=== PATIENT | female | born 1960 | race Caucasian/White ===

== ENCOUNTER 2020-03-29 15:06 | Emergency (ER) | payer OTHER ==
[2020-03-29] MEDS ORDERED: MORPHINE 4 MG/ML SYR ONE (16:30)
[2020-03-29] MEDS ORDERED: ONDANSETRON 4 MG/2 ML VIAL ONE (16:30)
[2020-03-29 16:42] LABS: Absolute Lymphocytes (CBC) 2.5 K/uL (0.7-4.9); Basophils % 0.7 % (0-1.3); Hematocrit 39.6 % (36.0-45.0); Lymphocytes % 15.2 % (15.3-44.8); MPV 9.4 fL (7.6-11.3); RBC Red Blood Cell Count 4.36 M/uL (3.86-4.86)
[2020-03-29 17:03] LABS: ALT/SGPT 17 U/L (12-78); AST/SGOT 13 U/L (15-37); Albumin 3.8 g/dL (3.4-5.0); Alkaline Phosphatase 89 U/L (45-117); BUN Blood Urea Nitrogen 18 mg/dL (7-18); Bicarbonate 28 mmol/L (21-32); Bilirubin Direct < 0.1 mg/dL (0-0.2); Bilirubin Total 0.3 mg/dL (0.2-1.0); Glucose Level 164 mg/dL (74-106); Potassium 4.3 mmol/L (3.5-5.1); Protein, Total 8.6 g/dL (6.4-8.2); Sodium Level 139 mmol/L (136-145)
[2020-03-29 17:05] LABS: Urine Bacteria LOADED /HPF (<20); Urine Culture Reflex Order REFLEXED; Urine RBC LOADED /HPF (NONE SEEN)
--- OUTSIDE RECORDS SUMMARY | 2020-03-29 17:05 | XMS REPORT | Continuity of Care Document ---
:1960 Demographics Address [address] [place] [address] Home Phone Preferred Language en-US Marital Status Unknown Yazidi Affiliation Unknown Race Unknown Ethnic Group Unknown Author Organization [employer] Care Team Providers Name Role Phone [facility] [employer] Unavailable Un available Problems Problem Status Onset Classification Date Comments Sourc e Date Reported N18.9 - "CHRONIC Active 05/24/20 [facility] KIDNEY DISEASE, [address] UNSPEC" Discharge 04/22/20 04/25/2014 [facility] Diagnosis: [address] [place] [address] Center SOB, CHEST PAINS Active 04/22/20 [place] [id number] Medical Center ACUTE RENAL Active 04/11/20 [facility] FAILURE [address] [place] [address] Diabetes Resolved Problem 06/03/2017 [facility] mellitus Medical (disorder) Center, OPID [place] Hypertensive Resolved Problem 06/03/2017 [place] disorder, Medical systemic Center, arterial OP[facility] (disorder) [place] Psoriasis Resolved Problem 06/03/2017 [facility] (disorder) Medical Center, OPID [place] RENAL FAILURE Active [facility] as NOS Medical Center Medications Medication Details Route Status Patient Ordering Order Source Instructions Provider Date metoprolol Notes: (Same Inactive 04/22[facility] s tartrate as: Lopressor) [address] [place] [address] Acetaminophen 1 tab, Route: Inactive 04/22[facility] [place] 325 MG / PO, Dosing 2014 [facility] Hydrocodone Weight 112.727, Cent er Bitartrate 5 MG kg, ONCE, Start Oral Tablet date: 04/22/14 [[place] 5/325] 12:10:00, Stop date: 04/22/14 12:10:00 ciprofloxacin 500 mg = 1 tab, Active 04/18[facility] [place] 500 mg oral PO, Daily, # 5 2014 Medic al tablet tab, 0 Center Refill(s) Insulin Syringes 1 syr, INJ, Active 04/17[facility] U 30 31 ga ONCALL, # 100 2014 Medical (ultra fine) syr, 0 Center Refill(s) POLYETHYLENE 17 gm, PO, Active 04/17[facility] GLYCOL 3350 142 Daily, 2014 Medical MG/ML Oral Constipation, # Cente r Solution 255 gm, 0 [Miralax] Refill(s) Insulin Aspart Special Active 07/05[facility] 100 unit/ml - Instructions: 2013 Medi cristian (Starting CD) Check blood Center sugar before breakfast, lunch, and dinner, and inject correction doses: Inject 1 unit if Sugar 150-199, Inject 2 units if Sugar 200-249, Inject 3 units if Sugar 250-299, Inject 4 units if Sugar 300-349, Inject 5 units if Sugar is 350 or more D[place]ate Sodium 1 tab, PO, Active [place] 50 MG / Bedtime, 2013 Medical sennosides, S[facility]IOR [facility]ARE Constipation, # Center 8.6 MG Oral 30 tab, 0 Tablet Refill(s) simethicone 80 80 mg = 1 tab, Active [place] mg oral tablet, CHEW, TID, Gas, 2013 Medical chewable # 36 tab, 0 Center Refill(s) metoprolol 12.5 mg = [facility].5 [facility] mg tab, PO, Q12H, 2013 Ne dical oral tablet # 30 tab, 0 Center Refill(s) ergocalciferol 50,000 IntlUnit Active [facility] 50,000 intl = 1 cap, PO, 2013 Medical units oral Q7D, # 12 cap, Center capsule 0 Refill(s) Calcium 1,500 mg = 3 Active [facility] Carbonate 500 MG tab, CHEW, TID, 2013 Medical Chewable Tablet # 90 tab, 0 Cent er Refill(s) gabapentin 300 300 mg = 1 cap, Active [place] MG Oral Capsule PO, Bedtime, # 2014 M edical 30 cap, 0 Center Refill(s) Lasix Notes: (Same Inactive [facility] as: Lasix) 2013 Medical Center Simethicone Notes: (Same No Longer [place] as: Mylicon) Active 2013 Medical Center Lasix Notes: (Same Inactive [facility] as: Lasix) 2013 Medical [place] Vitamin D Notes: (Same No Longer [place] as: Vitamin D) Active 2013 Medical "Do Not Crush" Center Cipro Notes: May No Longer [facility] interfere Active 2013 Medical w/enteral Center feedings - Take 1 hr before or 2 hrs after antacids, dairy pdt & minerals. On empty stomach. Tylenol Notes: Do not No Longer [place] exceed 4 Active 2013 Medical gm/day. (Same Center as: Tylenol) metoprolol Notes: (Same No Longer [place] as tartrate as: Lopressor) Active 2013 Medical 12.5mg=1/4 X 50 Center mg tab. Calcium 3,000 mg, 30 Inactive [place] Gluconate mL, Route: 2013 Medical IVPB, ONCE, Center Dosing Weight 115.004, kg, Priority: NOW, Start date: 04/15/14 8:40:00, Stop date: 04/15/14 8:40:00 Calcium Chloride 1,000 mg, Inactive [place] Route: IVPB, 2013 Medical ONCE, Dosing Center Weight 115.004, kg, Priority: NOW, Start date: 04/15/14 7:42:00, Stop date: 04/15/14 7:42:00 Magnesium 2 gm, 50 mL, Inactive [place] Sulfate Route: IVPB2013 Medical Drug form: INJ, Center ONCE, Dosing Weight 115.004, kg, Total dose = 2 gm, Start date: 04/15/14 4:23:00, Duration: 1 doses or times, Stop date: 04/15/14 4:23:00 Tums Notes: (Same No Longer [facility] As: Tums) Active 2013 Medical Calcium Center Carbonate 500 mg = 200 mg elemental calcium Dose = mg calcium carbonate ( mg elemental calcium) Atropine Sulfate Notes: (Same No Longer [place] 0.025 MG / As: Lomotil) Active 2013 Medical Diphenoxylate MAX Adult dose [address] ter Hydrochloride = 8 tabs/day 2.5 MG Oral Tablet [Lomotil] Magnesium 2 gm, 50 mL, Inactive [place] Sulfate Route: IVPB2013 Medical Drug form: INJ, Center ONCE, Dosing Weight 115.004, kg, Priority: NOW, Start date: 04/14/14 11:23:00, Duration: 2 hr, Stop date: 04/14/14 11:23:00 Calcium Chloride 1,000 mg, 10 Inactive [place] mL, Route: 2013 Medical IVPB, ONCE, Center Dosing Weight 115.004, kg, Priority: STAT, Start date: 04/14/14 11:23:00, Stop date: 04/14/14 11:23:00 Ambien Notes: (Same No Longer [place] As: Ambien) Active 2013 [facility] Atropine Sulfate Notes: (Same No Longer [place] 0.025 MG / As: Lomotil) Active 2013 Medical Diphenoxylate MAX Adult dose [address] Hydrochloride = 8 tabs/day 2.5 MG Oral Tablet [Lomotil] Pneumovax 23 Notes: (Same Inactive [place] as: Pneumovax 2013 Medical 23) [place] Refrigerate gabapentin 300 Notes: (Same No Longer [place] MG Oral Capsule as: Neurontin) Active [address] [facility] Paroxetine Notes: (Same No Longer [place] as: Paxil) Active 2013 [facility] gabapentin 300 Notes: (Same Inactive [place] MG Oral Capsule as: Neurontin) [address] [facility] heparin, porcine Notes: porcine No Longer [place] heparin Active 2013 [facility] pneumococcal Notes: (Same Inactive [place] capsular as: Pneumovax 2014 Medical polysaccharide 23) Center type 1 vaccine / Refrigerate pneumococcal capsular polysaccharide type 10A vaccine / pneumococcal capsular polysaccharide type 11A vaccine / pneumococcal capsular polysaccharide type 12F vaccine / pneumococcal capsular polysacchar NS 2,000 mL 2,000 mL, Rate: Inactive [place] 1,000 ml/hr, 2013 Medical Infuse over: 2 Center hr, Route: IV, Dosing Weight 115.004 kg, Total Volume: 2,000, Start date: 04/12/14 8:45:00, Duration: 1 doses or times, Stop date: 04/12/14 10:44:00 NS 0.45% IV 1,000 mL, Rate: No Longer [place] 1,000 mL 150 ml/hr, Active 2013 Medical Infuse over: Center 6.7 hr, Route: IV, Dosing Weight 115.004 kg, Total Volume: 1,000, Start date: 04/12/14 8:45:00, Duration: 30 day, Stop date: 05/12/14 8:44:00 Magnesium 1 gm, 50 mL, Inactive [place] Sulfate Route: IVPB, 2013 Medical Drug form: INJ, Center ONCE, Dosing Weight 115.004, kg, Start date: 04/12/14 8:26:00, Stop date: 04/12/14 8:26:00 PARoxetine 40 mg 40 mg = 1 tab, Active [place] oral tablet PO, Daily, # 30 2013 Medi cristian tab, 0 Center Refill(s) lisinopril 20 mg 20 mg = 1 tab, No Longer [facility] oral tablet PO, Daily, # 30 Active 2013 [facility] cristian tab, 0 Center Refill(s) gabapentin 300 300 mg = 1 cap, No Longer [place] MG Oral Capsule PO, TID, # 90 Active 2013 Me dical cap, 0 Center Refill(s) Metformin 1,000 mg = 1 [place]er [place] hydrochloride tab, PO, BID, # Active 2013 Me dical 1000 MG Oral 30 tab, 0 Center Tablet Refill(s) Zofran Notes: (Same No Longer [place] as: Zofran) Active 2013 [facility] Calcium 2,000 mg, 20 Inactive [place] Gluconate mL, Route: 2013 Medical IVPB, ONCE, Center Dosing Weight 115.004, kg, Start date: 04/12/14 0:54:00, Stop date: 04/12/14 0:54:00 heparin, porcine Notes: porcine Inactive [place] heparin 2013 [facility] Dextrose 50% 12.5 gm, 25 mL, No Longer 04/12/ [facility] Syringe Route: IVP, Active 2013 Medical Drug Form: INJ, Center kg, PRN, PRN Blood Glucose Results, Start date: 04/11/14 23:28:00, Duration: 30 day, Stop date: 05/11/14 23:27:00 Insulin, Aspart, Notes: Roll in No Longer [place] Human palms of hands Active 2013 Medical gently; Do not Center shake vigorously. (Same as: NovoLOG) "single patient use only" Stable for 28 days at room temperature. Expires in days from D ate Glucagon 1 mg, Route: No Longer [place] IM, Drug form: Active 2013 Medical PDR/INJ, PRN, Center kg, PRN Blood Glucose Results, Start date: 04/11/14 23:28:00, Duration: 30 day, Stop date: 05/11/14 23:27:00 Lidocaine Notes: (Same [place] Longer [place] Hydrochloride 10 as: Xylocaine) Active 2013 Medical MG/ML Injectable Center Solution Dextrose 50% in 50 mL, Route: Inactive 04/12/ M [facility] [place] IV IVP, Start 2013 Medical date: 04/11/14 [place] 21:10:00, Stop date: 04/11/14 21:10:00 albuterol 0.083% Notes: SEE RT Inactive 04/12[facility] inhalation DOCUMENTATION 2013 Medical solution (Same as: [place] Proventil) Dextrose 50% in 50 mL, Route: Inactive 04/12/ H [place] IV IVP, Start 2013 Medical date: 04/11/14 [place] 21:01:00, Stop date: 04/11/14 21:01:00 Saline Flush Notes: (Same No Longer [facility] [place] 0.9% as: BD Active 2013 Medical Posiflush) [place] Albuterol 1 2.49 mg, Route: Inactive 04/12[facility] MG/ML Inhalant INHALATION, 2013 Medic al Solution Drug form: [place] SOLN, ONCE, kg, Start date: 04/11/14 20:54:00, Stop date: 04/11/14 20:54:00 Sodium Notes: (sodium Inactive 04/12[facility] Bicarbonate 1 bicarb 8.4% (1 2013 Med ical MEQ/ML mEq/ml) 50 ml [place] Injectable syringe) Solution Dextrose 50% 25 gm, Route: Inactive 04/12[facility] [place] Syringe IVP, kg, ONCE, 2013 Medical Start date: [place] 04/11/14 20:51:00, Stop date: 04/11/14 20:51:00 Dextrose 25 gm, Route: Inactive 04/12[facility] IVPB, ONCE, kg, 2013 Medical Start date: [place] 04/11/14 20:50:00, Stop date: 04/11/14 20:50:00 Insulin, 60 units) Inactive 04/12[facility] Regular, Pork Stable for 28 2013 cristian days at room Center temperature Expires in days from D ate sodium 850 mL, Rate: No Longer [facility] bicarbonate 150 150 ml/hr, Active 2013 Medic al mEq + D5W 850 mL Infuse over: Ce nter 6.7 hr, Route: IV, Total Volume: 1,000 mL, Start date: 04/11/14 20:09:00, Duration: 30 day, Stop date: 05/11/14 20:08:00 Sodium Chloride 1,000 mL, 1,000 Inactive [place] 0.154 MEQ/ML ml/hr, Infuse 2013 Medic al Injectable Over: 1 hr, Center Solution Route: IV, 1,000, Drug form: INJ, Q1H, Priority: STAT, kg, Start date: 04/11/14 19:55:00, Duration: 3 doses or times, Stop date: 04/11/14 21:55:00 Zofran Notes: (Same Inactive [facility] as: Zofran) 2013 [facility] Center Calcium 1,000 mg, 10 Inactive [place] Gluconate mL, Route: 2013 Medical IVPB, ONCE, kg, Center Start date: 04/11/14 19:40:00, Stop date: 04/11/14 19:40:00 Sodium Chloride 1,000 mL, 1,000 Inactive [place] 0.154 MEQ/ML ml/hr, Infuse 2013 Medic al Injectable Over: 1 hr, Center Solution Route: IV, ONCE, Priority: STAT, kg, Start date: 04/11/14 19:39:00, Duration: 1 doses or times, Stop date: 04/11/14 19:39:00 Sodium Notes: (sodium Inactive [facility] Bicarbonate 1 bicarb 8.4% (1 2013 Med ical MEQ/ML mEq/ml) 50 ml Center Injectable syringe) Solution normal saline 1,000 mL, Rate: Inactive H [place] 0.9% IV 1,000 mL 100 ml/hr, 2013 Medi cristian Infuse over: 10 Center hr, Route: IV, Total Volume: 1,000, Start date: 04/11/14 19:09:00, Duration: 30 day, Stop date: 05/11/14 19:08:00 Saline Flush Notes: (Same No Longer [place] 0.9% as: BD Active 2013 Medical Posiflush) Center Allergies, Adverse Reactions, Alerts No Known Medication Allergies Immunizations Immunization Date Site Status Last Comments Source Given Updated pneumococcal Left completed Angus Thrasher s 23-valent [facility] [place] Results Order Name Results Value Reference Date Interpretation Comments [place] r[place] Range URINE AND UA Spec Grav 1.015 <=1.030 04/22 [facility] STOOL [facility] URINE AND UA Color Yellow Yellow 04/22 [facility] STOOL *NA* /2013 Medical (04/22/14 10:45 AM) Cente r URINE AND UA Turbidity Clear Clear 04/22 [facility] [place] [facility] (04/22/14 10:45 AM) [facility] URINE AND UA Ketones Negative Negative 04/22 [facility] STOOL *NA* /2013 Medical (04/22/14 10:45 AM) Cente r URINE AND UA pH 7.5 5.0 - 8.0 04/22 [facility] [place] [facility] URINE AND UA Protein Trace Negative 04/22 [facility] STOOL *ABN* /2013 Medical (04/22/14 10:45 AM) Cente r URINE AND UA Glucose Negative Negative 04/22 [facility] [place] [facility] (04/22/14 10:45 AM) [facility] URINE AND UA Bili Negative Negative 04/22 [facility] [place] [facility] *NA* /2013 Medical (04/22/14 10:45 AM) Cente r URINE AND UA Blood Negative Negative 04/22 [facility] [place] [facility] (04/22/14 10:45 AM) [facility] URINE AND UA 0.2 0.1 - 1.0 04/22 [facility] [place] [facility] Urobilinogen /2013 [facility] URINE AND UA Leuk Est Trace Negative 04/22 [facility] STOOL *ABN* /2013 Medical (04/22/14 10:45 AM) Cente r URINE AND UA Nitrite Negative Negative 04/22 [facility] [place] [facility] (04/22/14 10:45 AM) [facility] URINE AND UA RBC None Seen 0 - 2 04/22 [facility] [place] [facility] (04/22/14 10:45 AM) [facility] URINE AND UA Sq Epi Occasional Few /LPF 04/22 [facility] STOOL /LPF /2013 [facility] URINE AND UA WBC 0-2 /HPF None Seen 04/22 [facility] STOOL /HPF /2013 [facility] URINE AND Micro? Performed 04/22 [facility] STOOL (04/22/14 10:45 AM) [facility] URINE AND UA Bacteria None Seen None Seen 04/22 [place] STOOL (04/22/14 10:45 AM) [facility] CARDIAC Troponin-I <0.02 0.00 - 04/22 [facility] ENZYMES 0.40 /2013 [facility] ELECTROLYTE AGAP 13.3 10.0 - 04/22 [facility] S 20.0 [facility] ELECTROLYTE eGFR 25 04/22 <sup>1</sup>R [place] [facility] Comment: The Center eGFR is calculated using the CKD-EPI formula. In most young, healthy individuals the eGFR will be >90 mL/min/1.73m2 . The eGFR declines with age. An eGFR of 60-89 may be normal in some populations, particularly the elderly, for whom the CKD-EPI formula has not been extensively validated. Use of the eGFR is not recommended in the following populations:& lt;br/>
I ndividuals with unstable creatinine concentration s, including patients and those with serious co-morbid conditions.<b r/>
Patie nts with extremes in muscle mass or diet.

The data above are obtained from the National Kidney Disease Education Program (NKDEP) which additionally recommends that when the eGFR is used in patients with extremes of body mass index for purposes of drug dosing, the eGFR should be multiplied by the estimated BMI. ELECTROLYTE Calcium Lvl 8.5 8.5 - 10.5 04/22 [place] [facility] ELECTROLYTE CO2 24 24 - 32 04/22 S [facility] ELECTROLYTE Chloride Lvl 110 95 - 109 04/22 [place] [facility] ELECTROLYTE Potassium Lvl 4.3 3.5 - 5.1 04/22 [place] [facility] ELECTROLYTE BUN 26 7 - 22 04/22 [facility] ELECTROLYTE Creatinine 2.2 0.5 - 1.4 04/22 [place] S L[place] [facility] ELECTROLYTE Sodium Lvl 143 135 - 145 04/22 [place] [facility] ELECTROLYTE Glucose Lvl 124 70 - 99 04/22 <sup>2</sup>I MH nterpretive Medical Data: Adult Center reference range values reflect the clinical guidelines
of the [place] [employer]. HEMATOLOGY Basophils # 0.0 0.0 - 0.2 04/22 [facility] HEMATOLOGY Eosinophils # 0.2 0.0 - 0.5 04/22 [facility] HEMATOLOGY Segs-Bands # 6.8 1.5 - 8.1 04/22 [facility] HEMATOLOGY Lymphocytes # 1.6 1.0 - 5.5 04/22 [facility] HEMATOLOGY Basophils 0.2 0.0 - 1.0 04/22 [facility] HEMATOLOGY Monocytes # 0.6 0.0 - 0.8 04/22 [facility] HEMATOLOGY Monocytes 6.1 2.0 - 12.0 04/22 [facility] HEMATOLOGY Eosinophils 2.1 0.0 - 4.0 04/22 [facility] HEMATOLOGY Lymphocytes 17.1 20.0 - 04/22 40.0 Medical [place] HEMATOLOGY Segs 74.5 45.0 - 04/22 75.0 [facility] HEMATOLOGY MCH 28.3 27.0 - 07 31.0 [facility] HEMATOLOGY MPV 7.5 7.4 - 10.4 04/22 [facility] HEMATOLOGY MCV 87.2 81.0 - 04/22 99.0 /2013 [facility] HEMATOLOGY Platelet 303 133 - 450 04/22 [facility] HEMATOLOGY RDW 14.4 11.5 - 07 14.5 [facility] HEMATOLOGY MCHC 32.5 32.0 - 07 36.0 [facility] HEMATOLOGY Hct 22.3 36.0 - 07 48.0 /2013 [facility] HEMATOLOGY Hgb 7.2 12.0 - 07 16.0 [facility] HEMATOLOGY RBC 2.56 4.20 - 07 5.40 [facility] HEMATOLOGY WBC 9.2 3.7 - 10.4 07 [facility] Center BLOOD BANK ABO/Rh O POS 04/17 RESULTS [facility] Center BLOOD BANK Antibody Scrn Negative 04/17 as RESULTS (04/17/14 10:30 AM) [facility] BLOOD BANK RBC product Product available 04/17 [facility] RESULTS (04/17/14 8:58 AM) [facility] CHEM PANEL eGFR 8 04/17 <sup>1</sup>R esult Medical Comment: The Center eGFR is calculated using the CKD-EPI formula. In most young, healthy individuals the eGFR will be >90 mL/min/1.73m2 . The eGFR declines with age. An eGFR of 60-89 may be normal in some populations, particularly the elderly, for whom the CKD-EPI formula has not been extensively validated. Use of the eGFR is not recommended in the following populations:& lt;br/>
I ndividuals with unstable creatinine concentration s, including patients and those with serious co-morbid conditions.<b r/>
Patie nts with extremes in muscle mass or diet.

The data above are obtained from the National Kidney Disease Education Program (NKDEP) which additionally recommends that when the eGFR is used in patients with extremes of body mass index for purposes of drug dosing, the eGFR should be multiplied by the estimated BMI. CHEM PANEL Calcium Lvl 7.9 8.5 - 10.5 04/17 [facility] CHEM PANEL CO2 22 24 - 32 04/17 [facility] CHEM PANEL Chloride Lvl 108 95 - 109 04/17 [facility] CHEM PANEL BUN 57 7 - 22 04/17 [facility] CHEM PANEL Glucose Lvl 83 70 - 99 04/17 <sup>4</sup>I nterpretive Medical Data: Adult Center reference range values reflect the clinical guidelines
of the [place] [employer]. CHEM PANEL Creatinine 5.9 0.5 - 1.4 04/17 [facility] CHEM PANEL Sodium Lvl 144 135 - 145 04/17 [facility] CHEM PANEL Potassium Lvl 4.3 3.5 - 5.1 04/17 [facility] CHEM PANEL AGAP 18.3 10.0 - 04/17 20.0 [facility] HEMATOLOGY MPV 8.5 7.4 - 10.4 04/17 [facility] HEMATOLOGY Platelet 242 133 - 450 07/ [facility] HEMATOLOGY RDW 14.1 11.5 - 07 14.5 [facility] HEMATOLOGY WBC 8.1 3.7 - 10.4 07 [facility] HEMATOLOGY RBC 2.17 4.20 - 07 5.40 /2013 [facility] HEMATOLOGY MCHC 33.8 32.0 - 07/ 36.0 /2013 [facility] HEMATOLOGY MCH 30.4 27.0 - 07 31.0 /2013 [facility] HEMATOLOGY Hgb 6.6 12.0 - 07 <sup>15</sup> [place] 16.0 Result Medical Comment: Center Critical Result(s) called to Mark Moreno at 04/17/2014 08:44 by CN. Read back OK. HEMATOLOGY MCV 89.8 81.0 - 07 99.0 /2013 [facility] HEMATOLOGY Hct 19.5 36.0 - 07 48.0 [facility] HEMATOLOGY Monocytes 10.4 2.0 - 12.0 07/ [facility] HEMATOLOGY Lymphocytes 24.0 20.0 - 07 40.0 /2013 [facility] HEMATOLOGY Segs 63.3 45.0 - 0705 75.0 /2013 [facility] HEMATOLOGY Lymphocytes # 1.9 1.0 - 5.5 07 [facility] HEMATOLOGY Monocytes # 0.8 0.0 - 0.8 07 [facility] HEMATOLOGY Eosinophils # 0.2 0.0 - 0.5 04/17 [facility] HEMATOLOGY Segs-Bands # 5.1 1.5 - 8.1 07 [facility] HEMATOLOGY Basophils 0.2 0.0 - 1.0 07/ [facility] HEMATOLOGY Eosinophils 2.1 0.0 - 4.0 07 [facility] CHEM PANEL Lactic Acid 1.9 0.5 - 2.2 07 [place] L[place] [facility] ELECTROLYTE Potassium Lvl 5.4 3.5 - 5.1 04/16 [place] [facility] CHEM PANEL Phosphorus 5.6 2.5 - 4.5 07 [facility] CHEM PANEL Magnesium Lvl 2.1 1.8 - 2.4 04/16 [facility] CHEM PANEL eGFR 6 04/16 <sup>2</sup>R [facility] Medical Comment: The Center eGFR is calculated using the CKD-EPI formula. In most young, healthy individuals the eGFR will be >90 mL/min/1.73m2 . The eGFR declines with age. An eGFR of 60-89 may be normal in some populations, particularly the elderly, for whom the CKD-EPI formula has not been extensively validated. Use of the eGFR is not recommended in the following populations:& lt;br/>
I ndividuals with unstable creatinine concentration s, including patients and those with serious co-morbid conditions.<b r/>
Patie nts with extremes in muscle mass or diet.

The data above are obtained from the National Kidney Disease Education Program (NKDEP) which additionally recommends that when the eGFR is used in patients with extremes of body mass index for purposes of drug dosing, the eGFR should be multiplied by the estimated BMI. CHEM PANEL Potassium Lvl 5.3 3.5 - 5.1 04/16 [facility] CHEM PANEL Chloride Lvl 108 95 - 109 04/16 [facility] CHEM PANEL Creatinine 7.4 0.5 - 1.4 04/16 [facility] CHEM PANEL Sodium Lvl 142 135 - 145 04/16 [facility] CHEM PANEL Calcium Lvl 7.8 8.5 - 10.5 04/16 [facility] CHEM PANEL Glucose Lvl 112 70 - 99 04/16 <sup>5</sup>I nterpretive Medical Data: Adult Center reference range values reflect the clinical guidelines
of the [place] [employer]. CHEM PANEL CO2 18 24 - 32 04/16 [facility] CHEM PANEL BUN 66 7 - 22 04/16 [facility] CHEM PANEL AGAP 21.3 10.0 - 04/16 20.0 [facility] HEMATOLOGY MCHC 31.8 32.0 - 04/16 36.0 [facility] HEMATOLOGY RDW 14.5 11.5 - 04/16 [facility] 14.5 [facility] HEMATOLOGY Platelet 228 133 - 450 04/16 Medical [place] HEMATOLOGY MPV 8.8 7.4 - 10.4 04/16 [facility] HEMATOLOGY Hgb 7.1 12.0 - 04/16 16.0 /2013 [facility] HEMATOLOGY Hct 22.3 36.0 - 04/16 48.0 /2013 [facility] HEMATOLOGY MCH 28.9 27.0 - 04/16 31.0 [facility] HEMATOLOGY MCV 90.8 81.0 - 04/16 99.0 /2013 [facility] HEMATOLOGY WBC 8.6 3.7 - 10.4 04/16 [facility] HEMATOLOGY RBC 2.45 4.20 - 04/16 5.40 [facility] HEMATOLOGY Plt Morph Normal 04/16 [facility] (04/16/14 5:40 AM) [facility] HEMATOLOGY Lymphocytes 15.5 20.0 - 04/16 40.0 [facility] HEMATOLOGY Segs 71.4 45.0 - 04/16 75.0 [facility] HEMATOLOGY Monocytes 11.1 2.0 - 12.0 04/16 [facility] HEMATOLOGY Eosinophils 1.7 0.0 - 4.0 04/16 [facility] HEMATOLOGY Segs-Bands # 6.2 1.5 - 8.1 04/16 [facility] HEMATOLOGY Basophils 0.3 0.0 - 1.0 04/16 [facility] HEMATOLOGY Eosinophils # 0.1 0.0 - 0.5 04/16 [facility] HEMATOLOGY Monocytes # 1.0 0.0 - 0.8 04/16 [facility] HEMATOLOGY Lymphocytes # 1.3 1.0 - 5.5 04/16 [facility] HEMATOLOGY Polychrom Slight None Seen 04/16 [facility] (04/16/14 5:40 AM) [facility] CHEM PANEL Vitamin D, 21 30 - 100 04/15 <sup>7</sup>I [facility] 25-[place], nterpretive Medical Data: Center Reference range is based on recommendatio ns in the Endocrine<br/ >Society Clinical Practice Guideline (J Clin Endocrinol Metab
201 1;[id number] 0) CHEM PANEL Magnesium Lvl 1.8 1.8 - 2.4 04/15 [place] [facility] CHEM PANEL eGFR 5 04/15 <sup>3</sup>R esult Medical Comment: The Center eGFR is calculated using the CKD-EPI formula. In most young, healthy individuals the eGFR will be >90 mL/min/1.73m2 . The eGFR declines with age. An eGFR of 60-89 may be normal in some populations, particularly the elderly, for whom the CKD-EPI formula has not been extensively validated. Use of the eGFR is not recommended in the following populations:& lt;br/>
I ndividuals with unstable creatinine concentration s, including patients and those with serious co-morbid conditions.<b r/>
Patie nts with extremes in muscle mass or diet.

The data above are obtained from the National Kidney Disease Education Program (NKDEP) which additionally recommends that when the eGFR is used in patients with extremes of body mass index for purposes of drug dosing, the eGFR should be multiplied by the estimated BMI. CHEM PANEL BUN 65 7 - 22 04/15 [facility] CHEM PANEL Glucose Lvl 173 70 - 99 04/15 <sup>6</sup>I nterpretive Medical Data: Adult Center reference range values reflect the clinical guidelines
of the [place] [employer]. CHEM PANEL Sodium Lvl 136 135 - 145 04/15 [facility] CHEM PANEL Creatinine 8.4 0.5 - 1.4 04/15 [facility] CHEM PANEL Chloride Lvl 103 95 - 109 04/15 [facility] CHEM PANEL CO2 18 24 - 32 04/15 [facility] CHEM PANEL Calcium Lvl 7.1 8.5 - 10.5 04/15 [facility] CHEM PANEL AGAP 19.5 10.0 - 04/15 20.0 [facility] HEMATOLOGY Hct 21.6 36.0 - 04/15 [place] 48.0 [facility] HEMATOLOGY Hgb 7.2 12.0 - 04/15 16.0 [facility] PARATHYROID Ca Ion WB 0.90 1.05 - 07 <sup>8</sup>R [place] PROFILE 1. esult Medical Comment: Center Critical Result(s) called to Kristin Amador at 04/15/2014 03:11 by TH. Read back OK. PARATHYROID Ca Norm WB 0.86 1.05 - 04/15 <sup>9</sup>R [place] PROFILE 1 esult Medical Comment: Center Critical Result(s) called to Kristin Amador at 04/15/2014 03:11 by TH. Read back OK. URINE CHEM U Prot/Creat 1.1 04/14 [facility] URINE CHEM U Creatinine 71.3 04/14 <sup>10</sup> Interpretive Medical Data: No Center established reference ranges. URINE CHEM U Protein 79.4 04/14 <sup>11</sup> Interpretive Medical Data: No Center established reference ranges. ANEMIA Ferritin Lvl 400 5 - 204 04/14 [facility] ANEMIA TIBC 276 228 - 428 04/14 [facility] ANEMIA % [place] 35 12 - 57 04/14 [facility] ANEMIA UIBC 180 110 - 370 04/14 [facility] ANEMIA Iron 96 30 - 160 04/14 [facility] CHEM PANEL Phosphorus 5.7 2.5 - 4.5 04/14 [facility] CHEM PANEL Magnesium Lvl 1.3 1.8 - 2.4 04/14 [facility] HEMATOLOGY MCHC 34.1 32.0 - 07 36.0 /2013 [facility] HEMATOLOGY MCH 30.3 27.0 - 07 31.0 /2013 [facility] HEMATOLOGY MCV 88.8 81.0 - 04/14 99.0 [facility] HEMATOLOGY Platelet 181 133 - 450 04/14 [facility] HEMATOLOGY RDW 14.1 11.5 - 04/14 14.5 /2013 [facility] HEMATOLOGY MPV 8.5 7.4 - 10.4 04/14 [facility] HEMATOLOGY RBC 2.35 4.20 - 04/14 [place] 5.40 /2013 [facility] HEMATOLOGY WBC 7.3 3.7 - 10.4 04/14 [facility] HEMATOLOGY Segs 80.2 45.0 - 07 [place] 75.0 /2013 [facility] HEMATOLOGY Eosinophils # 0.1 0.0 - 0.5 04/14 [facility] HEMATOLOGY Monocytes # 0.6 0.0 - 0.8 07 [facility] HEMATOLOGY Lymphocytes # 0.8 1.0 - 5.5 04/14 [facility] HEMATOLOGY Segs-Bands # 5.9 1.5 - 8.1 04/14 [facility] HEMATOLOGY Basophils 0.2 0.0 - 1.0 04/14 [facility] HEMATOLOGY Eosinophils 1.0 0.0 - 4.0 04/14 [facility] HEMATOLOGY Monocytes 7.9 2.0 - 12.0 04/14 [facility] HEMATOLOGY Lymphocytes 10.7 20.0 - 04/14 [facility] 40.0 [facility] THYROID T4 Free 0.83 0.76 - 04/14 [facility] PANEL 1.46 /2013 [facility] THYROID TSH 0.261 0.360 - 04/14 [facility] PANEL 3.740 /2013 [facility] URINE AND UA <=1.0 0.1 - 1.0 04/14 [facility] [place] [facility] Urobilinogen mg/dL /2013 [facility] URINE AND UA Nitrite Negative Negative 04/14 [facility] [place] [facility] (04/14/14 9:27 AM) [facility] URINE AND UA Leuk Est Moderate Negative 04/14 [facility] [place] [facility] *ABN* /2013 [facility] (04/14/14 9:27 AM) [place] URINE AND UA Sq Epi Few /LPF Few /LPF 04/14 [facility] [place] [facility] URINE AND UA WBC 18 0 - 5 04/14 [facility] URINE AND UA Blood Small Negative 04/14 [facility] STOOL *ABN* /2013 [facility] (04/14/14 9:27 AM) [place] URINE AND UA Spec Grav 1.006 <=1.030 04/14 [facility] [place] [facility] URINE AND UA Bacteria Many /HPF None Seen 04/14 [place] STOOL /HPF /2013 [facility] URINE AND UA RBC 1 0 - 2 04/14 [facility] URINE AND UA Amorph Few /HPF None Seen 04/14 [facility] STOOL Destiny /HPF /2013 [facility] URINE AND UA Mucus Few /LPF None Seen 04/14 [place] STOOL /LPF /2013 [facility] URINE AND UA Turbidity Slight Clear 04/14 [facility] STOOL *ABN* [facility] (04/14/14 9:27 AM) [place] URINE AND UA pH 5.0 5.0 - 8.0 04/14 [facility] [place] [facility] URINE AND UA Glucose Negative Negative 04/14 [facility] [place] [facility] mg/dL mg/dL [facility] URINE AND UA Protein 50 mg/dL Negative 04/14 [facility] STOOL mg/dL [facility] URINE AND UA Bili Negative Negative 04/14 [facility] [place] [facility] *NA* [facility] (04/14/14 9:27 AM) [place] URINE AND UA Ketones Negative Negative 04/14 [facility] [place] [facility] mg/dL mg/dL [facility] URINE AND UA Color Yellow Yellow 04/14 [facility] [place] [facility] *NA* [facility] (04/14/14 9:27 AM) [place] CHEM PANEL Phosphorus 6.2 2.5 - 4.5 04/13 [facility] PARATHYROID Ca Ion WB 0.96 1.05 - 04/13 [place] PROFILE 1. [facility] PARATHYROID Ca Norm WB 0.93 . - 04/13 [facility] PROFILE 1. [facility] CHEM PANEL Lactic Acid 1.9 0.5 - 2.2 04/12 [place] L[place] [facility] URINE AND UA <=1.0 0.1 - 1.0 04/12 [facility] [place] [facility] Urobilinogen mg/dL [facility] URINE AND UA Gran Cast 54 04/12 [facility] [place] [facility] URINE AND UA Hyal Cast 12 0 - 2 04/12 [facility] [place] [facility] URINE AND UA Mucus Few /LPF None Seen 04/12 [facility] STOOL /LPF /2013 [facility] URINE AND UA RBC 101 0 - 2 04/12 [facility] [place] [facility] URINE AND UA Bacteria Many /HPF None Seen 04/12 [place] STOOL /HPF [facility] URINE AND UA WBC 32 0 - 5 04/12 [facility] [place] [facility] URINE AND UA Color Yellow Yellow 04/12 [facility] STOOL *NA* Medical (04/12/14 10:34 AM) Cente r URINE AND UA pH 5.5 5.0 - 8.0 04/12 [facility] STOOL [facility] URINE AND UA Spec Grav 1.014 <=1.030 04/12 [facility] STOOL [facility] URINE AND UA Turbidity Marked Clear 04/12 [facility] STOOL *ABN* Medical (04/12/14 10:34 AM) Cente r URINE AND UA Glucose Negative Negative 04/12 [facility] STOOL mg/dL mg/dL [facility] URINE AND UA Protein 200 mg/dL Negative 04/12 [facility] STOOL mg/dL [facility] URINE AND UA Bili Negative Negative 04/12 [facility] STOOL *NA* /2013 Medical (04/12/14 10:34 AM) Cente r URINE AND UA Blood Large Negative 04/12 [facility] STOOL *ABN* Medical (04/12/14 10:34 AM) Cente r URINE AND UA Nitrite Negative Negative 04/12 [facility] STOOL (04/12/14 10:34 AM) Medic [facility] URINE AND UA Sq Epi Many /LPF Few /LPF 04/12 [facility] URINE AND UA Leuk Est Large Negative 04/12 [facility] STOOL *ABN* Medical (04/12/14 10:34 AM) Cente r URINE AND UA Ketones Negative Negative 04/12 [facility] STOOL mg/dL mg/dL [facility] URINE CHEM U Sodium 50 04/12 <sup>12</sup> [facility] Interpretive Medical Data: No Center established reference ranges. URINE CHEM U Potassium 17.4 04/12 <sup>13</sup> Interpretive Medical Data: No Center established reference ranges. URINE CHEM U Chloride 45 04/12 [facility] URINE CHEM U Osmolality 301 300 - 800 04/12 [place] [facility] MOLECULAR C difficile Negative 18 Negative 04/12 <sup>18</sup> [facility] DIAGNOSTIC DNA (04/12/14 5:30 AM) Interpretiv e Medical Data: [place] PicRate[employer]Me illumigene Clostridium difficile assay utilizes loop-mediated isothermal DNA amplification (LAMP) technology to detect a 204 bp region of the tcdA gene within the PaLoc gene segment present in all known toxigenic C. difficile strains.

The assay utilizes FDA cleared IVD reagents. Performance characteristi cs have been verified by the [facility] within the [facility]. The [facility] Laboratory is authorized under the Clinical Laboratory Improvement Amendment of 1988 (CLIA-88) to perform high complexity testing. CHEM PANEL Osmolality 317 280 - 300 04/12 [facility] CHEM PANEL Lactic Acid 4.5 0.5 - 2.2 04/12 [facility] PARASITOLOG Giardia Ag Negative Negative 04/12 [facility] s Y - (04/12/14 5:30 AM) Medica l SEROLOGY Center PARATHYROID Ca Norm WB 0.95 1. - 04/12 [facility] PROFILE 11.07 [facility] PARATHYROID Ca Ion WB 0.98 1. - 04/12 [facility] PROFILE 11.07 [facility] IMMUNOLOGY Hep B Core Negative Negative 04/12 [facility] IgM *NA* Medical (04/12/14 1:35 AM) [place] IMMUNOLOGY Hep Bs Ab 11.0 <=7.4 04/12 <sup>14</sup> [place] mIU/mL Interpretive Medical Data: <=7.4 Center mIU/mL------- -Negative for Anti-HBs. Not immune to HBV infection.

7.5-12 .4 mIU/mL--Borde rline for Anti-HBs and immune status
sh ould be further assessed by considering other factors such
as clinical status follow-up testing, associated risk factors,
and the use of additional diagnostic information.< br/>
>12. 4 mIU/mL------- Positive for Anti-HBs. Immune to HBV infection IMMUNOLOGY Hep Bs Ag Negative Negative 04/12 [place] *NA* Medical (04/12/14 1:35 AM) [place] IMMUNOLOGY Hep B Core Ab Positive Negative 04/12 [place] *NA* Medical (04/12/14 1:35 AM) [place] BACTERIAL - MRSA by PCR Negative 19 04/12 <sup>19</sup > [facility] SEROLOGY (04/12/14 12:22 AM) Interpretive Medical Data: Center Interpretive Data: The [place] LightC[employer] MRSA assay is a qualitative test for the direct detection of nasal colonization with methicillin-r esistant Staphylococcu s aureus (MRSA) to aid in the prevention and control of MRSA infections in healthcare settings. A positive result does not indicate an infection or require treatment. A negative result does not exclude colonization or infection.

The polymerase chain reaction (PCR) assay detects a proprietary sequence indicative of the integration of the SCCmec cassette into the Staphylococcu s aureus chromosome, indicating the presence of MRSA DNA. The assay utilizes FDA cleared IVD reagents. Performance characteristi cs have been verified by the [facility] within the [facility]. The [facility] is authorized under the Clinical Laboratory Improvement Amendment of 1988 (CLIA-88) to perform high complexity testing. CHEM PANEL Procalcitonin 0.55 0.00 - 04/12 [place] L[place] 0.10 [facility] ENDOCRINOLO S Preg Negative Negative 04/12 [facility] GY *NA* /2013 Medical (04/11/14 10:11 PM) Cente r LIPIDS VLDL 47 04/12 [facility] LIPIDS LDL 48 <=99 mg/dL 04/12 [facility] (Calculated) [facility] LIPIDS Trig 235 <=149 04/12 [place] mg/dL [facility] LIPIDS Chol 133 <=199 04/12 [place] mg/dL /2013 [facility] LIPIDS HDL 38 >=61 mg/dL 04/12 [facility] LIPIDS CHD Risk 3.50 3.90 - 04/12 [place] 5.80 /2013 [facility] CARDIAC Total CK 134 12 - 191 04/12 [place] ENZYMES [facility] CARDIAC Total CK 134 12 - 191 04/12 [facility] ENZYMES [facility] CARDIAC Troponin-T <0.010 0.000 - 04/12 [facility] ENZYMES 0.100 [facility] CARDIAC Troponin-I <0.02 0.00 - 04/12 [facility] ENZYMES 0.40 [facility] CARDIAC CK-MB INDEX 2.3 0.0 - 2.5 04/12 [place] ENZYMES [facility] CARDIAC CK MB 3.1 0.5 - 3.6 04/12 [facility] ENZYMES [facility] CHEM PANEL A/G Ratio 0.9 0.7 - 1.6 04/12 [facility] CHEM PANEL Bili Total 0.2 0.2 - 1.3 04/12 [facility] CHEM PANEL Alk Phos 74 39 - 136 04/12 [facility] CHEM PANEL AST 35 0 - 37 04/12 [facility] CHEM PANEL Albumin Lvl 3.1 3.5 - 5.0 04/12 a s [facility] CHEM PANEL Globulin 3.5 2.0 - 4.0 04/12 [facility] CHEM PANEL ALT 55 0 - 65 04/12 [facility] CHEM PANEL Total Protein 6.6 6.4 - 8.4 04/12 [place] [facility] CHEM PANEL B/C Ratio 8 6 - 25 04/12 [facility] CHEM PANEL Lipase Lvl 1364 73 - 393 04/12 [facility] HEMATOLOGY PTT 32.5 22.9 - 04/12 <sup>17</sup> [place] 35.8 Interpretive Medical Data: [facility] Therapeutic Range: 57 - 92 [place] HEMATOLOGY INR 1.23 0.85 - 04/12 <sup>16</sup> [facility] s 1.17 Interpretive Medical Data: Center RECOMMENDED RANGES FOR PROTIME INR:
2.0-3.0 for most medical and surgical thromboemboli c states.
2.5-3.5 for artificial heart valves and recurrent embolism.<br/ >
INR SHOULD BE USED ONLY FOR PATIENTS ON STABLE ANTICOAGULANT THERAPY. HEMATOLOGY PT 15.4 12.0 - 04/12 [facility] 14.7 [facility] SPECIAL Hgb A1C 8.0 <=5.6 % 04/12 [facility] CHEMISTRY [facility] THYROID TSH 0.245 0.360 - 04/12 [facility] PANEL 3.740 [facility] BLOOD BANK Antibody Scrn Negative 04/12 [facility] as RESULTS (04/11/14 7:00 PM) [facility] BLOOD BANK ABO/Rh O POS 04/12 [facility] RESULTS [facility] Pathology Reports No Data Provided for This Section Diagnostic Reports Report Value Date Source Abdomen complete US Patient Name: BERNABE SOLIS 05/31/2017 [place]jo : 1960; Age: 56 years y/o Female MR: [id number] Study: Abdomen complete US 05/31/2017 9:38 AM CDT Ordering Physician: Angela Carlson MD Clinical Indication: Hep C - Hep C. Comparison: Abdominal ultrasound 04/12/2014. TECHNIQUE: Grayscale and limited color sonographic evaluation of the abdomen was performed with standard technique. FINDINGS: LIVER: The liver is heterogeneous i n echotexture and diffusely echogenic reflecting mild fatty infiltration. This lowers the sensitivity for detection of hepatic lesion. BILE DUCTS: The intrahepatic duct is not dilated. The common bile duct measuring 6.4 mm. GALLBLADDER: There are no gallstones, gal lbladder sludge, pericholecystic fluid or wall thickening. PANCREAS: The visualized pancreas appears unremarkable.. SPLEEN: The spleen is unremarkable and measures 13.7 cm. KIDNEY: The right kidney measures 11.7 cm x 4.4 cm x 4.9 cm. The left kidney measures 12.3 cm x 6.3 cm x 5.1 cm. There is normal renal contou r and morphology, with normal parenchymal echotexture. There is no hydronephrosis. AORTA AND INFERIOR VENA CAVA: Visualized portions appear unremarkable. ASCITES: There is no right abdominal ascites. IMPRESSION: 1. No definite gallstones. 2. Hepatocellular disease. 3. Stable mild splenomegaly. SL: [id number] Consultation Notes No Data Provided for This Section Discharge Summaries No Data Provided for This Section History and Physicals No Data Provided for This Section Vital Signs Vital Sign Value Date Comments Source Respitory Rate 38 04/22/2014 [facility] Systolic (mm Hg) 164 04/22/2014 [facility] Diastolic (mm Hg) 124 04/22/2014 [facility] Diastolic (mm Hg) 84 04/22/2014 [facility] Systolic (mm Hg) 150 04/22/2014 [facility] Respitory Rate 13 04/22/2014 [facility] Diastolic (mm Hg) 77 04/22/2014 [facility] Respitory Rate 18 04/22/2014 [facility] Systolic (mm Hg) 154 04/22/2014 [facility] Height 172.72 cm 04/22/2014 [facility] BMI Calculated 37.79 04/22/2014 [facility] Weight 112.727 04/22/2014 [facility] Heart Rate 92 04/22/2014 [facility] Temperature Oral (F) 98.6 F 04/22/2014 [facility] Diastolic (mm Hg) 55 04/17/2014 [facility] Respitory Rate 20 04/17/2014 [facility] Temperature Oral (F) 98.3 F 04/17/2014 [facility] Systolic (mm Hg) 124 04/17/2014 [facility] Heart Rate 76 04/17/2014 [facility] [place] Heart Rate 86 04/17/2014 [facility] [place] Temperature Oral (F) 98 F 04/17/2014 [facility] Systolic (mm Hg) 124 04/17/2014 [facility] Center Diastolic (mm Hg) 69 04/17/[address] [facility] edical [place] Heart Rate 98 04/17/2014 [facility] Systolic (mm Hg) 123 04/17/2014 [facility] d[facility] Center Diastolic (mm Hg) 68 04/17/2014 [facility] Respitory Rate 20 04/17/2014 [facility] Temperature Oral (F) 98 F 04/17/2014 [facility] Respitory Rate 20 04/17/2014 [facility] Weight 115.004 04/12/2014 [facility] Height 167.64 cm 04/12/2014 [facility] BMI Calculated 40.92 04/12/2014 [facility] Weight 115.004 04/12/2014 [facility] Height 167.64 cm 04/12/2014 [facility] BMI Calculated 40.92 04/12/2014 [facility] Weight 115.4 04/12/2014 [facility] Height 167.64 cm 04/12/2014 [facility] BMI Calculated 41.06 04/12/2014 [facility] Encounters Location Location Encounter Encounter Reason Attending ADM DC Stat us Source Details Type Number For Provider Date Date Visit [facility] Inpatient [id number] Freda 04/11 04/16 [facility] [place] /2013 [facility] [id number] Terra 04/22 04/22 [facility] Paulo /2013 [facility] Out[facility] Diag [id number] Angela Carlson 05/31 06/01 [facility] [place] Procedures Procedure Code Date Perfomer Comments Source Cholecystectomy [id number] [facility], [place] Assessment and Plan Assessment and Plan Date Source Extracted from:Title: Progress Note * 04/16/[address] 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 kidney insufficiency, optimal iron stora ge : hg stable Hypocalcemia with vitamin d defc HypoMg Hyperkalemia but Cr improvingm, repeating K level AG acidosis: lactate ordered Atelectasis Depression : on paroxetine Headache : prn tylenol Subclinical Hyperthyroidism w normal lottie e T4 may be 2/2 acute illness: pt need repeat TSH in 6 wks PLAN: started on abx w cipro for 1/7 days will give Lasix 20 mg IV today and started on IS cont lomotil prn for diarrhea started on vitamin d supplement repeating K level Cont ISS for now, Anticipate increased i nsulin requirements now that kidney function is improving, will monitor, Pt will get diabetes teaching education as new to insulin, cant resume OHA given kidney function cont on low dose metoprolol for BP jamin cath was removed yesterday Heparin for DVT prophylaxis Dispo: Home pending improvment in diarrh ea, kidney recovery and stable electrolytes [facility] Hospitalist service is primary. Page [phone] with concer ns. Extracted from:Title: MICU attending Author: Freda Pa MD Date: 04/12/14 I have seen and examined this patient wi th Dr Cervantes. I agree with the assessment and plan in the note dated 04/11/2014. Please see below for additional plans. I have reviewed the current laboratory r esults, microbiology results, radiology and medications. I have personally discussed the case with robert This patient is critically ill and requires ICU for higher l evel of care Critical care time 30 mins exclusive of procedures. c/o vomiting and diarrhea stopped making urine 2 days ago hx of DM hx of HTN c/o fever, chills went to [facility]. found to [place] severe hyperkalemia and renal failure transferred to [facility] for higher level of care and emergent HD taking lisinopril and metoformin and chromium salts at home CXR: 7. Plans: paxil hyperkalemia- acute s/p HD last night HD today again acute on chronic renal failure IV fluids @1/2 NS 150 fluid boluses 7.40/ renal ultrasound abdominal ulrasound evaluate the pancrease check cultures 2 L NS this am po diet sq heparin transfer to floor Plan of Care No Data Provided for This Section Social History Social History Date Source Social History TypeResponse 04/18/2014 [facility] [place] [facility] Past Smoking Status Former smoker; Number of years: 10; Read y to change: Yes; Concerns about tobacco use in household: No; Exposure to Tobacco Smoke None; Cigarette Smoking Last 365 Days No; Reg Smoking Cessation Counseling No Social History TypeResponse 04/18/2014 [facility] Alcohol Use: Past Smoking Status Former smoker, Ready to change: Yes, Con cerns about tobacco use in household: No, Exposure to Tobacco Smoke None, Cigarette Smoking Last 365 Days No, Reg Smoking Cessation Counseling No Family History No Data Provided for This Section Advance Directives No Data Provided for This Section Functional Status No Data Provided for This Section
[2020-03-29] MEDS ORDERED: CEFTRIAXONE/SWI 1gm 1 GM/10 ML SYR ONE (17:51)
--- NOTE | 2020-03-29 18:02 | RAD REPORT ---
EXAM DESCRIPTION: CT - [place] Protocol - 03/29/2020 5:53 pm CLINICAL HISTORY: Flank pain. Flank pain;Hematuria COMPARISON: HEAD BRAIN W O CONTRAST dated 12/23/2013bdomen Pelvis W Contrast dated 03/13/2017 TECHNIQUE: Axial images were obtained without oral or IV contrast. Lack of contrast limits solid org an and vascular assessment. The [id number] spans the entirety of the system partially obscuring uppermost abdomen and lung bases. Coronal reformatted images were obtained and reviewed. All CT scans are performed using dose optimization technique as appropriate and may include automated exposure control or mA/KV adjustment according to patient size. FINDINGS: The lower lung niño are clear. Cholecystectomy clips. Imaged portions of the liver and spleen show no suspicious findings on non-contrast imaging. The panc reas and adrenal glands are normal. No pathologic lymphadenopathy in the abdomen or pelvis. No urinary tract stones or obstructive uropathy. 15 mm hypodense lesion in the inferior posterior lef t renal cortex. No bowel obstruction, free air, free fluid or abscess. Normal appendix noted.Sigmoid diverticulosis c neptali without diverticulitis. No significant bony abnormality. IMPRESSION: No urinary tract stones or obstructive uropathy. Nonspecific 15 mm low-density lesion inferior left kidney cortex. Followup nonemergent renal ultrasou nd may be of value.
[2020-03-29 18:59] LABS: Urine Blood 3+ (NEG); Urine Glucose NEGATIVE (NEG); Urine Protein 3+ (NEG)
--- NOTE | 2020-03-29 19:08 | ER ---
Nurse's Notes [facility] Name: Andreea Lomeli Age: 59 yrs Sex: Female : 1960 Arrival Date: 03/29/2020 Time: 15:10 Bed 26 Private MD: Diagnosis: Urinary tract infection, site not specified Presentation: 03/29 15:13 Chief complaint: Patient states: Dysuria, hematuria, frequency with oliguria for 1 day. ll1 No fever. Coronavirus screen: Proceed with normal triage. Patient denies a cough. Patient denies shortness of breath or difficulty breathing. Patient denies measured and/or subjective temperature greater than 100.4F prior to today's visit. Patient denies travel on a cruise ship or to a country the [facility] currently lists as an affected area. Patient denies contact with known and/or suspected case of COVID-19. Ebola Screen: Patient denies travel to an Ebola-affected area in the 21 days before illness onset. Initial Sepsis Screen: Does the patient meet any 2 criteria? No. Patient's initial sepsis screen is negative. Does the patient have a suspected source of infection? No. Patient's initial sepsis screen is negative. Risk Assessment: Do you want to hurt yourself or someone else? Patient reports no desire to harm self or others. Onset of symptoms was March 29, 2020. 15:13 Method Of Arrival: Ambulatory ll1 15:13 Acuity: JAY 3 ll1 Historical: - Allergies: 15:12 No Known Allergies; ll1 - PMHx: 15:12 Diabetes - NIDDM; neuropathy; kidney failure; Depression; sciatica; ll1 - PSHx: 15:12 Tubal ligation; Cholecystectomy; ll1 - Immunization history:: Adult Immunizations up to date, Flu vaccine is up to date. - Social history:: Smoking status: Patient denies any tobacco usage or history of. Patient/guardian denies using alcohol, street drugs, IV drugs, tobacco products. Vital Signs: 15:13 BP 153 / 80; Pulse 91; Resp 18; Temp 97.7; Pulse Ox 99% ; Pain 7/10; ll1 19:36 BP 146 / 86; Pulse 88; Pulse Ox 100% on R/A; jp3 ED Course: 15:10 Patient arrived in ED. as 15:13 Arm band placed on. ll1 15:14 Triage completed. ll1 15:19 Wes Reza NP is PHCP. pm1 15:19 Naga Joel MD is Attending Physician. pm1 15:44 Divina Austin, MICHAEL is Primary Nurse. vc 15:55 Missed attempt(s): 20 gauge in right antecubital area. Bleeding controlled, band aid jp3 applied, catheter tip intact. 15:55 Urine collected: clean catch specimen, clear, brianna colored. jp3 16:05 Initial lab(s) drawn, by me, sent to lab. Inserted saline lock: 22 gauge in left jp3 forearm, using aseptic technique. Patient maintains SpO2 saturation greater than 95% on room air. 16:17 Bed in low position. Call light in reach. Side rails up X 1. Verbal reassurance given. jp3 Pulse ox on. NIBP on. 17:52 CT Stone Protocol In Process Unspecified. EDMS 19:38 Removal of peripheral IV. Catheter intact, dressing applied. jp3 Administered Medications: 16:27 Drug: morphine 4 mg Route: IVP; Site: left antecubital; hb 22:56 Follow up: Response: No adverse reaction vc 16:27 Drug: Zofran (Ondansetron) 4 mg Route: IVP; Site: left antecubital; hb 22:56 Follow up: Response: No adverse reaction vc 17:47 Drug: Rocephin 1 grams Route: IV; Rate: calculated rate; Site: left forearm; vc Outcome: 19:08 Discharge ordered by MD. pm1 19:48 Patient left the ED. vc Addendum: 04/02/2020 09:00 Addendum: Culture Results: Positive urine culture. Bacteria is resistant to, has s s intermediate sensitivity, or is not tested against prescribed antibiotics. Report given to CARRI for further evaluation and then to order processor for follow up with patient. Phone call Attempt #1 Pt reports she is feeling better, but recommendation to change antibiotic to MAcrobid 100 mg PO BID x 10 days # 20 by Damari Squires NP. Pt verbalizes understanding and states she has yet to follow up with a PCP because she had a in the family, but plans to do so after things settle down. Signatures: Dispatcher [employer] EDWV Genet Crenshaw Shelby, RN RN ss Wes Reza, SANITATION MANAGER SANITATION MANAGER pm1 America Smith, RN RN hb Abhi Kumar jp3 Divina Austin, RN RN Adriel Handley, RN RN ll1
--- NOTE | 2020-03-29 19:08 | EDPHYS ---
Physician Documentation [facility] Name: Andreea Lomeli Age: 59 yrs Sex: Female : 1960 Arrival Date: 03/29/2020 Time: 15:10 Bed 26 Private MD: ED Physician Naga Joel HPI: 03/29 15:30 This 59 yrs old Female presents to ER via Ambulatory with complaints of pm1 Urinary Problem - blood. 15:30 The patient presents with urinary symptoms, frequency, hematuria, burning with pm1 urination. Onset: The symptoms/episode began/occurred yesterday. Modifying factors: The symptoms are alleviated by nothing, the symptoms are aggravated by urinating. Associated signs and symptoms: Pertinent negatives: diarrhea, fever, nausea, vomiting. Severity of symptoms: in the emergency department the symptoms are actually worse. The patient has experienced similar episodes in the past, a few times. The patient has not recently seen a physician. Historical: - Allergies: 15:12 No Known Allergies; ll1 - PMHx: 15:12 Diabetes - NIDDM; neuropathy; kidney failure; Depression; sciatica; ll1 - PSHx: 15:12 Tubal ligation; Cholecystectomy; ll1 - Immunization history:: Adult Immunizations up to date, Flu vaccine is up to date. - Social history:: Smoking status: Patient denies any tobacco usage or history of. Patient/guardian denies using alcohol, street drugs, IV drugs, tobacco products. ROS: 15:30 Positive for flank pain, urinary frequency, hematuria, burning with urination. pm1 15:30 Constitutional: Negative for fever, chills, and weight loss, Cardiovascular: Negative for chest pain, palpitations, and edema, Respiratory: Negative for shortness of breath, cough, wheezing, and pleuritic chest pain. 15:30 MS/Extremity: Negative for injury and deformity, Skin: Negative for injury, rash, and discoloration, Neuro: Negative for headache, weakness, numbness, tingling, and seizure. 15:30 Abdomen/GI: Positive for abdominal pain, of the suprapubic area, Negative for nausea, vomiting, and diarrhea, constipation. 15:30 Back: Positive for flank pain, bilaterally. Exam: 15:30 Constitutional: This is a well developed, well nourished patient who is awake, alert, pm1 and in no acute distress. Head/Face: Normocephalic, atraumatic. 15:30 Skin: Warm, dry with normal turgor. Normal color with no rashes, no lesions, and no evidence of cellulitis. MS/ Extremity: Pulses equal, no cyanosis. Neurovascular intact. Full, normal range of motion. 15:30 Cardiovascular: Exam negative for acute changes, Rate: normal, Rhythm: regular, Pulses: no pulse deficits are appreciated. 15:30 Respiratory: Exam negative for acute changes, respiratory distress, shortness of breath. 15:30 Abdomen/GI: Inspection: abdomen appears normal, Palpation: abdomen is soft and non-tender, in all quadrants. 15:30 Back: Exam negative for acute changes, pain, is absent, ROM is normal, normal spinal alignment noted. 15:30 Neuro: Exam negative for acute changes, Orientation: is normal, Mentation: is normal, Motor: is normal, moves all fours. Vital Signs: 15:13 BP 153 / 80; Pulse 91; Resp 18; Temp 97.7; Pulse Ox 99% ; Pain 7/10; ll1 19:36 BP 146 / 86; Pulse 88; Pulse Ox 100% on R/A; jp3 MDM: 15:27 Patient medically screened. pm1 15:41 Data reviewed: vital signs. Data interpreted: Pulse oximetry: on room air is 99 %. pm1 Interpretation: normal. 15:41 ED course: Patient offered pain medications and she refused. Reports pain is primarily pm1 present to suprapubic area with urination only. 19:07 Counseling: I had a detailed discussion with the patient and/or guardian regarding: the pm1 historical points, exam findings, and any diagnostic results supporting the discharge/admit diagnosis, lab results, radiology results, the need for outpatient follow up, to return to the emergency department if symptoms worsen or persist or if there are any questions or concerns that arise at home. 19:07 ED course: Patient would like to see if Tylenol #3 effective for current pain. Takes pm1 tramadol for chronic pain. 03/30 02:08 ED course: ANSWERER aware reviewed. pm1 03/29 15:27 Order name: Basic Metabolic Panel; Complete Time: 17:33 pm1 03/29 15:27 Order name: CBC with Diff; Complete Time: 16:57 pm1 03/29 15:27 Order name: Hepatic Function; Complete Time: 17:33 pm1 03/29 15:27 Order name: Urine Microscopic Only; Complete Time: 17:33 pm1 03/29 15:27 Order name: Urine Culture pm1 03/29 16:20 Order name: Urine Dipstick--Ancillary (enter results); Complete Time: 19:07 eb 03/29 15:27 Order name: IV Saline Lock; Complete Time: 16:18 pm1 03/29 15:27 Order name: Labs collected and sent; Complete Time: 16:18 pm1 03/29 15:27 Order name: Urine Dipstick-Ancillary (obtain specimen); Complete Time: 16:18 pm1 03/29 17:38 Order name: CT Stone Protocol; Complete Time: 18:33 pm1 Administered Medications: 03/29 16:27 Drug: morphine 4 mg Route: IVP; Site: left antecubital; hb 22:56 Follow up: Response: No adverse reaction vc 16:27 Drug: Zofran (Ondansetron) 4 mg Route: IVP; Site: left antecubital; hb 22:56 Follow up: Response: No adverse reaction vc 17:47 Drug: Rocephin 1 grams Route: IV; Rate: calculated rate; Site: left forearm; vc Disposition: 03/30 05:37 Co-signature as Attending Physician, Naga Joel MD I agree with the assessment and john plan of care. Disposition: 03/29/20 19:08 Discharged to Home. Impression: Urinary tract infection, site not specified. - Condition is Stable. - Discharge Instructions: Urinary Tract Infection, Adult. - Prescriptions for Pyridium 200 mg Oral Tablet - take 1 tablet by ORAL route every 8 hours for 3 days; 9 tablet. Bactrim DS 800- 160 mg Oral Tablet - take 1 tablet by ORAL route every 12 hours for 10 days; 20 tablet. Tylenol- Codeine #3 300-30 mg Oral Tablet - take 2 tablets by ORAL route every 6 hours As needed; 20 tablet. - Medication Reconciliation Form, Thank You Letter, Antibiotic Education, Prescription Opioid Use form. - Follow up: Emergency Department; When: As needed; Reason: Worsening of condition. Follow up: Private Physician; When: 2 - 3 days; Reason: Recheck today's complaints, Continuance of care, Re-evaluation by your physician. - Problem is new. - Symptoms have improved. Signatures: Dispatcher [employer] EDMS Naga Joel MD MD cha Marinas, Patrick, SALES PROCESS MANAGER SALES PROCESS MANAGER pm1 America Smith, RN RN Divina Henry RN RN vc Lewis, Lynsay, RN RN ll1 Corrections: (The following items were deleted from the chart) 03/29 19:48 19:08 03/29/2020 19:08 Discharged to Home. Impression: Urinary tract infection, site vc not specified. Condition is Stable. Forms are Medication Reconciliation Form, Thank You Letter, Antibiotic Education, Prescription Opioid Use. Follow up: Emergency Department; When: As needed; Reason: Worsening of condition. Follow up: Private Physician; When: 2 - 3 days; Reason: Recheck today's complaints, Continuance of care, Re-evaluation by your physician. Problem is new. Symptoms have improved. pm1
[2020-03-29 19:56] VITALS: TEMP 97.7
[2020-03-29 20:03] VITALS: BP 146/86; O2SAT 100
== END 2020-03-29 19:48 | disposition home or self-care (01) ==
LOC: ER 15:06
DX: N39.0 Urinary tract infection, site not specified (principal); E11.22 Type 2 diabetes mellitus with diabetic chronic kidney disease; N18.9 Chronic kidney disease, unspecified
CPT/HCPCS: 87088; 85025; 87086; 80048; 36415; 80076; 87077; 87186; 76377; 74176; 99284; J0696; J2405; 81003; 81015

== ENCOUNTER 2021-03-17 05:45 | Day surgery (SDC) | payer OTHER ==
--- NOTE | 2021-03-10 10:24 | RAD REPORT ---
EXAM DESCRIPTION: RAD - Chest Pa And Lat (2 Views) - 03/10/2021 10:02 am CLINICAL HISTORY: preop Chest pain. COMPARISON: Chest Pa And Lat (2 Views) dated 03/25/2019 FINDINGS: There is minimal linear atelectasis in the left mid lung. The lungs are otherwise grossly clear The heart is normal in size. No displaced fractures.
[2021-03-10 10:33] LABS: Basophils % 0.7 % (0-1.3); Hematocrit 35.8 % (36.0-45.0); MPV 9.3 fL (7.6-11.3); RBC Red Blood Cell Count 4.04 M/uL (3.86-4.86)
[2021-03-10 10:39] LABS: Potassium 4.3 mmol/L (3.5-5.1)
[2021-03-10 11:13] LABS: Protime INR 1.01
--- NOTE | 2021-03-10 11:55 | EKG ---
Test Date: 2021-03-10 Test Time: 08:06:00 Sushi Chef: SANDRA MEASUREMENT RESULTS: Intervals: Rate: 79 IL: 164 QRSD: 92 QT: 376 QTc: 431 Sellers: P: 52 IL: 164 QRS: 2 T: 32 INTERPRETIVE STATEMENTS: Normal sinus rhythm Possible Inferior infarct, age undetermined Abnormal ECG Compared to ECG 03/25/2019 15:17:57 Incomplete right bundle-branch block no longer present Myocardial infarct finding still present Electronically Signed On 03-10-21 11:53:57 CDT by Fausto Valverde
[2021-03-17] MEDS ORDERED: Ringers Lactate 1,000 ML IV ONE (06:10)
[2021-03-17] MEDS ORDERED: CEFAZOLIN/SWI 2gm 2 GM/20 ML SYR ONE (06:10)
[2021-03-17] MEDS ORDERED: NA CHLORIDE 0.9% 1,000 ML ONE ×2 (06:18→09:48)
[2021-03-17] MEDS ORDERED: EPINEPHRINE/PF 1 MG/ML AMP ONE (07:20)
[2021-03-17] MEDS ORDERED: MIDAZOLAM HCL 2 MG/2 ML INJ ONE (09:49)
[2021-03-17] MEDS ORDERED: ROCURONIUM 50 MG/5 ML VIAL IV ONE ×2 (09:49)
[2021-03-17] MEDS ORDERED: NS 0.9% VIAL 20 ML ONE (09:49)
[2021-03-17] MEDS ORDERED: NS 0.9% VIAL 10 ML ONE (09:49)
[2021-03-17] MEDS ORDERED: propofoL 200 MG/20 ML VIAL IV ONE (09:49)
[2021-03-17] MEDS ORDERED: LIDOCAINE 2% MPF 5 ML VIAL ONE (09:49)
[2021-03-17] MEDS ORDERED: KETOROLAC 30 MG/ML INJ ONE (09:49)
[2021-03-17] MEDS ORDERED: dexAMETHasone 10 MG/ML VIAL ONE (09:49)
[2021-03-17] MEDS ORDERED: FENTANYL CITR 100 MCG/2 ML ONE (09:49)
[2021-03-17] MEDS ORDERED: ONDANSETRON 4 MG/2 ML VIAL ONE (09:49)
[2021-03-17] MEDS ORDERED: ROPLVACAINE HCL 40 ML ONE (09:49)
[2021-03-17] MEDS ORDERED: GLYCOPYRROLATE 0.2 MG/ML SYR ONE (10:20)
--- NOTE | 2021-03-17 10:55 | RAD REPORT ---
EXAM DESCRIPTION: RAD - Shoulder 1 View - 03/17/2021 10:49 am FINDINGS: Single projection of the right shoulder obtained in internal rotation. Patient is status p ost rotator cuff repair. No fracture or dislocation. No suspicious or unexpected bone, joint or soft tissue finding.
[2021-03-17] MEDS ORDERED: HYDROMORPHONE HCL 1 MG/ML INJ ONE (10:59)
[2021-03-17] MEDS ORDERED: INSULIN -REGULAR HUMAN 50 UNIT/0.5 ML ML ONE (11:19)
--- NOTE | 2021-03-17 11:25 | P.BOP ---
Preoperative diagnosis: right shoulder rotator cuff tear, bicipital tendinitis,impingement syndrome Postoperative diagnosis: same Primary procedure: right shoulder arthroscopic rotator cuff repair Secondary procedure: right shoulder arthroscopic biceps tenotomy Other procedure(s): right shoulder arthroscopic subacromial decompression Bark Peeler: NONE,NONE Estimated blood loss: 5 cc Specimen: none Findings: see dictation Anesthesia: General Complications: None Implants: 1-5.5 mm Arthrex corkscrew, 2-4.75 mm Arthrex swivelock Fluids & blood products: per anesthesia record Transferred to: Recovery Room Condition: Good
[2021-03-17] MEDS ORDERED: HYDROCODONE/APAP 7.5/325 MG TAB ONE (11:58)
[2021-03-17] MEDS ORDERED: ALBUTEROL 2.5 MG/3 ML NEB SOL ONE (13:50)
--- NOTE | 2021-03-17 14:45 | RAD REPORT ---
EXAM DESCRIPTION: Elmo Single View03/17/2021 2:09 pm CLINICAL HISTORY: Hypoxia COMPARISON: February 2021 FINDINGS: Left lung is mildly hazy. Right lung appears clear of acute infiltrate. Right hemidiaphragm is elevated. Heart is normal size IMPRESSION: Left lung is mildly hazy which may indicate aspiration pneumonia or atelectasis
[2021-03-17 15:01] VITALS: TEMP 97.6
[2021-03-17 15:02] VITALS: BP 114/55; O2SAT 94
--- NOTE | 2021-03-17 22:09 | OP ---
Date of Procedure: 03/17/2021 Surgeon: Pepe Chauhan MD Postoperative Diagnoses: 1.Right shoulder rotator cuff tear. 2.Right shoulder bicipital tenosynovitis. 3.Right shoulder subacromial bursitis and impingement syndrome. Postoperative Diagnoses: 1.Right shoulder rotator cuff tear. 2.Right shoulder bicipital tenosynovitis. 3.Right shoulder subacromial bursitis and impingement syndrome. Procedures Performed: 1.Right shoulder arthroscopic rotator cuff repair. 2.Right shoulder arthroscopic biceps tenotomy. 3.Right shoulder arthroscopic subacromial decompression. Anesthesia: General endotracheal with interscalene block. Estimated Blood Loss: 5 cc. Fluids: Per Anesthesia record. Implants: 1.One 5.5 mm corkscrew. 2.Two 4.75 mm SwiveLock. Indication For Procedure: Andreea is a 60-year-old female, who presented to our clinic with signs a nd symptoms consistent with right shoulder rotator cuff tear as well as bicipital tenosynovitis and i mpingement. Discussed with the patient at length risks and benefits associated with operative and no noperative treatment. She expressed understanding. Given her MRI findings and significant difficult ies with activities of daily living, we elected to proceed with operative treatment. Description Of Procedure: After informed consent was obtained, the patient was identified in the pre operative holding area. The right upper extremity was marked. The patient was taken to the PACU whe re she underwent an interscalene block to the right upper extremity performed by Anesthesia team. Zia greco was taken into the operating room, transferred to the operative table in supine fashion, placed und er general endotracheal anesthesia. She was then placed in the beach chair position with her extremi ties well padded. Right upper extremity was then examined. The patient had full range of motion. N o instability noted. The right upper extremity was then prepped and draped in usual sterile fashion. A time-out was initiated. The correct patient and procedure confirmed and identified. The patient did receive her preoperative prophylactic antibiotics. The right shoulder was then injected with 30 cc of normal saline using a spinal needle through the posterior portal position to distend the capsu le. An 11 blade was then used to create a posterior portal. Arthroscope was brought in via the post erior portal position and diagnostic arthroscopy was performed. Under direct visualization, an anter ior portal and cannula were created and placed. The patient was noted to have significant fraying of the biceps tendon anchor and a biceps tenotomy was performed using a meniscal biter. There was no s ignificant instability or tearing of the anterior and posterior labrum as well as superior labrum, wh ich were all stable to probe. The patient had a 1 cm loose body was identified within the joint intr a-articular space and this was removed using pituitary grasper. The subscapularis was found to be in tact and stable to probe. There were no loose bodies. Other loose bodies found within the axillary pouch. The patient did have some grade 3 chondromalacia changes of the humeral head and glenoid surf jasmyne. There was significant fraying of the undersurface of the supraspinatus over the anterior insert ion. A lateral portal was then created using a spinal needle and it was passed through an obturator into the joint space consistent with a full-thickness tear. It was then used to debride the undersur face of the supraspinatus tear as well as the footprint on the greater tuberosity. Next, attention o f the arthroscope was brought in the subacromial space where a subacromial bursectomy was performed. The rotator cuff tear was then identified and debrided using the arthroscopic shaver. The undersurf jasmyne of the acromion was then debrided using a radiofrequency ablator and arthroscopic shaver. A sing le 5.5 mm Arthrex corkscrew was then placed, however, with the placement of the screw, it was noted t hat the bone was significantly hard and the first corkscrew broke and was removed. A larger punch wa s then used and the patient did have good fixation of a 5.5 mm corkscrew, which was double loaded wit h sutures. The suture was then placed through the supraspinatus tear in anterior to posterior fashio n and there was good overall reduction of the supraspinatus tear onto the footprint on the greater tu berosity. The sutures were then placed in a crisscross fashion and 2 lateral 4.75 mm SwiveLock ancho rs were placed for good overall fixation of the rotator cuff tear. Next, acromioplasty was performed using an arthroscopic shaver as well as radiofrequency ablator. The arthroscopic instruments were t hen removed without complication. The wounds were then irrigated thoroughly with normal saline. Sub cutaneous tissue was approximated using a 2-0 Vicryl. Skin was approximated using a 3-0 Monocryl. S terile dressings were applied. The patient was placed in a shoulder immobilizer, awakened, and trans ferred to the PACU in stable condition. Postoperative Plan: She will be nonweightbearing on her right upper extremity. She will follow up i n clinic in 1 week for wound check. She will follow the medium rotator cuff repair protocol at 4 wee ks postoperatively. SALIMA/MODL Voice ID: [id number] Report ID: [id number]
== END 2021-03-17 15:45 | disposition home or self-care (01) ==
LOC: OR 05:45
PROVIDERS: ATTEND Orthopaedic Surgery Sports Medicine
PROC: 0RHJ44Z Insertion of Internal Fixation Device into Right Shoulder Joint, Percutaneous Endoscopic Approach (ICD-10-PCS; 2021-03-17)
PROC: 0RNJ4ZZ Release Right Shoulder Joint, Percutaneous Endoscopic Approach (ICD-10-PCS; 2021-03-17)
PROC: 0LQ14ZZ Repair Right Shoulder Tendon, Percutaneous Endoscopic Approach (ICD-10-PCS; principal; 2021-03-17 07:30)
DX: M75.101 Unspecified rotator cuff tear or rupture of right shoulder, not specified as traumatic (principal); M75.51 Bursitis of right shoulder; M75.41 Impingement syndrome of right shoulder; M75.21 Bicipital tendinitis, right shoulder; Z20.822 Contact with and (suspected) exposure to COVID-19
CPT/HCPCS: 93005; 85025; 80048; 36415; 85610; 82947 ×2; 85730; 71045; 71046; 73020; 29827; 29826; U0002; J2704; J0171; J2250; J3010; J1100; J2795; J1170; J0690; J7120; J7030 ×2; J2405

== ENCOUNTER 2021-03-29 20:07 | Inpatient (IN) | payer OTHER ==
--- OUTSIDE RECORDS SUMMARY | 2021-03-29 20:13 | XMS REPORT | Continuity of Care Document ---
:1960 Author Organization [facility] t Address [address] [place] [place] [address] Care Team Providers Name Role Phone Usha RODRIGUEZ, L Attending Clinician Unavailable Bertrand ELLIOTT, K.H. Attending Clinician Doctor Unassigned, Name Attending Clinician Unavailable Aldo Attending Clinician Shemar Bates Attending Clinician Nolberto Michel Attending Clinician Izabela Pa Admitting Clinician Problems Condition Condition Condition Status Onset Resolution Last Treating Co mments Source Name Details Category Date Date Treatment Clinician Date N18.9 - Diagnosis Active 2017-05-31 Me moria "CHRONIC 8- 09:19:00 l KIDNEY N18.9 - 00:01: [place] DISEASE, "CHRONIC 00 UNSPEC" KIDNEY DISEASE, UNSPEC" Active 05/24/2017 [facility] [place] SOB, CHEST Diagnosis Active 2014-04-22 Memoria PAINS 7- 11:37:00 l SOB, 00:00: [place] CHEST 00 PAINS Active 04/22/2014 [facility] ACUTE Diagnosis Active 2014-04-22 Mem oria RENAL 04-11 21:48:00 l FAILURE ACUTE 00:00: [place] RENAL 00 FAILURE Active 04/11/2014 [facility] Psoriasis Problem Resolve 2017-06-03 M emoria (disorder) d 01:09:48 l Tye Psoriasis (disorder) Resolved Problem 06/03/2017 [facility] [place] RENAL Diagnosis Active 2014-04-22 Mem oria FAILURE 21:48:00 l NOS RENAL Tye FAILURE NOS Active [facility] Diabetes Problem Resolve 2017-06-03 Me moria mellitus d 01:09:48 l (disorder) Diabetes He rmann mellitus (disorder) Resolved Problem 06/03/2017 [facility] [place] Hypertensi Problem Resolve 2017-06-03 Memoria ve d 01:09:48 l disorder, Tye systemic Hypertensi arterial ve (disorder) disorder, systemic arterial (disorder) Resolved Problem 06/03/2017 [facility] [place] History of Past Illness Condition Condition Condition Status Onset Resolution Last Treating Co mments Source Name Details Category Date Date Treatment Clinician Date Discharge Problem 2014-04-25 2014-04-25 Memoria Diagnosis: 04-22 04:51:18 04:51:18 l Dyspnea 05:00: Tye Discharge 00 Diagnosis: Dyspnea 04/22/2014 04/25/2014 [facility] Allergies, Adverse Reactions, Alerts This patient has no known allergies or adverse reactions. Social History Social Habit Start Date Stop Date Quantity Comments Source Social History 2014-04-18 2014-04-18 [facility] 00:02:35 00:02:35 Medications Ordered Filled Start Stop Current Ordering Indication Dosage Frequency Signature Comments Components Source Medication Medication Date Date Medication? Clinician (SIG) Name Name metoprolol No Notes: Memor ia tartrate 04-22 (Same as: l 17:11: Lopressor) Acetaminoph No 1 tab, Damon jazlyn en 325 MG / 04-22 Route: PO, l Hydrocodone 17:10: Dosing Herm tulio Bitartrate 00 Weight 5 MG Oral 112.727, Tablet kg, ONCE, [Weems Start 5/325] date: 04/22/14 12:10:00, Stop date: 04/22/14 12:10:00 ciprofloxac Yes 500 mg = 1 Memoria in 500 mg 04-18 tab, PO, l oral tablet 14:00: Daily, # 5 Tye 00 tab, 0 Refill(s) Insulin Yes 1 syr, Memoria Syringes U 7-05 INJ, l 30 31 ga 14:18: ONCALL, # Herm tulio (ultra 00 100 syr, 0 fine) Refill(s) POLYETHYLEN Yes 17 gm, PO, Memoria E GLYCOL 7-05 Daily, l 3350 142 14:00: Constipati Her huang MG/ML Oral 00 on, # 255 Solution gm, 0 [Miralax] Refill(s) Insulin Yes Special Memoria Aspart 100 7-05 Instructio l unit/ml - 14:00: ns: Check Her huang (Starting 00 blood CD) sugar before breakfast, lunch, and dinner, and inject correction doses: Inject 1 unit if Sugar 150-199, Inject 2 units if Sugar 200-249, Inject 3 units if Sugar 250-299, Inject 4 units if Sugar 300-349, Inject 5 units if Sugar is 350 or more Docusate Yes 1 tab, PO, Mem oria Sodium 50 7-05 Bedtime, l MG / 14:00: Constipati Tye sennosides, 00 on, # 30 PRISON 8.6 MG tab, 0 Oral Tablet Refill(s) simethicone Yes 80 mg = 1 M emoria 80 mg oral 05 tab, CHEW, l tablet, 14:00: TID, Gas, Natasha nn chewable 00 # 36 tab, 0 Refill(s) metoprolol Yes 12.5 mg = Me moria tartrate 25 05 0.5 tab, l mg oral 14:00: PO, Q12H, Natasha nn tablet 00 # 30 tab, 0 Refill(s) ergocalcife Yes 50,000 Damon jazlyn rol 50,000 05 IntlUnit = l intl units 14:00: 1 cap, PO, H ermann oral 00 Q7D, # 12 capsule cap, 0 Refill(s) Calcium Yes 1,500 mg = Damon jazlyn Carbonate 05 3 tab, l 500 MG 14:00: CHEW, TID, Natasha nn Chewable 00 # 90 tab, Tablet 0 Refill(s) gabapentin Yes 300 mg = 1 M emoria 300 MG Oral 7-05 cap, PO, l Capsule 14:00: Bedtime, # Herm tulio 00 30 cap, 0 Refill(s) Lasix No Notes: Memoria -05 (Same as: l 12:41: Lasix) Simethicone No Notes: Damon jazlyn - (Same as: l 17:22: Mylicon) Lasix No Notes: Memoria - (Same as: l 15:17: Lasix) Vitamin D No Notes: Memori a - (Same as: l 14:17: Vitamin D) "Do Not Crush" Cipro No Notes: May Memori a - interfere l 14:16: w/enteral feedings - Take 1 hr before or 2 hrs after antacids, dairy pdt & minerals. On empty stomach. Tylenol No Notes: Do Memor ia 04-15 not exceed l 17:09: 4 gm/day. (Same as: Tylenol) metoprolol No Notes: Memor ia tartrate 04-15 (Same as: l 14:00: Lopressor) 12.5mg=1/ 4 X 50 mg tab. Calcium No 3,000 mg, Memor ia Gluconate 04-15 30 mL, l 13:40: Route: Tye 00 IVPB, ONCE, Dosing Weight 115.004, kg, Priority: NOW, Start date: 04/15/14 8:40:00, Stop date: 04/15/14 8:40:00 Calcium No 1,000 mg, Memor ia Chloride 04-15 Route: l 12:42: IVPB, Tye 00 ONCE, Dosing Weight 115.004, kg, Priority: NOW, Start date: 04/15/14 7:42:00, Stop date: 04/15/14 7:42:00 Magnesium 2013- No 2 gm, 50 Damon jazlyn Sulfate -03 mL, Route: l 09:23: IVPB, Drug form: INJ, ONCE, Dosing Weight 115.004, kg, Total dose = 2 gm, Start date: 04/15/14 4:23:00, Duration: 1 doses or times, Stop date: 04/15/14 4:23:00 Tums No Notes: Memoria 7- (Same As: l 09:23: Tums) Calcium Carbonate 500 mg = 200 mg elemental calcium Dose = mg calcium carbonate ( mg elemental calcium) Atropine No Notes: Memoria Sulfate - (Same As: l 0.025 MG / 16:28: Lomotil) Her huang Diphenoxyla 00 MAX Adult te dose = 8 Hydrochlori tabs/day de 2.5 MG Oral Tablet [Lomotil] Magnesium No 2 gm, 50 Damon jazlyn Sulfate 02 mL, Route: l 16:23: IVPB, Drug form: INJ, ONCE, Dosing Weight 115.004, kg, Priority: NOW, Start date: 04/14/14 11:23:00, Duration: 2 hr, Stop date: 04/14/14 11:23:00 Calcium No 1,000 mg, Memor ia Chloride 04-14 10 mL, l 16:23: Route: IVPB, ONCE, Dosing Weight 115.004, kg, Priority: STAT, Start date: 04/14/14 11:23:00, Stop date: 04/14/14 11:23:00 Ambien No Notes: Memoria - (Same As: l 02:06: Ambien) Atropine No Notes: Memoria Sulfate - (Same As: l 0.025 MG / 17:56: Lomotil) Her huang Diphenoxyla 00 MAX Adult te dose = 8 Hydrochlori tabs/day de 2.5 MG Oral Tablet [Lomotil] Pneumovax No Notes: Memori a 23 04-13 (Same as: l 15:00: Pneumovax ) Refrigerat e gabapentin No Notes: Memor ia 300 MG Oral 04-13 (Same as: l Capsule 02:00: Neurontin) Paroxetine No Notes: Memor ia 6-30 (Same as: l 14:00: Paxil) gabapentin No Notes: Memor ia 300 MG Oral 6-30 (Same as: l Capsule 14:00: Neurontin) Herm tulio heparin, No Notes: Memoria porcine 6-30 porcine l 14:00: heparin Tye 00 pneumococca No Notes: Damon jazlyn l capsular 6-30 (Same as: l polysacchar 14:00: Pneumovax H ermann vicente type 1 00 23) vaccine / Refrigerat pneumococca e l capsular polysacchar vicente type 10A vaccine / pneumococca l capsular polysacchar vicente type 11A vaccine / pneumococca l capsular polysacchar vicente type 12F vaccine / pneumococca l capsular polysacchar NS 2,000 mL No 2,000 mL, M emoria 6-30 Rate: l 13:45: 1,000 Tye 00 ml/hr, Infuse over: 2 hr, Route: IV, Dosing Weight 115.004 kg, Total Volume: 2,000, Start date: 04/12/14 8:45:00, Duration: 1 doses or times, Stop date: 04/12/14 10:44:00 NS 0.45% IV No 1,000 mL, M emoria 1,000 mL 6-30 Rate: 150 l 13:45: ml/hr, Infuse over: 6.7 hr, Route: IV, Dosing Weight 115.004 kg, Total Volume: 1,000, Start date: 04/12/14 8:45:00, Duration: 30 day, Stop date: 05/12/14 8:44:00 Magnesium No 1 gm, 50 Damon jazlyn Sulfate 6-30 mL, Route: l 13:26: IVPB, Drug form: INJ, ONCE, Dosing Weight 115.004, kg, Start date: 04/12/14 8:26:00, Stop date: 04/12/14 8:26:00 PARoxetine Yes 40 mg = 1 Me moria 40 mg oral 6-30 tab, PO, l tablet 11:28: Daily, # [place] 00 30 tab, 0 Refill(s) lisinopril No 20 mg = 1 Me moria 20 mg oral 6-30 tab, PO, l tablet 11:26: Daily, # Tye 00 30 tab, 0 Refill(s) gabapentin No 300 mg = 1 M emoria 300 MG Oral 6-30 cap, PO, l Capsule 11:24: TID, # 90 Natasha nn 00 cap, 0 Refill(s) Metformin No 1,000 mg = Me moria hydrochlori 6-30 1 tab, PO, l de 1000 MG 11:21: BID, # 30 He rmann Oral Tablet 00 tab, 0 Refill(s) Zofran No Notes: Memoria 6-30 (Same as: l 08:02: Zofran) [place] Calcium No 2,000 mg, Memor ia Gluconate 6-30 20 mL, l 05:54: Route: Tye 00 IVPB, ONCE, Dosing Weight 115.004, kg, Start date: 04/12/14 0:54:00, Stop date: 04/12/14 0:54:00 heparin, No Notes: Memoria porcine 6-30 porcine l 05:00: heparin [place] 00 Dextrose No 12.5 gm, Memor ia 50% Syringe 30 25 mL, l 04:28: Route: Tye 00 IVP, Drug Form: INJ, kg, PRN, PRN Blood Glucose Results, Start date: 04/11/14 23:28:00, Duration: 30 day, Stop date: 05/11/14 23:27:00 Insulin, No Notes: Memoria Aspart, 6-30 Roll in l Human 04:28: palms of [place] 00 hands gently; Do not shake vigorously . (Same as: NovoLOG) "single patient use only" Stable for 28 days at room temperatur e. Expires in days from ____Date Glucagon No 1 mg, Memoria 6-30 Route: IM, l 04:28: Drug form: [place] 00 PDR/INJ, PRN, kg, PRN Blood Glucose Results, Start date: 04/11/14 23:28:00, Duration: 30 day, Stop date: 05/11/14 23:27:00 Lidocaine No Notes: Memori a Hydrochlori 6-30 (Same as: l de 10 MG/ML 03:33: Xylocaine) Tye Injectable 00 Solution Dextrose No 50 mL, Memoria 50% in 6-30 Route: l Water IV 02:10: IVP, Start Her huang 00 date: 04/11/14 21:10:00, Stop date: 04/11/14 21:10:00 albuterol No Notes: SEE Me moria 0.083% 6-30 RT l inhalation 02:06: DOCUMENTAT H ermann solution 00 ION (Same as: Proventil) Dextrose No 50 mL, Memoria 50% in 6-30 Route: l Water IV 02:01: IVP, Start Her huang 00 date: 04/11/14 21:01:00, Stop date: 04/11/14 21:01:00 Saline No Notes: Memoria Flush 0.9% 630 (Same as: l 02:00: BD [place] 00 Posiflush) Albuterol 1 No 2.49 mg, Me moria MG/ML 630 Route: l Inhalant 01:54: INHALATION Her huang Solution 00 , Drug form: SOLN, ONCE, kg, Start date: 04/11/14 20:54:00, Stop date: 04/11/14 20:54:00 Sodium No Notes: Memoria Bicarbonate 6-30 (sodium l 1 MEQ/ML 01:51: bicarb Tye Injectable 00 8.4% (1 Solution mEq/ml) 50 ml syringe) Dextrose No 25 gm, Memoria 50% Syringe 6-30 Route: l 01:51: IVP, kg, [place] 00 ONCE, Start date: 04/11/14 20:51:00, Stop date: 04/11/14 20:51:00 Dextrose No 25 gm, Memoria 6-30 Route: l 01:50: IVPB, [place] 00 ONCE, kg, Start date: 04/11/14 20:50:00, Stop date: 04/11/14 20:50:00 Insulin, No 60 Memoria Regular, 6-30 units) l Pork 01:50: Stable for [place] 00 28 days at room temperatur e Expires in days from ____Date sodium No 850 mL, Memoria bicarbonate 6-30 Rate: 150 l 150 mEq + 01:09: ml/hr, Archie n D5W 850 mL 00 Infuse over: 6.7 hr, Route: IV, Total Volume: 1,000 mL, Start date: 04/11/14 20:09:00, Duration: 30 day, Stop date: 05/11/14 20:08:00 Sodium 2014-0 No 1,000 mL, Memori a Chloride 6-30 1,000 l 0.154 00:55: ml/hr, Tye MEQ/ML 00 Infuse Injectable Over: 1 Solution hr, Route: IV, 1,000, Drug form: INJ, Q1H, Priority: STAT, kg, Start date: 04/11/14 19:55:00, Duration: 3 doses or times, Stop date: 04/11/14 21:55:00 Zofran 2014-0 No Notes: Memoria 6-30 (Same as: l 00:54: Zofran) [place] 00 Calcium 2014-0 No 1,000 mg, Memor ia Gluconate 6-30 10 mL, l 00:40: Route: [place] 00 IVPB, ONCE, kg, Start date: 04/11/14 19:40:00, Stop date: 04/11/14 19:40:00 Sodium 2014-0 No 1,000 mL, Memori a Chloride 6-30 1,000 l 0.154 00:39: ml/hr, [place] MEQ/ML 00 Infuse Injectable Over: 1 Solution hr, Route: IV, ONCE, Priority: STAT, kg, Start date: 04/11/14 19:39:00, Duration: 1 doses or times, Stop date: 04/11/14 19:39:00 Sodium 2014-0 No Notes: Memoria Bicarbonate 6-30 (sodium l 1 MEQ/ML 00:39: bicarb [place] Injectable 00 8.4% (1 Solution mEq/ml) 50 ml syringe) normal 2014-0 No 1,000 mL, Memori a saline 0.9% 6-30 Rate: 100 l IV 1,000 mL 00:09: ml/hr, Herm tulio 00 Infuse over: 10 hr, Route: IV, Total Volume: 1,000, Start date: 04/11/14 19:09:00, Duration: 30 day, Stop date: 05/11/14 19:08:00 Saline 2014-0 No Notes: Memoria Flush 0.9% 29 (Same as: l 23:53: BD T[place] 00 Posiflush) Vital Signs Vital Name Observation Time Observation Value Comments Source Respitory Rate 2014-04-22 21:03:00 Memori al [place] Systolic (mm Hg) 2014-04-22 21:03:00 Damon rial [place] Diastolic (mm Hg) 2014-04-22 21:03:00 Mem orial [place] Diastolic (mm Hg) 2014-04-22 18:13:00 Mem orial [place] Systolic (mm Hg) 2014-04-22 18:13:00 Damon rial [place] Respitory Rate 2014-04-22 18:13:00 Memori al [place] Diastolic (mm Hg) 2014-04-22 17:33:00 Mem orial [place] Respitory Rate 2014-04-22 17:33:00 Memori al [place] Systolic (mm Hg) 2014-04-22 17:33:00 Damon rial [place] Height 2014-04-22 14:03:00 172.72 cm Memorial [place] BMI Calculated 2014-04-22 14:03:00 Memori al [place] Weight 2014-04-22 14:03:00 Memorial [place] Heart Rate 2014-04-22 14:03:00 [facility] [place] Temperature Oral (F) 2014-04-22 14:03:00 98.6 F Memorial [place] Diastolic (mm Hg) 2014-04-17 21:39:00 Mem orial [place] Respitory Rate 2014-04-17 21:39:00 Memori al [place] Temperature Oral (F) 2014-04-17 21:39:00 98.3 F Memorial [place] Systolic (mm Hg) 2014-04-17 21:39:00 Damon rial [place] Heart Rate 2014-04-17 21:39:00 Memorial [place] Heart Rate 2014-04-17 17:47:00 Memorial [place] Temperature Oral (F) 2014-04-17 17:47:00 98 F Memorial [place] Systolic (mm Hg) 2014-04-17 17:47:00 Damon rial [place] Diastolic (mm Hg) 2014-04-17 17:47:00 Mem orial [place] Heart Rate 2014-04-17 13:32:00 Memorial [place] Systolic (mm Hg) 2014-04-17 13:32:00 Damon rial [place] Diastolic (mm Hg) 2014-04-17 13:32:00 Mem orial [place] Respitory Rate 2014-04-17 13:32:00 Memori al [place] Temperature Oral (F) 2014-04-17 13:32:00 98 F Memorial [place] Respitory Rate 2014-04-17 09:58:00 Memori al [place] Weight 2014-04-12 06:36:00 Memorial [place] Height 2014-04-12 06:36:00 167.64 cm Memorial [place] BMI Calculated 2014-04-12 06:36:00 Memori al [place] Weight 2014-04-12 05:49:00 Memorial [place] Height 2014-04-12 05:49:00 167.64 cm Memorial [place] BMI Calculated 2014-04-12 05:49:00 Memori al [place] Weight 2014-04-12 05:48:00 [facility] [place] Height 2014-04-12 05:48:00 167.64 cm Memorial [place] BMI Calculated 2014-04-12 05:48:00 Memori al [place] Procedures Procedure Date / Time Performed Performing Clinician Sourc e Cholecystectomy [facility] [place] Encounters Start End Encounter Admission Attending Care Care Encounter Source Date/Time Date/Time Type Type Clinicians Facility Department ID 2021-03-27 2021-03-27 Outpatient [facility] [id number] [facility] 2021-03-27 2021-03-27 Outpatient [facility] [id number] [facility] 2021-03-23 2021-03-23 [facility] [id number] [facility] 2021-03-16 2021-03-16 Outpatient [facility] [id number] [facility] 2021-03-15 2021-03-15 Outpatient [facility] [id number] [facility] 2021-03-08 2021-03-08 Telephone Usha Swanson [id number] 00:00:00 00:00:00 , Minnie Hongy [id number] [place] [id number] 2021-03-01 2021-03-01 Telephone Usha Swanson [id number] 00:00:00 00:00:00 , Minnie Hongy [id number] [place] [id number] 2021-02-27 2021-02-27 Outpatient [facility] [id number] [facility] 2021-02-13 2021-02-13 Outpatient [facility] [id number] [facility] 2021-02-09 2021-02-09 Outpatient [facility] [id number] [facility] 2021-02-08 2021-02-08 Telephone INGRID Thurston [id number] 00:00:00 00:00:00 Brenda Bravo [id number] [place] [id number] Profess [id number] [facility] 2021-02-07 2021-02-07 Orders Doctor INOCENCIO [id number] 00:00:00 00:00:00 Only Unassigned, LEE [id number] [facility] [id number] 2020-12-05 2020-12-05 Outpatient [facility] [id number] [facility] 2020-11-14 2020-11-14 Outpatient [facility] [id number] [facility] 2020-10-20 2020-10-20 Out[facility] [id number] [facility] 2020-10-20 2020-10-20 Out[facility] [id number] [facility] 2020-08-11 2020-08-11 Outpatient [facility] [id number] [facility] 2017-05-31 2017-05-31 Outpatient Angela Carlson [facility] [id number] 09:11:00 23:59:00 00 2014-04-22 2014-04-22 Outpatient Paulo, [facility] [id number] 08:54:00 16:54:00 Terra L 00 2014-04-11 2014-04-16 Outpatient Anand, [facility] [id number] 18:46:00 18:45:00 Jaycob Arvizu Results Test Description Test Time Test Comments Results Result Comments Source URINE AND STOOL 2014-04-22 15:45:45 Test Item Value Reference Range Interpretation Comme nts UA Spec Grav (test code = UA Spec Grav) 1.015 1 [facility] [id number] 15:45:45Yellow *NA*(04/22/14 10:45 AM) [facility] [id number] 15:45:45Clear (04/22/14 10:45 AM) [facility] [id number] 15:45:45Negative *NA*(04/22/14 10:45 AM)[facility] [id number] 15:45:45 Test Item Value Reference Range Interpretation Comments UA pH (test code = UA pH) 7.5 1 5.0-8.0 [facility] [id number] 15:45:45Trace *ABN*(04/22/14 10:45 AM) [facility] [id number] 15:45:45Negative (04/22/14 10:45 AM) [facility] [id number] 15:45:45Negative *NA*(04/22/14 10:45 AM)[facility] [id number] 15:45:45Negative (04/22/14 10:45 AM) [facility] [id number] 15:45:450.2[facility] [id number] 15:45:45Trace *ABN*(04/22/14 10:45 AM)[facility] [id number] 15:45:45Negative (04/22/14 10:45 AM)[facility] [id number] 15:45:45None Seen (04/22/14 10:45 AM)[facility] [id number] 15:45:45Performed (04/22/14 10:45 AM)[facility] [id number] 15:45:45None Seen (04/22/14 10:45 AM)[facility]annELECTROLYTES 2014-04-22 14:52:008.5[facility] PgpgiuxOFKVRRLFKLDZ9657-08-96 14:52:0024[facility] UwchekqTCPPMXPYNSHC2658-02-94 14:52:42359Ijmleswi QntskboJJTIWPMRPRBV7536-86-76 14:52:004.3[facility] HjkczaxTEDWGZFLGSUJ2665-23-56 14:52:0026[facility] [place] XABSADWYNWLH4544-76-00 14:52:002.2[facility] VugxukrUQEDSMGQQSOM4144-84-09 14:52:74659Dmhqjoex ZlmtimvYOMCGZGYNLBE7219-08-14 14:52:88041Avntmwcg [place] IHYYOMOORK3029-10-65 14:52:000.0[facility] VxzhqcmOFHQXIRVKZ8536-78-37 14:52:000.2 [facility] HntyewgBMRAXXRTKP7382-87-51 14:52:006.8[facility]annHEMATOLOGY 2014-04-22 14:52:001.6[facility] SkfzojeWXPIASICMC7581-01-29 14:52:000.2[facility] WmlheaaYRRYTXMRMC3457-87-41 14:52:000.6[facility] HbszluuJLEJWBKNJM6497-44-21 14:52:006.1[facility] DpawsswCLRMQERAAL8900-87-59 14:52:002.1[facility] Tye FRQXNSJYHT7853-68-11 14:52:0017.1[facility] PnitvceJNVEKJLQGO4302-55-86 14:52:00 74.5[facility] LdgdxlmLPOPVBVRTV0910-16-93 14:52:00 Test Item Value Reference Range Interpretation Comments MCH (test code = MCH) 28.3 pg 27.0-31.0 [facility] BigmnbuBNIZVNCSYW3160-92-36 14:52:007.5[facility] HermannHEMATOLOGY 2014-04-22 14:52:0087.2[facility] InnbrrsXHTGUTHXAN8415-72-14 14:52:61854Ndmtybxr RyadgzcTCEJNKEXQD0564-30-45 14:52:0014.4[facility] RtcwvbaCBPQHYZCMH8724-07-88 14:52:0032.5[facility] XiblgmzSONLWRZXZV6814-56-10 14:52:0022.3[facility] [place] TVKFCDFKAG6476-31-13 14:52:007.2[facility] NinxkpyKGMHQFFPKM0369-59-97 14:52:00 2.56[facility] StudveqWVAZFFGSMP3723-91-31 14:52:009.2[facility] HermannCARDIAC HMQIBDH8962-80-34 14:52:00<0.02[facility] MxsytivRJQQNEPCWYVI2740-48-72 14:52:0013.3[facility] MumgpymVXSLPHJKJVPT5915-36-12 14:52:0025[facility] [place] BLOOD BANK IXSJYWC9048-04-66 15:30:00Negative (04/17/14 10:30 AM)[facility] [place] BLOOD BANK [id number] 13:58:00Product available (04/17/14 8:58 AM)[facility]annCHEM SVWIJ5269-70-67 10:14:008[facility] HermannCHEM NDHJK6328-58-23 10:14:007.9[facility] HermannCHEM VJCDY5710-64-30 10:14:0022[facility] HermannCHEM MQCQU4483-29-65 10:14:29482Ivqwemgz HermannCHEM WDUOY8451-42-22 10:14:0057 [facility]annCHEM EAYZJ7699-54-59 10:14:0083[facility] HermannCHEM PANEL 2014-04-17 10:14:005.9[facility] HermannCHEM MOXXV8086-52-63 10:14:05833Yveqyogw HermannCHEM QJYQK3860-02-73 10:14:004.3[facility] HermannCHEM KIVFH3003-69-82 10:14:0018.3[facility] GjxmexpOAWBBLFACB2321-90-37 10:14:008.5[facility] BNLYRRPJCW1050-67-20 10:14:22184Ruvoacmi TcovljwBMRDGWNMQV1387-58-28 10:14:00 14.1[facility] YbjercdUAXGVFFDLW2870-37-26 10:14:008.1[facility]annHEMATOLOGY 2014-04-17 10:14:002.17[facility] EfuxundFINYHAYAWD2622-10-83 10:14:0033.8[facility] KdngcyvDZZZRBOEHQ3551-22-42 10:14:00 Test Item Value Reference Range Interpretation Comments MCH (test code = MCH) 30.4 pg 27.0-31.0 [facility] ZajedllNZVLOPAKAE3385-36-45 10:14:006.6[facility]annHEMATOLOGY 2014-04-17 10:14:0089.8[facility] OsasiekXBIXYFXSLP9167-81-12 10:14:0019.5[facility] BbgoyhhSXVIQSBUOW7043-74-92 10:14:0010.4[facility] HolgcaoYZETVHSCYR8418-22-48 10:14:0024.0[facility] DtthndbIIXQISICTQ0759-57-38 10:14:0063.3[facility] [place] HKDJBATZJT1149-98-25 10:14:001.9[facility] QsapqqfSAEZESADBN2809-20-57 10:14:000.8 [facility] KzsykbcQANVIWMHNR6724-17-37 10:14:000.2[facility]annHEMATOLOGY 2014-04-17 10:14:005.1[facility] OquvfpsGZBMTPRUZL3521-13-52 10:14:000.2[facility] ChhbnfaICYVWANHLU3599-69-00 10:14:002.1[facility]annCHEM HRTRM6630-02-62 16:04:241.9[facility] BcrkwebNQTGIGDJDZHK6063-33-97 16:04:035.4[facility] CHEM DJLDW2608-46-82 10:40:005.6[facility]annCHEM CMARK9848-78-93 10:40:002.1 [facility]annCHE[facility] QTEAS6965-79-87 10:40:006[facility]annCHEM PANEL 2014-04-16 10:40:005.3[facility]annCHEM CJRRL1384-25-09 10:40:70284Xbdpjnxr HermannCHEM DRPXJ1196-18-23 10:40:007.4[facility]annCHEM AOXON4395-57-85 10:40:86432Ffyoctmc HermannCHEM VOWTF2424-98-26 10:40:007.8[facility]annCHEM ICGUD0796-54-13 10:40:42607Bjlvzcwi HermannCHEM GZGBO7832-58-44 10:40:0018 [facility]annCHE[facility] HVLMJ0390-44-01 10:40:0066[facility]annCHEM PANEL 2014-04-16 10:40:0021.3[facility] YbmdlbcDEEBRDMOZJ8132-10-31 10:40:0031.8[facility] JqfczgoICXSWFKCZS0866-48-49 10:40:0014.5[facility] RdsofqiYBUPOENVID6460-55-40 10:40:39896Dvwbemni FbpwugtKZWNTOJPGY0297-14-62 10:40:008.8[facility] YRMRNZNNJX7279-14-95 10:40:007.1[facility] QnjihgeEHVLHHRAWM4838-04-89 10:40:00 22.3[facility] ZqadfcxGCRNVKPTCT8449-73-57 10:40:00 Test Item Value Reference Range Interpretation Comments MCH (test code = MCH) 28.9 pg 27.0-31.0 [facility] JzvebuxFCRDNQMMZJ2762-67-57 10:40:0090.8[facility] HermannHEMATOLOGY 2014-04-16 10:40:008.6[facility] GdoxkncFCJMNEIQQB2074-09-47 10:40:002.45[facility] FisdmhuCUHVZQTKVW5808-23-33 10:40:00Normal (04/16/14 5:40 AM)[facility] [place] VBWOIXSKKV5887-07-10 10:40:0015.5[facility] ZkjofghGFZSVMHQLR4120-24-49 10:40:00 71.4[facility] VfsjgqdMDXUGXJOPC8500-14-91 10:40:0011.1[facility] HermannHEMATOLOGY 2014-04-16 10:40:001.7[facility] CqbqvwbTVGWSFQUHU6163-17-20 10:40:006.2[facility] UsqoqpoBLUWBFOWNI4527-73-00 10:40:000.3[facility] NvkqixdYDOBVAOCXI0456-53-85 10:40:000.1[facility] NxcfoqcKQENZMQVAE0379-72-68 10:40:001.0[facility] [place] UDVKNFYHAA8152-50-10 10:40:001.3[facility] LyxzyigHAMJXGIRYR1369-52-20 10:40:00 Slight (04/16/14 5:40 AM)[facility]annCHEM CDFVQ1737-86-58 07:31:0021[facility]annCHEM CWYIM8752-12-14 07:31:001.8[facility]annCHEM RNIRB7524-07-15 07:31:005[facility]annCHEM HCBTX2955-75-07 07:31:0065[facility]annCHEM LQWHP7532-01-49 07:31:04787Pqplbalq HermannCHEM ZMBUK9349-53-12 07:31:13454 [facility] XHWBA5964-59-16 07:31:008.4[facility]annCHEM PANEL 2014-04-15 07:31:55812Qhszlekq HermannCHEM LKFTZ4128-44-79 07:31:0018[facility]annCHEM NCBSK2112-27-30 07:31:007.1[facility]annCHEM DVMTW1166-80-43 07:31:0019.5[facility] HzkrewnJADAENJBFI4834-11-85 07:31:0021.6[facility] NKFBZYVLJM7353-23-62 07:31:007.2[facility] HermannPARATHYROID FFQUCUZ1296-19-91 07:31:000.90[facility] HermannPARATHYROID TETZQIS3098-20-06 07:31:000.86[facility]annURINE XQIY3321-70-30 20:26:001.1[facility] NLZE8686-70-64 20:26:0071.3[facility]annURINE EQXV6591-84-46 20:26:0079.4[facility] ANEMIA MHQRN3718-54-16 14:28:71043Hgjcnghi HermannANEMIA UEBQB8361-27-22 14:28:02180Qkpdupyz HermannANEMIA OGIQX4011-54-95 14:28:0035[facility] ANEMIA DPGUG8489-59-85 14:28:10099Kegqszve HermannANEMIA IZVAH2706-29-78 14:28:0096[facility]annCHEM YDTQU0669-84-95 14:28:005.7[facility]annCHEM UZXQV6143-14-09 14:28:001.3[facility] UfkzrluPKWACHMLOS2606-59-75 14:28:0034.1 [facility] TnmlaboRAEOOMDNAY0759-75-84 14:28:00 Test Item Value Reference Range Interpretation Comments MCH (test code = MCH) 30.3 pg 27.0-31.0 [facility] MipioaeBITASYTLTE7403-99-28 14:28:0088.8[facility] HermannHEMATOLOGY 2014-04-14 14:28:47000Dwyvzjvh UmypnxbXZKHFOAVEH0220-60-54 14:28:0014.1[facility] BhfxgxaEXDETKLZIU4672-25-81 14:28:008.5[facility] IieszzmWGWGRMAAUG4682-54-35 14:28:002.35[facility] VtwkgeoJBWOWCBOSY2380-78-93 14:28:007.3[facility] LIHWYTGLXQ6413-09-55 14:28:0080.2[facility] NeywmnnRWZHGSPSYG3848-24-80 14:28:00 0.1[facility] WcnhxpvYYVGSYMGZY0688-49-06 14:28:000.6[facility] HermannHEMATOLOGY 2014-04-14 14:28:000.8[facility] RojmvvcEEXMZDGPYK8094-14-61 14:28:005.9[facility] PushpolKGEEDUHSMQ4929-88-97 14:28:000.2[facility] YecbxudPGFHHZPQYV1576-14-74 14:28:001.0[facility] IrilljwUUQETKVQSP8457-96-79 14:28:007.9[facility] JMVMNILIWL3453-90-45 14:28:0010.7[facility] HermannTHYROID IYIGE1358-56-16 14:28:000.83[facility] HermannTHYROID BAWOI3481-63-43 14:28:000.261[facility]annURINE AND BOUQQ6299-90-61 14:27:24Negative (04/14/14 9:27 AM)[facility] VYCDY8352-84-96 14:27:24Moderate *ABN*(04/14/14 9:27 AM)[facility] GZDCS5752-16-04 14:27:2418[facility] STOOL 2014-04-14 14:27:24Small *ABN*(04/14/14 9:27 AM)[facility] STOOL 2014-04-14 14:27:241.006[facility] AND RJFWE3324-37-35 14:27:241 [facility] PMLTP1876-00-26 14:27:24Slight *ABN*(04/14/14 9:27 AM) [facility] SSOYF5836-11-58 14:27:245.0[facility] AND BRXBJ8235-77-17 14:27:24Negative *NA*(04/14/14 9:27 AM)[facility] SMBDW0238-07-23 14:27:24Yellow *NA*(04/14/14 9:27 AM)[facility]annCHEM PANEL 2014-04-13 07:44:006.2[facility] HermannPARATHYROID LAVGXLH0525-89-11 07:44:000.96 [facility]annPARATHYROID PDJPULA7384-62-69 07:44:000.93[facility]annCHEM GWOQD6460-56-30 20:20:551.9[facility] AND JFCJC3643-88-22 15:34:0054 [facility] RTVTD0612-48-14 15:34:0012[facility] AND FQJKK0571-60-00 15:34:75266Bpxecxwy HermannURINE AND CSHAQ6997-48-66 15:34:0032 [facility] QZKFT4836-35-53 15:34:00Yellow *NA*(04/12/14 10:34 AM) [facility] AHLOG6131-23-08 15:34:005.5[facility] AND VDWFN4856-24-47 15:34:001.014[facility] AND ZXZNN7216-84-05 15:34:00 Marked *ABN*(04/12/14 10:34 AM)[facility] SAGQP1864-27-50 15:34:00 Negative *NA*(04/12/14 10:34 AM)[facility] DIYHG4481-20-76 15:34:00Large *ABN*(04/12/14 10:34 AM)[facility] EZDOI6033-95-69 15:34:00Negative (04/12/14 10:34 AM)[facility] AND LMYSX8504-00-16 15:34:00Large *ABN*(04/12/14 10:34 AM)[facility] SZML6145-61-91 15:34:0050[facility] NWSO1965-30-30 15:34:0017.4[facility] XYRG8271-95-86 15:34:0045[facility]UR[facility] FNFM0683-34-62 15:34:04172 [facility] HermannMOLECULAR DNPAPKVHYH6504-07-07 10:30:08Negative 18(04/12/14 5:30 AM)[facility]annCHEM PVUZI7018-30-58 10:30:67224Ncputxxe HermannCHEM PANEL 2014-04-12 10:30:004.5[facility] HermannPARASITOLOGY - FGVTYOZP6321-52-73 10:30:00 Negative (04/12/14 5:30 AM)[facility] HermannPARATHYROID OGALQRT9652-95-64 10:30:00 0.95[facility] HermannPARATHYROID FNWKKXF5216-24-90 10:30:000.98[facility] [place] MDNVPVKICC0163-06-58 06:35:38Negative *NA*(04/12/14 1:35 AM)[facility] QFOVANGTNR5718-88-07 06:35:0011.0[facility] SliyiwcHJRNYEGXBP3025-91-87 06:35:00 Negative *NA*(04/12/14 1:35 AM)[facility] ZdyeojiZPUSWLLREH7419-84-45 06:35:00 Positive *NA*(04/12/14 1:35 AM)[facility] HermannBACTERIAL - QOHIRFDM4235-97-38 05:22:00Negative 19(04/12/14 12:22 AM)[facility]annCHEM VNWTO9354-97-31 03:11:170.55[facility] QmjqjhiBCZXWEYOWRQUE3866-17-02 03:11:17Negative *NA*(04/11/14 10:11 PM)[facility] DmdafouXBIRBU7125-00-32 03:11:1747[facility] KirvvddXZFYQE8044-62-80 03:11:1748[facility] PzzrpntENIZKH3642-41-24 03:11:79298 [facility] ZiekdqaXATDKS9703-63-99 03:11:61545Yprgkron DisygvmNMMYOS4551-49-97 03:11:1738[facility] GoazyciFDWUMA0539-48-26 03:11:173.50[facility] HermannCARDIAC MUKXCPD2386-84-06 00:15:16452Wvlzizbk HermannCARDIAC SCZLHNK0573-96-41 00:15:00 134[facility] HermannCARDIAC JTUXFSE7139-95-83 00:15:00<0.010[facility] CARDIAC NHFFESR0240-74-93 00:15:00<0.02[facility] HermannCARDIAC ENZYMES 2014-04-12 00:15:002.3[facility] HermannCARDIAC YAXNSGJ6389-91-42 00:15:003.1 [facility]annCHEM JQQZI8927-52-94 00:15:000.9[facility]annCHEM PANEL 2014-04-12 00:15:000.2[facility]annCHEM BVOKN5673-86-47 00:15:0074[facility]annCHEM HLLCU3474-12-46 00:15:0035[facility]annCHEM SBRVO2124-83-49 00:15:003.1[facility]annCHEM PEQIG3216-99-49 00:15:003.5[facility]annCHEM DKMND3472-54-86 00:15:0055[facility]annCHEM DJWRW0034-41-02 00:15:006.6 [facility]CHE[facility] SFLVA2312-97-46 00:15:008[facility]annCHEM PANEL 2014-04-12 00:15:644730Efnmtyns AfshilaGFINRQOSTY1597-53-32 00:15:00 Test Item Value Reference Range Interpretation Comments PTT (test code = PTT) 32.5 s 22.9-35.8 [facility] IqahbstPAAKRBCNAB2802-76-51 00:15:001.23[facility] HermannHEMATOLOGY 2014-04-12 00:15:00 Test Item Value Reference Range Interpretation Comments PT (test code = PT) 15.4 s 12.0-14.7 [facility]annSPECIAL PGNOFCUNI8099-00-31 00:15:008.0[facility] HermannTHYROID YISMD3797-31-77 00:15:000.245[facility] HermannBLOOD BANK HNYRIVC7659-21-33 00:00:06Negative (04/11/14 7:00 PM)[facility]
[2021-03-29 20:35] LABS: Absolute Lymphocytes (CBC) 0.7 K/uL (0.7-4.9); Basophils % 0.2 % (0-1.3); Hematocrit 34.4 % (36.0-45.0); Lymphocytes % 3.5 % (15.3-44.8); MPV 9.4 fL (7.6-11.3); RBC Red Blood Cell Count 3.91 M/uL (3.86-4.86)
[2021-03-29 21:07] LABS: Albumin 3.5 g/dL (3.4-5.0); Bilirubin Direct 0.2 mg/dL (0-0.2); Bilirubin Total 0.7 mg/dL (0.2-1.0)
[2021-03-29] MEDS ORDERED: NA CHLORIDE 0.9% 1,000 ML ONE ×2 (21:32→23:10)
[2021-03-29 22:46] LABS: Urine Blood 3+ (Negative); Urine Glucose Negative (Negative); Urine Protein 2+ (Negative); Urine Specific Gravity 1.015 (1.005-1.030)
--- NOTE | 2021-03-29 22:47 | EDPHYS ---
Physician Documentation [facility] Name: Andreea Lmoeli Age: 60 yrs Sex: Female : 1960 Arrival Date: 03/29/2021 Time: 20:08 Bed 5 Private MD: ED Physician Wilbur Patel HPI: 03/29 22:43 This 60 yrs old Female presents to ER via EMS with complaints of UTI, fever. rn 22:43 The patient presents with urinary symptoms, dysuria, frequency, hematuria. Onset: The rn symptoms/episode began/occurred 2 day(s) ago. Modifying factors: The symptoms are alleviated by nothing, the symptoms are aggravated by urinating. Associated signs and symptoms: Pertinent positives: fever, nausea. Severity of symptoms: At their worst the symptoms were moderate, in the emergency department the symptoms are unchanged. The patient has experienced similar episodes in the past. The patient has not recently seen a physician. Reports fever, chills, urinary symptoms, + recurrent UTIs, + mild hematuria, assoc with nausea/vomiting. . Historical: - Allergies: 20:12 No Known Allergies; ea - Home Meds: 20:12 Tramadol Oral [Active]; ea - PMHx: 20:12 sciatica; neuropathy; kidney failure; Diabetes - NIDDM; Depression; ea - PSHx: 20:12 Cholecystectomy; Tubal ligation; ea - Immunization history:: Adult Immunizations up to date. - Social history:: Smoking status: unknown. - Family history:: not pertinent. - Hospitalizations: : No recent hospitalization is reported. ROS: 22:44 Constitutional: + fever and chills Eyes: Negative for injury, pain, redness, and plasterer journeyman, ENT: Negative for injury, pain, and discharge, Neck: Negative for injury, pain, and swelling, Cardiovascular: Negative for chest pain, palpitations, and edema, Respiratory: Negative for shortness of breath, cough, wheezing, and pleuritic chest pain, Abdomen/GI: + nausea and vomiting : + dysuria and hematuria MS/Extremity: Negative for injury and deformity, Skin: Negative for injury, rash, and discoloration, Neuro: Negative for headache, weakness, numbness, tingling, and seizure. Exam: 22:44 Constitutional: This is a well developed, well nourished patient who is awake, alert, rn and in no acute distress. Head/Face: Normocephalic, atraumatic. Eyes: Periorbital areas with no swelling, redness, or edema. ENT: dry MM Cardiovascular: Tachycardic, regular Respiratory: No increased work of breathing, no retractions or nasal flaring. Abdomen/GI: soft, non-tender Back: No spinal tenderness. No costovertebral tenderness. Full range of motion. Skin: Warm, dry MS/ Extremity: Pulses equal, no cyanosis. Neurovascular intact. Full, normal range of motion. Equal circumference. Neuro: Awake and alert, GCS 15 Vital Signs: 20:09 BP 167 / 87; Pulse 113; Resp 19; Temp 97.8; Pulse Ox 95% on R/A; Weight 124.74 kg; ea Height 5 ft. 6 in. (167.64 cm); 22:50 BP 155 / 95; Pulse 105; Resp 17; Pulse Ox 93% ; rr5 03/30 00:51 BP 110 / 68; Pulse 97; Resp 16; Pulse Ox 94% ; rr5 01:22 BP 126 / 68; Pulse 95; Resp 19; Pulse Ox 94% ; rr5 02:30 BP 115 / 89; Pulse 90; Resp 17; Pulse Ox 96% ; rr5 03/29 20:09 Body Mass Index 44.39 (124.74 kg, 167.64 cm) ea MDM: 03/29 20:27 Patient medically screened. rn 22:44 Differential diagnosis: nonspecific abdominal pain, urinary tract infection, rn pyelonephritis. Data reviewed: vital signs, nurses notes, lab test result(s), radiologic studies, CT scan, and as a result, I will admit patient. Counseling: I had a detailed discussion with the patient and/or guardian regarding: the historical points, exam findings, and any diagnostic results supporting the discharge/admit diagnosis, lab results, radiology results, the need for further work-up and treatment in the hospital. Response to treatment: the patient's symptoms have mildly improved after treatment, and as a result, I will admit patient. Admission orders: after a detailed discussion of the patient's condition and case, the admit orders are written by me. ED course: + admitted for pyelonephritis. 03/29 20:20 Order name: Basic Metabolic Panel; Complete Time: 21:17 ea 03/29 20:20 Order name: CBC with Diff 03/29 20:20 Order name: Hepatic Function; Complete Time: 21:17 03/29 20:20 Order name: Lipase; Complete Time: 21:17 03/29 20:33 Order name: Urine Culture 03/29 20:33 Order name: Urine Microscopic Only 03/29 20:33 Order name: CT Abd/Pelvis - IV Contrast Only 03/29 20:33 Order name: Blood Culture Adult (2) 03/29 20:33 Order name: Procalcitonin; Complete Time: 22:40 03/29 20:33 Order name: Lactate; Complete Time: 22:40 03/29 20:53 Order name: Manual Differential EDUT 03/29 22:46 Order name: Urine Dipstick-Ancillary; Complete Time: 22:47 [facility] 03/30 00:05 Order name: SARS-COV-2 RT PCR EDUT 03/29 20:20 Order name: IV Saline Lock; Complete Time: 21:29 03/29 20:20 Order name: Labs collected and sent; Complete Time: 21:29 03/29 20:20 Order name: Urine Dipstick-Ancillary (obtain specimen); Complete Time: 22:58 Administered Medications: 21:29 Drug: NS 0.9% 1000 ml Route: IV; Rate: 1000 ml; Site: left forearm; rr5 22:30 Follow up: Response: No adverse reaction; IV Status: Completed infusion; IV Intake: rr5 1000ml 22:58 Drug: Rocephin (cefTRIAXone) 1 grams Route: IV; Rate: calculated rate; Site: left ea antecubital; 03/30 00:00 Follow up: Response: No adverse reaction; IV Status: Completed infusion; IV Intake: 63vseo7 01:42 CANCELLED (Inappropriate at this time): Levophed (norepinephrine) (4 mg/250 mL D5W 4 rr5 mcg/min IV at calculated rate Per protocol; (final concentration is 16 microgram/mL) Disposition: 03/29/21 22:47 Hospitalization ordered by Jose Mendiola for Inpatient Admission. Preliminary diagnosis is Acute pyelonephritis. - Bed requested for Telemetry/MedSurg (Inpatient). - Status is Inpatient Admission. rr5 - Condition is Stable. - Problem is new. - Symptoms have improved. Signatures: Dispatcher [employer] [facility] Nicholas Contreras, RN MICHAEL em Wilbur Patel MD MD rn Antunez, Elena, RN RN ea Roque, Raymond, RN RN rr5 Corrections: (The following items were deleted from the chart) 03/29 22:29 21:53 CORONAVIRUS+ ordered. EDUT EDUT 03/30 00:36 03/29 22:47 Hospitalization Ordered by Jose Mendiola MD for Inpatient Admission. em Preliminary diagnosis is Acute pyelonephritis. Bed requested for Telemetry/MedSurg (Inpatient). Status is Inpatient Admission. Condition is Stable. Problem is new. Symptoms have improved. rn 03/30 01:42 01:30 Levophed (norepinephrine) (4 mg/250 mL D5W 4 mcg/min IV at calculated rate Per rr5 protocol; (final concentration is 16 microgram/mL) ordered. jerry 01:42 01:42 Levophed (norepinephrine) (4 mg/250 mL D5W 4 mcg/min IV at calculated rate Per rr5 protocol; (final concentration is 16 microgram/mL) ordered. rr5 02:30 00:36 03/29/2021 22:47 Hospitalization Ordered by Jose Mendiola MD for Inpatient rr5 Admission. Preliminary diagnosis is Acute pyelonephritis. Bed requested for Telemetry/MedSurg (Inpatient). Status is Inpatient Admission. Condition is Stable. Problem is new. Symptoms have improved. em
--- NOTE | 2021-03-29 22:47 | ER ---
Nurse's Notes [facility] Name: Andreea Lomeli Age: 60 yrs Sex: Female : 1960 Arrival Date: 03/29/2021 Time: 20:08 Bed 5 Private MD: Diagnosis: Acute pyelonephritis Presentation: 03/29 20:09 Chief complaint: Patient states: Reports abdominal pain, nausea and vomiting for two ea days. Pt reports having urinary discomfort. Coronavirus screen: At this time, the client does not indicate any symptoms associated with coronavirus-19. Ebola Screen: No symptoms or risks identified at this time. Initial Sepsis Screen: Does the patient meet any 2 criteria? No. Patient's initial sepsis screen is negative. Does the patient have a suspected source of infection? No. Patient's initial sepsis screen is negative. Risk Assessment: Do you want to hurt yourself or someone else? Patient reports no desire to harm self or others. Onset of symptoms was March 29, 2021. 20:09 Method Of Arrival: EMS: [facility] ea 20:09 Acuity: JAY 3 ea Triage Assessment: 20:13 General: Appears uncomfortable, Behavior is calm, cooperative, appropriate for age. ea Pain: Complains of pain in abdomen. Neuro: Level of Consciousness is awake, alert, obeys commands, Oriented to person, place, time. Cardiovascular: Patient's skin is warm and dry. Respiratory: Airway is patent Respiratory effort is even, unlabored, Respiratory pattern is regular, symmetrical. GI: No signs and/or symptoms were reported involving the gastrointestinal system. Derm: Skin is intact, Skin is pink, warm \T\ dry. Historical: - Allergies: 20:12 No Known Allergies; ea - Home Meds: 20:12 Tramadol Oral [Active]; ea - PMHx: 20:12 sciatica; neuropathy; kidney failure; Diabetes - NIDDM; Depression; ea - PSHx: 20:12 Cholecystectomy; Tubal ligation; ea - Immunization history:: Adult Immunizations up to date. - Social history:: Smoking status: unknown. - Family history:: not pertinent. - Hospitalizations: : No recent hospitalization is reported. Screenin:11 Abuse screen: Denies threats or abuse. Nutritional screening: No deficits noted. ea Tuberculosis screening: No symptoms or risk factors identified. Fall Risk None identified. Assessment: 20:13 Reassessment: see triage assessment. ea 22:51 Reassessment: Patient appears in no apparent distress at this time. Patient is alert, rr5 oriented x 3, equal unlabored respirations, skin warm/dry/pink. awaiting for results. 03/30 00:40 Reassessment: Patient appears in no apparent distress at this time. Patient is alert, rr5 oriented x 3, equal unlabored respirations, skin warm/dry/pink. provider informed patient asking for pain medication he said to wait for a while for the BP to go up. 01:22 Reassessment: Patient appears in no apparent distress at this time. Patient is alert, rr5 oriented x 3, equal unlabored respirations, skin warm/dry/pink. for admission awaiting for in patient orders. 02:30 Reassessment: Patient appears in no apparent distress at this time. Patient is alert, rr5 oriented x 3, equal unlabored respirations, skin warm/dry/pink. Vital Signs: 03/29 20:09 BP 167 / 87; Pulse 113; Resp 19; Temp 97.8; Pulse Ox 95% on R/A; Weight 124.74 kg; ea Height 5 ft. 6 in. (167.64 cm); 22:50 BP 155 / 95; Pulse 105; Resp 17; Pulse Ox 93% ; rr5 03/30 00:51 BP 110 / 68; Pulse 97; Resp 16; Pulse Ox 94% ; rr5 01:22 BP 126 / 68; Pulse 95; Resp 19; Pulse Ox 94% ; rr5 02:30 BP 115 / 89; Pulse 90; Resp 17; Pulse Ox 96% ; rr5 03/29 20:09 Body Mass Index 44.39 (124.74 kg, 167.64 cm) ea ED Course: 03/29 20:08 Patient arrived in ED. ea 20:11 Triage completed. ea 20:11 Patient has correct armband on for positive identification. Bed in low position. Call ea light in reach. Side rails up X2. 20:13 Arm band placed on right wrist. Patient placed in an exam room, on a stretcher, on ea pulse oximetry. 20:20 Shila Balderrama RN is Primary Nurse. ea 20:27 Wilbur Patel MD is Attending Physician. rn 21:20 Inserted saline lock: 20 gauge in left forearm, using aseptic technique. Blood rr5 collected. 21:20 First set of blood cultures drawn by me. rr5 21:27 Second set of blood cultures drawn by me. rr5 21:41 CT Abd/Pelvis - IV Contrast Only In Process Unspecified. EDMS 22:46 Jose Mendiola MD is Hospitalizing Provider. rn 23:10 No provider procedures requiring assistance completed. Patient admitted, IV remains in ea place. Administered Medications: 21:29 Drug: NS 0.9% 1000 ml Route: IV; Rate: 1000 ml; Site: left forearm; rr5 22:30 Follow up: Response: No adverse reaction; IV Status: Completed infusion; IV Intake: rr5 1000ml 22:58 Drug: Rocephin (cefTRIAXone) 1 grams Route: IV; Rate: calculated rate; Site: left ea antecubital; 03/30 00:00 Follow up: Response: No adverse reaction; IV Status: Completed infusion; IV Intake: 64vrlr9 01:42 CANCELLED (Inappropriate at this time): Levophed (norepinephrine) (4 mg/250 mL D5W 4 rr5 mcg/min IV at calculated rate Per protocol; (final concentration is 16 microgram/mL) Intake: 03/29 22:30 IV: 1000ml; Total: 1000ml. rr5 03/30 00:00 IV: 10ml; Total: 1010ml. rr5 Outcome: 03/29 22:47 Decision to Hospitalize by Provider. rn 03/30 00:52 Admitted to Tele accompanied by nurse, via wheelchair, room 410, with chart, Report rr5 called to rufus Condition: stable Instructed on the need for admit. 02:30 Patient left the ED. rr5 Signatures: Dispatcher [employer] EDMS Wilbur Patel MD MD rn Antunez, Elena, RN RN ea Roque, Raymond, RN RN rr5
[2021-03-29] MEDS ORDERED: CEFTRIAXONE/SWI 1gm 1 GM/10 ML SYR ONE (23:10)
[2021-03-29 23:25] LABS: Blood Morphology Comment NOT SEEN (NOT SEEN); Platelet Estimate ADEQ
[2021-03-30 00:05] LABS: Urine RBC TNTC /HPF (NONE SEEN)
[2021-03-30 00:06] LABS: Urine Bacteria 20-50 /HPF (<20)
[2021-03-30] MEDS ORDERED: NOREPINEPHRINE 4mg/D5W 250mL 4 MG/250 ML BAG IV ONE (02:19)
[2021-03-30] MEDS ORDERED: ONDANSETRON 4 MG/2 ML VIAL ONE (02:56)
[2021-03-30] MEDS ORDERED: NA CHLORIDE 0.9% 1,000 ML IV SCH (03:00)
[2021-03-30] MEDS ORDERED: CEFTRIAXONE/SWI 1gm 1 GM/10 ML SYR IV SCH (03:00)
[2021-03-30] MEDS: MORPHINE 2 MG/ML SYR IV PRN ×3 (03:10→23:19)
[2021-03-30] MEDS: NA CHLORIDE 0.9% 1,000 ML IV SCH ×3 (03:22→23:19)
--- NOTE | 2021-03-30 03:28 | P.HP ---
Certification for Inpatient Patient admitted to: Inpatient With expected LOS: >2 Midnights Patient will require the following post-hospital care: None Practitioner: I am a practitioner with admitting privileges, knowledge of patient current condition, hospital course, and medical plan of care. Services: Services provided to patient in accordance with Admission requirements found in Title 42 Section 412.3 of the Code of Federal Regulations Patient History Date of Service: 03/30/21 Primary Care Provider: [place] Reason for admission: pyelonephritis History of Present Illness: Ms. Lomeli is a 60 yo F with DM, CKD, neuropathy, sciatic here today for 2 days of hematuria and left flank pain. She reports dysuria, frequency, nausea, vomiting, chills, and lightheadedness. Denies urgency. She says she has had recurrent UTIs in the past. Some improvement of symptoms with heating pad. WBC 18.4. BUN 25. GFR 43. glu 190. procal 3.44. urine + for blood and bacteria. CT shows ureteritis and possible early pyelonephritis. Allergies No Known Allergies Allergy (Verified 03/10/21 08:47) Home Medications: Allopurinol 100 mg PO DAILY 03/10/21 Gabapentin 600 mg PO QID 03/10/21 Glimepiride 4 mg PO BID 03/10/21 Paroxetine HCl [Paxil] 40 mg PO DAILY 03/10/21 Tramadol HCl [Ultram] 50 mg PO PRN PRN 03/10/21 buPROPion HCL [Wellbutrin] 100 mg PO DAILY 03/10/21 carvediloL [Carvedilol] 25 mg PO BID 03/10/21 - Past Medical/Surgical History Diabetic: Yes -: sciatica -: neuropathy -: CKD -: DM -: depression -: cholecystectomy -: tubal ligation -: shoulder surgery - Family History Mother -: Cancer Sister -: Cancer - Social History Smoking Status: Never smoker Alcohol use: No CD- Drugs: No Caffeine use: No Place of Residence: Home Review of Systems 10-point ROS is otherwise unremarkable General: Chills, As per HPI Gastrointestinal: Nausea, Vomiting, Abdominal Pain, As per HPI Genitourinary: Dysuria, Frequency, Hematuria, As per HPI Musculoskeletal: Shoulder Pain Physical Examination - Vital Signs Temperature: 97.8 F Blood Pressure: 115/89 Pulse: 90 Respirations: 17 - Physical Exam General: Alert, In no apparent distress HEENT: Atraumatic, PERRLA, Mucous membr. moist/pink, EOMI, Sclerae nonicteric Neck: Supple, 2+ carotid pulse no bruit, No LAD, Without JVD or thyroid abnormality Respiratory: Clear to auscultation bilaterally, Normal air movement Cardiovascular: Regular rate/rhythm, Normal S1 S2 Gastrointestinal: Normal bowel sounds, No tenderness Musculoskeletal: No clubbing, No swelling, No contractures, No erythema, No warmth, Tenderness Integumentary: No rashes Neurological: Normal gait, Normal speech, Normal strength at 5/5 x4 extr, Normal tone, Normal affect Lymphatics: No axilla or inguinal lymphadenopathy - Studies Laboratory Data (last 24 hrs) 03/29/21 20:20: WBC 18.40 H, Hgb 11.6 L, Hct 34.4 L, Plt Count 226 03/29/21 20:20: Sodium 138, Potassium 4.0, BUN 25 H, Creatinine 1.28, Glucose 190 H, Total Bilirubin 0.7, AST 11 L, ALT 18, Alkaline Phosphatase 85, Lipase 216 Assessment and Plan - Problems (Diagnosis) (1) T2DM (type 2 diabetes mellitus) Current Visit: Yes Status: Chronic Qualifiers: Diabetes mellitus termite exterminator helper insulin use: without mcfp use Diabetes mellitus complication status: with kidney complications Diabetes mellitus complication detail: with chronic kidney disease Chronic kidney disease stage 3 subtype: stage 3b (GFR 30-44) (2) Pyelonephritis Current Visit: Yes Status: Acute (3) HTN (hypertension) Current Visit: Yes Status: Chronic Qualifiers: Hypertension type: essential hypertension Qualified Code(s): I10 - Essential (primary) hypertension (4) Neuropathy Current Visit: Yes Status: Chronic (5) Depression Current Visit: Yes Status: Chronic Qualifiers: Depression Type: unspecified Qualified Code(s): F32.9 - Major depressive disorder, single episode, unspecified - Plan continue IV ceftriaxone and IVF antiemetics and pain management as needed tylenol for fever BP stable, continue to monitor accuchecks and sliding scale insulin continue home medications Discharge Plan: Home Plan to discharge in: 48 Hours - Advance Directives Does patient have a Living Will: No Does patient have a Durable POA for Healthcare: No - Code Status/Comfort Care Code Status Assessed: Yes (full code ) Critical Care: No Time Spent Managing Pts Care (In Minutes): 70
[2021-03-30 04:40] VITALS: BMI 44.4
[2021-03-30] MEDS: HYDROCODONE/APAP 7.5/325 MG TAB PO PRN ×3 (05:49→20:01)
[2021-03-30] MEDS: carvediloL 25 MG TAB PO SCH ×2 (05:50→17:00)
[2021-03-30 06:28] LABS: Basophils % 0.4 % (0-1.3); Hematocrit 29.6 % (36.0-45.0); Lymphocytes % 5.5 % (15.3-44.8); MPV 9.2 fL (7.6-11.3); RBC Red Blood Cell Count 3.34 M/uL (3.86-4.86)
[2021-03-30 07:00] LABS: Bilirubin Total 0.8 mg/dL (0.2-1.0); Magnesium 1.7 mg/dL (1.8-2.4); Phosphorus 2.5 mg/dL (2.5-4.9); Potassium 4.2 mmol/L (3.5-5.1); Thyroid Stimulating Hormone 0.389 uIU/mL (0.360-3.740)
[2021-03-30] MEDS ORDERED: MAGNESIUM SULFATE 1 gm IVPB 1 GM/100 ML BAG IV ONE (08:30)
[2021-03-30] MEDS: INSULIN -REGULAR HUMAN 50 UNIT/0.5 ML ML SQ SCH ×4 (08:51→20:02)
[2021-03-30] MEDS: PARoxetine HCL 10 MG TAB PO SCH (08:52)
[2021-03-30] MEDS: BUPROPION HCL XL 150 MG TAB PO SCH (08:53)
[2021-03-30] MEDS: allopurinoL 100 MG TAB PO SCH (08:53)
--- NOTE | 2021-03-30 12:27 | RAD REPORT ---
EXAM DESCRIPTION: CT - Abdomen Pelvis W Contrast - 03/30/2021 4:24 am CLINICAL HISTORY: 60-year-old female with urinary symptoms, hematuria and fever. COMPARISON: None. TECHNIQUE: CT of the abdomen and pelvis was performed following intravenous administration of contra st. Oral contrast was not administered. Multiplanar reformatted images were provided. This exam was p erformed according to our departmental dose optimization program which includes use of automated expo sure control, adjustment of the mA and/or kV according to patient size and/or use of iterative recons truction technique. FINDINGS: Chest: Evaluation through the lung bases reveals no focal opacity, pleural effusion or pne umothorax. Heart size is within normal limits. No pericardial effusion. Abdomen and pelvis: The liver, pancreas, spleen, bilateral kidneys and bilateral adrenal glands are w ithin normal limits. Surgical clips at the level of the gallbladder fossa status post cholecystectomy. Hypoattenuating cystic type focus measuring 2.4 cm with approximately 6 Hounsfield units compatible w ith simple renal cyst of the LEFT lower pole. Minimal perinephric stranding on the LEFT is present with slight haziness of the LEFT renal pelvis, m ildly prominent ureter with ureteral wall stranding raising the concern for ureteritis and the possib ility of early pyelonephritis in the correct clinical setting. Thickened appearance of the bladder wall may be secondary to incomplete distention, however with kyle vesicular stranding concerning for infectious or inflammatory process. Please correlate with laborato ry values. The vessels are patent and normal in caliber. No abdominopelvic lymph nodes are noted to be pathologically enlarged by CT measurement criteria. The bowel is within normal limits without abnormal bowel wall thickness or bowel dilation. No free air. No free abdominopelvic fluid collections. The appendix is within normal limits. The osseous structures reveal degenerative change with degenerative change of the lower lumbar spine facets. IMPRESSION: 1. Minimal perinephric stranding on the LEFT is present with slight haziness of the LE FT renal pelvis, mildly prominent ureter with ureteral wall stranding raising the concern for ureteri tis and the possibility of early pyelonephritis in the correct clinical setting. 2. Thickened appearance of the bladder wall may be secondary to incomplete distention, however with perivesicular stranding concerning for infectious or inflammatory process. Please correlate with lab oratory values. Electronically signed by: Karen Castillo MD 03/29/2021 10:31 PM CDT Due to temporary technical issues with the PACS/Fluency reporting system, reports are being signed by the in house radiologist without review as a courtesy to ensure prompt reporting. The interpreting r adiologist is fully responsible for the content of the report.
[2021-03-30] MEDS ORDERED: GLUCAGON 1 MG/VIAL IM PRN (15:11)
--- NOTE | 2021-03-30 15:11 | P.PN ---
Date of Service: 03/30/21 Patient reports feeling better. She states her left flank pain has significantly improved. Blood culture is growing Gram negative rods. Urine culture is pending. Continue IV Rocephin. Follow cultures. Diet as tolerated. Continue insulin sliding scale. Add low dose Lantus.
[2021-03-30] MEDS: ONDANSETRON 4 MG/2 ML VIAL IV PRN ×2 (15:19→23:22)
[2021-03-30] MEDS ORDERED: D50W 25 GM/50 ML VIAL IV PRN (15:28)
[2021-03-30] MEDS: ACETAMINOPHEN 500 MG TAB PO PRN ×2 (15:33→23:19)
[2021-03-30 16:18] LABS: Urine Appearance CLOUDY (Clear); Urine Blood 1+ (Negative); Urine Color DK YELLOW (Yellow); Urine Glucose NEGATIVE (Negative); Urine Protein 1+ (Negative); Urine Specific Gravity 1.025 (1.005-1.030); Urine pH 5.5 (5.0-7.0)
[2021-03-30 16:27] LABS: Urine Bilirubin NEGATIVE (Negative); Urine Microscopic Reflex ORDER UMIC
[2021-03-30 16:51] LABS: Urine Bacteria <20 /HPF (<20); Urine RBC <5 /HPF (NONE SEEN)
[2021-03-30] MEDS: CEFTRIAXONE/SWI 1gm 1 GM/10 ML SYR IV SCH (17:00)
[2021-03-30] MEDS: GABAPENTIN 300 MG CAP PO SCH (20:01)
[2021-03-30] MEDS: INSULIN GLARGINE 100 UNITS/ML SQ SCH (20:03)
[2021-03-30] MEDS ORDERED: TOPIRAMATE 25 MG TAB PO SCH (21:00)
[2021-03-30] MEDS ORDERED: CEFTRIAXONE 1 GM/NS 50 ML 1 GM/50 ML BAG IV SCH (23:00)
[2021-03-31 04:10] LABS: Absolute Lymphocytes (CBC) 0.6 K/uL (0.7-4.9); Basophils % 0.3 % (0-1.3); Hematocrit 29.8 % (36.0-45.0); MPV 9.4 fL (7.6-11.3); RBC Red Blood Cell Count 3.34 M/uL (3.86-4.86)
[2021-03-31 04:31] LABS: Albumin 2.9 g/dL (3.4-5.0); Bilirubin Total 0.5 mg/dL (0.2-1.0); Phosphorus 2.6 mg/dL (2.5-4.9); Potassium 4.4 mmol/L (3.5-5.1); Protein, Total 7.1 g/dL (6.4-8.2)
[2021-03-31] MEDS: MORPHINE 2 MG/ML SYR IV PRN (05:53)
[2021-03-31] MEDS: carvediloL 25 MG TAB PO SCH (05:55)
[2021-03-31] MEDS: ONDANSETRON 4 MG/2 ML VIAL IV PRN ×3 (05:55→22:28)
[2021-03-31] MEDS: NA CHLORIDE 0.9% 1,000 ML IV SCH ×2 (06:02→13:34)
[2021-03-31] MEDS: PARoxetine HCL 10 MG TAB PO SCH ×3 (08:44→21:34)
[2021-03-31] MEDS: GABAPENTIN 300 MG CAP PO SCH ×4 (08:44→21:34)
[2021-03-31] MEDS: allopurinoL 100 MG TAB PO SCH (08:45)
[2021-03-31] MEDS: INSULIN -REGULAR HUMAN 50 UNIT/0.5 ML ML SQ SCH ×4 (08:45→21:00)
[2021-03-31] MEDS: BUPROPION HCL XL 150 MG TAB PO SCH (08:45)
[2021-03-31] MEDS: HYDROCODONE/APAP 7.5/325 MG TAB PO PRN (16:19)
--- NOTE | 2021-03-31 16:46 | P.PN ---
Subjective Date of Service: 03/31/21 Primary Care Provider: [place] Chief Complaint: pyelonephritis Patient reports feeling much better today. She states her appetite is improving and she is tolerating her diet. Multiple blood culture bottles growing Gram negative rods. Physical Examination - Vital Signs Temperature: 97.3 F Blood Pressure: 94/52 Pulse: 85 Respirations: 16 Pulse Ox (%): 95 - Physical Exam General: Alert, In no apparent distress, Oriented x3 HEENT: Mucous membr. moist/pink Neck: Supple, JVD not distended Respiratory: Clear to auscultation bilaterally, Normal air movement Cardiovascular: No edema, Regular rate/rhythm, Normal S1 S2 Gastrointestinal: Normal bowel sounds, Soft and benign, Non-distended, No tenderness Musculoskeletal: No swelling, No tenderness Integumentary: No rashes, No erythema Neurological: Normal strength at 5/5 x4 extr - Studies Microbiology Data (last 24 hrs): 03/29/21 21:25 Blood - Blood Gram Stain - Final 03/29/21 21:18 Blood - Blood Blood Culture Gram Stain - Final 03/29/21 21:18 Blood - Blood Gram Stain - Final Assessment And Plan - Current Problems (Diagnosis) (1) Bacteremia Current Visit: Yes Status: Acute (2) Pyelonephritis Current Visit: Yes Status: Acute (3) Depression Current Visit: Yes Status: Chronic Qualifiers: Depression Type: unspecified Qualified Code(s): F32.9 - Major depressive disorder, single episode, unspecified (4) HTN (hypertension) Current Visit: Yes Status: Chronic Qualifiers: Hypertension type: essential hypertension Qualified Code(s): I10 - Essential (primary) hypertension (5) T2DM (type 2 diabetes mellitus) Current Visit: Yes Status: Chronic Qualifiers: Diabetes mellitus equipment operator intermodal yard insulin use: without equipment operator intermodal yard use Diabetes mellitus complication status: with kidney complications Diabetes mellitus complication detail: with chronic kidney disease Chronic kidney disease stage 3 subtype: stage 3b (GFR 30-44) (6) Sepsis Current Visit: Yes Status: Acute - Plan Continue IV Rocephin. Follow blood culture for organism identification and sensitivities. Diet as tolerated. Insulin sliding scale for glucose management. Glimepiride is on hold for now. Added Lantus insulin to improve glucose control. Hold antihypertensives given soft blood pressure and sepsis.
[2021-03-31] MEDS: CEFTRIAXONE/SWI 1gm 1 GM/10 ML SYR IV SCH (18:38)
[2021-03-31] MEDS: INSULIN GLARGINE 100 UNITS/ML SQ SCH (21:35)
[2021-03-31] MEDS: ACETAMINOPHEN 500 MG TAB PO PRN (22:32)
[2021-04-01] MEDS: DOCUSATE NA 100 MG CAP PO SCH ×3 (02:04→20:12)
[2021-04-01] MEDS: NA CHLORIDE 0.9% 1,000 ML IV SCH ×4 (02:05→22:02)
[2021-04-01 04:15] LABS: Absolute Lymphocytes (CBC) 0.8 K/uL (0.7-4.9); Basophils % 0.2 % (0-1.3); Hematocrit 26.8 % (36.0-45.0); Lymphocytes % 11.3 % (15.3-44.8); MPV 9.8 fL (7.6-11.3); RBC Red Blood Cell Count 2.99 M/uL (3.86-4.86)
[2021-04-01 04:32] LABS: Potassium 4.1 mmol/L (3.5-5.1)
[2021-04-01] MEDS: INSULIN -REGULAR HUMAN 50 UNIT/0.5 ML ML SQ SCH ×4 (07:30→20:17)
[2021-04-01] MEDS: GABAPENTIN 300 MG CAP PO SCH ×4 (07:55→20:12)
[2021-04-01] MEDS: allopurinoL 100 MG TAB PO SCH (07:56)
[2021-04-01] MEDS: BUPROPION HCL XL 150 MG TAB PO SCH (07:56)
[2021-04-01] MEDS: HYDROCODONE/APAP 7.5/325 MG TAB PO PRN ×3 (08:02→21:35)
[2021-04-01] MEDS: ONDANSETRON 4 MG/2 ML VIAL IV PRN (08:03)
--- NOTE | 2021-04-01 13:02 | P.PN ---
Subjective Date of Service: 04/01/21 Primary Care Provider: [place] Chief Complaint: pyelonephritis Patient has no complain today. All blood cultures growing E. coli. Physical Examination - Vital Signs Temperature: 97.2 F Blood Pressure: 140/68 Pulse: 77 Respirations: 18 Pulse Ox (%): 94 - Physical Exam General: Alert, In no apparent distress HEENT: Mucous membr. moist/pink Neck: Supple, JVD not distended Respiratory: Clear to auscultation bilaterally, Normal air movement Cardiovascular: No edema, Regular rate/rhythm, Normal S1 S2 Gastrointestinal: Normal bowel sounds, Soft and benign, Non-distended Musculoskeletal: No swelling Integumentary: No rashes Neurological: Normal strength at 5/5 x4 extr - Studies Microbiology Data (last 24 hrs): 03/29/21 22:40 Clean Catch Urine [place] Count - Final >100,000 CFU/ML. 03/29/21 22:40 Clean Catch Urine - Final Escherichia Coli 03/29/21 21:25 Blood - Blood Aerobic Blood Culture - Final Escherichia Coli 03/29/21 21:25 Blood - Blood Anaerobic Blood Culture - Final Escherichia Coli 03/29/21 21:25 Blood - Blood Gram Stain - Final 03/29/21 21:18 Blood - Blood Aerobic Blood Culture - Final Escherichia Coli 03/29/21 21:18 Blood - Blood Blood Culture Gram Stain - Final 03/29/21 21:18 Blood - Blood Anaerobic Blood Culture - Final Escherichia Coli 03/29/21 21:18 Blood - Blood Gram Stain - Final Assessment And Plan - Current Problems (Diagnosis) (1) Bacteremia Current Visit: Yes Status: Acute (2) Pyelonephritis Current Visit: Yes Status: Acute (3) Depression Current Visit: Yes Status: Chronic Qualifiers: Depression Type: unspecified Qualified Code(s): F32.9 - Major depressive disorder, single episode, unspecified (4) HTN (hypertension) Current Visit: Yes Status: Chronic Qualifiers: Hypertension type: essential hypertension Qualified Code(s): I10 - E ssential (primary) hypertension (5) T2DM (type 2 diabetes mellitus) Current Visit: Yes Status: Chronic Qualifiers: Diabetes mellitus skilled nursing insulin use: without meterman use Diabetes mellitus complication status: with kidney complications Diabetes mellitus complication detail: with chronic kidney disease Chronic kidney disease stage 3 subtype: stage 3b (GFR 30-44) (6) Sepsis Current Visit: Yes Status: Acute - Plan Patient with pansensitive E. coli bacteremia. Continue IV Rocephin. Repeat blood culture to document clearance. Diet as tolerated. Insulin sliding scale for glucose management. Glimepiride is on hold for now. Continue Lantus insulin and insulin sliding scale. Hemoglobin dropping. Now 8.8. Continue to monitor and transfuse p.r.n. Resume Coreg for hypertension.
[2021-04-01] MEDS: CEFTRIAXONE/SWI 1gm 1 GM/10 ML SYR IV SCH (17:02)
[2021-04-01] MEDS: carvediloL 25 MG TAB PO SCH (17:02)
[2021-04-01] MEDS: PARoxetine HCL 10 MG TAB PO SCH (20:12)
[2021-04-01] MEDS: INSULIN GLARGINE 100 UNITS/ML SQ SCH (20:17)
[2021-04-01] MEDS: GLIMEPIRIDE 2 MG TABLET PO SCH (21:23)
[2021-04-02 04:33] LABS: Potassium 4.4 mmol/L (3.5-5.1)
[2021-04-02 05:19] LABS: Absolute Lymphocytes (CBC) 1.3 K/uL (0.7-4.9); Basophils % 0.5 % (0-1.3); Hematocrit 26.3 % (36.0-45.0); Lymphocytes % 15.7 % (15.3-44.8); MPV 9.6 fL (7.6-11.3); RBC Red Blood Cell Count 2.95 M/uL (3.86-4.86)
[2021-04-02] MEDS: carvediloL 25 MG TAB PO SCH ×2 (05:21→17:08)
[2021-04-02] MEDS: NA CHLORIDE 0.9% 1,000 ML IV SCH ×2 (05:22→11:22)
[2021-04-02] MEDS: INSULIN -REGULAR HUMAN 50 UNIT/0.5 ML ML SQ SCH ×4 (07:30→20:35)
[2021-04-02] MEDS: allopurinoL 100 MG TAB PO SCH (08:44)
[2021-04-02] MEDS: GABAPENTIN 300 MG CAP PO SCH ×4 (08:45→20:35)
[2021-04-02] MEDS: BUPROPION HCL XL 150 MG TAB PO SCH (08:45)
[2021-04-02] MEDS: DOCUSATE NA 100 MG CAP PO SCH ×2 (08:45→20:35)
[2021-04-02] MEDS: GLIMEPIRIDE 2 MG TABLET PO SCH ×2 (08:45→17:03)
[2021-04-02] MEDS: HYDROCODONE/APAP 7.5/325 MG TAB PO PRN ×2 (08:55→17:11)
--- NOTE | 2021-04-02 13:53 | P.PN ---
Subjective Date of Service: 04/02/21 Primary Care Provider: [place] Chief Complaint: pyelonephritis Patient has no complain. She declined Lantus insulin and insulin sliding scale and requested for her glimepiride. Physical Examination - Vital Signs Temperature: 97.8 F Blood Pressure: 119/70 Pulse: 79 Respirations: 18 Pulse Ox (%): 91 - Physical Exam General: Alert, In no apparent distress, Oriented x3 HEENT: Mucous membr. moist/pink Neck: JVD not distended Respiratory: Clear to auscultation bilaterally, Normal air movement Cardiovascular: Regular rate/rhythm, Normal S1 S2 Gastrointestinal: Soft and benign, Non-distended, No tenderness Musculoskeletal: No swelling Integumentary: No rashes Neurological: Normal strength at 5/5 x4 extr Assessment And Plan - Current Problems (Diagnosis) (1) Bacteremia Current Visit: Yes Status: Acute (2) Pyelonephritis Current Visit: Yes Status: Acute (3) Depression Current Visit: Yes Status: Chronic Qualifiers: Depression Type: unspecified Qualified Code(s): F32.9 - Major depressive disorder, single episode, unspecified (4) HTN (hypertension) Current Visit: Yes Status: Chronic Qualifiers: Hypertension type: essential hypertension Qualified Code(s): I10 - Essential (primary) hypertension (5) T2DM (type 2 diabetes mellitus) Current Visit: Yes Status: Chronic Qualifiers: Diabetes mellitus residential insulin use: without residential use Diabetes mellitus complication status: with kidney complications Diabetes mellitus complication detail: with chronic kidney disease Chronic kidney disease stage 3 subtype: stage 3b (GFR 30-44) (6) Sepsis Current Visit: Yes Status: Acute - Plan Patient with pansensitive E. coli bacteremia. Continue IV Rocephin. Repeat blood culture: No growth to date. Patient to complete 5 days of IV antibiotics. Diet as tolerated. Glimepiride resumed Lantus insulin and insulin sliding scale discontinued per patient request. Hemoglobin stable from yesterday. Continue to monitor and transfuse p.r.n. Continue Coreg for hypertension.
[2021-04-02] MEDS: CEFTRIAXONE/SWI 1gm 1 GM/10 ML SYR IV SCH (17:03)
[2021-04-02] MEDS ORDERED: POLYETHYL GLY 3350 17 GM/DOSE PO PRN (18:01)
[2021-04-02] MEDS: PARoxetine HCL 10 MG TAB PO SCH (20:35)
[2021-04-03] MEDS: NA CHLORIDE 0.9% 1,000 ML IV SCH ×2 (00:42→08:27)
[2021-04-03] MEDS: HYDROCODONE/APAP 7.5/325 MG TAB PO PRN (03:17)
[2021-04-03 04:08] LABS: Absolute Lymphocytes (CBC) 1.5 K/uL (0.7-4.9); Basophils % 0.5 % (0-1.3); Hematocrit 25.1 % (36.0-45.0); Lymphocytes % 14.9 % (15.3-44.8); MPV 9.8 fL (7.6-11.3); RBC Red Blood Cell Count 2.83 M/uL (3.86-4.86)
[2021-04-03] MEDS: carvediloL 25 MG TAB PO SCH (06:11)
[2021-04-03] MEDS: INSULIN -REGULAR HUMAN 50 UNIT/0.5 ML ML SQ SCH ×2 (07:30→11:44)
[2021-04-03] MEDS: DOCUSATE NA 100 MG CAP PO SCH (08:26)
[2021-04-03] MEDS: allopurinoL 100 MG TAB PO SCH (08:26)
[2021-04-03] MEDS: GLIMEPIRIDE 2 MG TABLET PO SCH (08:26)
[2021-04-03] MEDS: BUPROPION HCL XL 150 MG TAB PO SCH (08:26)
[2021-04-03] MEDS: GABAPENTIN 300 MG CAP PO SCH ×2 (08:26→12:10)
[2021-04-03 11:04] VITALS: O2SAT 95
--- NOTE | 2021-04-03 11:21 | P.DS ---
Admission Date: 03/30/21 Discharge Date: 04/03/21 Primary Care Provider: [place] Reason for Admission: pyelonephritis - Problems (1) Bacteremia Current Visit: Yes Status: Acute (2) Pyelonephritis Current Visit: Yes Status: Acute (3) Depression Current Visit: Yes Status: Chronic Qualifiers: Depression Type: unspecified Qualified Code(s): F32.9 - Major depressive disorder, single episode, unspecified (4) HTN (hypertension) Current Visit: Yes Status: Chronic Qualifiers: Hypertension type: essential hypertension Qualified Code(s): I10 - Essential (primary) hypertension (5) T2DM (type 2 diabetes mellitus) Current Visit: Yes Status: Chronic Qualifiers: Diabetes mellitus intermediate manager insulin use: without nursing home use Diabetes mellitus complication status: with kidney complications Diabetes mellitus complication detail: with chronic kidney disease Chronic kidney disease stage 3 subtype: stage 3b (GFR 30-44) (6) Sepsis Current Visit: Yes Status: Acute (7) Bacterial infection due to E. coli Current Visit: Yes Status: Acute Brief History of Present Illness: 60-year-old woman with a history of diabetes, chronic kidney disease, diabetic neuropathy presented to the emergency department with a complaint of hematuria and left flank pain. UA done in the emergency department demonstrated UTI. She had leukocytosis. CT scan showed ureteritis and possible pyelonephritis. Patient admitted for further management. Hospital Course: Patient admitted to the medical floor and started on IV Rocephin for UTI. Urine culture grew E. coli. All blood culture bottles also grew E. coli. Patient received 5 days of IV Rocephin. Repeat urine culture yielded no growth. Patient's symptoms resolved with treatment. Infectious disease consulted to assist with antibiotic management. Infectious disease recommended oral Augmentin to complete 14 days of treatment. Vital Signs/Physical Exam: Temp Pulse Resp BP Pulse Ox 97.0 F 78 16 98/58 L 99 04/03/21 07:46 04/03/21 07:46 04/03/21 07:46 04/03/21 07:46 04/03/21 07:46 General: Alert, In no apparent distress, Oriented x3 HEENT: Mucous membr. moist/pink Neck: JVD not distended Respiratory: Clear to auscultation bilaterally, Normal air movement Cardiovascular: No edema, Regular rate/rhythm, Normal S1 S2 Gastrointestinal: Normal bowel sounds, Soft and benign, Non-distended Musculoskeletal: No swelling Integumentary: No breakdown Neurological: Normal strength at 5/5 x4 extr Laboratory Data at Discharge: WBC 10.40 K/uL (4.3-10.9) D 04/03/21 03:30 Hgb 8.6 g/dL (12.0-15.0) L 04/03/21 03:30 Hct 25.1 % (36.0-45.0) L 04/03/21 03:30 Plt Count 219 K/uL (152-406) D 04/03/21 03:30 Sodium 140 mmol/L (136-145) 04/02/21 03:33 Potassium 4.4 mmol/L (3.5-5.1) 04/02/21 03:33 BUN 20 mg/dL (7-18) H 04/02/21 03:33 Creatinine 1.08 mg/dL (0.55-1.3) 04/02/21 03:33 Glucose 199 mg/dL (74-106) H 04/02/21 03:33 Phosphorus 2.6 mg/dL (2.5-4.9) 03/31/21 03:31 Magnesium 2.0 mg/dL (1.8-2.4) 03/31/21 03:31 Total Bilirubin 0.5 mg/dL (0.2-1.0) 03/31/21 03:31 AST 15 U/L (15-37) 03/31/21 03:31 ALT 15 U/L (12-78) 03/31/21 03:31 Alkaline Phosphatase 70 U/L (45-117) 03/31/21 03:31 Triglycerides 174 mg/dL (<150) H 03/31/21 03:31 Cholesterol 203 mg/dL (<200) H 03/31/21 03:31 HDL Cholesterol 54 mg/dL (40-60) 03/31/21 03:31 Cholesterol/HDL Ratio 3.76 03/31/21 03:31 Lipase 216 U/L (73-393) 03/29/21 20:20 Home Medications: Allopurinol 100 mg PO DAILY 03/10/21 Gabapentin 600 mg PO QID 03/10/21 Glimepiride 4 mg PO BID 03/10/21 Paroxetine HCl [Paxil] 40 mg PO DAILY 03/10/21 buPROPion HCL [Wellbutrin*] 150 mg PO DAILY 03/10/21 Hydrocodone Bit/Acetaminophen [[place] 7.5-325 Tablet] 1 tab PO TID PRN 03/30/21 Amox/Clavulanate [Augmentin 875-125 Tab] 1 each PO BID #20 tab 04/03/21 carvediloL [Coreg*] 12.5 mg PO BID 6AM 6PM #60 tab 04/03/21 New Medications: Amox/Clavulanate [Augmentin 875-125 Tab] 1 each PO BID #20 tab carvediloL [Coreg*] 12.5 mg PO BID 6AM 6PM #60 tab Diet: ADA Activity: Ad alvina Followup: Unknown,U [Primary Care Provider] - 1-2 Weeks Time spent managing pt's care (in minutes): 36
--- NOTE | 2021-04-03 11:51 | CON ---
History Of Present Illness: This is a 60-year-old female with significant history of diabetes mellit us, chronic kidney disease, neuropathy. I was consulted for bacteremia and urinary tract infection s econdary to E coli. The patient has resistant pattern to ampicillin, cefazolin, Unasyn and sensitive to sulfa drugs, Augmentin, and gentamicin, quinolones, and cephalosporin and carbapenems. The patie nt is being treated with IV antibiotic and no new complaints. The patient is currently getting Rocep hin. Her last blood cultures have done on April 01; however, negative. Initial cultures which were p ositive are from March 29. Past Medical History: Includes sciatica, diabetes mellitus, diabetic neuropathy, CKD, depression, ch olecystectomy, tubal ligation, shoulder surgery. Family History: Includes cancer. Social History: Nonsmoker, nondrinker. Medications: Rocephin. See MAR for other medications. Allergies: NO KNOWN DRUG ALLERGIES. Review of Systems: A 10-point review was performed. Physical Examination: General: This is a 60-year-old female, lying in bed. No new acute event. Chart reviewed. Vital Signs: Temperature 99, pulse 90, respirations 16. HEENT: Unremarkable. Neck: Supple. Lungs: Clear to auscultation. Heart: S1, S2. Regular. Abdomen: Soft, nontender. Bowel sounds present. Extremity: No edema. Laboratory Data: Shows WBC 10.4 down from 18.4, hemoglobin is 8.6, platelets are 219. Chemistry jocelin ws sodium 140, potassium 4.4, chloride 108, bicarb 26, BUN 20, creatinine 1.08, glucose is 199. Micr o data is showing E coli in the urine and E coli in the blood. Her CT of abdomen and pelvis shows th e patient has minimal perinephric stranding on the left is present with slight haziness of the left r enal pelvis, thickened appearance of the bladder with wall may be secondary to incomplete distention and perivascular stranding concerning for infectious or inflammatory process. Assessment And Plan: A 60-year-old female with multiple medical problems, coming in with urosepsis a nd bacteremia secondary to Escherichia coli, currently being treated with Rocephin. Last cultures fr om the blood were negative on April 01, 2021. We will recommend to continue antibiotic and can be swi tched to oral on discharge, total course of 14 days from the day of last blood cultures being negativ e. The patient can be switched to Augmentin on discharge. We will follow the patient closely. Thank you Dr. Butler for consult. JÚNIOR/VASU Voice ID: [id number] Report ID: [id number]
[2021-04-03 12:17] VITALS: BP 121/63; TEMP 96.9
[2021-04-03] MEDS ORDERED: carvediloL 12.5 MG TAB PO SCH (18:00)
== END 2021-04-03 13:04 | disposition home or self-care (01) | DRG 872 ==
LOC: ER 20:07 → 4TH 03-30 02:05
PROVIDERS: ADMIT Internal Medicine; ATTEND Internal Medicine
DX: A41.51 Sepsis due to Escherichia coli [E. coli] (principal); N10 Acute pyelonephritis; B96.20 Unspecified Escherichia coli [E. coli] as the cause of diseases classified elsewhere; F32.9 Major depressive disorder, single episode, unspecified; I12.9 Hypertensive chronic kidney disease with stage 1 through stage 4 chronic kidney disease, or unspecified chronic kidney disease; E11.22 Type 2 diabetes mellitus with diabetic chronic kidney disease; N18.9 Chronic kidney disease, unspecified; E11.40 Type 2 diabetes mellitus with diabetic neuropathy, unspecified; M54.30 Sciatica, unspecified side; Z20.822 Contact with and (suspected) exposure to COVID-19
CPT/HCPCS: 36415; 74177; 80048; 80053; 80061; 80076; 81003; 81015; 82947; 83036; 83605; 83690; 83735; 84100; 84145; 84439; 84443; 85025; 87040; 87077; 87086; 87088; 87186; 87205; 94760; 96361; 96365; 99285; J0696; J1815; J2270; J2405; J3475; J7030; Q9967; U0003

== ENCOUNTER 2022-09-01 13:42 | Observation (INO) | payer OTHER ==
--- OUTSIDE RECORDS SUMMARY | 2022-09-01 13:48 | XMS REPORT | Continuity of Care Document ---
:1960 Author Organization [facility] t Address [address] [place] [address] Care Team Providers Name Role Phone Jt Sarah Attending Clinician Unavailable Uhsa RODRIGUEZ, Minnie Staton Attending Clinician Unavailable LAQUITA CHAN Attending Clinician Unavailable Bertrand ELLIOTT, Brenda K.H. Attending Clinician Doctor Unassigned, Singac Attending Clinician Unavailable Angela Carlson Attending Clinician Terra Bates Attending Clinician Jaycob Michel Attending Clinician Jt Sarah Admitting Clinician Unavailable Freda Pa Admitting Clinician Payers Payer Name Policy Type Policy Number Effective Date Expiration Date S sebasce MEDICAID MC [id number] 2017 [place] 00:00:00 [facility] - [facility] [place] [id number] [facility] - [facility]ICARE [facility] [employer] [id number] 2020spring 00:00:00 [place]ICA[place] [id number] 2020 [place] 00:00:00 Problems Condition Condition Condition Status Onset Resolution Last Treating Co mments Source Name Details Category Date Date Treatment Clinician Date N18.9 - N18.9 - Diagnosis Active 2017-05-31 Memoria "CHRONIC "CHRONIC 05-24 09:19:00 l KIDNEY KIDNEY 00:01: Tye DISEASE, DISEASE, 00 UNSPEC" UNSPEC" Active 05/24/2017 [facility] [place] SOB, CHEST SOB, Diagnosis Active 2014-04-22 Memoria PAINS CHEST 04-22 11:37:00 l PAINS 00:00: Tye Active 00 04/22/2014 [facility] ACUTE ACUTE Diagnosis Active 2014-04-22 Mem oria RENAL RENAL 04-11 21:48:00 l FAILURE FAILURE 00:00: Tye Active 04/11/2014 [facility] [id number] Gross Problem Common hematuria [facility] [id number] Recurrent Problem Com mon UTI [facility] [id number] Nontraumat Problem C ommon [id number] ic [facility] tear of [facility] rotator [facility] [id number] Stress Problem Common incontinen Spirit [facility] Psoriasis Psoriasis Problem Resolve 2017-06-03 Memoria (disorder) (disorder) d 01:09:48 l Resolved Tye Problem 06/03/2017 [facility] [place] RENAL RENAL Diagnosis Active 2014-04-22 Mem oria FAILURE FAILURE 21:48:00 l NOS NOS Active Archie moses [facility] Diabetes Diabetes Problem Resolve 2017-06-03 Memoria mellitus mellitus d 01:09:48 l (disorder) (disorder) He rmann Resolved Problem 06/03/2017 [facility] [place] Hypertensi Hypertens Problem Resolve 2017-06-03 Memoria ve edward d 01:09:48 l disorder, disorder, Herm tulio systemic systemic arterial arterial (disorder) (disorder) Resolved Problem 06/03/2017 [facility] IVÁNLibrado [place] History of Past Illness Condition Condition Condition Status Onset Resolution Last Treating Co mments Source Name Details Category Date Date Treatment Clinician Date Discharge Discharge Problem 2014-04-25 2014-04-25 Memoria Diagnosis: Diagnosis: 04-22 04:51:18 04:51:18 l Dyspnea Dyspnea 05:00: Terrell 04/22/2014 4 [facility] Allergies, Adverse Reactions, Alerts Allergy Allergy Status Severity Reaction(s) Onset Inactive Treating Comm ents Source Name Type Date Date Clinician NO KNOWN Drug Active Lamar ALLERGRONN steel of [facility] Social History Social Habit Start Date Stop Date Quantity Comments Source History of Tobacco [facility] - Use [facility] Sex Assigned At [facility] herminia - [facility] Social History 2014-04-18 2014-04-18 [facility]02:[facility] Smoking Status Start Date Stop Date Source Never Smoker [facility] - [facility] Medications Ordered Filled Start Stop Current Ordering Indication Dosage Frequency Signature Comments Components Source Medication Medication Date Date Medication? Clinician (SIG) Name Name Acetaminoph Acetaminoph 2021-10 No 1{table Acetaminop en-Codeine en-Codeine 0-27 t_as_ne hen-Codein #3 300-30 #3 300-30 00:00: eded} e #3 MG MG 00 300-30 MG Acetaminoph Acetaminoph 2021-10 No 1{table Acetaminop en-Codeine en-Codeine 0-27 t_as_ne hen-Codein #3 300-30 #3 300-30 00:00: eded} e #3 MG MG 00 300-30 MG Lidocaine Lidocaine 2021-0 No 10mg Com 06-05 Spirit 00:00: - [facility] Celestone Celestone 2021-0 No 6mg Com mon Soluspan Soluspan 8- Spirit (Betamethas (Betamethas 00:00: - CHI one) one) 00 [facility] Celestone Celestone 2021-0 No 6mg Com mon Soluspan Soluspan 8-23 Spirit (Betamethas (Betamethas 00:00: - CHI one) one) 00 [facility] Lidocaine Lidocaine 2021-0 No 10mg Com 06-05 Spirit 00:00: - [facility] Lidocaine Lidocaine 2021-0 No 10mg Com 06-05 Spirit 00:00: - [facility] Celestone Celestone 2021-0 No 6mg Com mon Soluspan Soluspan 8-23 Spirit (Betamethas (Betamethas 00:00: - CHI one) one) 00 [facility] Celestone Celestone 2021-0 No 6mg Com mon Soluspan Soluspan 8-23 Spirit (Betamethas (Betamethas 00:00: - CHI one) one) 00 [facility] Lidocaine Lidocaine 2-0 No 10mg Com mon 8- Spirit 00:00: - [facility]I 00 [facility] Lidocaine Lidocaine 2021-0 No 10mg Com mon 8- Spirit 00:00: - [facility]I 00 [facility] Celestone Celestone 2021-0 No 6mg Com mon Soluspan Soluspan 8-23 Spirit (Betamethas (Betamethas 00:00: - CHI one) one) 00 [facility] Celestone Celestone 2021-0 No 6mg Com mon Soluspan Soluspan 8-23 Spirit (Betamethas (Betamethas 00:00: - CHI one) one) 00 [facility] Lidocaine Lidocaine 2021-0 No 10mg Com mon 8 Spirit 00:00: - [facility]I 00 [facility] Lidocaine Lidocaine 2-0 No 10mg Com mon 8-23 Spirit 00:00: - [facility]I 00 [facility] Celestone Celestone 2021-0 No 6mg Com mon Soluspan Soluspan 8-23 Spirit (Betamethas (Betamethas 00:00: - CHI one) one) 00 [facility] Celestone Celestone 2021-0 No 6mg Com mon Soluspan Soluspan 8-23 Spirit (Betamethas (Betamethas 00:00: - CHI one) one) 00 [facility] Lidocaine Lidocaine 2021-0 No 10mg Com mon 8- Spirit 00:00: - [facility]I 00 [facility] Lidocaine Lidocaine 2-0 No 10mg Com mon 8- Spirit 00:00: - [facility]I 00 [facility] Celestone Celestone 2-0 No 6mg Com mon Soluspan Soluspan 8-23 Spirit (Betamethas (Betamethas 00:00: - CHI one) one) 00 [facility] Celestone Celestone 2021-0 No 6mg Com mon Soluspan Soluspan 8-23 Spirit (Betamethas (Betamethas 00:00: - CHI one) one) 00 [facility] Lidocaine Lidocaine 2-0 No 10mg Com mon 06-05 Spirit 00:00: - [facility]I 00 [facility] Lidocaine Lidocaine 2021-0 No 10mg Com mon 06-05 Spirit 00:00: - [facility]I 00 [facility] Celestone Celestone 2021-0 No 6mg Com mon Soluspan Soluspan 06-05 Spirit (Betamethas (Betamethas 00:00: - CHI one) one) 00 [facility] Celestone Celestone 2021-0 No 6mg Com mon Soluspan Soluspan 06-05 Spirit (Betamethas (Betamethas 00:00: - CHI one) one) 00 [facility] Lidocaine Lidocaine 2021-0 No 10mg Com mon 06-05 Spirit 00:00: - [facility]I 00 [facility] Lidocaine Lidocaine 2021-0 No 10mg Com mon 06-05 Spirit 00:00: - CHI 00 [facility] Celestone Celestone 2021-0 No 6mg Com mon Soluspan Soluspan 06-05 Spirit (Betamethas (Betamethas 00:00: - CHI one) one) 00 [facility] Celestone Celestone 2021-0 No 6mg Com mon Soluspan Soluspan 06-05 Spirit (Betamethas (Betamethas 00:00: - CHI one) one) 00 [facility] Lidocaine Lidocaine 2021-0 No 10mg Com mon 06-05 Spirit 00:00: - [facility]I 00 [facility] Celestone Celestone 2021-0 No 6mg Com mon Soluspan Soluspan 05-22 Spirit (Betamethas (Betamethas 00:00: - CHI one) one) 00 [facility] Bupivicaine Bupivicaine 2021-0 No 2.5mg [place] 05-22 Spirit 00:00: - CHI 00 [facility] Bupivicaine Bupivicaine 2-0 No 2.5mg [place] 05-22 Spirit 00:00: - CHI 00 [facility] Celestone Celestone 2021-0 No 6mg Com mon Soluspan Soluspan 05-22 Spirit (Betamethas (Betamethas 00:00: - CHI one) one) 00 [facility] Celestone Celestone 2021-0 No 6mg Com mon Soluspan Soluspan 05-22 Spirit (Betamethas (Betamethas 00:00: - CHI one) one) 00 [facility] Bupivicaine Bupivicaine 2021-0 No 2.5mg [place] 05-22 Spirit 00:00: - CHI 00 [facility] Bupivicaine Bupivicaine 2021-0 No 2.5mg [place] 05-22 Spirit 00:00: - CHI 00 [facility] Celestone Celestone 2021-0 No 6mg Com mon Soluspan Soluspan 05-22 Spirit (Betamethas (Betamethas 00:00: - CHI one) one) 00 [facility] Celestone Celestone 2021-0 No 6mg Com mon Soluspan Soluspan 05-22 Spirit (Betamethas (Betamethas 00:00: - CHI one) one) 00 [facility] Bupivicaine Bupivicaine 2021-0 No 2.5mg [place] 05-22 Spirit 00:00: - CHI 00 [facility] Bupivicaine Bupivicaine 2021-0 No 2.5mg [place] 05-22 Spirit 00:00: - CHI 00 [facility] Celestone Celestone 2021-0 No 6mg Com mon Soluspan Soluspan 05-22 Spirit (Betamethas (Betamethas 00:00: - CHI one) one) 00 [facility] Celestone Celestone 2021-0 No 6mg Com mon Soluspan Soluspan 05-22 Spirit (Betamethas (Betamethas 00:00: - CHI one) one) 00 [facility] Bupivicaine Bupivicaine 2021-0 No 2.5mg [place] 05-22 Spirit 00:00: - CHI 00 [facility] Bupivicaine Bupivicaine 2021-0 No 2.5mg [place] 05-22 Spirit 00:00: - CHI 00 [facility] Celestone Celestone 2021-0 No 6mg Com mon Soluspan Soluspan 05-22 Spirit (Betamethas (Betamethas 00:00: - CHI one) one) 00 [facility] Celestone Celestone 2021-0 No 6mg Com mon Soluspan Soluspan 05-22 Spirit (Betamethas (Betamethas 00:00: - CHI one) one) 00 [facility] Bupivicaine Bupivicaine 2021-0 No 2.5mg [place] 05-22 Spirit 00:00: - CHI 00 [facility] Bupivicaine Bupivicaine 2021-0 No 2.5mg [place] 05-22 Spirit 00:00: - CHI 00 [facility] Celestone Celestone 2021-0 No 6mg Com mon Soluspan Soluspan 05-22 Spirit (Betamethas (Betamethas 00:00: - CHI one) one) 00 [facility] Celestone Celestone 2021-0 No 6mg Com mon Soluspan Soluspan 05-22 Spirit (Betamethas (Betamethas 00:00: - CHI one) one) 00 [facility] Bupivicaine Bupivicaine 2021-0 No 2.5mg [place] 05-22 Spirit 00:00: - CHI 00 [facility] Bupivicaine Bupivicaine 2021-0 No 2.5mg [place] 05-22 Spirit 00:00: - CHI 00 [facility] Celestone Celestone 2021-0 No 6mg Com mon Soluspan Soluspan 05-22 Spirit (Betamethas (Betamethas 00:00: - CHI one) one) 00 [facility] Celestone Celestone 2021-0 No 6mg Com mon Soluspan Soluspan 05-22 Spirit (Betamethas (Betamethas 00:00: - CHI one) one) 00 [facility] Bupivicaine Bupivicaine 2021-0 No 2.5mg [place] 05-22 Spirit 00:00: - CHI 00 [facility] Bupivicaine Bupivicaine 2021-0 No 2.5mg [place] 05-22 Spirit 00:00: - CHI 00 [facility] Celestone Celestone No 6mg Com mon Soluspan Soluspan 05-22 Spirit (Betamethas (Betamethas 00:00: - CHI one) one) 00 [facility] Celestone Cel[place] No 6mg Com mon Soluspan Soluspan 05-22 Spirit (Betamethas (Betamethas 00:00: - CHI one) one) 00 [facility] Bupivicaine Bupivicaine 0 No 2.5mg [place] 05-22 Spirit 00:00: - CHI 00 [facility] Bupivicaine Bupivicaine 2021-0 No 2.5mg [place] 05-22 Spirit 00:00: - CHI 00 [facility] Celestone Celestone No 6mg Com mon Soluspan Soluspan 05-22 Spirit (Betamethas (Betamethas 00:00: - CHI one) one) 00 [facility] HYDROcodone HYDROcodone No 1{table QID HYDROcodon -Acetaminop -Acetaminop 6-14 t_as_ne e-Acetamin hen 7.5-325 hen 7.5-325 00:00: eded} ophen MG MG 00 7.5-325 MG HYDROcodone HYDROcodone No 1{table QID HYDROcodon -Acetaminop -Acetaminop 6-14 t_as_ne e-Acetamin hen 7.5-325 hen 7.5-325 00:00: eded} ophen MG MG 00 7.5-325 MG HYDROcodone HYDROcodone No 1{table QID HYDROcodon -Acetaminop -Acetaminop 6-14 t_as_ne e-Acetamin hen 7.5-325 hen 7.5-325 00:00: eded} ophen MG MG 00 7.5-325 MG HYDROcodone HYDROcodone No 1{table QID HYDROcodon -Acetaminop -Acetaminop 6-14 t_as_ne e-Acetamin hen 7.5-325 hen 7.5-325 00:00: eded} ophen MG MG 00 7.5-325 MG HYDROcodone HYDROcodone No 1{table QID HYDROcodon -Acetaminop -Acetaminop 6-14 t_as_ne e-Acetamin hen 7.5-325 hen 7.5-325 00:00: eded} ophen MG MG 00 7.5-325 MG HYDROcodone HYDROcodone 0 No 1{table QID HYDROcodon -Acetaminop -Acetaminop 6-14 t_as_ne e-Acetamin hen 7.5-325 hen 7.5-325 00:00: eded} ophen MG MG 00 7.5-325 MG HYDROcodone HYDROcodone 2020-0 No 1{table QID HYDROcodon -Acetaminop -Acetaminop 6-14 t_as_ne e-Acetamin hen 7.5-325 hen 7.5-325 00:00: eded} ophen MG MG 00 7.5-325 MG HYDROcodone HYDROcodone 0 No 1{table QID HYDROcodon -Acetaminop -Acetaminop 6-14 t_as_ne e-Acetamin hen 7.5-325 hen 7.5-325 00:00: eded} ophen MG MG 00 7.5-325 MG HYDROcodone HYDROcodone 0 No 1{table QID HYDROcodon -Acetaminop -Acetaminop 6-14 t_as_ne e-Acetamin hen 7.5-325 hen 7.5-325 00:00: eded} ophen MG MG 00 7.5-325 MG HYDROcodone HYDROcodone 0 No 1{table QID HYDROcodon -Acetaminop -Acetaminop 6-14 t_as_ne e-Acetamin hen 7.5-325 hen 7.5-325 00:00: eded} ophen MG MG 00 7.5-325 MG traMADol traMADol 2020- No 1{table traMADol HCl 50 MG HCl 50 MG 1-07 t_as_ne HCl 50 MG 00:00: eded} 00 traMADol traMADol 2020-0 No 1{table traMADol HCl 50 MG HCl 50 MG 1-07 t_as_ne HCl 50 MG 00:00: eded} 00 traMADol traMADol 2020-0 No 1{table traMADol HCl 50 MG HCl 50 MG 1-07 t_as_ne HCl 50 MG 00:00: eded} 00 traMADol traMADol 2020-0 No 1{table traMADol HCl 50 MG HCl 50 MG 1-07 t_as_ne HCl 50 MG 00:00: eded} 00 traMADol traMADol 2020-0 No 1{table traMADol HCl 50 MG HCl 50 MG 1-07 t_as_ne HCl 50 MG 00:00: eded} 00 traMADol traMADol 2020-0 No 1{table traMADol HCl 50 MG HCl 50 MG 1-07 t_as_ne HCl 50 MG 00:00: eded} 00 traMADol traMADol 2020-0 No 1{table traMADol HCl 50 MG HCl 50 MG 1-07 t_as_ne HCl 50 MG 00:00: eded} 00 traMADol traMADol 2020-0 No 1{table traMADol HCl 50 MG HCl 50 MG 1-07 t_as_ne HCl 50 MG 00:00: eded} 00 traMADol traMADol 2020-0 No 1{table traMADol HCl 50 MG HCl 50 MG 1-07 t_as_ne HCl 50 MG 00:00: eded} 00 traMADol traMADol 2020-0 No 1{table traMADol HCl 50 MG HCl 50 MG 1-07 t_as_ne HCl 50 MG 00:00: eded} 00 Bupivicaine Bupivicaine 2020-1 No 5mg [place] 0-29 Spirit 00:00: - [facility]I 00 [facility] Kenalog Kenalog 2019-1 No 40mg Common (Triamcinol (Triamcinol 0-29 S pirit one) one) 00:00: - CHI 00 [facility] Bupivicaine Bupivicaine 2020-1 No 5mg [place] 0-29 Spirit 00:00: - CHI 00 [facility] Kenalog Kenalog 2020-1 No 40mg Common (Triamcinol (Triamcinol 0-29 S pirit one) one) 00:00: - CHI 00 [facility] Bupivicaine Bupivicaine 2020-1 No 5mg [place] 0-29 Spirit 00:00: - CHI 00 [facility] Kenalog Kenalog 2020-1 No 40mg Common (Triamcinol (Triamcinol 0-29 S pirit one) one) 00:00: - CHI [facility] Bupivicaine Bupivicaine 2019- No 5mg [place] 0-29 Spirit 00:00: - CHI 00 [facility] Kenalog Kenalog 2019-10 No 40mg Common (Triamcinol (Triamcinol 0-29 S pirit one) one) 00:00: - CHI 00 [facility] Bupivicaine Bupivicaine 2019- No 5mg [place] 0-29 Spirit 00:00: - CHI 00 [facility] Kenalog Kenalog 2019-10 No 40mg Common (Triamcinol (Triamcinol 0-29 S pirit one) one) 00:00: - CHI 00 [facility] Bupivicaine Bupivicaine 2019- No 5mg [place] 0-29 Spirit 00:00: - CHI 00 [facility] Kenalog Kenalog 2019-10 No 40mg Common (Triamcinol (Triamcinol 0-29 S pirit one) one) 00:00: - CHI 00 [facility] Bupivicaine Bupivicaine 2019-10 No 5mg [place] 0-29 Spirit 00:00: - CHI 00 [facility] Kenalog Kenalog 2019-10 No 40mg Common (Triamcinol (Triamcinol 0-29 S pirit one) one) 00:00: - CHI 00 [facility] Bupivicaine Bupivicaine 2019-10 No 5mg [place] 0-29 Spirit 00:00: - CHI 00 [facility] Kenalog Kenalog 2019-10 No 40mg Common (Triamcinol (Triamcinol 0-29 S pirit one) one) 00:00: - CHI 00 [facility] metoprolol No Notes: Memor ia tartrate 7-10 (Same as: l 17:11: Lopressor) Tye 00 Acetaminoph No 1 tab, Damon jazlyn en 325 MG / 7-10 Route: PO, l Hydrocodone 17:10: Dosing Herm tulio Bitartrate 00 Weight 5 MG Oral 112.727, Tablet kg, ONCE, [[place] Start 5/325] date: 04/22/14 12:10:00, Stop date: 04/22/14 12:10:00 ciprofloxac Yes 500 mg = 1 Memoria in 500 mg 7-06 tab, PO, l oral tablet 14:00: Daily, # 5 Terrell 00 tab, 0 Refill(s) Insulin Yes 1 syr, Memoria Syringes U 7-05 INJ, l 30 31 ga 14:18: ONCALL, # Herm tulio (ultra 00 100 syr, 0 fine) Refill(s) POLYETHYLEN Yes 17 gm, PO, Memoria E GLYCOL -05 Daily, l 3350 142 14:00: Constipati Her huang MG/ML Oral 00 on, # 255 Solution gm, 0 [Miralax] Refill(s) Insulin Yes Special Memoria Aspart 100 -05 Instructio l unit/ml - 14:00: ns: Check Her sla (Starting 00 blood CD) sugar before breakfast, [...] Constipati Tye sennosides, 00 on, # 30 CHCF 8.6 MG tab, 0 Oral Tablet Refill(s) [...] ergocalcife Yes 50,000 Damon jazlyn rol 50,000 04-17 IntlUnit = l intl units 14:00: 1 [...] cap, 0 Refill(s) Lasix No Notes: Memoria 7-05 (Same as: l 12:41: Lasix) Simethicone No Notes: Damon jazlyn 7-04 (Same as: l 17:22: Mylicon) Lasix No Notes: Memoria 7-04 (Same as: l 15:17: Lasix) Vitamin D No Notes: Memori a - (Same as: l 14:17: Vitamin D) "Do Not Crush" Cipro No Notes: May Memori a - interfere l 14:16: w/enteral feedings - Take 1 hr before or 2 hrs after antacids, dairy pdt & minerals. On empty stomach. Tylenol No Notes: Do Memor ia - not exceed l 17:09: 4 gm/day. (Same as: Tylenol) metoprolol No Notes: Memor ia tartrate 04-15 (Same as: l 14:00: Lopressor) 12.5mg=1/4 X 50 mg tab. Calcium No 3,000 [...] 04/15/14 7:42:00, Stop date: 04/15/14 7:42:00 Magnesium No 2 gm, 50 Damon jazlyn Sulfate 7-03 mL, Route: l 09:23: IVPB, Drug form: INJ, ONCE, Dosing Weight 115.004, kg, Total dose = 2 gm, Start date: 04/15/14 4:23:00, Duration: 1 doses or times, Stop date: 04/15/14 4:23:00 Tums No Notes: Memoria - (Same As: l 09:23: Tums) Calcium Carbonate 500 mg = 200 mg elemental calcium Dose = mg calcium carbonate ( mg elemental calcium) Atropine No Notes: Memoria Sulfate 04-14 (Same As: l 0.025 MG / 16:28: Lomotil) Her huang Diphenoxyla MAX Adult te dose = 8 Hydrochlori tabs/day de 2.5 MG Oral Tablet [Lomotil] Magnesium No 2 gm, 50 Damon jazlyn Sulfate 702 mL, Route: l 16:23: IVPB, Drug form: INJ, ONCE, Dosing Weight 115.004, kg, Priority: NOW, Start date: 04/14/14 11:23:00, Duration: 2 hr, Stop date: 04/14/14 11:23:00 Calcium No 1,000 mg, Memor ia Chloride 04-14 10 mL, l 16:23: Route: IVPB, ONCE, Dosing Weight 115.004, kg, Priority: STAT, Start date: 04/14/14 11:23:00, Stop date: 04/14/14 11:23:00 Ambien No Notes: Memoria 04-14 (Same As: l 02:06: Ambien) Atropine No Notes: Memoria Sulfate 04-13 (Same As: l 0.025 MG / 17:56: Lomotil) Her huang Diphenoxyla MAX Adult te dose = 8 Hydrochlori [...] 6-30 (Same as: l Capsule 14:00: Neurontin) heparin, No Notes: Memoria porcine 6-30 porcine l 14:00: heparin pneumococca No Notes: Damon jazlyn l capsular [...] M emoria 6-30 Rate: l 13:45: 1,000 ml/hr, Infuse over: 2 hr, Route: IV, Dosing Weight 115.004 kg, Total Volume: 2,000, Start date: 04/12/14 8:45:00, Duration: 1 doses or times, Stop date: 04/12/14 10:44:00 NS 0.45% IV No 1,000 mL, M emoria 1,000 mL 630 Rate: 150 l 13:45: ml/hr, Infuse over: [...] tab, PO, l tablet 11:28: Daily, # Terrell 00 30 tab, 0 Refill(s) lisinopril No 20 mg = 1 Me moria 20 mg oral 6-30 tab, PO, l tablet 11:26: Daily, # Terrell 00 30 tab, 0 Refill(s) gabapentin No [...] Memoria 6-30 (Same as: l 08:02: Zofran) Terrell Calcium No 2,000 mg, Memor ia Gluconate 6-30 20 mL, l 05:54: Route: Tye 00 IVPB, ONCE, Dosing Weight 115.004, kg, Start date: 04/12/14 0:54:00, Stop date: 04/12/14 0:54:00 heparin, No Notes: Memoria porcine 6-30 porcine l 05:00: heparin Dextrose No 12.5 gm, Memor ia 50% Syringe 6-30 25 mL, l 04:28: Route: Tye 00 IVP, Drug Form: INJ, kg, PRN, PRN Blood Glucose Results, Start date: 04/11/14 23:28:00, Duration: 30 day, Stop date: 05/11/14 23:27:00 Insulin, No Notes: Memoria Aspart, 6-30 Roll in l Human 04:28: palms of Terrell 00 hands gently; Do not shake vigorously . (Same as: NovoLOG) "single patient use only" Stable for 28 days at room temperatur e. Expires in days from ____Date Glucagon No 1 mg, Memoria 6-30 Route: IM, l 04:28: Drug form: Terrell 00 PDR/INJ, PRN, kg, PRN Blood Glucose Results, Start date: 04/11/14 23:28:00, Duration: 30 day, Stop date: 05/11/14 23:27:00 Lidocaine No Notes: Memori a Hydrochlori 6-30 (Same as: l de 10 MG/ML 03:33: Xylocaine) Terrell Injectable 00 Solution Dextrose No 50 mL, Memoria 50% in 04-12 Route: l Water IV 02:10: IVP, Start Her huang 00 date: 04/11/14 21:10:00, Stop date: 04/11/14 21:10:00 albuterol No Notes: SEE Me moria 0.083% 630 RT l inhalation 02:06: DOCUMENTAT H ermann solution 00 ION (Same as: Proventil) Dextrose No 50 mL, Memoria 50% in 630 Route: l Water IV 02:01: IVP, Start Her huang 00 date: 04/11/14 21:01:00, Stop date: 04/11/14 21:01:00 Saline No Notes: Memoria Flush 0.9% 04-12 (Same as: l 02:00: BD Tye 00 Posiflush) Albuterol 1 No 2.49 mg, Me moria MG/ML 04-12 Route: l Inhalant 01:54: INHALATION Her huang Solution , Drug form: SOLN, ONCE, kg, Start date: 04/11/14 20:54:00, Stop date: 04/11/14 20:54:00 Sodium No Notes: Memoria Bicarbonate 04-12 (sodium l 1 MEQ/ML 01:51: bicarb Terrell Injectable 00 8.4% (1 Solution mEq/ml) 50 ml syringe) Dextrose No 25 gm, Memoria 50% Syringe 04-12 Route: l 01:51: IVP, kg, Tye 00 ONCE, Start date: 04/11/14 20:51:00, Stop date: 04/11/14 20:51:00 Dextrose No 25 gm, Memoria 04-12 Route: l 01:50: IVPB, Tye 00 ONCE, kg, Start date: 04/11/14 20:50:00, Stop date: 04/11/14 20:50:00 Insulin, No 60 units) Mem oria Regular, 630 Stable for l Pork 01:50: 28 days at Tye 00 room temperatur e Expires in days from ____Date sodium 2014-0 No 850 mL, Memoria bicarbonate 6-30 Rate: [...] Memoria 6-30 (Same as: l 00:54: Zofran) Tye 00 Calcium 2013-0 No 1,000 mg, Memor ia Gluconate 6-30 10 mL, l 00:40: Route: Tye 00 IVPB, ONCE, kg, Start date: 04/11/14 19:40:00, Stop date: 04/11/14 19:40:00 Sodium 2014-0 No 1,000 mL, Memori a Chloride 6-30 1,000 l 0.154 00:39: ml/hr, Terrell MEQ/ML 00 Infuse Injectable Over: 1 Solution [...] 30 day, Stop date: 05/11/14 19:08:00 Saline No Notes: Memoria Flush 0.9% 04-11 (Same as: l 23:53: BD Terrell 00 Posiflush) Carvedilol Carvedilol No 1{table BID Carvedilol 25 MG 25 MG t_with_ 25 MG food} buPROPion buPROPion No 1{table BID buPROPion HCl 100 MG HCl 100 MG t} HCl 100 MG Sulfamethox Sulfamethox No Sulfametho azole-Trime azole-Trime xazole-Tri thoprim thoprim methoprim PARoxetine PARoxetine No 1{table QD PARoxetine HCl 40 MG HCl 40 MG t_in_th HCl 40 MG e_morni ng} Phenazopyri Phenazopyri No Phenazopyr dine HCl dine HCl idine HCl traMADol traMADol No traMADol HCl HCl HCl PARoxetine PARoxetine No 1{table QD PARoxetine HCl 40 MG HCl 40 MG t_in_th HCl 40 MG e_morni ng} Gabapentin Gabapentin No 1{capsu QD Gabapentin 600 MG 600 MG le} 600 MG Allopurinol Allopurinol No QD Allopurino 100 MG 100 MG l 100 MG Nitrofurant Nitrofurant No Nitrofuran oin Monohyd oin Monohyd toin Macro Macro Monohyd Macro Sulfamethox Sulfamethox No Sulfametho azole-Trime azole-Trime xazole-Tri thoprim thoprim methoprim Acetaminoph Acetaminoph No Acetaminop en-Codeine en-Codeine hen-Codein #3 #3 e #3 buPROPion buPROPion No 1{table BID buPROPion HCl 100 MG HCl 100 MG t} HCl 100 MG Phenazopyri Phenazopyri No Phenazopyr dine HCl dine HCl idine HCl Carvedilol Carvedilol No 1{table BID Carvedilol 25 MG 25 MG t_with_ 25 MG food} Glimepiride Glimepiride No 1{table QD Glimepirid 4 MG 4 MG t_with_ e [address]_or_t he_firs t_main_ meal_of _the_da y} traMADol traMADol No traMADol HCl HCl HCl Phenazopyri Phenazopyri No Phenazopyr dine HCl dine HCl idine HCl Nitrofurant Nitrofurant No Nitrofuran oin Monohyd oin Monohyd toin Macro Macro Monohyd Macro Carvedilol Carvedilol No 1{table BID Carvedilol 25 MG 25 MG t_with_ 25 MG food} Glimepiride Glimepiride No 1{table QD Glimepirid 4 MG 4 MG t_with_ e [address]_or_t he_firs t_main_ meal_of _the_da y} Victoza Victoza No Victoza PARoxetine PARoxetine No 1{table QD PARoxetine HCl 40 MG HCl 40 MG t_in_th HCl 40 MG e_morni ng} Acetaminoph Acetaminoph No Acetaminop en-Codeine en-Codeine hen-Codein #3 #3 e #3 buPROPion buPROPion No 1{table BID buPROPion HCl 100 MG HCl 100 MG t} HCl 100 MG Gabapentin Gabapentin No 1{capsu QD Gabapentin 600 MG 600 MG le} 600 MG Sulfamethox Sulfamethox No Sulfametho azole-Trime azole-Trime xazole-Tri thoprim thoprim methoprim Allopurinol Allopurinol No QD Allopurino 100 MG 100 MG l 100 MG Carvedilol Carvedilol No 1{table BID Carvedilol 25 MG 25 MG t_with_ 25 MG food} Allopurinol Allopurinol No QD Allopurino 100 MG 100 MG l 100 MG buPROPion buPROPion No 1{table BID buPROPion HCl 100 MG HCl 100 MG t} HCl 100 MG PARoxetine PARoxetine No 1{table QD PARoxetine HCl 40 MG HCl 40 MG t_in_th HCl 40 MG e_morni ng} Victoza Victoza No Victoza Phenazopyri Phenazopyri No Phenazopyr dine HCl dine HCl idine HCl Gabapentin Gabapentin No 1{capsu QD Gabapentin 600 MG 600 MG le} 600 MG Acetaminoph Acetaminoph No Acetaminop en-Codeine en-Codeine hen-Codein #3 #3 e #3 Nitrofurant Nitrofurant No Nitrofuran oin Monohyd oin Monohyd toin Macro Macro Monohyd Macro Sulfamethox Sulfamethox No Sulfametho azole-Trime azole-Trime xazole-Tri thoprim thoprim methoprim Glimepiride Glimepiride No 1{table QD Glimepirid 4 MG 4 MG t_with_ e [address]or_t he_firs t_main_ meal_of _the_da y} traMADol traMADol No traMADol HCl HCl HCl Victoza Victoza No Victoza Phenazopyri Phenazopyri No Phenazopyr dine HCl dine HCl idine HCl buPROPion buPROPion No 1{table BID buPROPion HCl 100 MG HCl 100 MG t} HCl 100 MG PARoxetine PARoxetine No 1{table QD PARoxetine HCl 40 MG HCl 40 MG t_in_th HCl 40 MG e_morni ng} Gabapentin Gabapentin No 1{capsu QD Gabapentin 600 MG 600 MG le} 600 MG Allopurinol Allopurinol No QD Allopurino 100 MG 100 MG l 100 MG Sulfamethox Sulfamethox No Sulfametho azole-Trime azole-Trime xazole-Tri thoprim thoprim methoprim Carvedilol Carvedilol No 1{table BID Carvedilol 25 MG 25 MG t_with_ 25 MG food} traMADol traMADol No traMADol HCl HCl HCl Glimepiride Glimepiride No 1{table QD Glimepirid 4 MG 4 MG t_with_ e [address]_or_t he_firs t_main_ meal_of _the_da y} Acetaminoph Acetaminoph No Acetaminop en-Codeine en-Codeine hen-Codein #3 #3 e #3 Nitrofurant Nitrofurant No Nitrofuran oin Monohyd oin Monohyd toin Macro Macro Monohyd Macro Victoza Victoza No Victoza Phenazopyri Phenazopyri No Phenazopyr dine HCl dine HCl idine HCl buPROPion buPROPion No 1{table BID buPROPion HCl 100 MG HCl 100 MG t} HCl 100 MG PARoxetine PARoxetine No 1{table QD PARoxetine HCl 40 MG HCl 40 MG t_in_th HCl 40 MG e_morni ng} Gabapentin Gabapentin No 1{capsu QD Gabapentin 600 MG 600 MG le} 600 MG Allopurinol Allopurinol No QD Allopurino 100 MG 100 MG l 100 MG Sulfamethox Sulfamethox No Sulfametho azole-Trime azole-Trime xazole-Tri thoprim thoprim methoprim Carvedilol Carvedilol No 1{table BID Carvedilol 25 MG 25 MG t_with_ 25 MG food} traMADol traMADol No traMADol HCl HCl HCl Glimepiride Glimepiride No 1{table QD Glimepirid 4 MG 4 MG t_with_ e [address]_or_t he_firs t_main_ meal_of _the y} Acetaminoph Acetaminoph No Acetaminop en-Codeine en-Codeine hen-Codein #3 #3 e #3 Nitrofurant Nitrofurant No Nitrofuran oin Monohyd oin Monohyd toin Macro Macro Monohyd Macro traMADol traMADol No traMADol HCl HCl HCl Glimepiride Glimepiride No 1{table QD Glimepirid 4 MG 4 MG t_with_ e [address]_or_t he_firs t_main_ meal_of _the y} buPROPion buPROPion No 1{table BID buPROPion HCl 100 MG HCl 100 MG t} HCl 100 MG Victoza Victoza No Victoza Acetaminoph Acetaminoph No Acetaminop en-Codeine en-Codeine hen-Codein #3 #3 e #3 Nitrofurant Nitrofurant No Nitrofuran oin Monohyd oin Monohyd toin Macro Macro Monohyd Macro Carvedilol Carvedilol No 1{table BID Carvedilol 25 MG 25 MG t_with_ 25 MG food} Allopurinol Allopurinol No QD Allopurino 100 MG 100 MG l 100 MG Sulfamethox Sulfamethox No Sulfametho azole-Trime azole-Trime xazole-Tri thoprim thoprim methoprim PARoxetine PARoxetine No 1{table QD PARoxetine HCl 40 MG HCl 40 MG t_in_th HCl 40 MG e_morni ng} Gabapentin Gabapentin No 1{capsu QD Gabapentin 600 MG 600 MG le} 600 MG Phenazopyri Phenazopyri No Phenazopyr dine HCl dine HCl idine HCl traMADol traMADol No traMADol HCl HCl HCl Glimepiride Glimepiride No 1{table QD Glimepirid 4 MG 4 MG t_with_ e [address]_or_t he_firs t_main_ meal_of _the_da y} buPROPion buPROPion No 1{table BID buPROPion HCl 100 MG HCl 100 MG t} HCl 100 MG Victoza Victoza No Victoza Acetaminoph Acetaminoph No Acetaminop en-Codeine en-Codeine hen-Codein #3 #3 e #3 Nitrofurant Nitrofurant No Nitrofuran oin Monohyd oin Monohyd toin Macro Macro Monohyd Macro Carvedilol Carvedilol No 1{table BID Carvedilol 25 MG 25 MG t_with_ 25 MG food} Allopurinol Allopurinol No QD Allopurino 100 MG 100 MG l 100 MG Sulfamethox Sulfamethox No Sulfametho azole-Trime azole-Trime xazole-Tri thoprim thoprim methoprim PARoxetine PARoxetine No 1{table QD PARoxetine HCl 40 MG HCl 40 MG t_in_th HCl 40 MG e_morni ng} Gabapentin Gabapentin No 1{capsu QD Gabapentin 600 MG 600 MG le} 600 MG Phenazopyri Phenazopyri No Phenazopyr dine HCl dine HCl idine HCl traMADol traMADol No traMADol HCl HCl HCl buPROPion buPROPion No 1{table BID buPROPion HCl 100 MG HCl 100 MG t} HCl 100 MG Carvedilol Carvedilol No 1{table BID Carvedilol 25 MG 25 MG t_with_ 25 MG food} Nitrofurant Nitrofurant No Nitrofuran oin Monohyd oin Monohyd toin Macro Macro Monohyd Macro Gabapentin Gabapentin No 1{capsu QD Gabapentin 600 MG 600 MG le} 600 MG Allopurinol Allopurinol No QD Allopurino 100 MG 100 MG l 100 MG Sulfamethox Sulfamethox No Sulfametho azole-Trime azole-Trime xazole-Tri thoprim thoprim methoprim Victoza Victoza No Victoza Phenazopyri Phenazopyri No Phenazopyr dine HCl dine HCl idine HCl PARoxetine PARoxetine No 1{table QD PARoxetine HCl 40 MG HCl 40 MG t_in_th HCl 40 MG e_morni ng} Acetaminoph Acetaminoph No Acetaminop en-Codeine en-Codeine hen-Codein #3 #3 e #3 Glimepiride Glimepiride No 1{table QD Glimepirid 4 MG 4 MG t_with_ e [address]_or_t he_firs t_main_ meal_of _the_da y} Victoza Victoza No Victoza Phenazopyri Phenazopyri No Phenazopyr dine HCl dine HCl idine HCl buPROPion buPROPion No 1{table BID buPROPion HCl 100 MG HCl 100 MG t} HCl 100 MG PARoxetine PARoxetine No 1{table QD PARoxetine HCl 40 MG HCl 40 MG t_in_ HCl 40 MG e_morni ng} Gabapentin Gabapentin No 1{capsu QD Gabapentin 600 MG 600 MG le} 600 MG Allopurinol Allopurinol No QD Allopurino 100 MG 100 MG l 100 MG Sulfamethox Sulfamethox No Sulfametho azole-Trime azole-Trime xazole-Tri thoprim thoprim methoprim Carvedilol Carvedilol No 1{table BID Carvedilol 25 MG 25 MG t_with_ 25 MG food} traMADol traMADol No traMADol HCl HCl HCl Glimepiride Glimepiride No 1{table QD Glimepirid 4 MG 4 MG t_with_ e [address]_or_t he_firs t_main_ meal_of _the_da y} Acetaminoph Acetaminoph No Acetaminop en-Codeine en-Codeine hen-Codein #3 #3 e #3 Nitrofurant Nitrofurant No Nitrofuran oin Monohyd oin Monohyd toin Macro Macro Monohyd Macro Acetaminoph Acetaminoph No Acetaminop en-Codeine en-Codeine hen-Codein #3 #3 e #3 Nitrofurant Nitrofurant No Nitrofuran oin Monohyd oin Monohyd toin Macro Macro Monohyd Macro Gabapentin Gabapentin No 1{capsu QD Gabapentin 600 MG 600 MG le} 600 MG Glimepiride Glimepiride No 1{table QD Glimepirid 4 MG 4 MG t_with_ e [address]_or_t he_firs t_main_ meal_of _the_da y} Allopurinol Allopurinol No QD Allopurino 100 MG 100 MG l 100 MG traMADol traMADol No traMADol HCl HCl HCl Immunizations Ordered Immunization Filled Immunization Date Status Commen ts Source Name Name pneumococcal 2014-04-13 Completed [facility] 23-valent vaccine 21:12:00 [facility] Vital Signs Vital Name Observation Time Observation Value Comments Source height 2022-08-20 10:30:00 67 [in_i] Common [facility] weight 2022-08-20 10:30:00 261 [lb_av] Common [facility] temperature 2022-08-20 10:30:00 96.6 [degF] [facility] bmi 2022-08-20 10:30:00 40.87 kg/m2 [facility] blood pressure 2022-08-20 10:30:00 124 mm[Hg] [facility] blood pressure 2022-08-20 10:30:00 76 mm[Hg] [facility] diastolic [facility] height 2022-08-06 09:15:00 67 [in_i] Common [facility] weight 2022-08-06 09:15:00 263.1 [lb_av] [facility] temperature 2022-08-06 09:15:00 97.3 [degF] Common S [facility] bmi 2022-08-06 09:15:00 41.2 kg/m2 [facility] S pirit [facility] blood pressure 2022-08-06 09:15:00 133 mm[Hg] [facility] - systolic [facility] blood pressure 2022-08-06 09:15:00 79 mm[Hg] [facility] diastolic [facility] height 2022-07-05 09:30:00 67 [in_i] Common S pirit [facility] weight 2022-07-05 09:30:00 265.9 [lb_av] [facility] temperature 2022-07-05 09:30:00 97.0 [degF] [facility] bmi 2022-07-05 09:30:00 41.64 kg/m2 Common S pirit - [facility] blood pressure 2022-07-05 09:30:00 144 mm[Hg] [facility] - systolic [facility] blood pressure 2022-07-05 09:30:00 83 mm[Hg] [facility] diastolic [facility] height 2022-06-05 09:45:00 67 [in_i] Common S p[facility] - [facility] weight 2022-06-05 09:45:00 257 [lb_av] Common S pirit [facility] temperature 2022-06-05 09:45:00 97.5 [degF] Common S pirit - [facility] bmi 2022-06-05 09:45:00 40.25 kg/m2 Common S pirit [facility] blood pressure 2022-06-05 09:45:00 128 mm[Hg] [facility] - systolic [facility] blood pressure 2022-06-05 09:45:00 78 mm[Hg] [facility] height 2022-05-22 15:00:00 67 [in_i] Common S pirit - [facility] weight 2022-05-22 15:00:00 265.5 [lb_av] [facility] - [facility] temperature 2022-05-22 15:00:00 97.6 [degF] Common S pirit - [facility] bmi 2022-05-22 15:00:00 41.58 kg/m2 Common S pirit - [facility] blood pressure 2022-05-22 15:00:00 128 mm[Hg] [facility] - systolic [facility] blood pressure 2022-05-22 15:00:00 74 mm[Hg] [facility] height 2021-09-21 11:15:00 67 [in_i] Common S pirit [facility] weight 2021-09-21 11:15:00 266 [lb_av] Common S pirit - [facility] temperature 2021-09-21 11:15:00 97.2 [degF] Common S pirit - [facility] bmi 2021-09-21 11:15:00 41.66 kg/m2 Common S pirit [facility] oximetry 2021-09-21 11:15:00 97 % Common S [facility] respiratory rate 2021-09-21 11:15:00 18 /min Comm on [facility] - [facility] blood pressure 2021-09-21 11:15:00 135 mm[Hg] [facility] - systolic [facility] blood pressure 2021-09-21 11:15:00 72 mm[Hg] Common [facility] - diastolic [facility] height 2021-09-11 08:40:00 67 [in_i] Common [facility] weight 2021-09-11 08:40:00 266.4 [lb_av] Common [facility] - [facility] temperature 2021-09-11 08:40:00 97 [degF] Common S pirit [facility] bmi 2021-09-11 08:40:00 41.72 kg/m2 Common S [facility] oximetry 2021-09-11 08:40:00 97 % Common S [facility] blood pressure 2021-09-11 08:40:00 173 mm[Hg] Common [facility] - systolic [facility] blood pressure 2021-09-11 08:40:00 75 mm[Hg] [facility] Respitory Rate 2014-04-22 21:03:00 Memori al [facility] Systolic (mm Hg) 2014-04-22 21:03:00 Damon rial Tye Diastolic (mm Hg) 2014-04-22 21:03:00 Mem orial [place] Diastolic (mm Hg) 2014-04-22 18:13:00 Mem orial [place] Systolic (mm Hg) 2014-04-22 18:13:00 Damon rial Tye Respitory Rate 2014-04-22 18:13:00 Memori al Tye Diastolic (mm Hg) 2014-04-22 17:33:00 Mem orial [place] Respitory Rate 2014-04-22 17:33:00 Memori al [facility] Systolic (mm Hg) 2014-04-22 17:33:00 Damon rial Tye Height 2014-04-22 14:03:00 172.72 cm [facility] BMI Calculated 2014-04-22 14:03:00 [facility] Weight 2014-04-22 14:03:00 [facility] Heart Rate 2014-04-22 14:03:00 [facility] Temperature Oral (F) 2014-04-22 14:03:00 98.6 F [facility] Diastolic (mm Hg) 2014-04-17 21:39:00 Mem orial [place] Respitory Rate 2014-04-17 21:39:00 [facility] Temperature Oral (F) 2014-04-17 21:39:00 98.3 F [facility] Systolic (mm Hg) 2014-04-17 21:39:00 Damon rial [place] Heart Rate 2014-04-17 21:39:00 [facility] Heart Rate 2014-04-17 17:47:00 [facility] Temperature Oral (F) 2014-04-17 17:47:00 98 F [facility] Systolic (mm Hg) 2014-04-17 17:47:00 Damon rial Terrell Diastolic (mm Hg) 2014-04-17 17:47:00 Mem orial Tye Heart Rate 2014-04-17 13:32:00 [facility] Systolic (mm Hg) 2014-04-17 13:32:00 Damon rial Terrell Diastolic (mm Hg) 2014-04-17 13:32:00 Mem orial Tye Respitory Rate 2014-04-17 13:32:00 [facility] Temperature Oral (F) 2014-04-17 13:32:00 98 F [facility] Respitory Rate 2014-04-17 09:58:00 [facility] Weight 2014-04-12 06:36:00 [facility] Height 2014-04-12 06:36:00 167.64 cm [facility] BMI Calculated 2014-04-12 06:36:00 [facility] Weight 2014-04-12 05:49:00 [facility] Height 2014-04-12 05:49:00 167.64 cm [facility] BMI Calculated 2014-04-12 05:49:00 Mariam Hobson Weight 2014-04-12 05:48:00 Brendan Gamble Height 2014-04-12 05:48:00 167[facility] Cal[facility] 2014-04-12 05:48:00 Mariam Hobson Procedures Procedure Date / Time Performed Performing Clinician Sourc e Cholecystectomy [facility] Encounters Start End Encounter Admission Attending Care Care Encounter Source Date/Time Date/Time Type Type Clinicians Facility Department ID 2022-07-05 Outpatient Sarah, STLMLC STLMLC [id number] Common 09:38:01 Jt [facility] 2022-07-04 Outpatient Sarah, STLMLC STLMLC [id number] Common 13:39:01 Jt [facility] 2022-04-11 Outpatient Sarah, STLMLC STLMLC [id number] Common 08:02:01 Jt [id number] [facility] 2021-11-08 Outpatient Sarah, STLMLC STLMLC [id number] Common 14:24:[address] [place] [address] 2021-11-08 Outpatient Sarah, STLMLC STLMLC [id number] Common 14:17:53 [place] [id number] [facility] 2021-11-08 Outpatient STLMLC STLMLC [id number] Common 14:10:47 [id number] [facility] 2021-11-08 Outpatient STLMLC STLMLC [id number] Common 13:32:52 [id number] [facility] 2021-11-08 Outpatient STLMLC STLMLC [id number] Common 13:31:28 [id number] [facility] 2021-11-08 Outpatient STLMLC STLMLC [id number] Common 13:14:00 [id number] [facility] 2021-11-08 Outpatient STLMLC STLMLC [id number] Common 13:10:00 [id number] [facility] 2021-11-08 Outpatient STLMLC STLMLC [id number] Common 12:18:32 [id number] [facility] 2021-11-08 Outpatient STLMLC STLMLC [id number] Common 12:11:56 [id number] [facility] 2021-11-08 Outpatient STLMLC STLMLC [id number] Common 12:00:27 [id number] [facility] 2022-08-20 2022-08-20 NON-BILLAB STLMLC STLMLC [id number] Common 00:00:00 00:00:00 LE VISIT Spiri t [facility] 2022-08-09 2022-08-09 (TEL) STLMLC STLMLC [id number] Co mmon 00:00:00 00:00:00 [facility] 2022-08-06 2022-08-06 OFFICE STLMLC STLMLC [id number] Co mmon 00:00:00 00:00:00 VISIT [facility] ESTAB PT - CHI LEVEL 4 [facility] 2022-07-05 2022-07-05 (TEL) STLMLC STLMLC [id number] Co mmon 00:00:00 00:00:00 [facility] 2022-07-05 2022-07-05 OFFICE STLMLC STLMLC [id number] Co mmon 00:00:00 00:00:00 VISIT [facility] ESTAB PT - CHI LEVEL 4 [facility] 2022-06-05 2022-06-05 (IN/ASP) STLMLC STLMLC [id number] C ommon 00:00:00 00:00:00 INJ ASP Spirit [facility] 2022-05-22 2022-05-22 OFFICE STLMLC STLMLC [id number] Co mmon 00:00:00 00:00:00 VISIT [facility] ESTAB PT - CHI LEVEL 4 [facility] 2021-09-21 2021-09-21 (PROC) STLMLC STLMLC [id number] Co mmon 00:00:00 00:00:00 Procedure Spir it - [facility] 2021-09-11 2021-09-11 OFFICE STLMLC STLMLC [id number] Co mmon 00:00:00 00:00:00 VISIT NEW Spir it PT LEVEL 3 - [facility] 2021-05-11 2021-05-11 Outpatient STLMLC STLMLC [id number] Common 00:00:00 00:00:00 [facility] 2021-04-13 2021-04-13 Outpatient STLMLC STLMLC [id number] Common 00:00:00 00:00:00 [facility] 2021-04-11 2021-04-11 Outpatient STLMLC STLMLC [id number] Common 00:00:00 00:00:00 [facility] 2021-04-05 2021-04-05 Outpatient STLMLC STLMLC [id number] Common 00:00:00 00:00:00 [facility] 2021-03-27 2021-03-27 Outpatient STLMLC STLMLC [id number] Common 00:00:00 00:00:00 [facility] 2021-03-27 2021-03-27 Outpatient STLMLC STLMLC [id number] Common 00:00:00 00:00:00 [facility] 2021-03-23 2021-03-23 Outpatient STLMLC STLMLC [id number] Common 00:00:00 00:00:00 [facility] 2021-03-16 2021-03-16 Outpatient STLMLC STLMLC [id number] Common 00:00:00 00:00:00 [facility] 2021-03-15 2021-03-15 Outpatient STLMLC STLMLC [id number] Common 00:00:00 00:00:00 [facility] 2021-03-08 2021-03-08 Telephone Kerr Shearn [id number] 00:00:00 00:00:00 , Minnie Shemar Kor[place] [id number] [place] [id number] 2021-03-01 2021-03-01 Telephone Kerr Shearn [id number] 00:00:00 00:00:00 , Minnie L Kor[place] [id number] [place] [id number] 2021-02-27 2021-02-27 Outpatient STLMLC STLMLC [id number] Common 00:00:00 00:00:00 [facility] 2021-02-20 2021-02-20 Outpatient R DUSTIN, [facility] [id number] Univers 15:40:00 15:40:00 LAQUITA uribey o [facility] 2021-02-13 2021-02-13 Outpatient STLMLC STLMLC [id number] Common 00:00:00 00:00:00 [facility] 2021-02-09 2021-02-09 Outpatient STLMLC STLMLC [id number] Common 00:00:00 00:00:00 [facility] 2021-02-08 2021-02-08 Telephone Bertrand [facility] [id number] 00:00:00 00:00:00 Brenda Bravo [id number] [place] [id number] Professio [id number] nal 059 [facility] 2021-02-07 2021-02-07 Orders Doctor INOCENCIO [id number] 00:00:00 00:00:00 Only Unassigned, LEE [id number] [facility] [id number] 2021-02-02 2021-02-02 Outpatient DUSTIN, [facility] [id number] Univers 00:00:00 00:00:00 LAQUITA uribey o [facility] 2021-01-11 2021-01-11 Outpatient R DUSTIN, [facility] [id number] Univers 08:00:00 08:00:00 LAQUITA uribey o [facility] 2021-01-05 2021-01-05 Outpatient R DUSTIN, [facility] [id number] Univers 08:00:00 [facility]:00[facility] 2020-12-19 2020-12-19 Outpatient R DUSTIN, [facility] [id number] Univers 15:40:00 15:40:00 AZIZAMOJGAN ity o [facility] 2020-12-05 2020-12-05 Outpatient STLMLC STLMLC [id number] Common 00:00:00 00:00:00 [facility] 2020-11-14 2020-11-14 Outpatient STLMLC STLMLC [id number] Common 00:00:00 00:00:00 [facility] 2020-10-20 2020-10-20 Outpatient STLMLC STLMLC [id number] Common 00:00:00 00:00:00 [facility] 2020-10-20 2020-10-20 Outpatient STLMLC STLMLC [id number] Common 00:00:00 00:00:00 [facility] 2020-08-11 2020-08-11 Outpatient STLMLC STLMLC [id number] Common 00:00:00 00:00:00 [facility] 2017-05-31 2017-06-01 Outpt Diag nullFlavo [facility] [id number] Memoria 14:11:00 04:59:00 Services r [address] 2017-05-31 2017-05-31 Outpatient Angela Carlson MHOIP MHOIP [id number] 09:11:00 23:59:00 00 2014-04-22 2014-04-22 nullFlavo [facility] [id number] Memoria 13:54:00 21:54:00 Emergency r Terrell 00 [facility] 2014-04-22 2014-04-22 Outpatient Paulo, [id number] 08:54:00 16:54:00 Terra Staton [id number] 2014-04-16 Inpatient nullFlavo [facility] [id number] Memoria 23:46:00 23:45:00 [facility] 67 [facility] 2014-04-11 2014-04-16 Outpatient Anand, [id number]. [id number]. [id number] 18:46:00 18:45:00 Jaycob [id number] Nolberto [id number] 01 Results Test Description Test Time Test Comments Results Result Comments Source URINE AND STOOL 2014-04-22 15:45:45 Test Item Value Reference Range Interpretation Comme nts UA Spec Grav (test code = UA Spec Grav) 1.015 1 [facility] [id number] 15:45:45 Test Item Value Reference Range Interpretation Comments UA Color (test code = Yellow *NA*(04/22/14 UA Color) 10:45 AM) [facility] AND [id number] 15:45:45 Test Item Value Reference Range Interpretation Comments UA Turbidity (test code = Clear (04/22/14 10:45 UA Turbidity) AM) [facility] AND [id number] 15:45:45 Test Item Value Reference Range Interpretation Comments UA Ketones (test code Negative *NA*(04/22/14 = UA Ketones) 10:45 AM) [facility] AND [id number] 15:45:45 Test Item Value Reference Range Interpretation Comments UA pH (test code = UA pH) 7.5 1 5.0-8.0 [facility] AND [id number] 15:45:45 Test Item Value Reference Range Interpretation Comments UA Protein (test code = Trace *ABN*(04/22/14 UA Protein) 10:45 AM) [facility] AND [id number] 15:45:45 Test Item Value Reference Range Interpretation Comments UA Glucose (test code Negative (04/22/14 10:45 = UA Glucose) AM) [facility] AND [id number] 15:45:45 Test Item Value Reference Range Interpretation Comments UA Bili (test code = Negative *NA*(04/22/14 UA Bili) 10:45 AM) [facility] AND [id number] 15:45:45 Test Item Value Reference Range Interpretation Comments UA Blood (test code = Negative (04/22/14 10:45 UA Blood) AM) [facility] AND [id number] 15:45:45 Test Item Value Reference Range Interpretation Comments UA Urobilinogen (test code = UA 0.2 0.1-1.0 Urobilinogen) [facility] AND [id number] 15:45:45 Test Item Value Reference Range Interpretation Comments UA Leuk Est (test code Trace *ABN*(04/22/14 = UA Leuk Est) 10:45 AM) [facility] AND [id number] 15:45:45 Test Item Value Reference Range Interpretation Comments UA Nitrite (test code Negative (04/22/14 10:45 = UA Nitrite) AM) [facility] AND [id number] 15:45:45 Test Item Value Reference Range Interpretation Comments UA RBC (test None Seen See_Comment [Automated mes siobhan] code = UA RBC) (04/22/14 10:45 The system which AM) generated this result transmitted ref erence range: <=2. The reference range was not used to int erpret this result as normal/abnormal . [facility] AND [id number] 15:45:45 Test Item Value Reference Range Interpretation Comments UA Sq Epi (test code = UA Sq Occasional /LPF Epi) [facility] AND [id number] 15:45:45 Test Item Value Reference Range Interpretation Comments UA WBC (test code = UA WBC) 0-2 /HPF [facility] AND [id number] 15:45:45 Test Item Value Reference Range Interpretation Comments Micro? (test code = Performed (04/22/14 10:45 Micro?) AM) [facility] AND [id number] 15:45:45 Test Item Value Reference Range Interpretation Comments UA Bacteria (test code = None Seen (04/22/14 UA Bacteria) 10:45 AM) [facility]40[facility] 14:52:00 Test Item Value Reference Range Interpretation Comments eGFR (test code = eGFR) 25 [facility]FokkptmEIQSMTHJCHWO9451-25-39 14:52:00 Test Item Value Reference Range Interpretation Comments Calcium Lvl (test code = Calcium Lvl) 8.5 8.5-10.5 [facility]KomelvqGFWFUERJVIRI1322-87-84 14:52:00 Test Item Value Reference Range Interpretation Comments CO2 (test code = CO2) 24 24-32 [facility]TcuozdjZHBEFOALVNTO8724-44-10 14:52:00 Test Item Value Reference Range Interpretation Comments Chloride Lvl (test code = Chloride Lvl) 110 95-109 [facility]IrnhiesJQSIWKNNNKEO5797-27-80 14:52:00 Test Item Value Reference Range Interpretation Comments Potassium Lvl (test code = Potassium 4.3 3.5-5.1 Lvl) [facility]TpqnjiwADGFJGSBGLAM5700-04-82 14:52:00 Test Item Value Reference Range Interpretation Comments BUN (test code = BUN) 26 7-22 [facility] HospitalBsouocdTORFKRYTAAHK4769-55-13 14:52:00 Test Item Value Reference Range Interpretation Comments Creatinine Lvl (test code = Creatinine 2.2 0.5-1.4 Lvl) [facility] HospitalMstlqwsGXXIJTCGBCBH3246-36-77 14:52:00 Test Item Value Reference Range Interpretation Comments Sodium Lvl (test code = Sodium Lvl) 143 135-145 [facility] HospitalNzfdynbJWFBMAQKWDBU3474-52-53 14:52:00 Test Item Value Reference Range Interpretation Comments Glucose Lvl (test code = Glucose Lvl) 124 70-99 [facility] HospitalAdsaahjWOYHKVONLM5570-82-40 14:52:00 Test Item Value Reference Range Interpretation Comments Basophils # (test code 0.0 See_Comment [Aut omated message] The = Basophils #) system which generated this result tra nsmitted reference range : <=0.2. The reference r isaac was not used to int erpret this result as normal/abnormal . [facility] HospitalYnmdpfiLVIHBLSNQP9186-21-50 14:52:00 Test Item Value Reference Range Interpretation Comments Eosinophils # (test code 0.2 See_Comment [A utomated message] The = Eosinophils #) system whic h generated this result tra nsmitted reference range : <=0.5. The reference r isaac was not used to int erpret this result as normal/abnormal . [facility] HospitalGdtskopJTFUKWEQZY0980-19-38 14:52:00 Test Item Value Reference Range Interpretation Comments Segs-Bands # (test code = Segs-Bands #) 6.8 1.5-8.1 [facility] HospitalJtfpcguAVANMGLTGC5507-10-22 14:52:00 Test Item Value Reference Range Interpretation Comments Lymphocytes # (test code = Lymphocytes 1.6 1.0-5.5 #) [facility] HospitalLemhzsfFLPGXRMUFZ8407-42-92 14:52:00 Test Item Value Reference Range Interpretation Comments Basophils (test code = 0.2 See_Comment [Aut omated message] The Basophils) system which ge nerated this result tra nsmitted reference range : <=1.0. The reference r isaac was not used to int erpret this result as normal/abnormal . [facility] HospitalEllqpliIRSVCMMUMF7246-37-33 14:52:00 Test Item Value Reference Range Interpretation Comments Monocytes # (test code 0.6 See_Comment [Aut omated message] The = Monocytes #) system which generated this result tra nsmitted reference range : <=0.8. The reference r isaac was not used to int erpret this result as normal/abnormal . [facility] HospitalTwqfgrbSHQXMETUKT0043-22-27 14:52:00 Test Item Value Reference Range Interpretation Comments Monocytes (test code = Monocytes) 6.1 2.0-12.0 [facility] HospitalJsefkjtXJEUDDDDOW8727-37-98 14:52:00 Test Item Value Reference Range Interpretation Comments Eosinophils (test code = 2.1 See_Comment [A utomated message] The Eosinophils) system which ge nerated this result tra nsmitted reference range : <=4.0. The reference r isaac was not used to int erpret this result as normal/abnormal . [facility] HospitalFqrmwnwRSYENXXXCX4251-29-14 14:52:00 Test Item Value Reference Range Interpretation Comments Lymphocytes (test code = Lymphocytes) 17.1 20.0-40.0 [facility] HospitalLruayloOYNLLWDJFF5853-28-27 14:52:00 Test Item Value Reference Range Interpretation Comments Segs (test code = Segs) 74.5 45.0-75.0 [facility] HospitalFqffrqsTORJWSTVHD3122-06-20 14:52:00 Test Item Value Reference Range Interpretation Comments MCH (test code = MCH) 28.3 pg 27.0-31.0 [facility] HospitalRcvhtvrNPBRPWIHSJ7807-57-68 14:52:00 Test Item Value Reference Range Interpretation Comments MPV (test code = MPV) 7.5 7.4-10.4 [facility] HospitalCbsukikIEVVBKSIGE8870-10-12 14:52:00 Test Item Value Reference Range Interpretation Comments MCV (test code = MCV) 87.2 81.0-99.0 [facility] HospitalMrehzoyDIGEYKBCPD8069-63-96 14:52:00 Test Item Value Reference Range Interpretation Comments Platelet (test code = Platelet) 303 133-450 [facility] HospitalPykjlwxDEPXEWWUQJ7375-87-57 14:52:00 Test Item Value Reference Range Interpretation Comments RDW (test code = RDW) 14.4 11.5-14.5 [facility] HospitalGyotbwtJKYGQVJALS3816-88-58 14:52:00 Test Item Value Reference Range Interpretation Comments MCHC (test code = MCHC) 32.5 32.0-36.0 [facility] HospitalDyiulcfUNSMFVAEOJ6718-80-54 14:52:00 Test Item Value Reference Range Interpretation Comments Hct (test code = Hct) 22.3 36.0-48.0 [facility]OKMSVPCTYI3039-85-31 14:52:00 Test Item Value Reference Range Interpretation Comments Hgb (test code = Hgb) 7.2 12.0-16.0 [facility] HospitalHzrzgvqVZTKGHIEQT9268-58-49 14:52:00 Test Item Value Reference Range Interpretation Comments RBC (test code = RBC) 2.56 4.20-5.40 [facility] HospitalXfqodbvKXJDLBODBP8461-54-26 14:52:00 Test Item Value Reference Range Interpretation Comments WBC (test code = WBC) 9.2 3.7-10.4 [facility] HospitalCARDIAC NHIDEYC7307-36-14 14:52:00 Test Item Value Reference Range Interpretation Comments Troponin-I (test code no gt See_Comment [Auto mated message] The = Troponin-I) system which g enerated this result transmit daniel reference range : <=0.40. The reference r isaac was not used to interpr et this result as cindy l/abnormal. [facility]LqgudwoPMVMYEBBJQWT7470-33-83 14:52:00 Test Item Value Reference Range Interpretation Comments AGAP (test code = AGAP) 13.3 10.0-20.0 [facility] KTWKVVU0954-35-76 15:30:00 Test Item Value Reference Range Interpretation Comments ABO/Rh (test code = ABO/Rh) O POS [facility] [employer] [facility] [id number] 15:30:00 Test Item Value Reference Range Interpretation Comments Antibody Scrn (test Negative (04/17/14 10:30 code = Antibody Scrn) AM) [facility] UJPRSCX4515-22-83 13:58:00 Test Item Value Reference Range Interpretation Comments RBC product (test code Product available = RBC product) (04/17/14 8:58 AM) [facility] HospitalCHEM [id number] 10:14:00 Test Item Value Reference Range Interpretation Comments eGFR (test code = eGFR) 8 [facility]2014-07-05 10:14:00 Test Item Value Reference Range Interpretation Comments Calcium Lvl (test code = Calcium Lvl) 7.9 8.5-10.5 [facility]2014-07-05 10:14:00 Test Item Value Reference Range Interpretation Comments CO2 (test code = CO2) 22 24-32 [facility]2014-07-05 10:14:00 Test Item Value Reference Range Interpretation Comments Chloride Lvl (test code = Chloride Lvl) 108 95-109 [facility]2014-07-05 10:14:00 Test Item Value Reference Range Interpretation Comments BUN (test code = BUN) 57 7-22 [facility]2014-07-05 10:14:00 Test Item Value Reference Range Interpretation Comments Glucose Lvl (test code = Glucose Lvl) 83 70-99 [facility]2014-07-05 10:14:00 Test Item Value Reference Range Interpretation Comments Creatinine Lvl (test code = Creatinine 5.9 0.5-1.4 Lvl) [facility]2014-07-05 10:14:00 Test Item Value Reference Range Interpretation Comments Sodium Lvl (test code = Sodium Lvl) 144 135-145 [facility]2014-07-05 10:14:00 Test Item Value Reference Range Interpretation Comments Potassium Lvl (test code = Potassium 4.3 3.5-5.1 Lvl) [facility]2014-07-05 10:14:00 Test Item Value Reference Range Interpretation Comments AGAP (test code = AGAP) 18.3 10.0-20.0 [facility] HospitalRnrrfsrEYYBNBWFII6353-62-49 10:14:00 Test Item Value Reference Range Interpretation Comments MPV (test code = MPV) 8.5 7.4-10.4 [facility] HospitalRkgkwaeFUBTZJLNOA8124-03-16 10:14:00 Test Item Value Reference Range Interpretation Comments Platelet (test code = Platelet) 242 133-450 [facility] HospitalQlegxhlBLHHGIZLKG2936-09-24 10:14:00 Test Item Value Reference Range Interpretation Comments RDW (test code = RDW) 14.1 11.5-14.5 [facility] HospitalZildtvzSKLKALUSUT7346-14-56 10:14:00 Test Item Value Reference Range Interpretation Comments WBC (test code = WBC) 8.1 3.7-10.4 [facility] HospitalGaalkywFHHUSZQEOO4145-01-25 10:14:00 Test Item Value Reference Range Interpretation Comments RBC (test code = RBC) 2.17 4.20-5.40 [facility] HospitalRkvyjtoJNQZVTOSTI3778-03-89 10:14:00 Test Item Value Reference Range Interpretation Comments MCHC (test code = MCHC) 33.8 32.0-36.0 [facility] HospitalKrvdhutSVMJDBLKLW1285-09-56 10:14:00 Test Item Value Reference Range Interpretation Comments MCH (test code = MCH) 30.4 pg 27.0-31.0 [facility] HospitalJigutwcEJHPXGZCDP6630-13-85 10:14:00 Test Item Value Reference Range Interpretation Comments Hgb (test code = Hgb) 6.6 12.0-16.0 [facility] HospitalFpymqqjXWPHDJGTAD7004-54-65 10:14:00 Test Item Value Reference Range Interpretation Comments MCV (test code = MCV) 89.8 81.0-99.0 [facility] HospitalJzmmizpKMOOJFKEMO8797-95-76 10:14:00 Test Item Value Reference Range Interpretation Comments Hct (test code = Hct) 19.5 36.0-48.0 [facility] HospitalKjncnvdPXNAUEUYYK7337-01-19 10:14:00 Test Item Value Reference Range Interpretation Comments Monocytes (test code = Monocytes) 10.4 2.0-12.0 [facility] HospitalOxkxlflOJPJFDBMIJ4855-01-58 10:14:00 Test Item Value Reference Range Interpretation Comments Lymphocytes (test code = Lymphocytes) 24.0 20.0-40.0 [facility] HospitalZgfozvqFLQCXNLRWT9948-79-93 10:14:00 Test Item Value Reference Range Interpretation Comments Segs (test code = Segs) 63.3 45.0-75.0 [facility] HospitalQrvmfwtAXHOJUHDDV3865-88-92 10:14:00 Test Item Value Reference Range Interpretation Comments Lymphocytes # (test code = Lymphocytes 1.9 1.0-5.5 #) [facility] HospitalUjxfsuaEJKDBRLVYS2782-44-26 10:14:00 Test Item Value Reference Range Interpretation Comments Monocytes # (test code 0.8 See_Comment [Aut omated message] The = Monocytes #) system which generated this result tra nsmitted reference range : <=0.8. The reference r isaac was not used to int erpret this result as normal/abnormal . [facility] HospitalLsbqofgPSTYUYPAAE7789-94-62 10:14:00 Test Item Value Reference Range Interpretation Comments Eosinophils # (test code 0.2 See_Comment [A utomated message] The = Eosinophils #) system whic h generated this result tra nsmitted reference range : <=0.5. The reference r isaac was not used to int erpret this result as normal/abnormal . [facility] HospitalZwjcnzgCGLSZWIXCZ5645-37-85 10:14:00 Test Item Value Reference Range Interpretation Comments Segs-Bands # (test code = Segs-Bands #) 5.1 1.5-8.1 [facility] HospitalCriihdiRPUXMPYKMI9568-78-95 10:14:00 Test Item Value Reference Range Interpretation Comments Basophils (test code = 0.2 See_Comment [Aut omated message] The Basophils) system which ge nerated this result tra nsmitted reference range : <=1.0. The reference r isaac was not used to int erpret this result as normal/abnormal . [facility] HospitalYcehjsiTQEYDEBEID0673-27-70 10:14:00 Test Item Value Reference Range Interpretation Comments Eosinophils (test code = 2.1 See_Comment [A utomated message] The Eosinophils) system which ge nerated this result tra nsmitted reference range : <=4.0. The reference r isaac was not used to int erpret this result as normal/abnormal . [facility]2014-07-04 16:04:24 Test Item Value Reference Range Interpretation Comments Lactic Acid Lvl (test code = Lactic 1.9 0.5-2.2 Acid Lvl) [facility] HospitalMshrbhhQZRGUBIUUGCP2118-28-71 16:04:03 Test Item Value Reference Range Interpretation Comments Potassium Lvl (test code = Potassium 5.4 3.5-5.1 Lvl) [facility]2014-07-04 10:40:00 Test Item Value Reference Range Interpretation Comments Phosphorus (test code = Phosphorus) 5.6 2.5-4.5 [facility]2014-07-04 10:40:00 Test Item Value Reference Range Interpretation Comments Magnesium Lvl (test code = Magnesium 2.1 1.8-2.4 Lvl) [facility]2014-07-04 10:40:00 Test Item Value Reference Range Interpretation Comments eGFR (test code = eGFR) 6 [facility]2014-07-04 10:40:00 Test Item Value Reference Range Interpretation Comments Potassium Lvl (test code = Potassium 5.3 3.5-5.1 Lvl) [facility]2014-07-04 10:40:00 Test Item Value Reference Range Interpretation Comments Chloride Lvl (test code = Chloride Lvl) 108 95-109 [facility]2014-07-04 10:40:00 Test Item Value Reference Range Interpretation Comments Creatinine Lvl (test code = Creatinine 7.4 0.5-1.4 Lvl) [facility]2014-07-04 10:40:00 Test Item Value Reference Range Interpretation Comments Sodium Lvl (test code = Sodium Lvl) 142 135-145 [facility]2014-07-04 10:40:00 Test Item Value Reference Range Interpretation Comments Calcium Lvl (test code = Calcium Lvl) 7.8 8.5-10.5 [facility]2014-07-04 10:40:00 Test Item Value Reference Range Interpretation Comments Glucose Lvl (test code = Glucose Lvl) 112 70-99 [facility]2014-07-04 10:40:00 Test Item Value Reference Range Interpretation Comments CO2 (test code = CO2) 18 24-32 [facility]2014-07-04 10:40:00 Test Item Value Reference Range Interpretation Comments BUN (test code = BUN) 66 7-22 [facility]2014-07-04 10:40:00 Test Item Value Reference Range Interpretation Comments AGAP (test code = AGAP) 21.3 10.0-20.0 [facility] HospitalOmiburqXRCBCGYBME1258-17-66 10:40:00 Test Item Value Reference Range Interpretation Comments MCHC (test code = MCHC) 31.8 32.0-36.0 [facility] HospitalMbfhiltQNFPQGZWVF5706-61-18 10:40:00 Test Item Value Reference Range Interpretation Comments RDW (test code = RDW) 14.5 11.5-14.5 [facility] HospitalMftyvfmJJXHOADAMA6938-67-62 10:40:00 Test Item Value Reference Range Interpretation Comments Platelet (test code = Platelet) 228 133-450 [facility] HospitalPencjqnHIWESSHSJC9827-17-69 10:40:00 Test Item Value Reference Range Interpretation Comments MPV (test code = MPV) 8.8 7.4-10.4 [facility] HospitalDrvquhmUCBCEFCEIM6636-34-91 10:40:00 Test Item Value Reference Range Interpretation Comments Hgb (test code = Hgb) 7.1 12.0-16.0 [facility] HospitalWljwdodERYYKEWTRL8781-73-31 10:40:00 Test Item Value Reference Range Interpretation Comments Hct (test code = Hct) 22.3 36.0-48.0 [facility] HospitalYthnnzlTRKESBHSFI4344-20-16 10:40:00 Test Item Value Reference Range Interpretation Comments MCH (test code = MCH) 28.9 pg 27.0-31.0 [facility] HospitalJmhbyvvUMOYMOREUU4431-73-67 10:40:00 Test Item Value Reference Range Interpretation Comments MCV (test code = MCV) 90.8 81.0-99.0 [facility] HospitalHkortxbOXNHRBONKB2547-66-84 10:40:00 Test Item Value Reference Range Interpretation Comments WBC (test code = WBC) 8.6 3.7-10.4 [facility] HospitalMhgpjjuEXJLXHJTRW9844-53-88 10:40:00 Test Item Value Reference Range Interpretation Comments RBC (test code = RBC) 2.45 4.20-5.40 [facility] HospitalLejdddgDXVVIQJHFZ5740-47-30 10:40:00 Test Item Value Reference Range Interpretation Comments Plt Morph (test code = Normal (04/16/14 5:40 AM) Plt Morph) [facility] HospitalDosvplaGFLQLVSQPM1642-60-20 10:40:00 Test Item Value Reference Range Interpretation Comments Lymphocytes (test code = Lymphocytes) 15.5 20.0-40.0 [facility] HospitalXbmsggxRUVLGZZLDF8552-49-69 10:40:00 Test Item Value Reference Range Interpretation Comments Segs (test code = Segs) 71.4 45.0-75.0 [facility] HospitalDiubiktNANHMLABZI9263-71-18 10:40:00 Test Item Value Reference Range Interpretation Comments Monocytes (test code = Monocytes) 11.1 2.0-12.0 [facility] HospitalGjtoiodLDKYMBTBHD4926-51-94 10:40:00 Test Item Value Reference Range Interpretation Comments Eosinophils (test code = 1.7 See_Comment [A utomated message] The Eosinophils) system which ge nerated this result tra nsmitted reference range : <=4.0. The reference r isaac was not used to int erpret this result as normal/abnormal . [facility] HospitalKroriauDAGHKXPLFL1680-96-79 10:40:00 Test Item Value Reference Range Interpretation Comments Segs-Bands # (test code = Segs-Bands #) 6.2 1.5-8.1 [facility] HospitalWmzhnavWNJKARZTHZ4635-22-46 10:40:00 Test Item Value Reference Range Interpretation Comments Basophils (test code = 0.3 See_Comment [Aut omated message] The Basophils) system which ge nerated this result tra nsmitted reference range : <=1.0. The reference r isaac was not used to int erpret this result as normal/abnormal . [facility] HospitalKkceizaUPYABDJIJG5137-27-89 10:40:00 Test Item Value Reference Range Interpretation Comments Eosinophils # (test code 0.1 See_Comment [A utomated message] The = Eosinophils #) system whic h generated this result tra nsmitted reference range : <=0.5. The reference r isaac was not used to int erpret this result as normal/abnormal . [facility] HospitalWryroquHHJYJNWKFU0835-47-18 10:40:00 Test Item Value Reference Range Interpretation Comments Monocytes # (test code 1.0 See_Comment [Aut omated message] The = Monocytes #) system which generated this result tra nsmitted reference range : <=0.8. The reference r isaac was not used to int erpret this result as normal/abnormal . [facility] HospitalBtxizyeQODJTUNNPM3884-74-77 10:40:00 Test Item Value Reference Range Interpretation Comments Lymphocytes # (test code = Lymphocytes 1.3 1.0-5.5 #) [facility] HospitalXyrpvbdXHBJUXIIAX4352-61-76 10:40:00 Test Item Value Reference Range Interpretation Comments Polychrom (test code = Slight (7//14 5:40 Polychrom) AM) [facility]2014-07-03 07:31:00 Test Item Value Reference Range Interpretation Comments Vitamin D, 25-OH, Total (test code = 21 30-100 Vitamin D, 25-OH, Total) [facility]2014-07-03 07:31:00 Test Item Value Reference Range Interpretation Comments Magnesium Lvl (test code = Magnesium 1.8 1.8-2.4 Lvl) [facility]2014-07-03 07:31:00 Test Item Value Reference Range Interpretation Comments eGFR (test code = eGFR) 5 [facility]2014-07-03 07:31:00 Test Item Value Reference Range Interpretation Comments BUN (test code = BUN) 65 7-22 [facility]2014-07-03 07:31:00 Test Item Value Reference Range Interpretation Comments Glucose Lvl (test code = Glucose Lvl) 173 70-99 [facility]2014-07-03 07:31:00 Test Item Value Reference Range Interpretation Comments Sodium Lvl (test code = Sodium Lvl) 136 135-145 [facility]2014-07-03 07:31:00 Test Item Value Reference Range Interpretation Comments Creatinine Lvl (test code = Creatinine 8.4 0.5-1.4 Lvl) [facility]2014-07-03 07:31:00 Test Item Value Reference Range Interpretation Comments Chloride Lvl (test code = Chloride Lvl) 103 95-109 [facility]2014-07-03 07:31:00 Test Item Value Reference Range Interpretation Comments CO2 (test code = CO2) 18 24-32 [place] 510204-07-03 07:31:00 Test Item Value Reference Range Interpretation Comments Calcium Lvl (test code = Calcium Lvl) 7.1 8.5-10.5 [facility]2014-07-03 07:31:00 Test Item Value Reference Range Interpretation Comments AGAP (test code = AGAP) 19.5 10.0-20.0 [facility] HospitalVyqwvhhJKQBWMJOEZ9579-55-26 07:31:00 Test Item Value Reference Range Interpretation Comments Hct (test code = Hct) 21.6 36.0-48.0 [facility] HospitalThaqmosXHPDNPPHWD2465-62-86 07:31:00 Test Item Value Reference Range Interpretation Comments Hgb (test code = Hgb) 7.2 12.0-16.0 [facility]2014-07-03 07:31:00 Test Item Value Reference Range Interpretation Comments Ca Ion WB (test code = Ca Ion WB) 0.90 1.05-1.25 [facility]2014-07-03 07:31:00 Test Item Value Reference Range Interpretation Comments Ca Norm WB (test code = Ca Norm WB) 0.86 1.05-1.25 [facility]2014-07-02 20:26:00 Test Item Value Reference Range Interpretation Comments U Prot/Creat (test code = U Prot/Creat) 1.1 [facility]2014-07-02 20:26:00 Test Item Value Reference Range Interpretation Comments U Creatinine (test code = U Creatinine) 71.3 [facility]2014-07-02 20:26:00 Test Item Value Reference Range Interpretation Comments U Protein (test code = U Protein) 79.4 [facility] [id number] 14:28:00 Test Item Value Reference Range Interpretation Comments Ferritin Lvl (test code = Ferritin Lvl) 400 5-204 [facility]2014-07-02 14:28:00 Test Item Value Reference Range Interpretation Comments TIBC (test code = TIBC) 276 228-428 [facility]2014-07-02 14:28:00 Test Item Value Reference Range Interpretation Comments % Satur Fe (test code = % Satur Fe) 35 12-57 [facility]2014-07-02 14:28:00 Test Item Value Reference Range Interpretation Comments UIBC (test code = UIBC) 180 110-370 [facility]2014-07-02 14:28:00 Test Item Value Reference Range Interpretation Comments Iron (test code = Iron) 96 30-160 [facility]2014-07-02 14:28:00 Test Item Value Reference Range Interpretation Comments Phosphorus (test code = Phosphorus) 5.7 2.5-4.5 [facility] WRLME5945-05-15 14:28:00 Test Item Value Reference Range Interpretation Comments Magnesium Lvl (test code = Magnesium 1.3 1.8-2.4 Lvl) [facility] HospitalMwulyncZNREZXEGUI0060-15-85 14:28:00 Test Item Value Reference Range Interpretation Comments MCHC (test code = MCHC) 34.1 32.0-36.0 [facility] HospitalCffthwuSVRCJKIPUY8303-43-13 14:28:00 Test Item Value Reference Range Interpretation Comments MCH (test code = MCH) 30.3 pg 27.0-31.0 [facility]BcbnqmvDWFUJJOIAW8810-83-03 14:28:00 Test Item Value Reference Range Interpretation Comments MCV (test code = MCV) 88.8 81.0-99.0 [facility] HospitalRyjxwmzTQCFGHKIWH2676-79-72 14:28:00 Test Item Value Reference Range Interpretation Comments Platelet (test code = Platelet) 181 133-450 [facility] HospitalJgcywvrRDJACOWSEC6693-68-71 14:28:00 Test Item Value Reference Range Interpretation Comments RDW (test code = RDW) 14.1 11.5-14.5 [facility] HospitalUbozzkrVLDKKJHOMQ4256-73-61 14:28:00 Test Item Value Reference Range Interpretation Comments MPV (test code = MPV) 8.5 7.4-10.4 [facility] HospitalYkdojflUMUJAAHOLY0274-00-29 14:28:00 Test Item Value Reference Range Interpretation Comments RBC (test code = RBC) 2.35 4.20-5.40 [facility] HospitalErfwanmNEIAWOMOTG0524-77-12 14:28:00 Test Item Value Reference Range Interpretation Comments WBC (test code = WBC) 7.3 3.7-10.4 [facility] HospitalBkgkittCZIYZQAJGM0910-37-84 14:28:00 Test Item Value Reference Range Interpretation Comments Segs (test code = Segs) 80.2 45.0-75.0 [facility] HospitalPclaleiVGXDOYIZNS1654-02-71 14:28:00 Test Item Value Reference Range Interpretation Comments Eosinophils # (test code 0.1 See_Comment [A utomated message] The = Eosinophils #) system whic h generated this result tra nsmitted reference range : <=0.5. The reference r isaac was not used to int erpret this result as normal/abnormal . [facility] HospitalRpwibhyKBOWARFVZV5187-53-93 14:28:00 Test Item Value Reference Range Interpretation Comments Monocytes # (test code 0.6 See_Comment [Aut omated message] The = Monocytes #) system which generated this result tra nsmitted reference range : <=0.8. The reference r isaac was not used to int erpret this result as normal/abnormal . [facility] HospitalOcjxygbJWTZPIDFGJ4119-03-85 14:28:00 Test Item Value Reference Range Interpretation Comments Lymphocytes # (test code = Lymphocytes 0.8 1.0-5.5 #) [facility] HospitalVmdonqpYQUBVOWKDW3671-95-65 14:28:00 Test Item Value Reference Range Interpretation Comments Segs-Bands # (test code = Segs-Bands #) 5.9 1.5-8.1 [facility] HospitalMybwhnjLTMBBYXZUC8630-75-72 14:28:00 Test Item Value Reference Range Interpretation Comments Basophils (test code = 0.2 See_Comment [Aut omated message] The Basophils) system which ge nerated this result tra nsmitted reference range : <=1.0. The reference r isaac was not used to int erpret this result as normal/abnormal . [facility] HospitalWebkfrvDMAHJXMPVO5229-68-87 14:28:00 Test Item Value Reference Range Interpretation Comments Eosinophils (test code = 1.0 See_Comment [A utomated message] The Eosinophils) system which ge nerated this result tra nsmitted reference range : <=4.0. The reference r isaac was not used to int erpret this result as normal/abnormal . [facility] HospitalIhsbhqbBRNEZIFSLQ3289-02-11 14:28:00 Test Item Value Reference Range Interpretation Comments Monocytes (test code = Monocytes) 7.9 2.0-12.0 [facility] HospitalWhcfsqeKPEWJUACRY4735-84-49 14:28:00 Test Item Value Reference Range Interpretation Comments Lymphocytes (test code = Lymphocytes) 10.7 20.0-40.0 [facility] HospitalTHY[facility] [id number] 14:28:00 Test Item Value Reference Range Interpretation Comments T4 Free (test code = T4 Free) 0.83 0.76-1.46 [facility] HospitalTHY[facility]ID [id number] 14:28:00 Test Item Value Reference Range Interpretation Comments TSH (test code = TSH) 0.261 0.360-3.740 [facility] AND [id number] 14:27:24 Test Item Value Reference Range Interpretation Comments UA Urobilinogen (test code = UA <=1.0 mg/dL 0.1-1.0 Urobilinogen) [facility] AND [id number] 14:27:24 Test Item Value Reference Range Interpretation Comments UA Nitrite (test code Negative (04/14/14 9:27 = UA Nitrite) AM) [facility] AND [id number] 14:27:24 Test Item Value Reference Range Interpretation Comments UA Leuk Est (test Moderate *ABN*(04/14/14 code = UA Leuk Est) 9:27 AM) [facility] AND [id number] 14:27:24 Test Item Value Reference Range Interpretation Comments UA Sq Epi (test code = UA Sq Epi) Few /LPF [facility] AND [id number] 14:27:24 Test Item Value Reference Range Interpretation Comments UA WBC (test code = 18 See_Comment [Automa daniel message] The UA WBC) system which ge nerated this result transmit daniel reference range : <=5. The reference range was not used to interpr et this result as cindy l/abnormal. [facility] AND [id number] 14:27:24 Test Item Value Reference Range Interpretation Comments UA Blood (test code = Small *ABN*(04/14/14 UA Blood) 9:27 AM) [facility] AND [id number] 14:27:24 Test Item Value Reference Range Interpretation Comments UA Spec Grav (test code = UA Spec Grav) 1.006 [facility] AND [id number] 14:27:24 Test Item Value Reference Range Interpretation Comments UA Bacteria (test code = UA Many /HPF Bacteria) [facility] AND [id number] 14:27:24 Test Item Value Reference Range Interpretation Comments UA RBC (test code = 1 See_Comment [Automa daniel message] The UA RBC) system which ge nerated this result transmit daniel reference range : <=2. The reference range was not used to interpr et this result as cindy l/abnormal. [facility] AND [id number] 14:27:24 Test Item Value Reference Range Interpretation Comments UA Amorph Destiny (test code = UA Few /HPF Amorph Destiny) [facility] AND [id number] 14:27:24 Test Item Value Reference Range Interpretation Comments UA Mucus (test code = UA Mucus) Few /LPF [facility] AND [id number] 14:27:24 Test Item Value Reference Range Interpretation Comments UA Turbidity (test code Slight *ABN*(04/14/14 = UA Turbidity) 9:27 AM) [facility] AND [id number] 14:27:24 Test Item Value Reference Range Interpretation Comments UA pH (test code = UA pH) 5.0 5.0-8.0 [facility] AND [id number] 14:27:24 Test Item Value Reference Range Interpretation Comments UA Glucose (test code = UA Negative mg/dL Glucose) [facility] AND [id number] 14:27:24 Test Item Value Reference Range Interpretation Comments UA Protein (test code = UA Protein) 50 mg/dL [facility] AND [id number] 14:27:24 Test Item Value Reference Range Interpretation Comments UA Bili (test code = Negative *NA*(04/14/14 UA Bili) 9:27 AM) [facility] AND [id number] 14:27:24 Test Item Value Reference Range Interpretation Comments UA Ketones (test code = UA Negative mg/dL Ketones) [facility] AND [id number] 14:27:24 Test Item Value Reference Range Interpretation Comments UA Color (test code = Yellow *NA*(04/14/14 9:27 UA Color) AM) [facility] [id number] 07:44:00 Test Item Value Reference Range Interpretation Comments Phosphorus (test code = Phosphorus) 6.2 2.5-4.5 [facility] HospitalPARATHYROID [id number] 07:44:00 Test Item Value Reference Range Interpretation Comments Ca Ion WB (test code = Ca Ion WB) 0.96 1.05-1.25 [facility] [id number] 07:44:00 Test Item Value Reference Range Interpretation Comments Ca Norm WB (test code = Ca Norm WB) 0.93 1.05-1.25 [facility] [id number] 20:20:55 Test Item Value Reference Range Interpretation Comments Lactic Acid Lvl (test code = Lactic 1.9 0.5-2.2 Acid Lvl) [facility] AND [id number] 15:34:00 Test Item Value Reference Range Interpretation Comments UA Urobilinogen (test code = UA <=1.0 mg/dL 0.1-1.0 Urobilinogen) [facility] AND [id number] 15:34:00 Test Item Value Reference Range Interpretation Comments UA Gran Cast (test code = UA Gran Cast) 54 [facility] AND [id number] 15:34:00 Test Item Value Reference Range Interpretation Comments UA Hyal Cast (test 12 See_Comment [Automat ed message] The code = UA Hyal Cast) system which generated this result transmit daniel reference range : <=2. The reference range was not used to interpr et this result as cindy l/abnormal. [facility] AND [id number] 15:34:00 Test Item Value Reference Range Interpretation Comments UA Mucus (test code = UA Mucus) Few /LPF [facility] AND [id number] 15:34:00 Test Item Value Reference Range Interpretation Comments UA RBC (test code = 101 See_Comment [Automa daniel message] The UA RBC) system which ge nerated this result transmit daniel reference range : <=2. The reference range was not used to interpr et this result as cindy l/abnormal. [facility] AND [id number] 15:34:00 Test Item Value Reference Range Interpretation Comments UA Bacteria (test code = UA Many /HPF Bacteria) [facility] AND [id number] 15:34:00 Test Item Value Reference Range Interpretation Comments UA WBC (test code = 32 See_Comment [Automa daniel message] The UA WBC) system which ge nerated this result transmit daniel reference range : <=5. The reference range was not used to interpr et this result as cindy l/abnormal. [facility] AND [id number] 15:34:00 Test Item Value Reference Range Interpretation Comments UA Color (test code = Yellow *NA*(04/12/14 UA Color) 10:34 AM) [facility] AND [id number] 15:34:00 Test Item Value Reference Range Interpretation Comments UA pH (test code = UA pH) 5.5 5.0-8.0 [facility] AND [id number] 15:34:00 Test Item Value Reference Range Interpretation Comments UA Spec Grav (test code = UA Spec Grav) 1.014 [facility] AND [id number] 15:34:00 Test Item Value Reference Range Interpretation Comments UA Turbidity (test code Marked *ABN*(04/12/14 = UA Turbidity) 10:34 AM) [facility] AND [id number] 15:34:00 Test Item Value Reference Range Interpretation Comments UA Glucose (test code = UA Negative mg/dL Glucose) [facility] AND [id number] 15:34:00 Test Item Value Reference Range Interpretation Comments UA Protein (test code = UA Protein) 200 mg/dL [facility] AND [id number] 15:34:00 Test Item Value Reference Range Interpretation Comments UA Bili (test code = Negative *NA*(04/12/14 UA Bili) 10:34 AM) [facility] [id number] 15:34:00 Test Item Value Reference Range Interpretation Comments UA Blood (test code = Large *ABN*(04/12/14 UA Blood) 10:34 AM) [facility] [id number] 15:34:00 Test Item Value Reference Range Interpretation Comments UA Nitrite (test code Negative (04/12/14 10:34 = UA Nitrite) AM) [facility] [id number] 15:34:00 Test Item Value Reference Range Interpretation Comments UA Sq Epi (test code = UA Sq Epi) Many /LPF [facility] AND [id number] 15:34:00 Test Item Value Reference Range Interpretation Comments UA Leuk Est (test code Large *ABN*(04/12/14 = UA Leuk Est) 10:34 AM) [facility] [id number] 15:34:00 Test Item Value Reference Range Interpretation Comments UA Ketones (test code = UA Negative mg/dL Ketones) [facility] [id number] 15:34:00 Test Item Value Reference Range Interpretation Comments U Sodium (test code = U Sodium) 50 [facility] [id number] 15:34:00 Test Item Value Reference Range Interpretation Comments U Potassium (test code = U Potassium) 17.4 [facility] [id number] 15:34:00 Test Item Value Reference Range Interpretation Comments U Chloride (test code = U Chloride) 45 [facility] [id number] 15:34:00 Test Item Value Reference Range Interpretation Comments U Osmolality (test code = U Osmolality) 301 300-800 [facility] [id number] 10:30:08 Test Item Value Reference Range Interpretation Comments C difficile DNA (test Negative 18(04/12/14 code = C difficile DNA) 5:30 AM) [facility] HospitalCHEM [id number] 10:30:00 Test Item Value Reference Range Interpretation Comments Osmolality (test code = Osmolality) 317 280-300 [facility] [id number] 10:30:00 Test Item Value Reference Range Interpretation Comments Lactic Acid Lvl (test code = Lactic 4.5 0.5-2.2 Acid Lvl) [facility]annPAR[facility] - [id number] 10:30:00 Test Item Value Reference Range Interpretation Comments Giardia Ag (test code Negative (04/12/14 5:30 = Giardia Ag) AM) [facility] [id number] 10:30:00 Test Item Value Reference Range Interpretation Comments Ca Norm WB (test code = Ca Norm WB) 0.95 1.05-1.25 [facility] [id number] 10:30:00 Test Item Value Reference Range Interpretation Comments Ca Ion WB (test code = Ca Ion WB) 0.98 1.05-1.25 [facility] [id number] 06:35:38 Test Item Value Reference Range Interpretation Comments Hep B Core IgM (test Negative *NA*(04/12/14 code = Hep B Core 1:35 AM) IgM) [facility] [id number] 06:35:00 Test Item Value Reference Range Interpretation Comments Hep Bs Ab (test code = Hep Bs Ab) 11.0 [facility] H[id number] 06:35:00 Test Item Value Reference Range Interpretation Comments Hep Bs Ag (test code Negative *NA*(04/12/14 = Hep Bs Ag) 1:35 AM) [facility] [id number] 06:35:00 Test Item Value Reference Range Interpretation Comments Hep B Core Ab (test Positive *NA*(04/12/14 code = Hep B Core Ab) 1:35 AM) [facility] HospitalBACTERIAL - [id number] 05:22:00 Test Item Value Reference Range Interpretation Comments MRSA by PCR (test Negative 19(04/12/14 code = MRSA by PCR) 12:22 AM) [facility] HospitalCHEM [id number] 03:11:17 Test Item Value Reference Range Interpretation Comments Procalcitonin Lvl (test 0.55 See_Comment [Au tomated message] code = Procalcitonin Lvl) Th e system which generated this result transmitted ref erence range: <=0.10. The reference range was not used to interpr et this result as normal/abnormal . [id number] 03:11:17 Test Item Value Reference Range Interpretation Comments S Preg (test code = S Negative *NA*(04/11/14 Preg) 10:11 PM) [facility] [id number] 03:11:17 Test Item Value Reference Range Interpretation Comments VLDL (test code = VLDL) 47 [facility] [id number] 03:11:17 Test Item Value Reference Range Interpretation Comments LDL (Calculated) (test code = LDL 48 (Calculated)) [facility] [id number] 03:11:17 Test Item Value Reference Range Interpretation Comments Trig (test code = Trig) 235 [facility] [id number] 03:11:17 Test Item Value Reference Range Interpretation Comments Chol (test code = Chol) 133 [facility] [id number] 03:11:17 Test Item Value Reference Range Interpretation Comments HDL (test code = HDL) 38 [facility] [id number] 03:11:17 Test Item Value Reference Range Interpretation Comments CHD Risk (test code = CHD Risk) 3.50 3.90-5.80 [facility] HospitalEgomotion [id number] 00:15:00 Test Item Value Reference Range Interpretation Comments Total CK (test code = Total CK) 134 12-191 [facility] HospitalNumerifyAC [id number] 00:15:00 Test Item Value Reference Range Interpretation Comments Total CK (test code = Total CK) 134 12-191 [facility] HospitalNumerifyAC [id number] 00:15:00 Test Item Value Reference Range Interpretation Comments Troponin-T (test code no gt See_Comment [Auto mated message] The = Troponin-T) system which g enerated this result transmit daniel reference range : <=0.100. The reference r isaac was not used to interpr et this result as cindy l/abnormal. [facility] HospitalEgomotion [id number] 00:15:00 Test Item Value Reference Range Interpretation Comments Troponin-I (test code no gt See_Comment [Auto mated message] The = Troponin-I) system which g enerated this result transmit daniel reference range : <=0.40. The reference r isaac was not used to interpr et this result as cindy l/abnormal. [facility] [id number] 00:15:00 Test Item Value Reference Range Interpretation Comments CK-MB INDEX (test 2.3 See_Comment [Automate d message] The code = CK-MB INDEX) system w Chik[employer] generated this result transmit daniel reference range : <=2.5. The reference range was not used to interpr et this result as cindy l/abnormal. [facility] [id number] 00:15:00 Test Item Value Reference Range Interpretation Comments CK MB (test code = CK MB) 3.1 0.5-3.6 [facility] [id number] 00:15:00 Test Item Value Reference Range Interpretation Comments A/G Ratio (test code = A/G Ratio) 0.9 0.7-1.6 [facility] [id number] 00:15:00 Test Item Value Reference Range Interpretation Comments Bili Total (test code = Bili Total) 0.2 0.2-1.3 [facility] [id number] 00:15:00 Test Item Value Reference Range Interpretation Comments Alk Phos (test code = Alk Phos) 74 39-136 [facility] [id number] 00:15:00 Test Item Value Reference Range Interpretation Comments AST (test code = AST) 35 See_Comment [Auto mated message] The system which ge nerated this result transmit daniel reference range : <=37. The reference range was not used to interpr et this result as cindy l/abnormal. [facility] [id number] 00:15:00 Test Item Value Reference Range Interpretation Comments Albumin Lvl (test code = Albumin Lvl) 3.1 3.5-5.0 [facility] [id number] 00:15:00 Test Item Value Reference Range Interpretation Comments Globulin (test code = Globulin) 3.5 2.0-4.0 [facility] [id number] 00:15:00 Test Item Value Reference Range Interpretation Comments ALT (test code = ALT) 55 See_Comment [Auto mated message] The system which ge nerated this result transmit daniel reference range : <=65. The reference range was not used to interpr et this result as cindy l/abnormal. [facility] [id number] 00:15:00 Test Item Value Reference Range Interpretation Comments Total Protein (test code = Total 6.6 6.4-8.4 Protein) [facility] [id number] 00:15:00 Test Item Value Reference Range Interpretation Comments B/C Ratio (test code = B/C Ratio) 8 6-25 [facility] [id number] 00:15:00 Test Item Value Reference Range Interpretation Comments Lipase Lvl (test code = Lipase Lvl) 0497 31-393 [facility] Hospit[id number] 00:15:00 Test Item Value Reference Range Interpretation Comments PTT (test code = PTT) 32.5 s 22.9-35.8 [facility] [id number] 00:15:00 Test Item Value Reference Range Interpretation Comments INR (test code = INR) 1.23 0.85-1.17 [facility] HospitalMxgqtxxKVYXUYGOPB2124-13-46 00:15:00 Test Item Value Reference Range Interpretation Comments PT (test code = PT) 15.4 s 12.0-14.7 [facility] HospitalRsync.netSPECIAL [id number] 00:15:00 Test Item Value Reference Range Interpretation Comments Hgb A1C (test code = Hgb A1C) 8.0 [facility] [employer] ABTHYROID [id number] 00:15:00 Test Item Value Reference Range Interpretation Comments TSH (test code = TSH) 0.245 0.360-3.740 [facility] [employer] [id number] 00:00:06 Test Item Value Reference Range Interpretation Comments Antibody Scrn (test Negative (04/11/14 7:00 code = Antibody Scrn) PM) [facility] [employer] [id number] 00:00:06 Test Item Value Reference Range Interpretation Comments ABO/Rh (test code = ABO/Rh) O POS [facility]
[2022-09-01] MEDS ORDERED: ONDANSETRON 4 MG/2 ML VIAL ONE (13:55)
[2022-09-01] MEDS ORDERED: MORPHINE 4 MG/ML SYR ONE (13:55)
[2022-09-01] MEDS ORDERED: FAMOTIDINE 20 MG/2 ML VIAL IV ONE (13:56)
[2022-09-01 14:08] LABS: Absolute Lymphocytes (CBC) 0.4 K/uL (0.7-4.9); Hematocrit 40.8 % (36.0-45.0); Lymphocytes % 3.5 % (15.3-44.8); MPV 9.3 fL (7.6-11.3); RBC Red Blood Cell Count 4.44 M/uL (3.86-4.86)
[2022-09-01 14:28] LABS: Albumin 3.8 g/dL (3.4-5.0); Bilirubin Total 0.8 mg/dL (0.2-1.0); Magnesium 1.8 mg/dL (1.8-2.4); Potassium 4.7 mmol/L (3.5-5.1); Protein, Total 8.2 g/dL (6.4-8.2)
--- NOTE | 2022-09-01 15:10 | RAD REPORT ---
EXAM DESCRIPTION: CT - Abdomen Pelvis W Contrast - 09/01/2022 2:50 pm CLINICAL HISTORY: Abdominal pain COMPARISON: 2020 TECHNIQUE: Computed axial tomography of the abdomen pelvis was obtained. 100 cc Isovue-300 was admin istered intravenously. Oral contrast was not requested which limits evaluation of bowel and appendix All CT scans are performed using dose optimization technique as appropriate and may include automated exposure control or mA/KV adjustment according to patient size. FINDINGS: Mild fatty liver. Cholecystectomy Spleen, pancreas left adrenal and right kidney are unremarkable. 3 centimeter right renal cyst. 1 centimeter right adrenal lesion. It is nonspecific but probably an adenoma Uterine fibroid suspected. Small umbilical hernia. No evidence of diverticulitis. No adnexal mass IMPRESSION: Mild fatty liver
--- NOTE | 2022-09-01 15:10 | RAD REPORT ---
EXAM DESCRIPTION: [facility] Single View09/01/2022 2:20 pm CLINICAL HISTORY: Abdominal pain COMPARISON: 2020 FINDINGS: The lungs appear clear of acute infiltrate. The heart is normal size IMPRESSION: No acute abnormalities displayed
[2022-09-01] MEDS ORDERED: NA CHLORIDE 0.9% 2,000 ML ONE (15:34)
--- NOTE | 2022-09-01 16:02 | ER ---
Nurse's Notes [facility] Name: Andreea Lomeli Age: 62 yrs Sex: Female : 1960 Arrival Date: 09/01/2022 Time: 13:48 Bed 6 Private MD: Diagnosis: Acute pancreatitis without necrosis or infection, unspecified;Diabetes mellitus due to underlying condition with hyperglycemia Presentation: 09/01 13:48 Chief complaint: EMS states: abd pain, n/v/d since 5 am today, thinks she ate some bad iw lobster last night. Coronavirus screen: Client presents with at least one sign or symptom that may indicate coronavirus-19. Ebola Screen: Patient negative for fever greater than or equal to 101.5 degrees Fahrenheit, and additional compatible Ebola Virus Disease symptoms Patient denies exposure to infectious person. Patient denies travel to an Ebola-affected area in the 21 days before illness onset. No symptoms or risks identified at this time. Risk Assessment: Do you want to hurt yourself or someone else? Patient reports no desire to harm self or others. Onset of symptoms was September 01, 2022. 13:48 Method Of Arrival: EMS: [facility] iw 13:48 Acuity: JAY 3 iw 13:52 Initial Sepsis Screen: Does the patient meet any 2 criteria? No. Patient's initial iw sepsis screen is negative. Does the patient have a suspected source of infection? No. Patient's initial sepsis screen is negative. Historical: - Allergies: 13:49 No Known Allergies; iw - PMHx: 13:49 Depression; kidney failure; neuropathy; Diabetes - NIDDM; sciatica; iw - Immunization history:: Adult Immunizations unknown. - Social history:: Smoking status: unknown. Screenin:10 Abuse screen: Denies threats or abuse. Nutritional screening: No deficits noted. jd3 Tuberculosis screening: No symptoms or risk factors identified. Fall Risk IV access (20 points). Ambulatory Aid- None/Bed Rest/Nurse Assist (0 pts). Gait- Normal/Bed Rest/Wheelchair (0 pts) Mental Status- Oriented to own ability (0 pts). Total Conde Fall Scale indicates No Risk (0-24 pts). Assessment: 14:00 General: Appears uncomfortable, Behavior is cooperative, anxious, fussy, restless. jd3 Pain: Complains of pain in abdomen Quality of pain is described as sharp, stabbing, tender. Neuro: Campbell Agitation-Sedation Scale (RASS): 0 - Alert and Calm Level of Consciousness is awake, alert, obeys commands, Oriented to person, place, time, situation. Cardiovascular: Denies chest pain, Capillary refill < 3 seconds Patient's skin is warm and dry. Respiratory: Airway is patent Respiratory effort is even, unlabored, Respiratory pattern is regular, symmetrical, Denies cough, shortness of breath. GI: Abdomen is round Abd is soft X 4 quads Abdomen is tender to palpation X 4 quads. Reports lower abdominal pain, upper abdominal pain, bloating, cramping, diarrhea, nausea. : No signs and/or symptoms were reported regarding the genitourinary system. EENT: No signs and/or symptoms were reported regarding the EENT system. Derm: Skin is intact, Skin is dry, Skin is normal, Skin temperature is warm. Musculoskeletal: Circulation, motion, and sensation intact. Range of motion: intact in all extremities. 15:09 Reassessment: Patient appears in no apparent distress at this time. No changes from jd3 previously documented assessment. Patient and/or family updated on plan of care and expected duration. Pain level reassessed. Patient is alert, oriented x 3, equal unlabored respirations, skin warm/dry/pink. 15:58 Reassessment: Patient appears in no apparent distress at this time. Patient and/or jd3 family updated on plan of care and expected duration. Pain level reassessed. Patient is alert, oriented x 3, equal unlabored respirations, skin warm/dry/pink. Hospitalist at bedside. Patient states feeling better. 16:41 Reassessment: Patient appears in no apparent distress at this time. Patient and/or jd3 family updated on plan of care and expected duration. Pain level reassessed. Patient is alert, oriented x 3, equal unlabored respirations, skin warm/dry/pink. Patient states feeling better. 17:54 Reassessment: Patient appears in no apparent distress at this time. Patient and/or jd3 family updated on plan of care and expected duration. Pain level reassessed. Patient is alert, oriented x 3, equal unlabored respirations, skin warm/dry/pink. report given to Kathy RODRIGUEZ. Vital Signs: 13:51 BP 155 / 89; Pulse 89; Resp 20; Temp 96.9; Pulse Ox 97% on R/A; Weight 117.93 kg; iw Height 5 ft. 6 in. (167.64 cm); Pain 10/10; 15:09 BP 141 / 72; Pulse 88; Resp 20; Pulse Ox 98% on R/A; jd3 16:41 BP 125 / 75; Pulse 87; Resp 19; Pulse Ox 98% on R/A; jd3 13:51 Body Mass Index 41.96 (117.93 kg, 167.64 cm) iw ED Course: 13:45 Inserted saline lock: 20 gauge in right antecubital area, using aseptic technique. mb9 Blood collected. 13:48 Patient arrived in ED. iw 13:49 Triage completed. iw 13:49 Naga Mehta PA is PHCP. cp 13:50 Vahid Lyle MD is Attending Physician. cp 13:50 Carlos Rodrigez RN is Primary Nurse. jd3 13:50 Arm band placed on. iw 14:22 XRAY Chest (1 view) In Process Unspecified. EDMS 14:51 Abdomen In Process Unspecified. EDMS 15:10 Patient has correct armband on for positive identification. Bed in low position. Call jd3 light in reach. Side rails up X2. Client placed on continuous cardiac and pulse oximetry monitoring. NIBP monitoring applied. policy specialist on. Pulse ox on. NIBP on. Warm blanket given. 16:01 Brenden Shahid MD is Hospitalizing Provider. cp 17:55 No provider procedures requiring assistance completed. Patient admitted, IV remains in jd3 place. Administered Medications: 14:02 Drug: Pepcid (famotidine) 20 mg Route: IVP; Site: right antecubital; jd3 15:00 Follow up: Response: No adverse reaction jd3 14:02 Drug: Zofran (Ondansetron) 4 mg Route: IVP; Site: right antecubital; jd3 15:00 Follow up: Response: No adverse reaction jd3 14:02 Drug: morphine 4 mg Route: IVP; Infused Over: 4 mins; Site: right antecubital; jd3 15:00 Follow up: Response: No adverse reaction; RASS: Alert and Calm (0) jd3 15:56 Drug: NS 0.9% 1000 ml Route: IV; Rate: 500 ml/hr; Site: right antecubital; jd3 17:00 Follow up: Response: No adverse reaction; IV Status: Completed infusion; IV Intake: jd3 1000ml 17:20 Not Given (pt admittedd): NS 0.9% 1000 ml IV at 100 ml/hr continuous jd3 Medication: 15:10 VIS not applicable for this client. jd3 Intake: 17:00 IV: 1000ml; Total: 1000ml. jd3 Outcome: 16:01 Decision to Hospitalize by Provider. cp 17:55 Admitted to Tele accompanied by tech, via wheelchair, room 231, with chart. jd3 17:55 Condition: stable 17:55 Instructed on the need for admit, Demonstrated understanding of instructions. 17:55 Patient left the ED. jd3 Signatures: Dispatcher [employer] Sravanthi Kenney, RN RN Naga Scruggs PA PA cp Davies, Jonathon, RN RN jd3 Vidhi Aldrich RN RN mb9
--- NOTE | 2022-09-01 16:02 | EDPHYS ---
Physician Documentation [facility] Name: Andreea Lomeli Age: 62 yrs Sex: Female : 1960 Arrival Date: 09/01/2022 Time: 13:48 Bed 6 Private MD: ED Physician Vahid Lyle HPI: 09/01 14:00 This 62 yrs old Female presents to ER via EMS with complaints of Abdominal Pain, cp Nausea/Vomiting/Diarrhea. 14:00 The patient presents with abdominal pain in the upper abdomen. Onset: The cp symptoms/episode began/occurred this morning. The symptoms do not radiate. Associated signs and symptoms: Pertinent positives: nausea and vomiting, diarrhea, Pertinent negatives: blood in stools, chest pain, constipation, fever, shortness of breath, vomiting blood. The symptoms are described as constant. 14:00 Severity of pain: in the emergency department the pain is unchanged despite EMS cp interventions. Historical: - Allergies: 13:49 No Known Allergies; iw - PMHx: 13:49 Depression; kidney failure; neuropathy; Diabetes - NIDDM; sciatica; iw - Immunization history:: Adult Immunizations unknown. - Social history:: Smoking status: unknown. ROS: 14:05 Constitutional: Positive for poor PO intake, Negative for body aches, chills, fever. cp 14:05 Eyes: Negative for injury, pain, redness, and discharge. cp 14:05 ENT: Negative for drainage from ear(s), ear pain, sore throat, difficulty swallowing, difficulty handling secretions. 14:05 Cardiovascular: Negative for chest pain, edema, palpitations. 14:05 Respiratory: Negative for cough, shortness of breath, wheezing. 14:05 Abdomen/GI: Positive for abdominal pain, nausea and vomiting, diarrhea, Negative for constipation, hematemesis, black/tarry stool, rectal bleeding. 14:05 Neuro: Negative for altered mental status, dizziness, headache, weakness. 14:05 All other systems are negative. Exam: 14:10 Constitutional: The patient appears in no acute distress, alert, awake, non-toxic, well cp developed, well nourished. 14:10 Head/Face: Normocephalic, atraumatic. cp 14:10 Eyes: Periorbital structures: appear normal, Conjunctiva: normal, no exudate, no injection, Sclera: no appreciated abnormality, Lids and lashes: appear normal, bilaterally. 14:10 ENT: External ear(s): are unremarkable, Nose: is normal, Mouth: Lips: moist, Oral mucosa: pink and intact, moist, Posterior pharynx: Airway: no evidence of obstruction, patent. 14:10 Chest/axilla: Inspection: normal. 14:10 Cardiovascular: Rate: normal, Rhythm: regular, Edema: is not appreciated, JVD: is not appreciated. 14:10 Respiratory: the patient does not display signs of respiratory distress, Respirations: normal, no use of accessory muscles, no retractions, labored breathing, is not present, Breath sounds: are clear throughout, no decreased breath sounds, no stridor, no wheezing. 14:10 Abdomen/GI: Inspection: obese Bowel sounds: active, all quadrants, Palpation: soft, in all quadrants, severe abdominal tenderness, in the epigastric area, right upper quadrant and left upper quadrant, rebound tenderness, is not appreciated, voluntary guarding, is elicited in the epigastric area, right upper quadrant and left upper quadrant. 14:10 Back: CVA tenderness, is absent. 14:10 Neuro: Orientation: to person, place \T\ time. Mentation: is normal, Motor: moves all fours, strength is normal, Sensation: is normal. 16:40 ECG was reviewed by the Attending Physician. Vital Signs: 13:51 BP 155 / 89; Pulse 89; Resp 20; Temp 96.9; Pulse Ox 97% on R/A; Weight 117.93 kg; iw Height 5 ft. 6 in. (167.64 cm); Pain 10/10; 15:09 BP 141 / 72; Pulse 88; Resp 20; Pulse Ox 98% on R/A; jd3 16:41 BP 125 / 75; Pulse 87; Resp 19; Pulse Ox 98% on R/A; jd3 13:51 Body Mass Index 41.96 (117.93 kg, 167.64 cm) iw MDM: 13:50 Patient medically screened. cp 16:05 Data reviewed: vital signs, nurses notes, lab test result(s), EKG, radiologic studies, cp CT scan, plain films. 16:05 Test interpretation: by ED physician or midlevel provider: ECG, plain radiologic cp studies. Counseling: I had a detailed discussion with the patient and/or guardian regarding: the historical points, exam findings, and any diagnostic results supporting the discharge/admit diagnosis, lab results, radiology results, the need for further work-up and treatment in the hospital. Response to treatment: the patient's symptoms have markedly improved after treatment, and as a result, I will admit patient. Physician consultation: Brenden Shahid MD was contacted at 16:00, regarding admission, to the telemetry unit. patient's condition, and will see patient in ED, shortly. 09/01 13:52 Order name: CBC with Diff; Complete Time: 14:55 09/01 14:55 Interpretation: Normal except: WBC 12.80; JOSE% 89.6; LYM% 3.5; NEUT A 11.4; LYMA 0.4. 09/01 13:52 Order name: CMP; Complete Time: 14:55 09/01 14:55 Interpretation: Normal except: ANION GAP 15.7; GLUC 290; BUN 20; GFR 53; AST 76; GLOB cp 4.4; A/G 0.9. 09/01 13:52 Order name: Lipase; Complete Time: 14:55 09/01 14:56 Interpretation: Abnormal: LIP 2690. 09/01 13:52 Order name: Urine Microscopic Only 09/01 13:52 Order name: Magnesium; Complete Time: 14:55 09/01 16:03 Interpretation: Reviewed. 09/01 14:56 Order name: SARS RAPID; Complete Time: 16:42 eb 09/01 13:52 Order name: CT Abd/Pelvis - IV Contrast Only 09/01 13:52 Order name: XRAY Chest (1 view); Complete Time: 15:53 09/01 15:53 Interpretation: Report review. 09/01 13:56 Order name: Abdomen ; Complete Time: 15:53 [facility] 09/01 14:59 Order name: Lactate w/ 2H reflex if indic. 09/01 14:59 Order name: Blood Culture Adult (2) 09/01 16:35 Order name: Lipid Profile [facility] 09/01 16:35 Order name: Lipid Profile [facility] 09/01 16:41 Order name: Urine Dipstick-Ancillary; Complete Time: 16:42 [facility] 09/01 13:52 Order name: IV Saline Lock; Complete Time: 14:02 09/01 13:52 Order name: Labs collected and sent; Complete Time: 14:02 cp 09/01 13:52 Order name: Urine Dipstick-Ancillary (obtain specimen); Complete Time: 16:41 cp 09/01 14:59 Order name: EKG; Complete Time: 14:59 cp 09/01 14:59 Order name: EKG - Nurse/Tech; Complete Time: 16:41 cp 09/01 16:00 Order name: Diet Clear Liquid; Complete Time: 16:01 aa5 EC:40 Rate is 93 beats/min. Rhythm is regular. NV interval is normal. QRS interval is normal. cp QT interval is normal. T waves are Inverted in leads III, aVR. Interpreted by me. Reviewed by me. Administered Medications: 14:02 Drug: Pepcid (famotidine) 20 mg Route: IVP; Site: right antecubital; jd3 15:00 Follow up: Response: No adverse reaction jd3 14:02 Drug: Zofran (Ondansetron) 4 mg Route: IVP; Site: right antecubital; jd3 15:00 Follow up: Response: No adverse reaction jd3 14:02 Drug: morphine 4 mg Route: IVP; Infused Over: 4 mins; Site: right antecubital; jd3 15:00 Follow up: Response: No adverse reaction; RASS: Alert and Calm (0) jd3 15:56 Drug: NS 0.9% 1000 ml Route: IV; Rate: 500 ml/hr; Site: right antecubital; jd3 17:00 Follow up: Response: No adverse reaction; IV Status: Completed infusion; IV Intake: jd3 1000ml 17:20 Not Given (pt admittedd): NS 0.9% 1000 ml IV at 100 ml/hr continuous jd3 Disposition: 16:08 Co-signature as Attending Physician, Vahid Lyle MD I agree with the assessment and rt plan of care. Attestation: The patient's history, exam findings, diagnostics, and a summary of any interventions or procedures was reviewed in detail with Naga LOUIS I evaluated the patient at bedside, she has significant epigastric tenderness. CT scan labs are consistent with an acute pancreatitis. She does not have a gallbladder anymore, do not suspect a gallstone pancreatitis. She will be admitted for further care.. Disposition Summary: 09/01/22 16:01 Hospitalization Ordered Hospitalization Status: Inpatient Admission cp Provider: Brenden Shahid cp Location: Telemetry/MedSurg (Inpatient) cp Condition: Stable cp Problem: new cp Symptoms: have improved cp Bed/Room Type: Standard cp Room Assignment: 231(09/01/22 17:10) eb Diagnosis - Acute pancreatitis without necrosis or infection, unspecified cp - Diabetes mellitus due to underlying condition with hyperglycemia cp Forms: - Medication Reconciliation Form cp - SBAR form cp Signatures: Dispatcher [employer] EDSraavnthi Pacheco RN RN Naga Scruggs PA PA cp Carlos Rodrigez RN RN Lila Vigil Ryan, MD MD rt Corrections: (The following items were deleted from the chart) 17:10 16:01 cp eb
[2022-09-01 16:18] LABS: SARS-CoV-2 Antigen Rapid Res Negative (Negative)
[2022-09-01] MEDS ORDERED: MORPHINE 2 MG/ML SYR IV PRN (16:31)
[2022-09-01] MEDS ORDERED: GLUCAGON 1 MG/VIAL IM PRN (16:39)
[2022-09-01] MEDS ORDERED: D50W 25 GM/50 ML SYRINGE IV PRN (16:39)
--- NOTE | 2022-09-01 16:40 | P.HP ---
Certification for Inpatient Patient admitted to: Inpatient With expected LOS: >2 Midnights Practitioner: I am a practitioner with admitting privileges, knowledge of patient current condition, hospital course, and medical plan of care. Services: Services provided to patient in accordance with Admission requirements found in Title 42 Section 412.3 of the Code of Federal Regulations Patient History Date of Service: 09/01/22 Reason for admission: Acute pancreatitis History of Present Illness: Patient is 62 years of age woke up with epigastric pain described as severe associated with some mild diarrhea planing of nausea and vomiting see her pain seems to have resolved by the time I saw her around 4 PM prior history of pancreatitis she is status postcholecystectomy has chronic renal failure with neuropathies and diabetes [place] alcohol abuse Allergies No Known Allergies Allergy (Verified 08/10/22 11:03) Home Medications: Gabapentin 1,200 mg PO BID 03/10/21 Glimepiride 4 mg PO BID 03/10/21 Paroxetine HCl [Paxil] 40 mg PO DAILY 03/10/21 buPROPion HCL [Wellbutrin*] 150 mg PO DAILY 03/10/21 carvediloL [Coreg*] 12.5 mg PO BID 6AM 6PM #60 tab 04/03/21 Allopurinol 300 mg PO DAILY 08/07/22 Cranberry Fruit [Cranberry] 500 mg PO DAILY 08/07/22 L.acidoph,Paracasei, B.lactis [Probiotic] 1 each PO DAILY 08/07/22 Liraglutide [Victoza 2-Josh] 1.8 mg SQ DAILY 08/07/22 Melatonin 5 mg PO BEDTIME 08/07/22 - Past Medical/Surgical History Diabetic: Yes -: sciatica -: neuropathy -: CKD -: DM -: depression -: cholecystectomy -: tubal ligation -: shoulder surgery - Family History Mother -: Cancer Sister -: Cancer - Social History Alcohol use: No CD- Drugs: No Caffeine use: No Review of Systems 10-point ROS is otherwise unremarkable Physical Examination - Vital Signs Temperature: 96.9 F Blood Pressure: 155/89 Pulse: 89 Respirations: 20 Pulse Ox (%): 97 - Physical Exam HEENT: Atraumatic, Normocephalic Neck: Supple Respiratory: Clear to auscultation bilaterally, Normal air movement Cardiovascular: No edema, Regular rate/rhythm, Normal S1 S2 Gastrointestinal: Normal bowel sounds, Soft and benign, Non-distended, No tenderness, No masses Integumentary: No rashes, No breakdown, No significant lesion - Studies Laboratory Data (last 24 hrs) 09/01/22 13:59: Sodium 136, Potassium 4.7, BUN 20 H, Creatinine 1.17, Glucose 290 H, Magnesium 1.8, Total Bilirubin 0.8, AST 76 H, ALT 59, Alkaline Phosphatase 88, Lipase 2690 H 09/01/22 13:59: WBC 12.80 H, Hgb 13.5, Hct 40.8, Plt Count 257 Assessment and Plan - Problems (Diagnosis) (1) Acute pancreatitis Current Visit: Yes Status: Acute Plan: Patient is 62 years of age admitted with acute epigastric pain lipase elevated diagnosis acute pancreatitis she is status postcholecystectomy history of diabetes neuropathy renal failure however her kidney function is normal white count is mildly elevated lipase is 2690 pain has resolved will admit for observation in the hospital start on IV fluids pain relief can have liquid diet cholangiogram continue to check her lipase lipid profile Qualifiers: Acute pancreatitis complication: unspecified - Advance Directives Does patient have a Living Will: No Does patient have a Durable POA for Healthcare: No
[2022-09-01 16:41] LABS: Urine Blood Negative (Negative); Urine Glucose Negative (Negative); Urine Protein Negative (Negative); Urine pH 5.5 (5.0-7.0)
[2022-09-01 17:24] LABS: Urine Mucus Slight /HPF (None Seen); Urine RBC <5 /HPF (None Seen)
[2022-09-01] MEDS ORDERED: D10W 125 ML IV PRN (17:47)
[2022-09-01] MEDS: NA CHLORIDE 0.9% 1,000 ML IV SCH (18:09)
[2022-09-01 18:15] VITALS: BMI 42.7
[2022-09-01] MEDS: INSULIN -REGULAR HUMAN 50 UNIT/0.5 ML ML SQ SCH (21:00)
[2022-09-01 22:01] VITALS: O2SAT 99
[2022-09-01] MEDS: ONDANSETRON 4 MG/2 ML VIAL IV PRN (22:10)
[2022-09-02] MEDS: NA CHLORIDE 0.9% 1,000 ML IV SCH (03:27)
[2022-09-02] MEDS ORDERED: PANTOPRAZOLE 40MG TABLET PO SCH (07:30)
[2022-09-02] MEDS: INSULIN -REGULAR HUMAN 50 UNIT/0.5 ML ML SQ SCH (07:30)
--- NOTE | 2022-09-02 08:15 | P.DS ---
Admission Date: 09/01/22 Discharge Date: 09/02/22 Disposition: ROUTINE DISCHARGE Discharge Condition: GOOD Reason for Admission: Acute pancreatitis Hospital Course: DIAGNOSES: # Possible Mild Acute Pancreatitis # Lactic Acidosis secondary to Dehydration (resolved) # Hyperglycemia in Type II Diabetes Mellitus # Hypertension # Depression # Morbid Obesity - BMI 42.8 kg/m2 # Hepatic Steatosis # Right Renal Cyst (3 cm) # Right Adrenal Lesion (1 cm) # Uterine Fibroid # Small Umbilical Hernia HOSPITAL COURSE: Ms. Andreea Lomeli is a pleasant 62-year-old female with a past medical history significant for type 2 diabetes mellitus, morbid obesity, hypertension, and depression who was admitted to the [facility] on 09/01/2022 for abdominal pain. She was admitted to the Medicine service. Upon presentation, her lipase was 2690. She described her abdominal pain as postprandial burning. She states that she has taken omeprazole at home and this alleviates her symptoms. Her chest x- ray revealed, "no acute abnormalities displayed." Her abdominal CT revealed, "mild fatty liver." A RUQ ultrasound revealed, "cholecystectomy. No pathologic dilatation of the biliary tree seen." This morning, she reports no abdominal pain at all. She has been able to tolerate a diet. She states that she would like to be discharged home. I advised that she will likely require an esophagogastroduodenscopy to evaluate her abdominal pain. I provided her the contact information for Dr. Aleman's office and she agreed to make the appointment. On 09/02/2022, she was seen on morning rounds and deemed medically stable for discharge. She was discharged with instructions to schedule follow-up appointments with her PCP (Dr. Sarah) and Gastroenterology (Dr. Aleman). He was provided prescriptions for ondansetron. He was given the opportunity to ask questions and reported no further questions. Furthermore, all questions were answered to the best of my ability. A copy of this discharge summary will be sent to the above providers to facilitate continuity of care. Today, I personally spent 25 minutes on her case, of which greater than 50% of the time was spent in patient education, counseling, and coordination of care as described above. Vital Signs/Physical Exam: Temp Pulse Resp BP Pulse Ox 97.4 F 78 16 100/54 L 98 09/02/22 04:00 09/02/22 04:00 09/02/22 04:00 09/02/22 04:00 09/02/22 04:00 General: Alert, In no apparent distress, Oriented x3 HEENT: Atraumatic, PERRLA, Mucous membr. moist/pink, EOMI, Sclerae nonicteric Neck: Supple, JVD not distended Respiratory: Clear to auscultation bilaterally, Normal air movement Cardiovascular: No edema, Regular rate/rhythm, Normal S1 S2, No gallops, No rubs, No murmurs Capillary refill: <2 Seconds Gastrointestinal: Normal bowel sounds, Soft and benign, Non-distended, No tenderness, No rebound, No guarding Musculoskeletal: No clubbing Integumentary: No rashes Neurological: Normal speech, Cranial nerves 3-12 intact, Normal affect Laboratory Data at Discharge: WBC 12.80 K/uL (4.3-10.9) H 09/01/22 13:59 Hgb 13.5 g/dL (12.0-15.0) 09/01/22 13:59 Hct 40.8 % (36.0-45.0) 09/01/22 13:59 Plt Count 257 K/uL (152-406) 09/01/22 13:59 Sodium 136 mmol/L (136-145) 09/01/22 13:59 Potassium 4.7 mmol/L (3.5-5.1) 09/01/22 13:59 BUN 20 mg/dL (7-18) H 09/01/22 13:59 Creatinine 1.17 mg/dL (0.55-1.3) 09/01/22 13:59 Glucose 290 mg/dL (74-106) H 09/01/22 13:59 Magnesium 1.8 mg/dL (1.8-2.4) 09/01/22 13:59 Total Bilirubin 0.8 mg/dL (0.2-1.0) 09/01/22 13:59 AST 76 U/L (15-37) H 09/01/22 13:59 ALT 59 U/L (12-78) 09/01/22 13:59 Alkaline Phosphatase 88 U/L (45-117) 09/01/22 13:59 Triglycerides 188 mg/dL (<150) H 09/02/22 05:33 Cholesterol 196 mg/dL (<200) 09/02/22 05:33 HDL Cholesterol 53 mg/dL (40-60) 09/02/22 05:33 Cholesterol/HDL Ratio 3.70 09/02/22 05:33 Lipase 221 U/L (73-393) 09/02/22 05:33 Home Medications: Gabapentin 1,200 mg PO BID 03/10/21 Glimepiride 4 mg PO BID 03/10/21 Paroxetine HCl [Paxil] 40 mg PO BEDTIME 03/10/21 buPROPion HCL [Wellbutrin*] 150 mg PO DAILY 03/10/21 carvediloL [Coreg*] 12.5 mg PO BID 6AM 6PM #60 tab 04/03/21 Allopurinol 300 mg PO DAILY 08/07/22 Cranberry Fruit [Cranberry] 500 mg PO DAILY 08/07/22 L.acidoph,Paracasei, B.lactis [Probiotic] 1 each PO DAILY 08/07/22 Liraglutide [Victoza 2-Josh] 1.8 mg SQ DAILY 08/07/22 Melatonin 10 mg PO BEDTIME 08/07/22 Ondansetron [Zofran] 4 mg PO Q8H PRN 7 Days #20 tab 09/02/22 Pantoprazole [Protonix Tab*] 40 mg PO BIDAC tab 09/02/22 New Medications: Ondansetron [Zofran] 4 mg PO Q8H PRN 7 Days #20 tab PRN Reason: Nausea / Vomiting Physician Discharge Instructions: 1. Please schedule a follow-up appointment with your PCP (Dr. Sarah) in 3-5 days - Please discuss the spot we found on your adrenal gland as well as the cyst on your kidney 2. Please schedule a follow-up appointment with Gastroenterology (Dr. Aleman) in 5-7 days - You may require an upper endoscopy to further evaluate your abdominal symptoms - Please try taking [id number] Pantoprazole for your symptoms. If this is not helping, you can try adding Pepcid as discussed. Diet: [place] Activity: Ad alvina Followup: Jt Sarah MD [ACTIVE - CAN ADMIT] - Noe Aleman MD [ACTIVE - CAN ADMIT] - Time spent managing pt's care (in minutes): 25
[2022-09-02] MEDS: ONDANSETRON 4 MG/2 ML VIAL IV PRN (08:28)
--- NOTE | 2022-09-02 08:32 | RAD REPORT ---
EXAM DESCRIPTION: US - Abdomen Exam Limited - 09/02/2022 8:06 am CLINICAL HISTORY: gallstone pancreatitis? Abdominal pain COMPARISON: Renal Ultrasound-Complete dated 06/26/2019 FINDINGS: The gallbladder is surgically absent. The common bile duct is normal measuring 4 mm. The liver demonstrates no findings of intrahepatic biliary dilatation. IMPRESSION: Cholecystectomy. No pathologic dilatation of the biliary tree seen.
[2022-09-02 08:51] LABS: Absolute Lymphocytes (CBC) 1.1 K/uL (0.7-4.9); Hematocrit 33.3 % (36.0-45.0); Lymphocytes % 12.9 % (15.3-44.8); MCV 91.7 fL (80-100); MPV 8.8 fL (7.6-11.3); RBC Red Blood Cell Count 3.64 M/uL (3.86-4.86)
[2022-09-02] MEDS ORDERED: ACETAMINOPHEN 325 MG TABLET PO ONE (09:00)
[2022-09-02 09:10] VITALS: BP 125/62; TEMP 97
[2022-09-02 09:12] LABS: Potassium 3.6 mmol/L (3.5-5.1)
--- NOTE | 2022-09-03 15:34 | EKG ---
Test Date: 2022-09-01 Test Time: 16:32:47 Regulator Mechanic: JUAN MEASUREMENT RESULTS: Intervals: Rate: 93 VT: 154 QRSD: 90 QT: 352 QTc: 437 Barnhart: P: 67 VT: 154 QRS: -3 T: 32 INTERPRETIVE STATEMENTS: Normal sinus rhythm Normal ECG Compared to ECG 03/10/2021 08:06:00 Myocardial infarct finding no longer present Electronically Signed On 09-03-22 15:30:11 COREMAKER APPRENTICE by Joesph Rodriguez
== END 2022-09-02 10:07 | disposition home or self-care (01) ==
LOC: ER 13:42 → ERHOLD 16:32 → 2ND 17:24
PROVIDERS: ADMIT Internal Medicine Sleep Medicine; ATTEND Internal Medicine
DX: K85.90 Acute pancreatitis without necrosis or infection, unspecified (principal); R10.13 Epigastric pain; E11.9 Type 2 diabetes mellitus without complications; F10.10 Alcohol abuse, uncomplicated; E11.40 Type 2 diabetes mellitus with diabetic neuropathy, unspecified; E87.20 Acidosis, unspecified; I10 Essential (primary) hypertension; E66.01 Morbid (severe) obesity due to excess calories; Z68.41 Body mass index [BMI] 40.0-44.9, adult; K76.0 Fatty (change of) liver, not elsewhere classified; N28.1 Cyst of kidney, acquired; D25.9 Leiomyoma of uterus, unspecified; K42.9 Umbilical hernia without obstruction or gangrene; E86.0 Dehydration; Z20.822 Contact with and (suspected) exposure to COVID-19
CPT/HCPCS: 96361; 93005; 87040 ×2; 85025 ×2; 80048; 36415; 83735; 80061; 82947 ×2; 83605 ×2; 83690 ×2; 80053; 74177; 71045; 76705; 96375; 96374; 99285; 87811; Q9967; J2270; J7030 ×2; J2405 ×3; G0378 ×3; 81003; 81015

== ENCOUNTER 2024-09-06 15:50 | Inpatient (IN) | payer OTHER ==
[2024-09-06 16:38] LABS: Absolute Lymphocytes (CBC) 0.9 K/uL (0.7-4.9); Absolute Monocytes 1.2 K/uL (0.1-1.3); Absolute Neutrophil 16.2 K/uL (1.8-8.0); Basophils % 0.1 % (0-1.3); Hematocrit 31.8 % (36.0-45.0); Hemoglobin 10.3 g/dL (12.0-15.0); Lymphocytes % 4.9 % (15.3-44.8); MCH 28.2 pg (27.0-35.0); MCHC 32.4 g/dL (32.0-36.0); MCV 86.8 fL (80-100); MPV 9.7 fL (7.6-11.3); Monocytes % 6.8 % (3.3-12.3); Neutrophils % 88.2 % (41.7-73.7); Platelets 199 thou/uL (152-406); RBC Red Blood Cell Count 3.67 M/uL (3.86-4.86); Red Cell Distribution Width 14.7 % (12.1-15.2)
[2024-09-06] MEDS ORDERED: CEFTRIAXONE 1000 MG/VIAL ONE (16:41)
[2024-09-06] MEDS ORDERED: ACETAMINOPHEN 500 MG TAB ONE (16:41)
[2024-09-06] MEDS ORDERED: NA CHLORIDE 0.9% 1,000 ML ONE (16:42)
[2024-09-06 16:55] LABS: Albumin/Globulin Ratio 0.6 (1.1-1.8); Anion Gap 11.8 mEq/L (5.0-15.0); Globulin 5.4 g/dL (2.3-3.5); Potassium 3.8 mEq/L (3.5-5.1); Protein, Total 8.4 g/dL (6.4-8.2)
--- NOTE | 2024-09-06 16:56 | RAD REPORT ---
EXAMINATION: ONE VIEW CHEST XR CLINICAL INDICATION: COUGH TECHNIQUE: Frontal chest projection is submitted. Examination is limited by patient positioning and t echnique. COMPARISON: 02/27/2023 FINDINGS: Emphysematous changes with linear opacity left lung base which may be scarring or mild infiltrate. Th e heart is upper limit of normal in size. No displaced fractures identified. IMPRESSION: COPD without an acute process suspected.
[2024-09-06 17:14] LABS: SARS-CoV-2 Antigen CONTROL BLUE LINE VIS/BG OK; SARS-CoV-2 Antigen Rapid Res Negative (Negative)
[2024-09-06 17:15] LABS: Specific Gravity > 1.030 (1.005-1.030); Sqamous Epithelial <5 /HPF (None Seen); Urine Bacteria <20 /HPF (<20); Urine Bilirubin NEGATIVE (Negative); Urine Blood 1+ (Negative); Urine Clarity Clear (Clear); Urine Color Light-Yellow (Yellow); Urine Crystals Unidentified Few /HPF (None Seen); Urine Culture Reflex Order NOT NEEDED; Urine Glucose 4+ (Over) (Negative); Urine Ketones 1+ (Negative); Urine Microscopic Reflex YN ORDER UMIC; Urine Mucus Slight /HPF (None Seen); Urine Nitrite NEGATIVE (Negative); Urine Protein 1+ (Negative); Urine RBC <5 /HPF (None Seen); Urine Urobilinogen Normal (Normal); Urine WBC <5 /HPF (<5); Urine WBC Clump Rare /HPF (None Seen); Urine Yeast (Budding) Trace /HPF (None Seen); Urine pH 5.5 (5.0-7.0)
--- NOTE | 2024-09-06 17:40 | RAD REPORT ---
EXAMINATION: CT ABDOMEN AND PELVIS WITH CONTRAST CLINICAL INDICATION: ABD PAIN TECHNIQUE: CT abdomen and pelvis was performed, after the administration of IV contrast, as per [facility] protocol. Axial, sagittal and coronal reconstructions were obtained. One or more of the following dose reduction techniques were used: Automated exposure control, adjustment of the mA and k V according to patient size, and iterative reconstruction. Unless otherwise specified, incidental findings do not require dedicated imaging follow-up. COMPARISON: 09/01/2022 FINDINGS: LOWER CHEST: Mild left lower lobe lung opacity likely pneumonia. LIVER: Normal in size and contour. No focal lesion. Cholecystectomy clips. SPLEEN: Normal size. No focal lesion. PANCREAS: No mass, ductal dilation, or kyle-pancreatic fluid. ADRENALS: Normal; no mass. KIDNEYS: Normal size and contour. No hydronephrosis. GASTROINTESTINAL TRACT: No evidence of free air, significant intra-abdominal free fluid, bowel obstru ction or abscess. APPENDIX: Normal appendix. LYMPH NODES: No lymphadenopathy. MUSCULOSKELETAL: No acute or suspicious osseous abnormality. ADDITIONAL FINDINGS: None. IMPRESSION: Left lower lobe pneumonia.
--- NOTE | 2024-09-06 17:45 | ER ---
Nurse's Notes [facility] Name: Andreea Lomeli Age: 64 yrs Sex: Female : 1960 Arrival Date: 09/06/2024 Time: 15:50 Bed 8 Private MD: Diagnosis: Severe sepsis without septic shock Presentation: 09/06 15:55 Chief complaint: EMS states: abd pain, n/v , not eating X 1 week. Coronavirus screen: iw Client presents with at least one sign or symptom that may indicate coronavirus-19. Ebola Screen: No symptoms or risks identified at this time. Initial Sepsis Screen: Does the patient meet any 2 criteria? No. Patient's initial sepsis screen is negative. Does the patient have a suspected source of infection? No. Patient's initial sepsis screen is negative. Risk Assessment: Do you want to hurt yourself or someone else? Patient reports no desire to harm self or others. Onset of symptoms was August 30, 2024. 15:55 Method Of Arrival: EMS: [facility] iw 15:55 Acuity: JAY 3 iw Triage Assessment: 16:00 General: Appears uncomfortable, Behavior is agitated, anxious. iw Historical: - Allergies: 17:13 No Known Allergies; iw - PMHx: 15:56 Diabetes - NIDDM; neuropathy; Depression; kidney failure; sciatica; iw - Immunization history:: Adult Immunizations unknown. - Infectious Disease History:: Denies. - Social history:: Smoking status: Patient denies any tobacco usage or history of. Screenin:13 [facility] ED Fall Risk Assessment (Adult) History of falling in the last 3 months, iw including since admission No falls in past 3 months (0 pts) Confusion or Disorientation No (0 pts) Intoxicated or Sedated No (0 pts) Impaired Gait Yes (1 pt) Mobility Assist Device Used No (0 pt) Altered Elimination No (0 pt) Score/Fall Risk Level 0 - 2 = Low Risk Oriented to surroundings, Maintained a safe environment. Abuse screen: Denies threats or abuse. Nutritional screening: Has had N/V for 3 or more days. Tuberculosis screening: No symptoms or risk factors identified. Assessment: 16:00 General: Appears uncomfortable, Behavior is cooperative, agitated, anxious. Pain: iw Complains of pain in abdomen Pain currently is 10 out of 10 on a pain scale. Neuro: Level of Consciousness is awake, alert, obeys commands, Oriented to person, place, time, situation, Moves all extremities. Neuro: Cardiovascular: Respiratory: Respiratory effort is even, unlabored, Respiratory pattern is regular. GI: Abdomen is round obese, Bowel sounds present X 4 quads. Abd is soft X 4 quads Reports nausea, vomiting. : Reports pain with urination. Derm: Skin is intact, Skin is clammy. Musculoskeletal: Range of motion: intact in all extremities. 17:09 Reassessment: Patient appears in no apparent distress at this time. urine collected, pt iw to Ct via stretcher. 18:05 Reassessment: Patient appears in no apparent distress at this time. Patient and/or iw family updated on plan of care and expected duration. Pain level reassessed. call light in reach , antibiotics infusing, pt updated on POC , will be hospitalized. Vital Signs: 15:54 BP 136 / 92; Pulse 115; Resp 19; Temp 101(O); Pulse Ox 96% ; iw 17:54 BP 120 / 60; Pulse 115; Resp 20; Temp 99.1(O); Pulse Ox 97% on R/A; iw ED Course: 15:54 Patient arrived in ED. iw 15:54 Sravanthi Nuñez, RN is Primary Nurse. iw 15:55 Vazquez Beatty MD is Attending Physician. ec2 15:55 Arm band placed on. iw 15:56 Triage completed. iw 16:13 Initial lab(s) drawn, by me, sent to lab. First set of blood cultures drawn by me. iw Inserted saline lock: 22 gauge in right wrist, using aseptic technique. Blood collected. Flushed with 10 mL NS. 16:38 Chest Single View XRAY In Process Unspecified. EDMS 17:00 Urine collected: straight cath specimen, cloudy, Amount Returned: 200mL. iw 17:09 Patient has correct armband on for positive identification. Bed in low position. Call iw light in reach. Side rails up X2. Provided Education on: CT . Client placed on continuous cardiac and pulse oximetry monitoring. NIBP monitoring applied. monitor car operator on. 17:20 CT Abd/Pelvis - IV Contrast Only In Process Unspecified. EDMS 17:45 Prince Dean MD is Hospitalizing Provider. ec2 17:47 [facility] called to leave contact information for the person to call if we need eb anything/ Sandra [phone]. 18:50 No provider procedures requiring assistance completed. Patient admitted, IV remains in iw place. Administered Medications: 16:55 Drug: Acetaminophen PO 1000 mg PO once Route: PO; iw 18:30 Follow up: Response: No adverse reaction; Temperature is decreased iw 16:55 Drug: NS 0.9% IV 1000 ml IV at 1000 ml once; to be given as a bolus over 60 minutes iw Route: IV; Rate: 1000 ml; Site: right wrist; 18:30 Follow up: IV Status: Completed infusion iw 17:04 Drug: Rocephin IV 1 grams IV at bolus once; Given slow IV push per pharmacy iw instructions Route: IV; Rate: bolus; Site: right wrist; 17:15 Follow up: IV Status: Completed infusion iw 18:07 Drug: AZITHromycin IVPB 500 mg IVPB once over 1 hrs; (mix in 250 mL NS) Route: IVPB; iw Infused Over: 1 hrs; Site: right wrist; 19:10 Follow up: IV Status: Completed infusion iw 18:14 Drug: Ondansetron IVP 4 mg IVP once; over 2 minutes Route: IVP; Site: right wrist; iw 19:00 Follow up: Response: No adverse reaction iw Medication: 17:00 VIS not applicable for this client. iw Outcome: 17:45 Decision to Hospitalize by Provider. ec2 19:00 Admitted to Med/surg iw 19:00 Condition: good 19:00 Instructed on the need for admit, 20:24 Patient left the ED. dd2 Signatures: Dispatcher [employer] Sravanthi Kenney RN RN iw Lila Mcgarry Edwin, MD MD ec2 DAKOTA HOFF RN RN dd2 Corrections: (The following items were deleted from the chart) 15:58 15:54 BP 136 / 92; Pulse 115bpm; Resp 19bpm; Pulse Ox 96%; iw iw 18:05 17:54 Pulse 115bpm; Resp 20bpm; Pulse Ox 97% RA; Temp 99.1F Oral; iw iw
--- NOTE | 2024-09-06 17:45 | EDPHYS ---
Physician Documentation [facility] Name: Andreea Lomeli Age: 64 yrs Sex: Female : 1960 Arrival Date: 09/06/2024 Time: 15:50 Bed 8 Private MD: ED Physician Vazquez Beatty HPI: 09/06 15:56 This 64 yrs old Female presents to ER via Unassigned with complaints of ec2 Abdominal Pain, Nausea/Vomiting. 15:56 Patient arrives today for evaluation of upper abdominal pain as well as nausea and ec2 vomiting and decreased p.o. intake. Reports previous history of cholecystectomy. Patient reports some decreased p.o. intake, reports multiple sick contacts with flulike symptoms. Denies any urinary complaints.. Historical: - Allergies: 17:13 No Known Allergies; iw - PMHx: 15:56 Diabetes - NIDDM; neuropathy; Depression; kidney failure; sciatica; iw - Immunization history:: Adult Immunizations unknown. - Infectious Disease History:: Denies. - Social history:: Smoking status: Patient denies any tobacco usage or history of. ROS: 15:56 Constitutional: as per hpi ec2 Exam: 15:56 Constitutional: GEN: NAD Head: atraumatic Eyes: EOMI Ears: External ears are ec2 normal. CV: tachy LUNGS: no respiratory distress ABD: non-distended, soft, obese, tender in the epigastrium, not guarding, not rigid SKIN: no evidence of rashes MSK: no evidence of trauma Vital Signs: 15:54 BP 136 / 92; Pulse 115; Resp 19; Temp 101(O); Pulse Ox 96% ; iw 17:54 BP 120 / 60; Pulse 115; Resp 20; Temp 99.1(O); Pulse Ox 97% on R/A; iw MDM: 15:55 Medical Screening Exam initiated ec2 15:56 Data reviewed: vital signs, nurses notes. ED course: Patient arrives today for upper ec2 abdominal pain. Examination revealing for abdominal findings as above as well as tachycardia. Will obtain a septic workup, empirically with ceftriaxone, obtain CT imaging. Differential includes processes such as urinary tract infection, pancreatitis, diverticulitis.. 16:27 ED course: EKG independently reviewed and interpreted by me, shows sinus tachycardia, ec2 rate 114, no acute ST segment elevations, intervals are nonactionable.. 17:01 ED course: CBC shows leukocytosis. Metabolic profile shows no actionable processes. ec2 Lactic acid within normal ranges. Chest x-ray shows COPD without acute process identified. Pending viral swabs. And CT imaging. 17:44 ED course: CT abdomen pelvis shows left lower lobe pneumonia. Will admit for sepsis ec2 secondary to pneumonia. Sepsis reassessment complete.. 09/06 15:56 Order name: Blood Culture Adult (2) ec2 09/06 15:56 Order name: CBC with Diff; Complete Time: 17:00 ec2 09/06 15:56 Order name: CMP; Complete Time: 17:00 ec2 09/06 15:56 Order name: Lactate w/ 2H reflex if indic.; Complete Time: 17:00 ec2 09/06 15:56 Order name: Protime (+inr) ec2 09/06 15:56 Order name: Ptt, Activated ec2 09/06 15:56 Order name: Urinalysis w/ reflexes; Complete Time: 17:19 ec2 09/06 15:56 Order name: Influenza Screen (a \T\ B); Complete Time: 17:19 ec2 09/06 15:56 Order name: SARS RAPID; Complete Time: 17:19 ec2 09/06 18:12 Order name: Lactate w/ 2H reflex if indic. [facility] 09/06 18:12 Order name: Magnesium [facility] 09/06 18:12 Order name: Phosphorus [facility] 09/06 18:12 Order name: Basic Metabolic Panel [facility] 09/06 18:12 Order name: Basic Metabolic Panel [facility] 09/06 18:12 Order name: CBC with Automated Diff [facility] 09/06 18:12 Order name: CBC with Automated Diff [facility] 09/06 18:12 Order name: CBC with Automated Diff [facility] 09/06 18:12 Order name: CBC with Automated Diff [facility] 09/06 18:12 Order name: Lipid Profile [facility] 09/06 18:12 Order name: Lipid Profile [facility] 09/06 18:12 Order name: Sputum Culture [facility] 09/06 18:13 Order name: Hemoglobin A1c [facility] 09/06 18:14 Order name: Lipase [facility] 09/06 18:14 Order name: Procalcitonin [facility] 09/06 15:56 Order name: Chest Single View XRAY; Complete Time: 17:00 ec2 09/06 15:56 Order name: CT Abd/Pelvis - IV Contrast Only; Complete Time: 17:43 ec2 09/06 15:56 Order name: Accucheck; Complete Time: 17:10 ec2 09/06 15:56 Order name: Cardiac monitoring; Complete Time: 17:10 ec2 09/06 15:56 Order name: Cath; Complete Time: 17:04 ec2 09/06 15:56 Order name: EKG - Nurse/Tech; Complete Time: 16:39 ec2 09/06 15:56 Order name: IV Saline Lock - Large Bore; Complete Time: 16:20 ec2 09/06 15:56 Order name: Labs collected and sent; Complete Time: 16:20 ec2 09/06 15:56 Order name: O2 Per Protocol; Complete Time: 16:20 ec2 09/06 15:56 Order name: O2 Sat Monitoring; Complete Time: 16:20 ec2 09/06 15:56 Order name: Vital Signs; Complete Time: 16:20 ec2 Administered Medications: 16:55 Drug: Acetaminophen PO 1000 mg PO once Route: PO; iw 18:30 Follow up: Response: No adverse reaction; Temperature is decreased iw 16:55 Drug: NS 0.9% IV 1000 ml IV at 1000 ml once; to be given as a bolus over 60 minutes iw Route: IV; Rate: 1000 ml; Site: right wrist; 18:30 Follow up: IV Status: Completed infusion iw 17:04 Drug: Rocephin IV 1 grams IV at bolus once; Given slow IV push per pharmacy iw instructions Route: IV; Rate: bolus; Site: right wrist; 17:15 Follow up: IV Status: Completed infusion iw 18:07 Drug: AZITHromycin IVPB 500 mg IVPB once over 1 hrs; (mix in 250 mL NS) Route: IVPB; iw Infused Over: 1 hrs; Site: right wrist; 19:10 Follow up: IV Status: Completed infusion iw 18:14 Drug: Ondansetron IVP 4 mg IVP once; over 2 minutes Route: IVP; Site: right wrist; iw 19:00 Follow up: Response: No adverse reaction iw Disposition Summary: 09/06/24 17:45 Hospitalization Ordered Notes: Hospitalization Status: Inpatient Admission ec2 Provider: Prince Dianne Michelle Location: Telemetry/MedSurg (Inpatient) ec2 Condition: Stable ec2 Problem: new ec2 Symptoms: have improved ec2 Bed/Room Type: Standard ec2 Room Assignment: 218(09/06/24 18:24) [facility] Diagnosis - Severe sepsis without septic shock ec2 Forms: - Medication Reconciliation Form ec2 - SBAR form ec2 - Leadership Thank You Letter ec2 Critical care time excluding procedures: 17:44 Critical care time: Bedside Care: 30 minutes, Consultation: 5 minutes. Total time: 35 ec2 minutes Signatures: Dispatcher [employer] EDMS Sravanthi Nuñez RN RN Jorge Luis Salguero RN RN ja1 Lila Mcgarry Edwin, MD MD ec2 Corrections: (The following items were deleted from the chart) 15:57 15:56 BLOOD CULTURE*+BA.LAB.BRZ ordered. EDMS EDMS 15:57 15:56 CBC+H.LAB.BRZ ordered. EDMS EDMS 15:57 15:56 COMPREHENSIVE METABOLIC PANEL+C.LAB.BRZ ordered. EDMS EDMS 15:57 15:56 LACTATE+C.LAB.BRZ ordered. EDMS EDMS 15:57 15:56 PROTIME (+INR)+COAG.LAB.BRZ ordered. EDMS EDMS 15:57 15:56 PTT, ACTIVATED+COAG.LAB.BRZ ordered. EDMS EDMS 15:57 15:56 Urinalysis+U.LAB.BRZ ordered. EDMS EDMS 15:57 15:56 Influenza Screen (A \T\ B)+BA.LAB.BRZ ordered. EDMS EDMS 15:57 15:56 SARS-COV-2 Antigen Rapid+I.LAB.BRZ ordered. EDMS EDMS 15:57 15:57 Chest Single View+RAD.RAD.BRZ ordered. EDMS EDMS 15:57 15:57 Abdomen Pelvis W Con+CT.RAD.BRZ ordered. EDMS EDMS 17:01 17:01 ED course: CBC shows leukocytosis. Metabolic profile shows no actionable ec2 processes. Lactic acid within normal ranges. Chest x-ray shows COPD without acute process identified. Pending viral swabs.. ec2 18:18 17:45 ec2 eb 18:24 18:18 207 eb 1
[2024-09-06] MEDS ORDERED: AZITHROMYCIN 500 MG INJ IVPB ONE (17:58)
[2024-09-06] MEDS ORDERED: NA CHLORIDE 0.9% 250 ML ONE (17:59)
[2024-09-06] MEDS ORDERED: ACETAMINOPHEN 500 MG TAB PO PRN (18:06)
[2024-09-06] MEDS ORDERED: ONDANSETRON 4 MG/2 ML VIAL IV PRN (18:06)
[2024-09-06] MEDS ORDERED: SODIUM CHLORIDE 0.9% 10ML INJ IV PRN (18:32)
--- NOTE | 2024-09-06 18:32 | P.HP ---
Certification for Inpatient Patient admitted to: Inpatient With expected LOS: >2 Midnights Practitioner: I am a practitioner with admitting privileges, knowledge of patient current condition, hospital course, and medical plan of care. Services: Services provided to patient in accordance with Admission requirements found in Title 42 Section 412.3 of the Code of Federal Regulations Patient History Date of Service: 09/06/24 Reason for admission: Abdominal pain History of Present Illness: Patient is a 63-year-old female with morbid obesity, type 2 diabetes mellitus, hypertension and dementia. She is being admitted after she presented with abdominal pain. She is reporting an epigastric, nonradiating abdominal pain associated with nausea and vomiting. CT abdomen pelvis shows evidence of left lower lobe pneumonia. Her lactic acid is 1.2. Lipase pending. Patient is on room air. She meets criteria for sepsis as evidenced by leukocytosis with WBC of 18,000, and fever. Allergies No Known Allergies Allergy (Verified 08/10/22 11:03) Home Medications: Gabapentin 1,200 mg PO BID 03/10/21 Glimepiride 4 mg PO BID 03/10/21 Paroxetine HCl [Paxil] 40 mg PO BEDTIME 03/10/21 buPROPion HCL [Wellbutrin*] 150 mg PO DAILY 03/10/21 carvediloL [Coreg*] 12.5 mg PO BID 6AM 6PM #60 tab 04/03/21 Allopurinol 300 mg PO DAILY 08/07/22 Cranberry Fruit [Cranberry] 500 mg PO DAILY 08/07/22 L.acidoph,Paracasei, B.lactis [Probiotic] 1 each PO DAILY 08/07/22 Liraglutide [Victoza 2-Josh] 1.8 mg SQ DAILY 08/07/22 Melatonin 10 mg PO BEDTIME 08/07/22 Ondansetron [Zofran] 4 mg PO Q8H PRN 7 Days #20 tab 09/02/22 Pantoprazole [Protonix Tab*] 40 mg PO BIDAC tab 09/02/22 - Past Medical/Surgical History Diabetic: Yes -: sciatica -: neuropathy -: CKD -: DM -: depression -: cholecystectomy -: tubal ligation -: shoulder surgery -: hand surgery - Family History Mother -: Cancer Sister -: Cancer - Social History Alcohol use: No CD- Drugs: No Caffeine use: No Physical Examination - Physical Exam General: Acute distress, Obese HEENT: Atraumatic, Normocephalic Respiratory: Clear to auscultation bilaterally, Normal air movement Cardiovascular: No edema, Normal pulses, Regular rate/rhythm, Normal S1 S2 Gastrointestinal: Soft and benign, Tenderness Neurological: Normal speech - Studies Laboratory Data (last 24 hrs) 09/06/24 09/06/24 16:13 16:13 WBC 18.40 H Hgb 10.3 L Hct 31.8 L Plt Count 199 Sodium 133 L Potassium 3.8 BUN 17 Creatinine 1.10 H Glucose 224 H Total Bilirubin 1.0 AST 17 ALT 18 Alkaline Phosphatase 90 Microbiology Data (last 24 hrs): 09/06/24 16:13 Nasopharnyx Influenza Type A Antigen Screen - Final 09/06/24 16:13 Nasopharnyx Influenza Type B Antigen Screen - Final Assessment and Plan - Problems (Diagnosis) (1) Pneumonia Current Visit: Yes Status: Acute (2) Sepsis Current Visit: No Status: Acute (3) Depression Current Visit: No Status: Chronic Qualifiers: (4) HTN (hypertension) Current Visit: No Status: Chronic (5) Neuropathy Current Visit: No Status: Chronic (6) T2DM (type 2 diabetes mellitus) Current Visit: No Status: Chronic - Plan Assessment This is a 64-year-old female with a past medical history of morbid obesity, type 2 diabetes mellitus, hypertension and depression. She is being admitted for left lower lobe pneumonia after she presented abdominal pain, nausea vomiting and possibly diarrhea. Patient meets criteria for sepsis as evidenced by fever and severe leukocytosis. Community-acquired bacterial pneumonia Abdominal pain Type 2 diabetes mellitus Hypertension Depression Plan: Will admit inpatient Start patient on levofloxacin Check Legionella urine antigen and respiratory culture Follow blood cultures Check lipase to rule out pancreatitis, and lipid panel Tylenol for fever and pain Antiemetics and PPI DVT prophylaxis Patient is full code - Advance Directives Does patient have a Living Will: No Does patient have a Durable POA for Healthcare: No
[2024-09-06 19:55] VITALS: BMI 38.5
[2024-09-06] MEDS: Levofloxacin 750mg IV 750 MG/150 ML BAG IV SCH (20:31)
[2024-09-06] MEDS: NA CHLORIDE 0.9% 1,000 ML IV SCH (20:31)
[2024-09-06] MEDS: PANTOPRAZOLE 40 MG INJ IVP SCH (20:31)
[2024-09-06] MEDS: IPRATROPIUM BROM 0.5MG/2.5ML NEB SCH (21:40)
[2024-09-06 22:20] LABS: PT Prothrombin Time 19.1 SECONDS (9.4-12.5); Protime INR 1.73
[2024-09-06 22:23] LABS: Magnesium 1.6 mg/dL (1.6-2.4); Phosphorus 2.8 mg/dL (2.5-4.9)
[2024-09-06] MEDS ORDERED: D10W 125 ML IV PRN (22:25)
[2024-09-06] MEDS ORDERED: GLUCAGON 1 MG/VIAL IM PRN (22:25)
[2024-09-07] MEDS: MAGNESIUM SULFATE 1 gm IVPB 1 GM/100 ML BAG IV ONE (02:04)
[2024-09-07 05:52] LABS: Absolute Lymphocytes (CBC) 1.3 K/uL (0.7-4.9); Absolute Monocytes 1.4 K/uL (0.1-1.3); Absolute Neutrophil 12.2 K/uL (1.8-8.0); Basophils % 0.1 % (0-1.3); Hematocrit 29.7 % (36.0-45.0); Hemoglobin 9.6 g/dL (12.0-15.0); Lymphocytes % 8.6 % (15.3-44.8); MCH 28.1 pg (27.0-35.0); MCHC 32.3 g/dL (32.0-36.0); MCV 86.9 fL (80-100); MPV 10.2 fL (7.6-11.3); Monocytes % 9.3 % (3.3-12.3); Platelets 165 thou/uL (152-406); RBC Red Blood Cell Count 3.42 M/uL (3.86-4.86); Red Cell Distribution Width 14.4 % (12.1-15.2)
[2024-09-07 05:58] LABS: Anion Gap 11.5 mEq/L (5.0-15.0); Magnesium 2.2 mg/dL (1.6-2.4); Potassium 3.5 mEq/L (3.5-5.1)
[2024-09-07] MEDS: INSULIN REGULAR (HUMAN) 100 UNIT/ML SQ SCH (07:30)
[2024-09-07] MEDS: FLU (Fluarix Triv) TS24-25(6MOS UP)/PF 45 MCG/0.5 ML Syringe IM ONE (07:30)
[2024-09-07] MEDS: ALBUTEROL 2.5 MG/3 ML NEB SOL NEB PRN (07:37)
[2024-09-07] MEDS: POTASSIUM CL SA 10 MEQ TAB PO ONE (08:57)
[2024-09-07] MEDS: ENOXAPARIN 40 MG/0.4 ML SQ SCH (08:57)
[2024-09-07] MEDS ORDERED: IPRATROPIUM BROM 0.5MG/2.5ML NEB PRN (14:49)
[2024-09-07] MEDS ORDERED: ALBUTEROL 2.5 MG/3 ML NEB SOL NEB PRN (15:02)
[2024-09-07] MEDS: TRAZODONE 50 MG TABLET PO PRN (22:04)
[2024-09-08 07:16] LABS: Absolute Lymphocytes (CBC) 0.9 K/uL (0.7-4.9); Absolute Monocytes 0.6 K/uL (0.1-1.3); Eosinophils % 0.4 % (0-4.4); MPV 9.5 fL (7.6-11.3)
[2024-09-08 07:19] LABS: Absolute Neutrophil 5.5 K/uL (1.8-8.0); Basophils % 0.4 % (0-1.3); Hematocrit 30.2 % (36.0-45.0); Hemoglobin 9.7 g/dL (12.0-15.0); Lymphocytes % 13.2 % (15.3-44.8); MCH 28.1 pg (27.0-35.0); Monocytes % 8.6 % (3.3-12.3); Neutrophils % 77.4 % (41.7-73.7); Nucleated Red Blood Cells % 0.2 % (0-0); Platelets 204 thou/uL (152-406); RBC Red Blood Cell Count 3.44 M/uL (3.86-4.86); Red Cell Distribution Width 14.6 % (12.1-15.2)
[2024-09-08 07:34] LABS: Albumin 2.4 g/dL (3.4-5.0); Albumin/Globulin Ratio 0.5 (1.1-1.8); Anion Gap 11.9 mEq/L (5.0-15.0); Bilirubin Total 0.5 mg/dL (0.2-1.0); Globulin 4.8 g/dL (2.3-3.5); Magnesium 1.9 mg/dL (1.6-2.4); Potassium 3.9 mEq/L (3.5-5.1); Protein, Total 7.2 g/dL (6.4-8.2)
--- NOTE | 2024-09-08 08:20 | RAD REPORT ---
EXAMINATION: ONE VIEW CHEST XR CLINICAL INDICATION: pneumonia TECHNIQUE: Frontal chest projection is submitted. Examination is limited by patient positioning and t echnique. COMPARISON: 09/06/2024 FINDINGS: Mild interstitial opacities suggesting viral infection or underlying interstitial edema. The heart is upper limit normal in size. No displaced fractures identified. Overall findings are unchanged since prior study.
[2024-09-08 09:15] VITALS: O2SAT 96
[2024-09-08 12:58] VITALS: BP 127/79; TEMP 98.3
--- NOTE | 2024-09-08 18:15 | P.DS ---
Admission Date: 09/06/24 Discharge Date: 09/08/24 Disposition: ROUTINE DISCHARGE Discharge Condition: GOOD Reason for Admission: Abdominal pain Brief History of Present Illness: Patient is a 63-year-old female with morbid obesity, type 2 diabetes mellitus, hypertension and dementia. She is being admitted after she presented with abdominal pain. She is reporting an epigastric, nonradiating abdominal pain associated with nausea and vomiting. CT abdomen pelvis shows evidence of left lower lobe pneumonia. Her lactic acid is 1.2. Lipase pending. Patient is on room air. She meets criteria for sepsis as evidenced by leukocytosis with WBC of 18,000, and fever Physical Exam General: Acute distress, Obese HEENT: Atraumatic, Normocephalic Respiratory: Clear to auscultation bilaterally, Normal air movement Cardiovascular: No edema, Normal pulses, Regular rate/rhythm, Normal S1 S2 Gastrointestinal: Soft and benign, Tenderness Neurological: Normal speech Hospital Course: 63-year-old female with morbid obesity, type 2 diabetes mellitus, hypertension and dementia. She is being admitted after she presented with abdominal pain. She is reporting an epigastric, nonradiating abdominal pain associated with nausea and vomiting. CT abdomen pelvis shows evidence of left lower lobe pneumonia. Her lactic acid is 1.2. Lipase pending. Patient is on room air. She meets criteria for sepsis as evidenced by leukocytosis with WBC of 18,000, and fever. She was noted to have Severe sepsis without septic shock secondary to pneumonia. she was treated with IV antibiotics, IV fluids, nebulizers. Improved with treatment plan, plan to discharge home on antibiotics by mouth. Weaned to room air prior to discharge. Tolerating diet, stable to [place] home, Discharge medications Levofloxacin 1 p.o. daily for 5 days 96% on room air Assessment Severe sepsis without septic shock secondary to pneumonia. she was treated with IV antibiotics, IV fluids, nebulizers discharged home on p.o. Levaquin depression resume home meds HTN resume home med Diabetes type 2 resume home diabetic medication Chest x-ray Mild interstitial opacities suggesting viral infection or underlying interstitial edema. The heart is upper limit normal in size. No displaced fractures identified. Overall findings are unchanged GOAL: Clear understanding of disease process INSTRUCTIONS: Physician Discharge Instructions: -Follow-up with PCP in 1 to 2 weeks -Please call Dr. Mendiola at [phone] if any questions regarding hospital stay -Please call nursing station at [phone] if any nursing or medication questions -Return to the emergency room if symptoms worsen Diet: ADA, low sodium Activity: Fall precautions Vital Signs/Physical Exam: Temp Pulse Resp BP Pulse Ox 98.3 F 88 18 127/79 98 09/08/24 12:00 09/08/24 12:00 09/08/24 12:00 09/08/24 12:00 09/08/24 12:00 Laboratory Data at Discharge: WBC 7.10 thou/uL (4.3-10.9) 09/08/24 06:48 Hgb 9.7 g/dL (12.0-15.0) L 09/08/24 06:48 Hct 30.2 % (36.0-45.0) L 09/08/24 06:48 Plt Count 204 thou/uL (152-406) 09/08/24 06:48 PT 19.1 SECONDS (9.4-12.5) H 09/06/24 22:06 INR 1.73 09/06/24 22:06 APTT 34.0 SECONDS (24.3-36.9) 09/06/24 22:06 Sodium 142 mEq/L (136-145) 09/08/24 06:48 Potassium 3.9 mEq/L (3.5-5.1) 09/08/24 06:48 BUN 15 mg/dL (7-18) 09/08/24 06:48 Creatinine 0.89 mg/dL (0.55-1.02) 09/08/24 06:48 Glucose 199 mg/dL (74-106) H 09/08/24 06:48 Phosphorus 2.8 mg/dL (2.5-4.9) 09/06/24 22:06 Magnesium 1.9 mg/dL (1.6-2.4) 09/08/24 06:48 Total Bilirubin 0.5 mg/dL (0.2-1.0) 09/08/24 06:48 AST 20 U/L (15-37) 09/08/24 06:48 ALT 20 U/L (13-56) 09/08/24 06:48 Alkaline Phosphatase 76 U/L (45-117) 09/08/24 06:48 Triglycerides 117 mg/dL (<150) 09/07/24 04:45 Cholesterol 131 mg/dL (<200) 09/07/24 04:45 HDL Cholesterol 46 mg/dL (40-60) 09/07/24 04:45 Cholesterol/HDL Ratio 2.85 09/07/24 04:45 Lipase 50 U/L (13-75) 09/06/24 22:06 Home Medications: Gabapentin 1,200 mg PO BID 03/10/21 Glimepiride 4 mg PO BID 03/10/21 Paroxetine HCl [Paxil] 40 mg PO BEDTIME 03/10/21 buPROPion HCL [Wellbutrin*] 150 mg PO DAILY 03/10/21 carvediloL [Coreg*] 12.5 mg PO BID 6AM 6PM #60 tab 04/03/21 Allopurinol 300 mg PO DAILY 08/07/22 Cranberry Fruit [Cranberry] 500 mg PO DAILY 08/07/22 L.acidoph,Paracasei, B.lactis [Probiotic] 1 each PO DAILY 08/07/22 Pantoprazole [Protonix Tab*] 40 mg PO BIDAC tab 09/02/22 Empagliflozin [Jardiance] 25 mg PO DAILY 09/06/24 Tirzepatide [Mounjaro] 7.5 mg SQ SEECOM 09/06/24 levoFLOXacin [Levaquin] 500 mg PO DAILY #5 tab 09/08/24 New Medications: levoFLOXacin [Levaquin] 500 mg PO DAILY #5 tab Physician Discharge Instructions: -DC IV and DC home -Follow-up with PCP in 1 to 2 weeks -Follow-up with Cardiology in 1 to 2 weeks -Please call Dr. Mendiola at [phone] if any questions regarding hospital stay -Please call nursing station at [phone] if any nursing or medication questions -Return to the emergency room if symptoms worsen Diet: AHA Activity: Fall precautions Followup: Mikhail Paredes MD [ACTIVE - CAN ADMIT] - 1-2 Weeks Matilde Canales FNP [Primary Care Provider] - 1-2 Weeks Time spent managing pt's care (in minutes): 45
--- NOTE | 2024-09-09 11:41 | EKG ---
Test Date: 2024-09-06 Test Time: 16:20:28 Dean Of Admissions: AM MEASUREMENT RESULTS: Intervals: Rate: 114 NC: 136 QRSD: 92 QT: 316 QTc: 435 Ramey: P: 67 NC: 136 QRS: 9 T: 37 INTERPRETIVE STATEMENTS: Sinus tachycardia Incomplete right bundle branch block Borderline ECG Compared to ECG 09/01/2022 16:32:47 Incomplete right bundle-branch block now present Sinus rhythm no longer present Electronically Signed On 09-09-24 11:35:08 [employer] by Mikhail Paredes
== END 2024-09-08 13:50 | disposition home or self-care (01) | DRG 871 ==
LOC: ER 15:50 → ERHOLD 18:06 → 2ND 18:38
PROVIDERS: ADMIT Internal Medicine; ATTEND Hospitalist
DX: A41.9 Sepsis, unspecified organism (principal); J15.9 Unspecified bacterial pneumonia; J44.0 Chronic obstructive pulmonary disease with (acute) lower respiratory infection; F03.93 Unspecified dementia, unspecified severity, with mood disturbance; R65.20 Severe sepsis without septic shock; E11.40 Type 2 diabetes mellitus with diabetic neuropathy, unspecified; E66.01 Morbid (severe) obesity due to excess calories; I10 Essential (primary) hypertension; Z68.38 Body mass index [BMI] 38.0-38.9, adult; Z79.84 Long term (current) use of oral hypoglycemic drugs; Z90.49 Acquired absence of other specified parts of digestive tract; Z79.02 Long term (current) use of antithrombotics/antiplatelets; Z79.899 Other long term (current) drug therapy
CPT/HCPCS: 36415; 71045; 74177; 80048; 80053; 80061; 81001; 82947; 83036; 83605; 83690; 83735; 84100; 84145; 85025; 85610; 85730; 87040; 87070; 87077; 87186; 87205; 87804; 87811; 93005; 94640; 94760; 96361; 96365; 96375; 99285; J0696; J1650; J2405; J2470; J3475; J7030; J7050; J7613; J7644; Q9967

== ENCOUNTER 2025-01-13 14:09 | Inpatient (IN) | payer OTHER ==
[2025-01-13] MEDS ORDERED: MORPHINE 4 MG/ML SYR ONE ×2 (14:12→15:00)
[2025-01-13] MEDS ORDERED: ONDANSETRON 4 MG/2 ML VIAL ONE (14:12)
--- OUTSIDE RECORDS SUMMARY | 2025-01-13 14:15 | XMS REPORT | Continuity of Care Document ---
Author Name Unknown Address [address] [facility]. [address] [place] [address] [facility] Address [address] [facility] [place] [address] Care Team Providers Care Aerodynamics Teacher Name Role Phone Jt Sarah Attending Clinician Unavailable VIRGILIO_GCBZW_Karubén_S Attending Clinician Benjamin Kerr RN, Minnie Saul Attending Clinician LAQUITA Leon Attending Clinician Unavailable Bertrand ELLIOTT, Brenda Morgan Attending Clinician Doctor Unassigned, [place] Attending Clinician U Jt Hoffman Admitting Clinician Unavailable VIRGILIO_GCBZW_Kaagustina_S Admitting Clinician Benjamin mclaughlin Payers Payer Name Policy Type Policy Number Effective Date Expirati on Date Source MEDICAID [id number] 2017 00:00:[address] [facility] UNITED HEALTHCARE MEDICARE C1 [id number] [facility] [id number] 2020 00:00:00 MEDICAID OF [place] [id number] 2020 00:00:00 Problems Condition Name Condition Details Condition Category Status Onset Date Resolution Date Last Treatment Date Treating Clinician Comments Source N18.9 - "CHRONIC KIDNEY DISEASE, UNSPEC" N18.9 - "CHRONIC KIDNEY DISEASE, UNSPEC" Active 05/24/2017 [facility] Diagnosis Active 05-24 00:01: 00 2017-05-31 09:19:00 Susana Gamble SOB, CHEST PAINS SOB, CHEST PAINS Active 04/22/2014 [facility] Diagnosis Active 04-22 00:00: 00 2014-04-22 11:37:00 Susana Gamble ACUTE RENAL FAILURE ACUTE RENAL FAILURE Active 04/11/2014 [facility] Diagnosis Active 04-11 00:00: 00 2014-04-22 21:48:00 Susana Gamble [id number] Gross hematuria Problem [facility] [id number] Recurrent UTI Problem [facility] [id number] Primary osteoarthr itis of right knee Problem [facility] [id number] Primary osteoarthr itis of left knee Problem [facility] Arthritis of both knees Arthritis of both knees Problem [facility] [id number] Nontraumat ic complete tear of right rotator cuff Problem [facility] [id number] Stress incontinen ce Problem [facility] RENAL FAILURE NOS RENAL FAILURE NOS Active [facility] Diagnosis Active 2014-04-22 21:48:00 Susana Gamble Diabetes mellitus (disorder) Diabetes mellitus (disorder) Resolved Problem 06/03/2017 [facility] MAT Araujo Problem Resolve d 2017-06-03 01:09:48 Susana Gamble Hypertensi ve disorder, systemic arterial (disorder) Hypertensi ve disorder, systemic arterial (disorder) Resolved Problem 06/03/2017 [facility] MAT Araujo Problem Resolve d 2017-06-03 01:09:48 Susana Gamble Psoriasis (disorder) Psoriasis (disorder) Resolved Problem 06/03/2017 [facility] MAT Araujo Problem Resolve d 2017-06-03 01:09:48 Susana Gamble History of Past Illness Condition Name Condition Details Condition Category Status Onset Date Resolution Date Last Treatment Date Treating Clinician Comments Source Discharge Diagnosis: Dyspnea Discharge Diagnosis: Dyspnea 04/22/2014 04/25/2014 [facility] Problem 04-22 05:00: 00 2014-04-25 04:51:18 2014-04-25 04:51:18 Susana Gamble Allergies, Adverse Reactions, Alerts Allergy Name Allergy Type Status Severity Reaction(s) Onset Date Inactive Date Treating Clinician Comments Source NO KNOWN ALLERGIE S Drug Class Active [facility] Social History Social Habit Start Date Stop Date Quantity Comments Source History of Tobacco Use [facility] Sex Assigned At [facility] Social History 2014-04-18 00:02:35 2014-04-18 00:02:35 Brendan Gamble Smoking Status Start Date Stop Date Source Never Smoker [facility] Medications Ordered Medication Name Filled Medication Name Start Date Stop Date Current Medication? Ordering Clinician Indication Dosage Frequency Signature (SIG) Comments Components Source Hyalgan Hyalgan 01-06 00:00: 00 No 2mL [facility] BUPivacaine HCl BUPivacaine HCl 01-06 00:00: 00 No 4mL [facility] Celestone Soluspan (Betamethas one) Celestone Soluspan (Betamethas one) 06-05 00:00: 00 No 6mg [facility] Lidocaine Lidocaine 06-05 00:00: 00 No 10mg [facility] Bupivicaine [place] Bupivicaine [place] 05-22 00:00: 00 No 2.5mg [facility] Kenalog (Triamcinol one) Kenalog (Triamcinol one) 2019-10 0 00:00: 00 No 40mg [facility] metoprolol tartrate 04-22 17:11: 00 No Notes: (Same as: Lopressor) Susana Gamble Acetaminoph en 325 MG / Hydrocodone Bitartrate 5 MG Oral Tablet [[place] 5/325] 04-22 17:10: 00 No 1 tab, Route: PO, Dosing Weight 112.727, kg, ONCE, Start date: 04/22/14 12:10:00, Stop date: 04/22/14 12:10:00 Susana Gamble ciprofloxac in 500 mg oral tablet 04-18 14:00: 00 Yes 500 mg = 1 tab, PO, Daily, # 5 tab, 0 Refill(s) Susana Gamble Insulin Syringes U 30 31 ga (ultra fine) 04-17 14:18: 00 Yes 1 syr, INJ, ONCALL, # 100 syr, 0 Refill(s) Susana Gamble POLYETHYLEN E GLYCOL 3350 142 MG/ML Oral Solution [Miralax] 04-17 14:00: 00 Yes 17 gm, PO, Daily, Constipati on, # 255 gm, 0 Refill(s) Susana Gamble Insulin Aspart 100 unit/ml - (Starting CD) 04-17 14:00: 00 Yes Special Instructio ns: Check blood sugar before breakfast, lunch, and dinner, and inject correction doses: Inject 1 unit if Sugar 150-199, Inject 2 units if Sugar 200-249, Inject 3 units if Sugar 250-299, Inject 4 units if Sugar 300-349, Inject 5 units if Sugar is 350 or more Susana Gamble Docusate Sodium 50 MG / sennosides, FDC 8.6 MG Oral Tablet 04-17 14:00: 00 Yes 1 tab, PO, Bedtime, Constipati on, # 30 tab, 0 Refill(s) Susana Gamble simethicone 80 mg oral tablet, chewable 04-17 14:00: 00 Yes 80 mg = 1 tab, CHEW, TID, Gas, # 36 tab, 0 Refill(s) Susana Gamble metoprolol tartrate 25 mg oral tablet 04-17 14:00: 00 Yes 12.5 mg = 0.5 tab, PO, Q12H, # 30 tab, 0 Refill(s) Susana Gamble ergocalcife rol 50,000 intl units oral capsule 04-17 14:00: 00 Yes 50,000 IntlUnit = 1 cap, PO, Q7D, # 12 cap, 0 Refill(s) Susana Gamble Simethicone 04-16 17:22: 00 No Notes: (Same as: Mylicon) Nikkoelie kg Goodell Lasix 04-16 15:17: 00 No Notes: (Same as: Lasix) Nikkoelie kg Gamble Vitamin D 04-16 14:17: 00 No Notes: (Same as: Vitamin D) "Do Not Crush" Nikkoelie kg Tye Cipro 04-16 14:16: 00 No Notes: May interfere w/enteral feedings - Take 1 hr before or 2 hrs after antacids, dairy pdt & minerals. On empty stomach. Susana Gamble Tylenol 04-15 17:09: 00 No Notes: Do not exceed 4 gm/day. (Same as: Tylenol) Susana Gamble metoprolol tartrate 04-15 14:00: 00 No Notes: (Same as: Lopressor) 12.5mg=1/4 X 50 mg tab. Susana Gamble Tums 04-15 09:23: 00 No Notes: (Same As: Tums) Calcium Carbonate 500 mg = 200 mg elemental calcium Dose = mg calcium carbonate ( mg elemental calcium) Susana Gamble Calcium Chloride 04-14 16:23: 00 No 1,000 mg, 10 mL, Route: IVPB, ONCE, Dosing Weight 115.004, kg, Priority: STAT, Start date: 04/14/14 11:23:00, Stop date: 04/14/14 11:23:00 Susana Gamble Magnesium Sulfate 04-14 16:23: 00 No 2 gm, 50 mL, Route: IVPB, Drug form: INJ, ONCE, Dosing Weight 115.004, kg, Priority: NOW, Start date: 04/14/14 11:23:00, Duration: 2 hr, Stop date: 04/14/14 11:23:00 Susana Gamble Ambien 04-14 02:06: 00 No Notes: (Same As: Ambien) Susana Gamble Atropine Sulfate 0.025 MG / Diphenoxyla te Hydrochlori de 2.5 MG Oral Tablet [Lomotil] 04-13 17:56: 00 No Notes: (Same As: Lomotil) MAX Adult dose = 8 tabs/day Susana Aguiarann gabapentin 300 MG Oral Capsule 04-13 02:00: 00 No Notes: (Same as: Neurontin) Susana Gamble pneumococca l capsular polysacchar vicente type 1 vaccine / pneumococca l capsular polysacchar vicente type 10A vaccine / pneumococca l capsular polysacchar vicente type 11A vaccine / pneumococca l capsular polysacchar vicente type 12F vaccine / pneumococca l capsular polysacchar 04-12 14:00: 00 No Notes: (Same as: Pneumovax 23) Refrigerat e Susana kg Gamble Paroxetine 04-12 14:00: 00 No Notes: (Same as: Paxil) Susana Gamble gabapentin 300 MG Oral Capsule 04-12 14:00: 00 No Notes: (Same as: Neurontin) Nikkoelie kg Gamble NS 2,000 mL 04-12 13:45: 00 No 2,000 mL, Rate: 1,000 ml/hr, Infuse over: 2 hr, Route: IV, Dosing Weight 115.004 kg, Total Volume: 2,000, Start date: 04/12/14 8:45:00, Duration: 1 doses or times, Stop date: 04/12/14 10:44:00 Susana Gamble NS 0.45% IV 1,000 mL 04-12 13:45: 00 No 1,000 mL, Rate: 150 ml/hr, Infuse over: 6.7 hr, Route: IV, Dosing Weight 115.004 kg, Total Volume: 1,000, Start date: 04/12/14 8:45:00, Duration: 30 day, Stop date: 05/12/14 8:44:00 Susana Gamble Magnesium Sulfate 04-12 13:26: 00 No 1 gm, 50 mL, Route: IVPB, Drug form: INJ, ONCE, Dosing Weight 115.004, kg, Start date: 04/12/14 8:26:00, Stop date: 04/12/14 8:26:00 Memelie Aguiarann PARoxetine 40 mg oral tablet 04-12 11:28: 00 Yes 40 mg = 1 tab, PO, Daily, # 30 tab, 0 Refill(s) Nikkoelie Aguiarann lisinopril 20 mg oral tablet 04-12 11:26: 00 No 20 mg = 1 tab, PO, Daily, # 30 tab, 0 Refill(s) Nikkoelie kg Tye gabapentin 300 MG Oral Capsule 04-12 11:24: 00 No 300 mg = 1 cap, PO, TID, # 90 cap, 0 Refill(s) Nikkoelie saul Tye Metformin hydrochlori de 1000 MG Oral Tablet 04-12 11:21: 00 No 1,000 mg = 1 tab, PO, BID, # 30 tab, 0 Refill(s) Susana saul Tye Calcium Gluconate 04-12 05:54: 00 No 2,000 mg, 20 mL, Route: IVPB, ONCE, Dosing Weight 115.004, kg, Start date: 04/12/14 0:54:00, Stop date: 04/12/14 0:54:00 Susana Gamble heparin, porcine 04-12 05:00: 00 No Notes: porcine heparin Susana Gamble Insulin, Aspart, Human 04-12 04:28: 00 No Notes: Roll in palms of hands gently; Do not shake vigorously . (Same as: NovoLOG) "single patient use only" Stable for 28 days at room temperatur e. Expires in days from ____Date Susana Gamble Glucagon 04-12 04:28: 00 No 1 mg, Route: IM, Drug form: PDR/INJ, PRN, kg, PRN Blood Glucose Results, Start date: 04/11/14 23:28:00, Duration: 30 day, Stop date: 05/11/14 23:27:00 Susana Gamble Lidocaine Hydrochlori de 10 MG/ML Injectable Solution 04-12 03:33: 00 No Notes: (Same as: Xylocaine) Susana Gamble Dextrose 50% in Water IV 04-12 02:01: 00 No 50 mL, Route: IVP, Start date: 04/11/14 21:01:00, Stop date: 04/11/14 21:01:00 Susana Gamble Albuterol 1 MG/ML Inhalant Solution 04-12 01:54: 00 No 2.49 mg, Route: INHALATION , Drug form: SOLN, ONCE, kg, Start date: 04/11/14 20:54:00, Stop date: 04/11/14 20:54:00 Susana Gamble Dextrose 50% Syringe 04-12 01:51: 00 No 25 gm, Route: IVP, kg, ONCE, Start date: 04/11/14 20:51:00, Stop date: 04/11/14 20:51:00 Susana Gamble Dextrose 04-12 01:50: 00 No 25 gm, Route: IVPB, ONCE, kg, Start date: 04/11/14 20:50:00, Stop date: 04/11/14 20:50:00 Susana Gamble Insulin, Regular, Pork 04-12 01:50: 00 No 60 units) Stable for 28 days at room temperatur e Expires in days from ____Date Susana Gamble sodium bicarbonate 150 mEq + D5W 850 mL 04-12 01:09: 00 No 850 mL, Rate: 150 ml/hr, Infuse over: 6.7 hr, Route: IV, Total Volume: 1,000 mL, Start date: 04/11/14 20:09:00, Duration: 30 day, Stop date: 05/11/14 20:08:00 Susana Gamble Zofran 04-12 00:54: 00 No Notes: (Same as: Larisa) Susana Gamble Calcium Gluconate 04-12 00:40: 00 No 1,000 mg, 10 mL, Route: IVPB, ONCE, kg, Start date: 04/11/14 19:40:00, Stop date: 04/11/14 19:40:00 Susana Gamble Sodium Bicarbonate 1 MEQ/ML Injectable Solution 04-12 00:39: 00 No Notes: (sodium bicarb 8.4% (1 mEq/ml) 50 ml syringe) Susana Aguiarann Sodium Chloride 0.154 MEQ/ML Injectable Solution 04-12 00:39: 00 No 1,000 mL, 1,000 ml/hr, Infuse Over: 1 hr, Route: IV, ONCE, Priority: STAT, kg, Start date: 04/11/14 19:39:00, Duration: 1 doses or times, Stop date: 04/11/14 19:39:00 Susana Aguiarann normal saline 0.9% IV 1,000 mL 04-12 00:09: 00 No 1,000 mL, Rate: 100 ml/hr, Infuse over: 10 hr, Route: IV, Total Volume: 1,000, Start date: 04/11/14 19:09:00, Duration: 30 day, Stop date: 05/11/14 19:08:00 Susana kg Gamble Saline Flush 0.9% 04-11 23:53: 00 No Notes: (Same as: BD Posiflush) Susana Gamble Carvedilol 25 MG Carvedilol 25 MG No 1{table t_with_ food} BID Carvedilol 25 MG buPROPion HCl 100 MG buPROPion HCl 100 MG No 1{table t} BID buPROPion HCl 100 MG PARoxetine HCl 40 MG PARoxetine HCl 40 MG No 1{table t_in_th e_morni ng} QD PARoxetine HCl 40 MG Gabapentin 600 MG Gabapentin 600 MG No 1{capsu le} QD Gabapentin 600 MG Allopurinol 100 MG Allopurinol 100 MG No QD Allopurino l 100 MG Glimepiride 4 MG Glimepiride 4 MG No 1{table t_with_ breakfa st_or_t he_firs t_main_ meal_of _the_da y} QD Glimepirid e 4 MG Phentermine HCl 37.5 MG Phentermine HCl 37.5 MG No 1{capsu le} QD Phentermin e HCl 37.5 MG Mounjaro 2.5 MG/0.5ML Mounjaro 2.5 MG/0.5ML No Mounjaro 2.5 MG/0.5ML Immunizations Ordered Immunization Name Filled Immunization Name Date Status Comments Source pneumococcal 23-valent vaccine Unknown Completed [facility] Vital Signs Vital Name Observation Time Observation Value Comments Eduarda lopez height 2024-01-07 10:30:00 67 [in_i] Commo n [facility] weight 2024-01-07 10:30:00 259 [lb_av] Comm on [facility] temperature 2024-01-07 10:30:00 97.38 [degF] Co mmon [facility] bmi 2024-01-07 10:30:00 40.56 kg/m2 Comm on [facility] blood pressure systolic 2024-01-07 10:30:00 126 mm[Hg] Common [facility] blood pressure diastolic 2024-01-07 10:30:00 78 mm[Hg] Common [facility] height 2023-09-17 09:15:00 67 [in_i] Commo n [facility] weight 2023-09-17 09:15:00 267 [lb_av] Comm on [facility] temperature 2023-09-17 09:15:00 98.2 [degF] Com mon [facility] bmi 2023-09-17 09:15:00 41.81 kg/m2 Comm on [facility] blood pressure systolic 2023-09-17 09:15:00 126 mm[Hg] Common [facility] blood pressure diastolic 2023-09-17 09:15:00 76 mm[Hg] Common [facility] height 2023-07-04 11:00:00 67 [in_i] Commo n [facility] weight 2023-07-04 11:00:00 260 [lb_av] Comm on [facility] temperature 2023-07-04 11:00:00 97.3 [degF] Com mon [facility] bmi 2023-07-04 11:00:00 40.72 kg/m2 Comm on [facility] blood pressure systolic 2023-07-04 11:00:00 126 mm[Hg] Common [facility] blood pressure diastolic 2023-07-04 11:00:00 74 mm[Hg] Common [facility] height 2022-08-20 10:30:00 67 [in_i] Commo n [facility] weight 2022-08-20 10:30:00 261 [lb_av] Comm on [facility] temperature 2022-08-20 10:30:00 96.6 [degF] Com [facility] bmi 2022-08-20 10:30:00 40.87 kg/m2 Comm on [facility] blood pressure systolic 2022-08-20 10:30:00 124 mm[Hg] [facility] blood pressure diastolic 2022-08-20 10:30:00 76 mm[Hg] [facility] height 2022-08-06 09:15:00 67 [in_i] Commo n [facility] weight 2022-08-06 09:15:00 263.1 [lb_av] Co mmon [facility] temperature 2022-08-06 09:15:00 97.3 [degF] Com [facility] bmi 2022-08-06 09:15:00 41.2 kg/m2 Commo n [facility] blood pressure systolic 2022-08-06 09:15:00 133 mm[Hg] [facility] blood pressure diastolic 2022-08-06 09:15:00 79 mm[Hg] [facility] height 2022-07-05 09:30:00 67 [in_i] Commo n [facility] weight 2022-07-05 09:30:00 265.9 [lb_av] Co mmon [facility] temperature 2022-07-05 09:30:00 97.0 [degF] Com [facility] bmi 2022-07-05 09:30:00 41.64 kg/m2 Comm on [facility] blood pressure systolic 2022-07-05 09:30:00 144 mm[Hg] [facility] blood pressure diastolic 2022-07-05 09:30:00 83 mm[Hg] Common [facility] height 2022-06-05 09:45:00 67 [in_i] Commo n [facility] weight 2022-06-05 09:45:00 257 [lb_av] Comm on [facility] temperature 2022-06-05 09:45:00 97.5 [degF] Com [facility] bmi 2022-06-05 09:45:00 40.25 kg/m2 Comm on [facility] blood pressure systolic 2022-06-05 09:45:00 128 mm[Hg] Common [facility] blood pressure diastolic 2022-06-05 09:45:00 78 mm[Hg] Common [facility] height 2022-05-22 15:00:00 67 [in_i] Commo n [facility] weight 2022-05-22 15:00:00 265.5 [lb_av] Co mmon [facility] temperature 2022-05-22 15:00:00 97.6 [degF] Com [facility] bmi 2022-05-22 15:00:00 41.58 kg/m2 Comm on [facility] blood pressure systolic 2022-05-22 15:00:00 128 mm[Hg] [facility] blood pressure diastolic 2022-05-22 15:00:00 74 mm[Hg] Common [facility] height 2021-09-21 11:15:00 67 [in_i] Commo n [facility] weight 2021-09-21 11:15:00 266 [lb_av] Comm on [facility] temperature 2021-09-21 11:15:00 97.2 [degF] Com mon [facility] bmi 2021-09-21 11:15:00 41.66 kg/m2 Comm on [facility] oximetry 2021-09-21 11:15:00 97 % Commo n [facility] respiratory rate 2021-09-21 11:15:00 18 /min Common [facility] blood pressure systolic 2021-09-21 11:15:00 135 mm[Hg] [facility] blood pressure diastolic 2021-09-21 11:15:00 72 mm[Hg] Common [facility] height 2021-09-11 08:40:00 67 [in_i] Commo n [facility] weight 2021-09-11 08:40:00 266.4 [lb_av] Co mmon [facility] temperature 2021-09-11 08:40:00 97 [degF] Comm on [facility] bmi 2021-09-11 08:40:00 41.72 kg/m2 Comm on [facility] oximetry 2021-09-11 08:40:00 97 % Commo n [facility] blood pressure systolic 2021-09-11 08:40:00 173 mm[Hg] [facility] blood pressure diastolic 2021-09-11 08:40:00 75 mm[Hg] [facility] Respitory Rate 2014-04-22 21:03:00 [facility] Systolic (mm Hg) 2014-04-22 21:03:00 [facility] Diastolic (mm Hg) 2014-04-22 21:03:00 [facility] Diastolic (mm Hg) 2014-04-22 18:13:00 [facility] Systolic (mm Hg) 2014-04-22 18:13:00 [facility] Respitory Rate 2014-04-22 18:13:00 [facility] Diastolic (mm Hg) 2014-04-22 17:33:00 [facility] Respitory Rate 2014-04-22 17:33:00 [facility] Systolic (mm Hg) 2014-04-22 17:33:00 [facility] Height 2014-04-22 14:03:00 172.72 cm [facility] BMI Calculated 2014-04-22 14:03:00 [facility] Weight 2014-04-22 14:03:00 [facility] Heart Rate 2014-04-22 14:03:00 [facility] Temperature Oral (F) 2014-04-22 14:03:00 98.6 F [facility] Diastolic (mm Hg) 2014-04-17 21:39:00 [facility] Respitory Rate 2014-04-17 21:39:00 [facility] Temperature Oral (F) 2014-04-17 21:39:00 98.3 F [facility] Systolic (mm Hg) 2014-04-17 21:39:00 [facility] Heart Rate 2014-04-17 21:39:00 [facility] Heart Rate 2014-04-17 17:47:00 [facility] Temperature Oral (F) 2014-04-17 17:47:00 98 F [facility] Systolic (mm Hg) 2014-04-17 17:47:00 [facility] Diastolic (mm Hg) 2014-04-17 17:47:00 [facility] Heart Rate 2014-04-17 13:32:00 [facility] Systolic (mm Hg) 2014-04-17 13:32:00 [facility] Diastolic (mm Hg) 2014-04-17 13:32:00 [facility] Respitory Rate 2014-04-17 13:32:00 [facility] Temperature Oral (F) 2014-04-17 13:32:00 98 F [facility] Respitory Rate 2014-04-17 09:58:00 [facility] Weight 2014-04-12 06:36:00 [facility] Height 2014-04-12 06:36:00 167.64 cm [facility] BMI Calculated 2014-04-12 06:36:00 [facility] Weight 2014-04-12 05:49:00 [facility] Height 2014-04-12 05:49:00 167.64 cm [facility] BMI Calculated 2014-04-12 05:49:00 [facility] Weight 2014-04-12 05:48:00 [facility] Height 2014-04-12 05:48:00 167.64 cm [facility] BMI Calculated 2014-04-12 05:48:00 M emoricaitlin Gamble Procedures Procedure Date / Time Performed Performing Clinicia n Source Cholecystectomy [facility] Encounters Start Date/Time End Date/Time Encounter Type Admission Type Attending [facility] Facility Care Department Encounter ID Source 2024-01-17 08:15:00 Outpatient Sarah, Jt [facility] [id number] [facility] 2024-01-16 15:39:00 Outpatient Sarah, Jt [facility] [id number] [facility] 2024-01-15 12:06:00 Outpatient Sarah, Jt [facility] [id number] [facility] 2023-07-05 08:31:00 Outpatient Sarah, Jt [facility] [id number] [facility] 2023-07-03 15:29:00 Outpatient Sarah, Jt [facility] [id number] [facility] 2022-07-05 09:38:01 Outpatient Sarah, Jt [facility] [id number] [facility] 2022-07-04 13:39:01 Outpatient Sarah, Jt [facility] [id number] [facility] 2022-04-11 08:02:01 Outpatient Sarah, Jt [facility] [id number] [facility] 2021-11-08 14:24:44 Outpatient Sarah, Jt [facility] [id number] [facility] 2021-11-08 14:17:53 Outpatient Sarah, Jt [facility] [id number] [facility] 2021-11-08 14:10:47 Outpatient [facility] [id number] [facility] 2021-11-08 13:32:52 Outpatient [facility] [id number] [facility] 2021-11-08 13:31:28 Outpatient [facility] [id number] [facility] 2021-11-08 13:14:00 Outpatient [facility] [id number] [facility] 2021-11-08 13:10:00 Outpatient [facility]C ST[facility] [id number] [facility] 2021-11-08 12:18:32 Outpatient [facility]C [facility] [id number] [facility] 2021-11-08 12:11:56 Outpatient [facility]C [facility] [id number] [facility] 2021-11-08 12:00:27 Outpatient STLMLC ST[facility] [id number] [facility] 2024-01-17 00:00:00 2024-01-17 00:00:00 (TEL) STLMLC STL[facility]C [id number] [facility] 2024-01-07 00:00:00 2024-01-07 00:00:00 OFFICE VISIT ESTAB PT LEVEL 4 [facility]LMLC STL[facility]C [id number] [facility] 2023-09-17 00:00:00 2023-09-17 00:00:00 OFFICE VISIT ESTAB PT LEVEL 4 [facility]LMLC STLMLC [id number] [facility] 2023-08-11 00:00:00 2023-08-11 00:00:00 Outpatient GC_GCBZW_Ka didrissa_S [facility] [id number] [facility] 2023-07-04 00:00:00 2023-07-04 00:00:00 (ESTPT) Establishe d Patient STLMLC STLMLC [id number] [facility] 2022-08-20 00:00:00 2022-08-20 00:00:00 NON-BILLAB LE VISIT STLMLC STLMLC [id number] [facility] 2022-08-09 00:00:00 2022-08-09 00:00:00 (TEL) STLMLC STLMLC [id number] [facility] 2022-08-06 00:00:00 2022-08-06 00:00:00 OFFICE VISIT ESTAB PT LEVEL 4 [facility]LMLC STLMLC [id number] [facility] 2022-07-05 00:00:00 2022-07-05 00:00:00 (TEL) STLMLC STLMLC [id number] [facility] 2022-07-05 00:00:00 2022-07-05 00:00:00 OFFICE VISIT ESTAB PT LEVEL 4 STLMLC STLMLC [id number] [facility] 2022-06-05 00:00:00 2022-06-05 00:00:00 (IN/ASP) INJ ASP STLMLC STLMLC [id number] [facility] 2022-05-22 00:00:00 2022-05-22 00:00:00 OFFICE VISIT ESTAB PT LEVEL 4 STLMLC STLMLC [id number] [facility] 2021-09-21 00:00:00 2021-09-21 00:00:00 (PROC) Procedure STLMLC STLMLC [id number] [facility] 2021-09-11 00:00:00 2021-09-11 00:00:00 OFFICE VISIT NEW PT LEVEL 3 STLMLC STLMLC [id number] [facility] 2021-05-11 00:00:00 2021-05-11 00:00:00 Outpatient STLMLC STL[facility] [id number] [facility] 2021-04-13 00:00:00 2021-04-13 00:00:00 Outpatient STLMLC STLMLC [id number] [facility] 2021-04-11 00:00:00 2021-04-11 00:00:00 Outpatient STLMLC STLMLC [id number] [facility] 2021-04-05 00:00:00 2021-04-05 00:00:00 Outpatient STLMLC STLMLC [id number] [facility] 2021-03-27 00:00:00 2021-03-27 00:00:00 Outpatient STLMLC STLMLC [id number] [facility] 2021-03-27 00:00:00 2021-03-27 00:00:00 Outpatient STLMLC STLMLC [id number] [facility] 2021-03-23 00:00:00 2021-03-23 00:00:00 Outpatient STLMLC STLMLC [id number] [facility] 2021-03-16 00:00:00 2021-03-16 00:00:00 Outpatient STLMLC STLMLC [id number] [facility] 2021-03-15 00:00:00 2021-03-15 00:00:00 Outpatient STLMLC STLMLC [id number] [facility] 2021-03-08 00:00:00 2021-03-08 00:00:00 Telephone Minnie Kerr [id number] 2021-03-01 00:00:00 2021-03-01 00:00:00 Telephone Minnie Kerr [id number] [id number] 2021-02-27 00:00:00 2021-02-27 00:00:00 Outpatient STLMLC STLMLC [id number] [facility] 2021-02-20 15:40:00 2021-02-20 15:40:00 Outpatient [facility]ITA [facility] [id number] [facility] 2021-02-13 00:00:00 2021-02-13 00:00:00 Outpatient STLMLC STLMLC [id number] [facility] 2021-02-09 00:00:00 2021-02-09 00:00:00 Outpatient STLMLC STLMLC [id number] [facility] 2021-02-08 00:00:00 2021-02-08 00:00:00 Telephone Brenda Thurston [facility] [id number] 2021-02-07 00:00:00 2021-02-07 00:00:00 Orders Only Doctor Unassigned, [place] [facility] [id number] 2021-02-02 00:00:00 2021-02-02 00:00:00 [facility] [id number] [facility] 2021-01-11 08:00:00 2021-01-11 08:00:00 Outpatient R [facility] [id number] [facility] 2021-01-05 08:00:00 2021-01-05 08:00:00 Outpatient R [facility] [id number] [facility] 2020-12-19 15:40:00 2020-12-19 15:40:00 [facility] [id number] 2020-12-05 00:00:00 2020-12-05 00:00:00 Outpatient STLMLC STLMLC [id number] [facility] 2020-11-14 00:00:00 2020-11-14 00:00:00 Outpatient STLMLC STLMLC [id number] [facility] 2020-10-20 00:00:00 2020-10-20 00:00:00 Outpatient STLMLC STLMLC [id number] [facility] 2020-10-20 00:00:00 2020-10-20 00:00:00 Outpatient STLC STLC [id number] [facility] 2020-08-11 00:00:00 2020-08-11 00:00:00 Outpatient STLC STLC [id number] [facility] 2017-05-31 14:11:00 2017-06-01 04:59:00 Outpt Diag Services [facility] [place] [id number] Nikkoelie kg Gamble 2014-04-22 13:54:00 2014-04-22 21:54:00 [facility] [id number] Susana Gamble 2014-04-11 23:46:00 2014-04-16 23:45:00 Inpatient [facility] [id number] [facility] Results Test Description Test Time Test Comments Results Result Co mments Source LIPID [id number] 06:04:14* Test Item Value Reference Range Interpretation Comme nts CHOLESTEROL (test code = 2210) 190 MG/DL <200 TRIGLYCERIDES (test code = 2232) 252 MG/DL <150 H HDL CHOLESTEROL (test code = 2220) 48 MG/DL >39 CALC LDL CHOL (test code = 2237) 106 MG/DL <100 H NOTE: CALCULATED LDL IS BASED ON CLAUDIA-JEAN METHOD WHICHINCLUDES ADJUSTABLE TRIGLYCERIDE:VLDL CHOLESTEROL RATIO.THIS FACTOR VARIES BY MEASURED TRIGLYCERIDE AND NON-HDLCHOLESTEROL CONCENTRATIONS WITH INCREASED CALCULATED LDL SEENIN HIGHER TRIGLYCERIDE OR LOWER NON-HDL SPECIMENS. FOR MOREINFORMATION, SEE CLIENT ANNOUNCEMENT AT [email or web address] RISK RATIO LDL/HDL (test code = 2238) 2.21 RATIO <3.22 UNLESS OTHERW ISE INDICATED, ALL TESTING PERFORMED AT [facility] [address] [place] [id number] [employer] MAINTENANCE WORKER: IDALMIS PAZ M.D. CLIA NUMBER [id number] [facility] [place]. [id number] HEMOGLOBIN [id number] 06:00:33* Test Item Value Reference Range Interpretation Comme nts HEMOGLOBIN A1c (test code = 89698) 10.7 % 4.2-5.6 H [employer] GUIDELINES FOR HGB A1C: PREDIABETES/INCREASED RISK . . . . . . . 5.7-6.4% DIAGNOSIS OF DIABETES . . . . . . . . . >=6.5% WITH CONFIRMATION OR APPROPRIATE SYMPTOMS NOTE: ASSAY MAY BE AFFECTED BY HEMOGLOBINOPATHIES (SICKLE CELL ANEMIA, S-C DISEASE, OTHERS) OR ARTIFICIALLY LOWERED BY DECREASED RED CELL SURVIVAL (HEMOLYTIC ANEMIAS, BLOOD LOSS, ETC.). CONSIDER ALTERNATE TESTING OR LABORATORY CONSULTATION. CBC W/AUTO DIFF WITH [id number] 03:00:19* Test Item Value Reference Range Interpretation Comme nts WBC (test code = 1001) 11.9 K/UL 3.5-11.0 H RBC (test code = 1002) 3.90 M/UL 3.80-5.40 HEMOGLOBIN (test code = 1003) 11.8 G/DL 11.5-15.5 HEMATOCRIT (test code = 1004) 35.6 % 34.0-45.0 MCV (test code = 1005) 91.3 fL 80.0-99.0 MCH (test code = 1006) 30.3 PG 25.0-33.0 MCHC (test code = 1007) 33.1 G/DL 31.0-36.0 RDW (test code = 1038) 12.3 % 11.5-15.0 NEUTROPHILS (test code = 1008) 76.2 % LYMPHOCYTES (test code = 1010) 16.0 % MONOCYTES (test code = 1011) 5.1 % EOSINOPHILS (test code = 1012) 1.9 % BASOPHILS (test code = 1013) 0.4 % IMMATURE GRANULOCYTES (test code = 1036) 0.4 % NUCLEATED RBCS (test code = 1065) 0.0 /100 WBC'S See_Comment [Automated qualifyora ge] The system which generated this result transmitted reference range: 0.0. The reference range was not used to interpret this result as normal/abnormal. PLATELET COUNT (test code = 1015) 257 K/UL 130-400 ABSOLUTE NEUTROPHILS (test code = 1066) 9.01 K/UL 1.50-7.50 H ABSOLUTE LYMPHOCYTES (test code = 1067) 1.90 K/UL 1.00-4.00 ABSOLUTE MONOCYTES (test code = 1068) 0.61 K/UL 0.20-1.00 ABSOLUTE EOSINOPHILS (test code = 1040) 0.23 K/UL 0.00-0.50 ABSOLUTE BASOPHILS (test code = 1069) 0.05 K/UL 0.00-0.20 ABS IMMATURE GRANULOCYTES (test code = 1020) 0.05 K/UL 0.00-0.10 ABS NUCLEATED RBCS (test code = 30747) 0.00 K/UL 0.00-0.11 URINE AND [id number] 15:45:45* Test Item Value Reference Range Interpretation Comme nts UA Spec Grav (test code = UA Spec Grav) 1.015 1 UA Color (test code = UA Color) Yellow *NA*(04/22/14 10:45 AM) UA Turbidity (test code = UA Turbidity) Clear (04/22/14 10:45 AM) UA Ketones (test code = UA Ketones) Negative *NA*(04/22/14 10:45 AM) UA pH (test code = UA pH) 7.5 1 5.0-8.0 UA Protein (test code = UA Protein) Trace *ABN*(04/22/14 10:45 AM) UA Glucose (test code = UA Glucose) Negative (04/22/14 10:45 AM) UA Bili (test code = UA Bili) Negative *NA*(04/22/14 10:45 AM) UA Blood (test code = UA Blood) Negative (04/22/14 10:45 AM) UA Urobilinogen (test code = UA Urobilinogen) 0.2 0.1-1.0 UA Leuk Est (test code = UA Leuk Est) Trace *ABN*(04/22/14 10:45 AM) UA Nitrite (test code = UA Nitrite) Negative (04/22/14 10:45 AM) UA RBC (test code = UA RBC) None Seen (04/22/14 10:45 AM) <=2 UA Sq Epi (test code = UA Sq Epi) Occasional /LPF UA WBC (test code = UA WBC) 0-2 /HPF Micro? (test code = Micro?) Performed (04/22/14 10:45 AM) UA Bacteria (test code = UA Bacteria) None Seen (04/22/14 10:45 AM) [facility] [id number] 14:52:00* Test Item Value Reference Range Interpretation Comme nts Troponin-I (test code = Troponin-I) no gt <=0.40 [id number] 14:52:00* Test Item Value Reference Range Interpretation Comme nts AGAP (test code = AGAP) 13.3 10.0-20.0 eGFR (test code = eGFR) 25 Calcium Lvl (test code = Calcium Lvl) 8.5 8.5-10.5 CO2 (test code = CO2) 24 24-32 Chloride Lvl (test code = Chloride Lvl) 110 95-109 Potassium Lvl (test code = P otassium Lvl) 4.3 3.5-5.1 BUN (test code = BUN) 26 7-22 Creatinine Lvl (test code = Creatinine Lvl) 2.2 0.5-1.4 Sodium Lvl (test code = Sodium Lvl) 143 135-145 Glucose Lvl (test code = Glucose Lvl) 124 70-99 [facility] [id number] 14:52:00* Test Item Value Reference Range Interpretation Comme nts Basophils # (test code = Basophils #) 0.0 <=0.2 Eosinophils # (test code = Eosinophils #) 0.2 <=0.5 Segs-Bands # (test code = Se gs-Bands #) 6.8 1.5-8.1 Lymphocytes # (test code = Lymphocytes #) 1.6 1.0-5.5 Basophils (test code = Basophils) 0.2 <=1.0 Monocytes # (test code = Monocytes #) 0.6 <=0.8 Monocytes (test code = Monocytes) 6.1 2.0-12.0 Eosinophils (test code = Eosinophils) 2.1 <=4.0 Lymphocytes (test code = Lymphocytes) 17.1 20.0-40.0 Segs (test code = Segs) 74.5 45.0-75.0 MCH (test code = MCH) 28.3 pg 27.0-31.0 MPV (test code = MPV) 7.5 7.4-10.4 MCV (test code = MCV) 87.2 81.0-99.0 Platelet (test code = Platelet) 303 133-450 RDW (test code = RDW) 14.4 11.5-14.5 MCHC (test code = MCHC) 32.5 32.0-36.0 Hct (test code = Hct) 22.3 36.0-48.0 Hgb (test code = Hgb) 7.2 12.0-16.0 RBC (test code = RBC) 2.56 4.20-5.40 WBC (test code = WBC) 9.2 3.7-10.4 [facility] [id number] 15:30:00* Test Item Value Reference Range Interpretation Comme [facility] ABO/Rh (test code = ABO/Rh) O POS Antibody Scrn (test code = Antibody Scrn) Negative (04/17/14 10:30 AM) [facility] HospitalHundsun Technologies [facility] [id number] 13:58:00* Test Item Value Reference Range Interpretation Comme nts RBC product (test code = RBC product) Product available (04/17/14 8:58 AM) [facility] HospitalCHE[facility] [id number] 10:14:00* Test Item Value Reference Range Interpretation Comme nts eGFR (test code = eGFR) 8 Calcium Lvl (test code = Calcium Lvl) 7.9 8.5-10.5 CO2 (test code = CO2) 22 24-32 Chloride Lvl (test code = Chloride Lvl) 108 95-109 BUN (test code = BUN) 57 7-22 Glucose Lvl (test code = Glucose Lvl) 83 70-99 Creatinine Lvl (test code = Creatinine Lvl) 5.9 0.5-1.4 Sodium Lvl (test code = Sodium Lvl) 144 135-145 Potassium Lvl (test code = P otassium Lvl) 4.3 3.5-5.1 AGAP (test code = AGAP) 18.3 10.0-20.0 [facility] [id number] 10:14:00* Test Item Value Reference Range Interpretation Comme nts MPV (test code = MPV) 8.5 7.4-10.4 Platelet (test code = Platelet) 242 133-450 RDW (test code = RDW) 14.1 11.5-14.5 WBC (test code = WBC) 8.1 3.7-10.4 RBC (test code = RBC) 2.17 4.20-5.40 MCHC (test code = MCHC) 33.8 32.0-36.0 MCH (test code = MCH) 30.4 pg 27.0-31.0 Hgb (test code = Hgb) 6.6 12.0-16.0 MCV (test code = MCV) 89.8 81.0-99.0 Hct (test code = Hct) 19.5 36.0-48.0 Monocytes (test code = Monocytes) 10.4 2.0-12.0 Lymphocytes (test code = Lymphocytes) 24.0 20.0-40.0 Segs (test code = Segs) 63.3 45.0-75.0 Lymphocytes # (test code = Lymphocytes #) 1.9 1.0-5.5 Monocytes # (test code = Monocytes #) 0.8 <=0.8 Eosinophils # (test code = Eosinophils #) 0.2 <=0.5 Segs-Bands # (test code = Se gs-Bands #) 5.1 1.5-8.1 Basophils (test code = Basophils) 0.2 <=1.0 Eosinophils (test code = Eosinophils) 2.1 <=4.0 [facility] [employer] [id number] 16:04:24* Test Item Value Reference Range Interpretation Comme nts Lactic Acid Lvl (test code = Lactic Acid Lvl) 1.9 0.5-2.2 [facility] [id number] 16:04:03* Test Item Value Reference Range Interpretation Comme nts Potassium Lvl (test code = P otassium Lvl) 5.4 3.5-5.1 [facility] [employer] [id number] 10:40:00* Test Item Value Reference Range Interpretation Comme nts Phosphorus (test code = Phosphorus) 5.6 2.5-4.5 Magnesium Lvl (test code = M agnesium Lvl) 2.1 1.8-2.4 eGFR (test code = eGFR) 6 Potassium Lvl (test code = P otassium Lvl) 5.3 3.5-5.1 Chloride Lvl (test code = Chloride Lvl) 108 95-109 Creatinine Lvl (test code = Creatinine Lvl) 7.4 0.5-1.4 Sodium Lvl (test code = Sodium Lvl) 142 135-145 Calcium Lvl (test code = Calcium Lvl) 7.8 8.5-10.5 Glucose Lvl (test code = Glucose Lvl) 112 70-99 CO2 (test code = CO2) 18 24-32 BUN (test code = BUN) 66 7-22 AGAP (test code = AGAP) 21.3 10.0-20.0 [facility] [id number] 10:40:00* Test Item Value Reference Range Interpretation Comme nts MCHC (test code = MCHC) 31.8 32.0-36.0 RDW (test code = RDW) 14.5 11.5-14.5 Platelet (test code = Platelet) 228 133-450 MPV (test code = MPV) 8.8 7.4-10.4 Hgb (test code = Hgb) 7.1 12.0-16.0 Hct (test code = Hct) 22.3 36.0-48.0 MCH (test code = MCH) 28.9 pg 27.0-31.0 MCV (test code = MCV) 90.8 81.0-99.0 WBC (test code = WBC) 8.6 3.7-10.4 RBC (test code = RBC) 2.45 4.20-5.40 Plt Morph (test code = Plt Morph) Normal (04/16/14 5:40 AM) Lymphocytes (test code = Lymphocytes) 15.5 20.0-40.0 Segs (test code = Segs) 71.4 45.0-75.0 Monocytes (test code = Monocytes) 11.1 2.0-12.0 Eosinophils (test code = Eosinophils) 1.7 <=4.0 Segs-Bands # (test code = Segs-Bands #) 6.2 1.5-8.1 Basophils (test code = Basophils) 0.3 <=1.0 Eosinophils # (test code = Eosinophils #) 0.1 <=0.5 Monocytes # (test code = Monocytes #) 1.0 <=0.8 Lymphocytes # (test code = Lymphocytes #) 1.3 1.0-5.5 Polychrom (test code = Polychrom) Slight (04/16/14 5:40 AM) [facility] HospitalCHE[facility] [id number] 07:31:00* Test Item Value Reference Range Interpretation Comme nts Vitamin D, 25-OH, Total (ander t code = Vitamin D, 25-OH, Total) 21 30-100 Magnesium Lvl (test code = M agnesium Lvl) 1.8 1.8-2.4 eGFR (test code = eGFR) 5 BUN (test code = BUN) 65 7-22 Glucose Lvl (test code = Glucose Lvl) 173 70-99 Sodium Lvl (test code = Sodium Lvl) 136 135-145 Creatinine Lvl (test code = Creatinine Lvl) 8.4 0.5-1.4 Chloride Lvl (test code = Chloride Lvl) 103 95-109 CO2 (test code = CO2) 18 24-32 Calcium Lvl (test code = Calcium Lvl) 7.1 8.5-10.5 AGAP (test code = AGAP) 19.5 10.0-20.0 [facility] [id number] 07:31:00* Test Item Value Reference Range Interpretation Comme nts Hct (test code = Hct) 21.6 36.0-48.0 Hgb (test code = Hgb) 7.2 12.0-16.0 [facility] HospitalPARATHYROID [id number] 07:31:00* Test Item Value Reference Range Interpretation Comme nts Ca Ion WB (test code = Ca Ion WB) 0.90 1.05-1.25 Ca Norm WB (test code = Ca Norm WB) 0.86 1.05-1.25 [facility] HospitalURINE [id number] 20:26:00* Test Item Value Reference Range Interpretation Comme nts U Prot/Creat (test code = U Prot/Creat) 1.1 U Creatinine (test code = U Creatinine) 71.3 U Protein (test code = U Protein) 79.4 [facility] [id number] 14:28:00* Test Item Value Reference Range Interpretation Comme nts Ferritin Lvl (test code = Ferritin Lvl) 400 5-204 TIBC (test code = TIBC) 276 228-428 % Satur Fe (test code = % Satur Fe) 35 12-57 UIBC (test code = UIBC) 180 110-370 Iron (test code = Iron) 96 30-160 [facility] HospitalCHEM [id number] 14:28:00* Test Item Value Reference Range Interpretation Comme nts Phosphorus (test code = Phosphorus) 5.7 2.5-4.5 Magnesium Lvl (test code = M agnesium Lvl) 1.3 1.8-2.4 [facility] [id number] 14:28:00* Test Item Value Reference Range Interpretation Comme nts MCHC (test code = MCHC) 34.1 32.0-36.0 MCH (test code = MCH) 30.3 pg 27.0-31.0 MCV (test code = MCV) 88.8 81.0-99.0 Platelet (test code = Platelet) 181 133-450 RDW (test code = RDW) 14.1 11.5-14.5 MPV (test code = MPV) 8.5 7.4-10.4 RBC (test code = RBC) 2.35 4.20-5.40 WBC (test code = WBC) 7.3 3.7-10.4 Segs (test code = Segs) 80.2 45.0-75.0 Eosinophils # (test code = Eosinophils #) 0.1 <=0.5 Monocytes # (test code = Monocytes #) 0.6 <=0.8 Lymphocytes # (test code = Lymphocytes #) 0.8 1.0-5.5 Segs-Bands # (test code = Se gs-Bands #) 5.9 1.5-8.1 Basophils (test code = Basophils) 0.2 <=1.0 Eosinophils (test code = Eosinophils) 1.0 <=4.0 Monocytes (test code = Monocytes) 7.9 2.0-12.0 Lymphocytes (test code = Lymphocytes) 10.7 20.0-40.0 [facility] HospitalTHYROID [id number] 14:28:00* Test Item Value Reference Range Interpretation Comme nts T4 Free (test code = T4 Free) 0.83 0.76-1.46 TSH (test code = TSH) 0.261 0.360-3.740 [facility] HospitalUR[facility] AND [id number] 14:27:24* Test Item Value Reference Range Interpretation Comme nts UA Urobilinogen (test code = UA Urobilinogen) <=1.0 mg/dL 0.1-1.0 UA Nitrite (test code = UA Nitrite) Negative (04/14/14 9:27 AM) UA Leuk Est (test code = UA Leuk Est) Moderate *ABN*(04/14/14 9:27 AM) UA Sq Epi (test code = UA Sq Epi) Few /LPF UA WBC (test code = UA WBC) 18 <=5 UA Blood (test code = UA Blood) Small *ABN*(04/14/14 9:27 AM) UA Spec Grav (test code = UA Spec Grav) 1.006 UA Bacteria (test code = UA Bacteria) Many /HPF UA RBC (test code = UA RBC) 1 <=2 UA Amorph Destiny (test code = UA Amorph Destiny) Few /HPF UA Mucus (test code = UA Mucus) Few /LPF UA Turbidity (test code = UA Turbidity) Slight *ABN*(04/14/14 9:27 AM) UA pH (test code = UA pH) 5.0 5.0-8.0 UA Glucose (test code = UA Glucose) Negative mg/dL UA Protein (test code = UA Protein) 50 mg/dL UA Bili (test code = UA Bili) Negative *NA*(04/14/14 9:27 AM) UA Ketones (test code = UA Ketones) Negative mg/dL UA Color (test code = UA Color) Yellow *NA*(04/14/14 9:27 AM) [facility] [employer] [id number] 07:44:00* Test Item Value Reference Range Interpretation Comme nts Phosphorus (test code = Phosphorus) 6.2 2.5-4.5 [facility] [employer] OnlinePARATHYROID [id number] 07:44:00* Test Item Value Reference Range Interpretation Comme nts Ca Ion WB (test code = Ca Ion WB) 0.96 1.05-1.25 Ca Norm WB (test code = Ca Norm WB) 0.93 1.05-1.25 [facility] [employer] OnlineCHE[employer] [id number] 20:20:55* Test Item Value Reference Range Interpretation Comme nts Lactic Acid Lvl (test code = Lactic Acid Lvl) 1.9 0.5-2.2 [facility] HospitalGreycork [id number] 15:34:00* Test Item Value Reference Range Interpretation Comme nts U Sodium (test code = U Sodium) 50 U Potassium (test code = U Potassium) 17.4 U Chloride (test code = U Chloride) 45 U Osmolality (test code = U Osmolality) 301 300-800 [facility]UR[facility] AND [id number] 15:34:00* Test Item Value Reference Range Interpretation Comme nts UA Urobilinogen (test code = UA Urobilinogen) <=1.0 mg/dL 0.1-1.0 UA Gran Cast (test code = UA Gran Cast) 54 UA Hyal Cast (test code = UA Hyal Cast) 12 <=2 UA Mucus (test code = UA Mucus) Few /LPF UA RBC (test code = UA RBC) 101 <=2 UA Bacteria (test code = UA Bacteria) Many /HPF UA WBC (test code = UA WBC) 32 <=5 UA Color (test code = UA Color) Yellow *NA*(04/12/14 10:34 AM) UA pH (test code = UA pH) 5.5 5.0-8.0 UA Spec Grav (test code = UA Spec Grav) 1.014 UA Turbidity (test code = UA Turbidity) Marked *ABN*(04/12/14 10:34 AM) UA Glucose (test code = UA Glucose) Negative mg/dL UA Protein (test code = UA Protein) 200 mg/dL UA Bili (test code = UA Bili) Negative *NA*(04/12/14 10:34 AM) UA Blood (test code = UA Blood) Large *ABN*(04/12/14 10:34 AM) UA Nitrite (test code = UA Nitrite) Negative (04/12/14 10:34 AM) UA Sq Epi (test code = UA Sq Epi) Many /LPF UA Leuk Est (test code = UA Leuk Est) Large *ABN*(04/12/14 10:34 AM) UA Ketones (test code = UA Ketones) Negative mg/dL [facility] [id number] 10:30:08* Test Item Value Reference Range Interpretation Comme nts C difficile DNA (test code = C difficile DNA) Negative 18(04/12/14 5:30 AM) [facility] [id number] 10:30:00* Test Item Value Reference Range Interpretation Comme nts Osmolality (test code = Osmolality) 317 280-300 Lactic Acid Lvl (test code = Lactic Acid Lvl) 4.5 0.5-2.2 [facility] CenterannPARASITOLOGY - [id number] 10:30:00* Test Item Value Reference Range Interpretation Comme nts Giardia Ag (test code = Giardia Ag) Negative (04/12/14 5:30 AM) [facility] CenterannPARATHYROID [id number] 10:30:00* Test Item Value Reference Range Interpretation Comme nts Ca Norm WB (test code = Ca Norm WB) 0.95 1.05-1.25 Ca Ion WB (test code = Ca Ion WB) 0.98 1.05-1.25 [facility] Cent[id number] 06:35:38* Test Item Value Reference Range Interpretation Comme nts Hep B Core IgM (test code = Hep B Core IgM) Negative *NA*(04/12/14 1:35 AM) [facility] [id number] 06:35:00* Test Item Value Reference Range Interpretation Comme nts Hep Bs Ab (test code = Hep Bs Ab) 11.0 Hep Bs Ag (test code = Hep Bs Ag) Negative *NA*(04/12/14 1:35 AM) Hep B Core Ab (test code = Hep B Core Ab) Positive *NA*(04/12/14 1:35 AM) [facility] CenterannBACTERIAL - [id number] 05:22:00* Test Item Value Reference Range Interpretation Comme nts MRSA by PCR (test code = MRSA by PCR) Negative 19(04/12/14 12:22 AM) [facility] CenterannCHEM [id number] 03:11:17* Test Item Value Reference Range Interpretation Comme nts Procalcitonin Lvl (test code = Procalcitonin Lvl) 0.55 <=0.10 [facility] Ce[id number] 03:11:17* Test Item Value Reference Range Interpretation Comme nts S Preg (test code = S Preg) Negative *NA*(04/11/14 10:11 PM) [facility] [id number] 03:11:17* Test Item Value Reference Range Interpretation Comme nts VLDL (test code = VLDL) 47 LDL (Calculated) (test code = LDL (Calculated)) 48 Trig (test code = Trig) 235 Chol (test code = Chol) 133 HDL (test code = HDL) 38 CHD Risk (test code = CHD Risk) 3.50 3.90-5.80 [facility] [id number] 00:15:00* Test Item Value Reference Range Interpretation Comme nts Total CK (test code = Total CK) 134 12-191 Troponin-T (test code = Troponin-T) no gt <=0.100 Troponin-I (test code = Troponin-I) no gt <=0.40 CK-MB INDEX (test code = CK-MB INDEX) 2.3 <=2.5 CK MB (test code = CK MB) 3.1 0.5-3.6 [facility] [id number] 00:15:00* Test Item Value Reference Range Interpretation Comme nts A/G Ratio (test code = A/G Ratio) 0.9 0.7-1.6 Bili Total (test code = Bili Total) 0.2 0.2-1.3 Alk Phos (test code = Alk Phos) 74 39-136 AST (test code = AST) 35 <=37 Albumin Lvl (test code = Albumin Lvl) 3.1 3.5-5.0 Globulin (test code = Globulin) 3.5 2.0-4.0 ALT (test code = ALT) 55 <=65 Total Protein (test code = T otal Protein) 6.6 6.4-8.4 B/C Ratio (test code = B/C Ratio) 8 6-25 Lipase Lvl (test code = Lipase Lvl) [id number] [facility] [id number] 00:15:00* Test Item Value Reference Range Interpretation Comme nts PTT (test code = PTT) 32.5 s 22.9-35.8 INR (test code = INR) 1.23 0.85-1.17 PT (test code = PT) 15.4 s 12.0-14.7 [facility] [id number] 00:15:00* Test Item Value Reference Range Interpretation Comme nts Hgb A1C (test code = Hgb A1C) 8.0 [facility] HospitalTHY[facility]ID [id number] 00:15:00* Test Item Value Reference Range Interpretation Comme nts TSH (test code = TSH) 0.245 0.360-3.740 [facility] [id number] 00:00:06* Test Item Value Reference Range Interpretation Comme nts Antibody Scrn (test code = Antibody Scrn) Negative (04/11/14 7:00 PM) ABO/Rh (test code = ABO/Rh) O POS [facility] Notes SL: [id number] Date/Time Note Provider Source 2017-05-31 09:38:00 Patient Name: BERNABE SOLIS : 1960; Age: 56 years y/o Female MR: [id number] Study: Abdomen complete US 05/31/2017 9:38 AM CDT Ordering Physician: Angela Carlson MD Clinical Indication: Hep C - Hep C. Comparison: Abdominal ultrasound 04/12/2014. TECHNIQUE: Grayscale and limited color sonographic evaluation of the abdomen was performed with standard technique. FINDINGS: LIVER: The liver is heterogeneous in echotexture and diffusely echogenic reflecting mild fatty infiltration. This lowers the sensitivity for detection of hepatic lesion. BILE DUCTS: The intrahepatic duct is not dilated. The common bile duct measuring 6.4 mm. GALLBLADDER: There are no gallstones, gallbladder sludge, pericholecystic fluid or wall thickening. PANCREAS: The visualized pancreas appears unremarkable.. SPLEEN: The spleen is unremarkable and measures 13.7 cm. KIDNEY: The right kidney measures 11.7 cm x 4.4 cm x 4.9 cm. The left kidney measures 12.3 cm x 6.3 cm x 5.1 cm. There is normal renal contour and morphology, with normal parenchymal echotexture. There is no hydronephrosis. AORTA AND INFERIOR VENA CAVA: Visualized portions appear unremarkable. ASCITES: There is no right abdominal ascites. IMPRESSION: 1. No definite gallstones. 2. Hepatocellular disease. 3. Stable mild splenomegaly. YAW Araujo
[2025-01-13] MEDS ORDERED: NA CHLORIDE 0.9% 1,000 ML ONE ×2 (14:28→18:01)
[2025-01-13] MEDS ORDERED: FAMOTIDINE 20 MG/2 ML VIAL IV ONE (14:28)
[2025-01-13 14:46] LABS: Absolute Eosinophils 0.2 K/uL (0-0.5); Absolute Lymphocytes (CBC) 0.4 K/uL (0.7-4.9); Absolute Monocytes 0.7 K/uL (0.1-1.3); Absolute Neutrophil 14.3 K/uL (1.8-8.0); Basophils % 0.2 % (0-1.3); Eosinophils % 1.2 % (0-4.4); Hematocrit 41.1 % (36.0-45.0); Hemoglobin 13.3 g/dL (12.0-15.0); Lymphocytes % 2.8 % (15.3-44.8); MCH 27.4 pg (27.0-35.0); MCHC 32.3 g/dL (32.0-36.0); MCV 84.7 fL (80-100); MPV 9.3 fL (7.6-11.3); Monocytes % 4.2 % (3.3-12.3); Neutrophils % 91.6 % (41.7-73.7); Platelets 274 thou/uL (152-406); RBC Red Blood Cell Count 4.86 M/uL (3.86-4.86)
[2025-01-13 15:02] LABS: Albumin 3.6 g/dL (3.4-5.0); Albumin/Globulin Ratio 0.8 (1.1-1.8); Anion Gap 14.2 mEq/L (5.0-15.0); Bilirubin Total 1.1 mg/dL (0.2-1.0); Globulin 4.8 g/dL (2.3-3.5); Potassium 4.2 mEq/L (3.5-5.1); Protein, Total 8.4 g/dL (6.4-8.2)
[2025-01-13] MEDS ORDERED: droPERidol 5 MG/2 ML VIAL ONE (15:58)
--- NOTE | 2025-01-13 16:04 | RAD REPORT ---
EXAMINATION: CT ABDOMEN AND PELVIS WITH CONTRAST CLINICAL INDICATION: Abdominal pain TECHNIQUE: CT abdomen and pelvis was performed, after the administration of 100 cc Isovue-300.. Sagit sinai and coronal reconstructions were obtained. One or more of the following dose reduction techniques were used: Automated exposure control, adjustment of the mA and kV according to patient si ze, and iterative reconstruction. Unless otherwise specified, incidental findings do not require dedicated imaging follow-up. [id number]. Oral contrast was not given which limits evaluation of bowel and appendix. COMPARISON: .2023 FINDINGS: Small umbilical hernia Liver, pancreas, adrenals and right kidney appear unremarkable. 4 cm left renal cyst Splenic arterial calcifications. Spleen measures 14 cm No evidence of diverticulitis.. Normal appendix Fluid within nondilated bowel. Cholecystectomy. Retroverted uterus. No adnexal mass. Small benign calcifications uterus. : IMPRESSION: Fluid within nondilated bowel may indicate an enteritis Mild splenomegaly
[2025-01-13 16:48] LABS: Sqamous Epithelial <5 /HPF (None Seen); Urine Bacteria <20 /HPF (<20); Urine Bilirubin NEGATIVE (Negative); Urine Blood Negative (Negative); Urine Clarity Clear (Clear); Urine Color Light-Yellow (Yellow); Urine Culture Reflex Order NOT NEEDED; Urine Glucose 4+ (Over) (Negative); Urine Ketones 2+ (Negative); Urine Microscopic Reflex YN ORDER UMIC; Urine Mucus Slight /HPF (None Seen); Urine Nitrite NEGATIVE (Negative); Urine Protein NEGATIVE (Negative); Urine RBC <5 /HPF (None Seen); Urine Urobilinogen Normal (Normal); Urine pH 7.5 (5.0-7.0)
--- NOTE | 2025-01-13 16:49 | ER ---
Nurse's Notes [facility] Name: Andreea Lomeli Age: 64 yrs Sex: Female : 1960 Arrival Date: 01/13/2025 Time: 14:09 Bed 24 Private MD: Diagnosis: Infectious gastroenteritis and colitis, unspecified Presentation: 01/13 14:16 Chief complaint: Patient states: Abdominal pain with N/V/D since 6 AM. Coronavirus ll1 screen: Client denies travel out of the [place] in the last 14 days. At this time, the client does not indicate any symptoms associated with coronavirus-19. Ebola Screen: Patient denies travel to an Ebola-affected area in the 21 days before illness onset. Initial Sepsis Screen: Does the patient meet any 2 criteria? No. Patient's initial sepsis screen is negative. Does the patient have a suspected source of infection? No. Patient's initial sepsis screen is negative. Risk Assessment: Do you want to hurt yourself or someone else? Patient reports no desire to harm self or others. Onset of symptoms was January 13, 2025. 14:16 Method Of Arrival: Ambulatory ll1 14:16 Acuity: JAY 2 ll1 Historical: - Allergies: 14:16 No Known Allergies; ll1 - PMHx: 14:16 Depression; kidney failure; Diabetes - NIDDM; neuropathy; sciatica; ll1 - Immunization history:: Adult Immunizations up to date. - Infectious Disease History:: Denies. - Social history:: Smoking status: unknown. - Family history:: not pertinent. - Hospitalizations: : No recent hospitalization is reported. Screenin:37 [facility] ED Fall Risk Assessment (Adult) History of falling in the last 3 months, kc6 including since admission No falls in past 3 months (0 pts) Confusion or Disorientation No (0 pts) Intoxicated or Sedated No (0 pts) Impaired Gait No (0 pts) Mobility Assist Device Used No (0 pt) Altered Elimination No (0 pt) Score/Fall Risk Level 0 - 2 = Low Risk Oriented to surroundings, Maintained a safe environment, Educated pt \T\ family on fall prevention, incl call for assistance when getting out of bed. Abuse screen: Denies threats or abuse. Denies injuries from another. Nutritional screening: No deficits noted. Tuberculosis screening: No symptoms or risk factors identified. Assessment: 14:35 General: Appears distressed, uncomfortable, obese, well developed, Behavior is kc6 agitated. Pain: Complains of pain in epigastric area Pain does not radiate. Pain currently is 10 out of 10 on a pain scale. Quality of pain is described as sharp, shooting, stabbing, Pain began suddenly, Is continuous, Noted to be agitated, grimacing, moaning. Neuro: Level of Consciousness is awake, alert, obeys commands, Oriented to person, place, time, situation, Appropriate for age. Cardiovascular: Capillary refill < 3 seconds. Respiratory: Airway is patent Trachea midline Respiratory effort is even, unlabored, Respiratory pattern is regular, symmetrical. GI: Abdomen is round non-distended, obese, Bowel sounds present X 4 quads. Abd is soft X 4 quads Abdomen is tender to palpation in epigastric area Reports upper abdominal pain, indigestion, nausea, vomiting, Patient currently denies constipation, diarrhea. : No signs and/or symptoms were reported regarding the genitourinary system. EENT: No signs and/or symptoms were reported regarding the EENT system. Derm: No signs and/or symptoms reported regarding the dermatologic system. Skin is healthy with good turgor, Skin is diaphoretic, Skin is pale, Skin temperature is cool. Musculoskeletal: No signs and/or symptoms reported regarding the musculoskeletal system. Circulation, motion, and sensation intact. Range of motion: intact in all extremities. 15:46 Reassessment: Patient appears in no apparent distress at this time. Patient and/or kc6 family updated on plan of care and expected duration. Pain level reassessed. Patient is alert, oriented x 3, equal unlabored respirations, skin warm/dry/pink. Patient states symptoms have improved. 16:36 Reassessment: Patient appears in no apparent distress at this time. No changes from kc6 previously documented assessment. Patient and/or family updated on plan of care and expected duration. Pain level reassessed. Patient is alert, oriented x 3, equal unlabored respirations, skin warm/dry/pink. Patient states feeling better. Patient states symptoms have improved. 17:36 Reassessment: Patient appears in no apparent distress at this time. No changes from kc6 previously documented assessment. Patient and/or family updated on plan of care and expected duration. Pain level reassessed. Patient is alert, oriented x 3, equal unlabored respirations, skin warm/dry/pink. Vital Signs: 14:16 BP 150 / 114; Pulse 101; Resp 22; Temp 97.6; Pulse Ox 95% ; Weight 112.49 kg; Height 5 ll1 ft. 6 in. ; Pain 10/10; 14:35 BP 148 / 93; Pulse 100; Resp 18 S; Pulse Ox 99% on R/A; kc6 15:46 BP 155 / 99; kc6 16:03 BP 158 / 95; Pulse 97; Resp 19 S; Pulse Ox 100% on R/A; kc6 14:16 Body Mass Index 40.03 (112.49 kg, 167.64 cm) ll1 14:16 Pain Scale: Adult ll1 ED Course: 14:15 Patient arrived in ED. 1 14:16 Wilbur Patel MD is Attending Physician. rn 14:16 Kathy Lopez RN is Primary Nurse. [facility] 14:16 Arm band placed on Patient placed in an exam room, on a stretcher. ll1 14:18 Triage completed. ll1 14:19 Radiology exam delayed due to lab results not completed at this time. (BUN/Creatinine) nj IV insertion attempt and/or patient not having appropriate IV at this time. 14:26 Patient has correct armband on for positive identification. Bed in low position. Call [facility] light in reach. Side rails up X2. Pulse ox on. NIBP on. Door closed. Noise minimized. Lights dimmed. Warm blanket given. Pillow given. Verbal reassurance given. 14:26 Initial lab(s) drawn, by me, sent to lab. Inserted saline lock: 20 gauge in right [facility] antecubital area, using aseptic technique. Blood collected. Flushed with 10 mL NS. Patient maintains SpO2 saturation greater than 95% on room air. 15:49 CT Abd/Pelvis - IV Contrast Only In Process Unspecified. EDMS 16:21 Assisted to bathroom. kc6 16:48 Jose Alberto Butler is Hospitalizing Provider. rn 17:36 Report given to MICHAEL Arenas. [facility] 17:36 No provider procedures requiring assistance completed. Patient admitted, IV remains in [facility] place. Administered Medications: 14:26 Drug: Ondansetron IVP 4 mg IVP once; over 2 minutes Route: IVP; Site: right antecubital;kc6 15:45 Follow up: Response: No adverse reaction kc6 14:26 Drug: morphine IVP or IV 4 mg IVP once over 4 mins Route: IVP; Infused Over: 4 mins; kc6 Site: right antecubital; 15:09 Follow up: Response: No adverse reaction; Pain is unchanged, physician notified kc6 14:35 Drug: Famotidine IVP 20 mg IVP once; dilute with 10 mL 0.9% NaCl; give over 2 minutes kc6 Route: IVP; Site: right antecubital; 15:10 Follow up: Response: No adverse reaction kc6 14:35 Drug: NS 0.9% IV 1000 ml IV at 1 bolus Per protocol; to be given as a bolus over 60 kc6 minutes Route: IV; Rate: 1 bolus; Site: right antecubital; 15:45 Follow up: Response: No adverse reaction; IV Status: Completed infusion; IV Intake: kc6 1000ml 15:09 Drug: morphine IVP or IV 4 mg IVP once over 4 mins Route: IVP; Infused Over: 4 mins; kc6 Site: right antecubital; 15:45 Follow up: Response: No adverse reaction; Pain is decreased; RASS: Alert and Calm (0) kc6 16:03 Drug: Droperidol IVP 1.25 mg IVP once Route: IVP; Site: right antecubital; kc6 16:36 Follow up: Response: No adverse reaction; Pain is decreased kc6 17:11 Drug: Rocephin IV 1 grams IV at calculated rate once; Given slow IV push per pharmacy kj2 instructions Route: IV; Rate: calculated rate; Site: right antecubital; 17:36 Follow up: Response: No adverse reaction; IV Status: Completed infusion; IV Intake: [id number] Medication: 17:36 VIS not applicable for this client. kc6 Intake: 15:45 IV: 1000ml; Total: 1000ml. kc6 17:36 IV: 10ml; Total: 1010ml. kc6 Outcome: 16:48 Decision to Hospitalize by Provider. rn 17:36 Admitted to ER Hold. Please see [facility] for further documentation. kc6 17:36 Condition: improved 17:36 Instructed on the need for admit, 01/14 01:48 Patient left the ED. rv1 Signatures: Dispatcher [employer] EDMS Wilbur Patel MD MD rn Juan, Adriel Varner RN RN ll1 Kathy Lopez RN RN kc6 Loida Anderson rv1 Deya Martinez RN RN kj2
--- NOTE | 2025-01-13 16:49 | EDPHYS ---
Physician Documentation [facility] Name: Andreea Lomeli Age: 64 yrs Sex: Female : 1960 Arrival Date: 01/13/2025 Time: 14:09 Bed 24 Private MD: ED Physician Wilbur Patel HPI: 01/13 14:30 This 64 yrs old Female presents to ER via Ambulatory with complaints of Abdominal Pain, rn Nausea/Vomiting/Diarrhea. 14:30 The patient presents to the emergency department with nausea, vomiting, abdominal pain, rn of the epigastric area. Onset: The symptoms/episode began/occurred this morning. Possible causes: unknown. Severity of symptoms: At their worst the symptoms were moderate in the emergency department the symptoms are unchanged. The patient has not experienced similar symptoms in the past. Patient reports upper abdominal pain that began this morning around 6 AM. Associated with nausea and vomiting and diarrhea. No blood in emesis or stool. No fever or chills.. Historical: - Allergies: 14:16 No Known Allergies; ll1 - PMHx: 14:16 Depression; kidney failure; Diabetes - NIDDM; neuropathy; sciatica; ll1 - Immunization history:: Adult Immunizations up to date. - Infectious Disease History:: Denies. - Social history:: Smoking status: unknown. - Family history:: not pertinent. - Hospitalizations: : No recent hospitalization is reported. ROS: 14:30 Constitutional: Negative for fever, chills, and weight loss, Cardiovascular: Negative rn for chest pain, palpitations, and edema, Respiratory: Negative for shortness of breath, cough, wheezing, and pleuritic chest pain, Abdomen/GI: Positive for upper abdominal pain with nausea vomiting and diarrhea MS/Extremity: Negative for injury and deformity, Skin: Negative for injury, rash, and discoloration, Neuro: Negative for headache, weakness, numbness, tingling, and seizure, Exam: 14:30 Constitutional: Overweight female, diaphoretic Head/Face: Normocephalic, atraumatic. 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 No pulse deficits. Respiratory: Mild tachypnea, seems secondary to pain Abdomen/GI: Soft, mid epigastric tenderness without rebound or peritoneal signs. No masses. MS/ Extremity: Pulses equal, no cyanosis. Neuro: Awake and alert, GCS 15 Vital Signs: 14:16 BP 150 / 114; Pulse 101; Resp 22; Temp 97.6; Pulse Ox 95% ; Weight 112.49 kg; Height 5 ll1 ft. 6 in. ; Pain 10/10; 14:35 BP 148 / 93; Pulse 100; Resp 18 S; Pulse Ox 99% on R/A; kc6 15:46 BP 155 / 99; kc6 16:03 BP 158 / 95; Pulse 97; Resp 19 S; Pulse Ox 100% on R/A; kc6 14:16 Body Mass Index 40.03 (112.49 kg, 167.64 cm) ll1 14:16 Pain Scale: Adult ll1 MDM: 14:16 Medical Screening Exam initiated rn 16:47 Differential diagnosis: Nonspecific abd pain, gastritis, pancreatitis, appendicitis, rn diverticulitis, viral gastroenteritis, gastroenteritis. Data reviewed: vital signs, nurses notes, lab test result(s), radiologic studies, CT scan, and as a result, I will admit patient. Consideration of Admission/Observation Patient was admitted/placed on observation. Escalation of care including admission/observation considered. Counseling: I had a detailed discussion with the patient and/or guardian regarding the historical points, exam findings, and any diagnostic results supporting the discharge/admit diagnosis, lab results, radiology results, the need for further work-up and treatment in the hospital. Response to treatment: the patient's symptoms have mildly improved after treatment, and as a result, I will admit patient. ED course: CT shows enteritis, labs consistent with possibly mild early pancreatitis. Patient status post cholecystectomy. No other acute findings on imaging. Elevated WBC. Patient not comfortable going home, reports still having pain and nausea with vomiting and diarrhea with weakness.. 01/13 14:17 Order name: CBC with Diff; Complete Time: 17:21 rn 01/13 14:17 Order name: CMP; Complete Time: 15:05 rn 01/13 14:17 Order name: Lipase; Complete Time: 15:05 rn 01/13 14:17 Order name: Urinalysis w/ reflexes; Complete Time: 16:48 rn 01/13 17:07 Order name: CBC Smear Scan; Complete Time: 17:21 EDMS 01/13 17:27 Order name: Urinalysis w/ reflexes EDMS 01/13 17:27 Order name: CBC with Automated Diff EDMS 01/13 17:27 Order name: CBC with Automated Diff EDMS 01/13 17:27 Order name: CBC with Automated Diff EDMS 01/13 17:27 Order name: CBC with Automated Diff EDMS 01/13 17:27 Order name: Comprehensive Metabolic Panel EDMS 01/13 17:27 Order name: Comprehensive Metabolic Panel EDMS 01/13 17:27 Order name: Comprehensive Metabolic Panel EDMS 01/13 17:27 Order name: Comprehensive Metabolic Panel EDMS 01/13 17:27 Order name: Lipase EDMS 01/13 17:27 Order name: Lipase EDMS 01/13 17:27 Order name: Lipase EDMS 01/13 17:27 Order name: Lipase EDMS 01/13 17:27 Order name: Magnesium EDMS 01/13 17:27 Order name: Magnesium EDMS 01/13 17:28 Order name: Magnesium EDMS 01/13 17:28 Order name: Magnesium EDMS 01/13 17:28 Order name: Triglycerides Level EDMS 01/13 17:28 Order name: Triglycerides Level EDMS 01/13 17:32 Order name: C.difficile GDH Ag EDMS 01/13 17:32 Order name: Stool Culture EDMS 01/13 14:17 Order name: CT Abd/Pelvis - IV Contrast Only; Complete Time: 16:08 rn 01/13 17:28 Order name: Liver Only EDMS 01/13 14:17 Order name: IV Saline Lock; Complete Time: 14:25 rn 01/13 14:17 Order name: Labs collected and sent; Complete Time: 14:25 rn Administered Medications: 14:26 Drug: Ondansetron IVP 4 mg IVP once; over 2 minutes Route: IVP; Site: right antecubital;kc6 15:45 Follow up: Response: No adverse reaction kc6 14:26 Drug: morphine IVP or IV 4 mg IVP once over 4 mins Route: IVP; Infused Over: 4 mins; kc6 Site: right antecubital; 15:09 Follow up: Response: No adverse reaction; Pain is unchanged, physician notified kc6 14:35 Drug: Famotidine IVP 20 mg IVP once; dilute with 10 mL 0.9% NaCl; give over 2 minutes kc6 Route: IVP; Site: right antecubital; 15:10 Follow up: Response: No adverse reaction kc6 14:35 Drug: NS 0.9% IV 1000 ml IV at 1 bolus Per protocol; to be given as a bolus over 60 kc6 minutes Route: IV; Rate: 1 bolus; Site: right antecubital; 15:45 Follow up: Response: No adverse reaction; IV Status: Completed infusion; IV Intake: kc6 1000ml 15:09 Drug: morphine IVP or IV 4 mg IVP once over 4 mins Route: IVP; Infused Over: 4 mins; kc6 Site: right antecubital; 15:45 Follow up: Response: No adverse reaction; Pain is decreased; RASS: Alert and Calm (0) kc6 16:03 Drug: Droperidol IVP 1.25 mg IVP once Route: IVP; Site: right antecubital; kc6 16:36 Follow up: Response: No adverse reaction; Pain is decreased kc6 17:11 Drug: Rocephin IV 1 grams IV at calculated rate once; Given slow IV push per pharmacy kj2 instructions Route: IV; Rate: calculated rate; Site: right antecubital; 17:36 Follow up: Response: No adverse reaction; IV Status: Completed infusion; IV Intake: [id number] Disposition Summary: 01/13/25 16:48 Hospitalization Ordered Notes: Hospitalization Status: Observation rn Provider: Jose Alberto Butler rn Location: Telemetry/[facility] (observation) rn Condition: Stable rn Problem: new rn Symptoms: have improved rn Bed/Room Type: Standard rn Room Assignment: 231(01/14/25 00:39) rv1 Diagnosis - Infectious gastroenteritis and colitis, unspecified rn Forms: - Medication Reconciliation Form rn - SBAR form rn - Leadership Thank You Letter rn Signatures: Dispatcher [employer] Wilbur Andrew MD MD rn Lewis, Lynsay RN RN ll1 Kathy Lopez RN RN kc6 Loida Anderson rv1 Deya Martinez RN RN kj2 Corrections: (The following items were deleted from the chart) 01/14 00:39 01/13 16:48 rn rv1
[2025-01-13 17:06] LABS: White Blood Cell Scan OK (OK)
[2025-01-13] MEDS ORDERED: CEFTRIAXONE 1000 MG/VIAL ONE (17:06)
[2025-01-13 17:17] LABS: Blood Morphology Comment NOT SEEN (NOT SEEN); Platelet Estimate ADEQ
--- NOTE | 2025-01-13 17:20 | P.HP ---
Certification for Inpatient Patient admitted to: Inpatient With expected LOS: <2 Midnights Practitioner: I am a practitioner with admitting privileges, knowledge of patient current condition, hospital course, and medical plan of care. Services: Services provided to patient in accordance with Admission requirements found in Title 42 Section 412.3 of the Code of Federal Regulations Patient History Date of Service: 01/13/25 Reason for admission: Nausea vomiting diarrhea History of Present Illness: 64-year-old female with a past medical history of hypertension, hyperlipidemia, diabetes, presents to the emergency room with abdominal pain. She reports epigastric abdominal pain, symptoms started this morning, she reports associated nausea vomiting worse with p.o. intake. She denies fever, chills, she reports being on Mounjaro for 3 months, has lost 25 pounds, she reports no history of alcohol use intake. Plan to admit for enteritis, nausea vomiting diarrhea, elevated bated lipase. Allergies No Known Allergies Allergy (Verified 09/06/24 19:58) Home Medications: Gabapentin 1,200 mg PO BID 03/10/21 Glimepiride 4 mg PO BID 03/10/21 Paroxetine HCl [Paxil] 40 mg PO BEDTIME 03/10/21 buPROPion HCL [Wellbutrin*] 150 mg PO DAILY 03/10/21 carvediloL [Coreg*] 12.5 mg PO BID 6AM 6PM #60 tab 04/03/21 Allopurinol 300 mg PO DAILY 08/07/22 Cranberry Fruit [Cranberry] 500 mg PO DAILY 08/07/22 L.acidoph,Paracasei, B.lactis [Probiotic] 1 each PO DAILY 08/07/22 Pantoprazole [Protonix Tab*] 40 mg PO BIDAC tab 09/02/22 Empagliflozin [Jardiance] 25 mg PO DAILY 09/06/24 Tirzepatide [Mounjaro] 7.5 mg SQ SEECOM 09/06/24 levoFLOXacin [Levaquin] 500 mg PO DAILY #5 tab 09/08/24 - Past Medical/Surgical History Diabetic: Yes -: sciatica -: neuropathy -: CKD -: DM -: depression -: cholecystectomy -: tubal ligation -: shoulder surgery -: hand surgery - Family History Mother -: Cancer Sister -: Cancer - Social History Alcohol use: No CD- Drugs: No Caffeine use: No Review of Systems 10-point ROS is otherwise unremarkable Physical Examination - Physical Exam General: Alert, Oriented x3, Mild distress HEENT: Atraumatic, Normocephalic Neck: Supple, 2+ carotid pulse no bruit Respiratory: Clear to auscultation bilaterally, Normal air movement Cardiovascular: Normal pulses, Regular rate/rhythm Capillary refill: <2 Seconds Gastrointestinal: Other (epigastric tenderness) Musculoskeletal: No swelling, No contractures Integumentary: No significant lesion, No tenderness/swelling Neurological: Normal speech, Normal strength at 5/5 x4 extr - Studies Laboratory Data (last 24 hrs) 01/13/25 01/13/25 14:33 14:33 WBC 15.60 H Hgb 13.3 Hct 41.1 Plt Count 274 Sodium 141 Potassium 4.2 BUN 26 H Creatinine 1.26 H Glucose 244 H Total Bilirubin 1.1 H AST 14 L ALT 17 Alkaline Phosphatase 95 Lipase 667 H Assessment and Plan - Problems (Diagnosis) (1) Sepsis Current Visit: Yes Status: Acute (2) Acute pancreatitis Current Visit: No Status: Acute Qualifiers: Acute pancreatitis complication: unspecified (3) HTN (hypertension) Current Visit: No Status: Chronic Qualifiers: Hypertension type: unspecified Qualified Code(s): I10 - Essential (primary) hypertension (4) T2DM (type 2 diabetes mellitus) Current Visit: No Status: Chronic Qualifiers: Diabetes mellitus senior living insulin use: without termite treater helper use (5) Depression Current Visit: Yes Status: Acute Qualifiers: Depression Type: unspecified Qualified Code(s): F32.A - Depression, unspecified (6) Neuropathy Current Visit: Yes Status: Acute - Plan Assessment admit to M/S IVF, Prn anaglesic, antiemetic IV Zosyn Stool cultures trend wbc, lipase, BG, SSI, AIC Lipid, Triglyceride level resume home meds when tolerating po CT reviewed, Small umbilical hernia, Fluid within nondilated bowel may indicate an enteritis Mild splenomegaly Full code DVT Lovenox Diet ice chips GI PPI Disposition, home independent prior Discharge Plan: Home - Advance Directives Does patient have a Living Will: No Does patient have a Durable POA for Healthcare: No - Code Status/Comfort Care Code Status: Full Code Critical Care: No Time Spent Managing Pts Care (In Minutes): 55
[2025-01-13] MEDS ORDERED: ONDANSETRON 4 MG/2 ML VIAL IV PRN (17:21)
[2025-01-13] MEDS ORDERED: SODIUM CHLORIDE 0.9% 10ML INJ IV PRN (17:24)
[2025-01-13] MEDS ORDERED: PROMETHAZINE INJ 25 MG/ML AMP IV PRN (17:27)
[2025-01-13] MEDS: NA CHLORIDE 0.9% 1,000 ML IV SCH (18:00)
[2025-01-13] MEDS ORDERED: HYDROMORPHONE HCL 0.5 MG/0.5 ML INJ ONE (18:01)
[2025-01-13] MEDS: HYDROMORPHONE HCL 0.5 MG/0.5 ML INJ IV PRN (18:11)
[2025-01-13 18:53] VITALS: BMI 40.0
[2025-01-14 01:59] VITALS: O2SAT 100
[2025-01-14 05:25] LABS: Absolute Lymphocytes (CBC) 0.5 K/uL (0.7-4.9); Absolute Monocytes 0.5 K/uL (0.1-1.3); Basophils % 0.2 % (0-1.3); Hematocrit 37.2 % (36.0-45.0); Hemoglobin 11.9 g/dL (12.0-15.0); Lymphocytes % 3.8 % (15.3-44.8); MCH 27.6 pg (27.0-35.0); MCHC 32.1 g/dL (32.0-36.0); MCV 86.1 fL (80-100); MPV 9.4 fL (7.6-11.3); Monocytes % 4.1 % (3.3-12.3); Nucleated Red Blood Cells % 0.1 % (0-0); Platelets 275 thou/uL (152-406); RBC Red Blood Cell Count 4.32 M/uL (3.86-4.86); Red Cell Distribution Width 15.1 % (12.1-15.2)
[2025-01-14 05:28] LABS: Neutrophils % 91.9 % (41.7-73.7)
[2025-01-14 05:51] LABS: Albumin 3.1 g/dL (3.4-5.0); Albumin/Globulin Ratio 0.7 (1.1-1.8); Anion Gap 10.8 mEq/L (5.0-15.0); Bilirubin Total 0.6 mg/dL (0.2-1.0); Globulin 4.4 g/dL (2.3-3.5); Magnesium 1.9 mg/dL (1.6-2.4); Potassium 3.8 mEq/L (3.5-5.1); Protein, Total 7.5 g/dL (6.4-8.2)
--- NOTE | 2025-01-14 07:47 | P.DS ---
Admission Date: 01/13/25 Discharge Date: 01/14/25 Disposition: ROUTINE DISCHARGE Discharge Condition: GOOD Reason for Admission: Nausea vomiting diarrhea - Problems (1) Sepsis Status: Acute Qualifiers: Sepsis acute organ dysfunction status: without acute organ dysfunction (2) Acute pancreatitis Status: Acute Qualifiers: Acute pancreatitis complication: unspecified (3) HTN (hypertension) Status: Chronic Qualifiers: Hypertension type: unspecified Qualified Code(s): I10 - Essential (primary) hypertension (4) T2DM (type 2 diabetes mellitus) Status: Chronic Qualifiers: Diabetes mellitus alf insulin use: without buttermaker continuous churn use Diabetes mellitus complication status: with hyperglycemia Qualified Code(s): E11.65 - Type 2 diabetes mellitus with hyperglycemia (5) Depression Status: Acute Qualifiers: Depression Type: unspecified Qualified Code(s): F32.A - Depression, unspecified (6) Neuropathy Status: Acute Brief History of Present Illness: 64-year-old female with a past medical history of hypertension, hyperlipidemia, diabetes, presents to the emergency room with abdominal pain. She reports epi gastric abdominal pain, symptoms started this morning, she reports associated nausea vomiting worse with p.o. intake. She denies fever, chills, she reports being on Mounjaro for 3 months, has lost 25 pounds, she reports no history of alcohol use intake. Plan to admit for enteritis, nausea vomiting diarrhea, elevated bated lipase. - Physical Exam General: Alert, Oriented x3, Mild distress HEENT: Atraumatic, Normocephalic Neck: Supple, 2+ carotid pulse no bruit Respiratory: Clear to auscultation bilaterally, Normal air movement Cardiovascular: Normal pulses, Regular rate/rhythm Capillary refill: <2 Seconds Gastrointestinal: Other (epigastric tenderness) Musculoskeletal: No swelling, No contractures Integumentary: No significant lesion, No tenderness/swelling Neurological: Normal speech, Normal strength at 5/5 x4 extr Hospital Course: 64-year-old female with a past medical history of hypertension, hyperlipidemia, diabetes, presents to the emergency room with abdominal pain. She reports epigastric abdominal pain, symptoms started this morning, she reports associated nausea vomiting worse with p.o. intake. She denies fever, chills, she reports being on Mounjaro for 3 months, has lost 25 pounds, she reports no history of alcohol use intake. Plan to admit for enteritis, nausea vomiting diarrhea, elevated bated lipase. She was admitted for IV antibiotics, IV fluids. As needed analgesics, tolerating diet, plan to advance diet, stable to discharge home, follow-up with PCP after discharge Discharged on p.o. steroids Resume home meds for hypertension, diabetes after discharge Assessment Abdominal pain, improved Mild pancreatitis resolved Enteritis, discharge on po steroids Sepsis resolved Hypertension resume home meds after discharge Diabetes resume home meds after discharge Depression resume home meds after discharge CT of the abdomen pelvis Fluid within nondilated bowel may indicate an enteritis Mild splenomegaly Continue home medicines as previously prescribed GOAL: Clear understanding of disease process INSTRUCTIONS: Physician Discharge Instructions: -Follow-up with GI after discharge -Follow-up with PCP in 1 to 2 weeks -Please call Dr. Mendiola at [phone] if any questions regarding hospital stay -Please call nursing station at [phone] if any nursing or medication questions -Return to the emergency room if symptoms worsen Diet: ADA, low sodium Activity: Fall precautions Vital Signs/Physical Exam: Temp Pulse Resp BP Pulse Ox 98.7 F 104 H 16 140/65 97 01/14/25 04:00 01/14/25 04:00 01/14/25 04:00 01/14/25 04:00 01/14/25 04:00 Laboratory Data at Discharge: WBC 13.10 thou/uL (4.3-10.9) H 01/14/25 05:03 Hgb 11.9 g/dL (12.0-15.0) L D 01/14/25 05:03 Hct 37.2 % (36.0-45.0) 01/14/25 05:03 Plt Count 275 thou/uL (152-406) 01/14/25 05:03 Sodium 142 mEq/L (136-145) 01/14/25 05:03 Potassium Cancelled 01/14/25 Unknown BUN 29 mg/dL (7-18) H 01/14/25 05:03 Creatinine 1.23 mg/dL (0.55-1.02) H 01/14/25 05:03 Glucose 109 mg/dL (74-106) H 01/14/25 05:03 Magnesium 1.9 mg/dL (1.6-2.4) 01/14/25 05:03 Total Bilirubin 0.6 mg/dL (0.2-1.0) 01/14/25 05:03 AST 15 U/L (15-37) 01/14/25 05:03 ALT 18 U/L (13-56) 01/14/25 05:03 Alkaline Phosphatase 81 U/L (45-117) 01/14/25 05:03 Triglycerides 114 mg/dL (<150) 01/14/25 05:03 Lipase 47 U/L (13-75) 01/14/25 05:03 Home Medications: Gabapentin 1,200 mg PO BID 03/10/21 Glimepiride 4 mg PO BID 03/10/21 Paroxetine HCl [Paxil] 40 mg PO BEDTIME 03/10/21 buPROPion HCL [Wellbutrin*] 150 mg PO DAILY 03/10/21 carvediloL [Coreg*] 12.5 mg PO BID 6AM 6PM #60 tab 04/03/21 Allopurinol 300 mg PO DAILY 08/07/22 L.acidoph,Paracasei, B.lactis [Probiotic] 1 each PO DAILY 08/07/22 Empagliflozin [Jardiance] 25 mg PO DAILY 09/06/24 Tirzepatide [Mounjaro] 10 mg SQ SEECOM 09/06/24 levoFLOXacin [Levaquin*] 500 mg PO DAILY #5 tab 09/08/24 Ondansetron [Zofran] 4 mg PO Q6H PRN #30 tab 01/14/25 Rosuvastatin [Crestor*] 20 mg PO BEDTIME 01/14/25 Tramadol HCl [Ultram] 50 mg PO TID PRN 01/14/25 predniSONE [Deltasone] 20 mg PO DAILY #5 tab 01/14/25 New Medications: predniSONE [Deltasone] 20 mg PO DAILY #5 tab Ondansetron [Zofran] 4 mg PO Q6H PRN #30 tab PRN Reason: Nausea / Vomiting Physician Discharge Instructions: 64-year-old female with a past medical history of hypertension, hyperlipidemia, diabetes, presents to the emergency room with abdominal pain. She reports epigastric abdominal pain, symptoms started this morning, she reports associated nausea vomiting worse with p.o. intake. She denies fever, chills, she reports being on Mounjaro for 3 months, has lost 25 pounds, she reports no history of alcohol use intake. Plan to admit for enteritis, nausea vomiting diarrhea, elevated bated lipase. She was admitted for IV antibiotics, IV fluids. As needed analgesics, tolerating diet, plan to advance diet, stable to discharge home, follow-up with PCP after discharge Discharged home on p.o. antibiotics Antiemetics Resume home meds for hypertension, diabetes after discharge Assessment Abdominal pain, improved with IV fluids, IV antibiotics, antiemetics, as needed analgesia Mild pancreatitis, treated with IV fluids, as needed analgesia, lipase trended to normal Enteritis, treated with IV antibiotics, discharged home on p.o. antibiotic Sepsis improved with IV antibiotic plan to discharge home with p.o. antibiotics Hypertension resume home meds after discharge Diabetes resume home meds after discharge Depression resume home meds after discharge CT of the abdomen pelvis Fluid within nondilated bowel may indicate an enteritis Mild splenomegaly Continue home medicines as previously prescribed GOAL: Clear understanding of disease process INSTRUCTIONS: Physician Discharge Instructions: -Follow-up with GI after discharge -Follow-up with PCP in 1 to 2 weeks -Please call Dr. Mendiola at [phone] if any questions regarding hospital stay -Please call nursing station at [phone] if any nursing or medication questions -Return to the emergency room if symptoms worsen Diet: ADA, low sodium Activity: Fall precautions Followup: Noe Aleman MD [ACTIVE - CAN ADMIT] - 1-2 Weeks Matilde Canales FNP [Primary Care Provider] - 1-2 Weeks Time spent managing pt's care (in minutes): 45
[2025-01-14 08:55] VITALS: TEMP 98.6
[2025-01-14] MEDS: POTASSIUM 25 MEQ EFFERV TAB PO ONE (09:15)
[2025-01-14] MEDS: PANTOPRAZOLE 40 MG INJ IVP SCH (09:15)
[2025-01-14 12:30] VITALS: BP 138/66
[2025-01-14] MEDS ORDERED: HYDROCORTISONE SUC 100 MG INJ IV ONE (13:00)
[2025-01-14] MEDS ORDERED: WATER FOR INJ,STERILE 10 ML IV SCH (13:00)
[2025-01-14] MEDS ORDERED: ENOXAPARIN 40 MG/0.4 ML SQ SCH (17:00)
[2025-01-14] MEDS ORDERED: PIPER TAZO 3.375 GM in NA CHLORIDE 0.9% 100 ML IV SCH (18:00)
== END 2025-01-14 14:54 | disposition home or self-care (01) | DRG 871 ==
LOC: ER 14:09 → ERHOLD 17:20 → 2ND 01-14 01:22
PROVIDERS: ADMIT Hospitalist; ATTEND Hospitalist
DX: A41.9 Sepsis, unspecified organism (principal); K85.90 Acute pancreatitis without necrosis or infection, unspecified; N39.0 Urinary tract infection, site not specified; E11.21 Type 2 diabetes mellitus with diabetic nephropathy; I12.9 Hypertensive chronic kidney disease with stage 1 through stage 4 chronic kidney disease, or unspecified chronic kidney disease; N18.9 Chronic kidney disease, unspecified; E11.22 Type 2 diabetes mellitus with diabetic chronic kidney disease; E78.5 Hyperlipidemia, unspecified; I10 Essential (primary) hypertension; Z79.4 Long term (current) use of insulin
CPT/HCPCS: 36415; 74177; 80053; 81001; 82947; 83690; 83735; 84478; 85025; J0696; J1171; J1720; J1790; J2405; J2470; J7030; Q9967